=== PATIENT | female | born 1985 | race African-American/Black ===

== ENCOUNTER → 2018-03-12 | Outpatient (CLI) | payer OTHER, BC ==
[2014-05-02 18:45] VITALS: BP 137/90
--- NOTE | 2018-03-12 18:03 | KCIC ---
EXAM: Abdomen one view. HISTORY: Lower abdominal pain, constipation, nausea/vomiting. COMPARISON: None. FINDINGS: A frontal view of the abdomen is obtained. There are no distended small bowel loops. There is gas distally. Stool throughout the colon is consistent with constipation. There is a mild lumbar dextroscoliosis. IMPRESSION: 1. Findings consistent with mild constipation. No evidence of obstruction. Electronically signed by: Vasquez Mukherjee MD (03/12/2018 6:01 PM) [facility]
== END | disposition home or self-care (01) ==
LOC: KCIC 15:25
PROVIDERS: ATTEND Family Medicine
DX: K59.00 Constipation, unspecified (principal); M41.86 Other forms of scoliosis, lumbar region; R11.2 Nausea with vomiting, unspecified
CPT/HCPCS: 74018

== ENCOUNTER → 2018-03-20 | Outpatient (CLI) | payer OTHER, BC ==
[2014-05-02 18:45] VITALS: BP 137/90
--- NOTE | 2018-03-20 15:57 | KCIC ---
EXAM: Abdomen, 2 views. HISTORY: Pain. Constipation. COMPARISON: None. FINDINGS: Frontal upright and supine views of the abdomen are obtained. There is moderate colonic stool and large amount of colonic and small bowel gas. There is mild gaseous distention of the stomach. There is no free air. There is no clear transition point. IMPRESSION: 1. Distended air-filled loops of small bowel throughout the abdomen. This may be due to ileus or partial distal obstruction. 2. Moderate colonic stool. Electronically signed by: Bushra Ratliff MD (03/20/2018 3:54 PM) [place] [id number]
== END | disposition home or self-care (01) ==
LOC: KCIC 15:18
PROVIDERS: ATTEND Family Medicine
DX: R10.84 Generalized abdominal pain (principal)
CPT/HCPCS: 74021

== ENCOUNTER 2018-03-23 10:55 | Inpatient (IN) | payer BC, OTHER ==
[~2018-03-23] VITALS: Ht 165.1 cm; Wt 63.5 kg
[2018-03-23] VITALS (8 sets, daily range): BP systolic 94–138; BP diastolic 59–88
--- NOTE | 2018-03-23 11:21 | PHYS DOC ---
Past Medical History Past Medical History: No Pertinent History Past Surgical History: Other Additional Past Surgical Histo: left radial/ulnar repair Alcohol Use: Occasionally Drug Use: None Adult General Chief Complaint Chief Complaint: ABDOMINAL PAIN HPI HPI 32-year-old female presenting with periumbilical abdominal pain with a few episodes of nonbilious nonbloody emesis this started more than a week ago. Her pain is gotten worse over the past 4-5 days. Her vomiting was 2-3 days ago. She denies fevers or chills. She denies being . She is never had an abdominal surgery. She had x-rays performed in clinic which showed possible small bowel obstruction. Review of systems is negative for chest pain shortness of breath fevers or chills. All other review of systems is negative unless otherwise noted in history of present illness. ED course: 32-year-old female presenting with abdominal pain. On arrival the patient is saturating well on room air. Her heart rate is elevated at triage. Patient is given IV fluids. Blood work sent. CT abdomen pelvis ordered. CBC shows leukocytosis, mildly low potassium. Not . Urinalysis shows increased specific gravity with large blood moderate leuk esterase and negative nitrites. CT the abdomen pelvis shows 2 large rim-enhancing fluid collections in the pelvis suspicious for abscess either from ruptured appendicitis versus tubo-ovarian abscess. Also notedly having a small pneumothorax the right lung. Probable ileus versus partial small bowel obstruction on CT as well. Patient is nothing by mouth. I spoke with Dr. Richard our surgeon who came to see the patient. He thinks this is likely more related to [employer] more than ruptured appy. I spoke with Dr. Doll who evaluated the patient in the er. We will admit the patient to Dr. Doll. Dr. Richard will follow and saw the pt in the er as wall. I spoke with our blood splatter analyst who agrees with plan and thus far and will see the patient. We will place the patient in the intensive care unit for close monitoring. Further treatment of the pneumothorax given that it is small and not causing the patient to be hypoxic or in distress we will initiate [address] Doll will be responsible for order a repeat chest x-ray. Impression: 2 large rim-enhancing fluid collections, ruptured appendicitis versus tubo-ovarian abscess. Small pneumothorax at the right lung base. Tachycardia. Review of Systems Review of Systems SEE ABOVE. Current Medications Current Medications Current Medications Medications (Trade) Dose Ordered Sig/Frances Start Time Stop Time Status Last Admin Dose Admin Doxycycline Hyclate 100 mg/ Dextrose 100 ml @ 50 mls/hr 1X ONCE 03/23/18 13:30 03/23/18 15:29 03/23/18 14:32 50 MLS/HR Fentanyl Citrate (Fentanyl 2ml Vial) 50 mcg PRN Q30MIN PRN 03/23/18 11:45 03/23/18 14:33 DC 03/23/18 14:32 50 MCG Info (CONTRAST GIVEN -- Rx MONITORING) 1 each PRN DAILY PRN 03/23/18 12:00 03/25/18 11:59 Iohexol (Omnipaque 300 Mg/ml) 75 ml 1X ONCE 03/23/18 12:00 03/23/18 12:01 DC 03/23/18 12:30 75 ML Ondansetron HCl (Zofran) 4 mg 1X ONCE 03/23/18 11:45 03/23/18 11:46 DC 03/23/18 11:42 4 MG Piperacillin Sod/ Tazobactam Sod (Zosyn Per Pharmacy) 1 each PRN DAILY PRN 03/23/18 13:30 UNV Piperacillin Sod/ Tazobactam Sod 3.375 gm/Sodium Chloride 50 ml @ 100 mls/hr 1X ONCE 03/23/18 13:30 03/23/18 14:02 DC 03/23/18 13:48 100 MLS/HR Sodium Chloride 1,000 ml @ 1,000 mls/hr 1X ONCE 03/23/18 14:30 03/23/18 15:29 Allergies Allergies Allergies Coded Allergies Type Severity Reaction Last Updated Verified No Known Drug Allergies 05/02/14 No Physical Exam Physical Exam SEE ABOVE Constitutional: Well developed, well nourished, no acute distress, non-toxic appearance. HENT: Normocephalic, atraumatic, bilateral external ears normal, oropharynx moist, no oral exudates, nose normal. [] Eyes: PERRLA, EOMI, conjunctiva normal, no discharge. Neck: Normal range of motion, no tenderness, supple, no stridor. Cardiovascular:Heart rate regular rhythm, no murmur [] Lungs & Thorax: Bilateral breath sounds clear to auscultation [] Abdomen: Bowel sounds normal, soft, mild distention, mild ttp in the periumbilical region without guarding or rebound, no masses, no pulsatile masses. Skin: Warm, dry, no erythema, no rash. Back: No tenderness, no CVA tenderness. [] Extremities: No tenderness, no cyanosis, no clubbing, ROM intact, no edema. Neurologic: Alert and oriented X 3, normal motor function, normal sensory function, no focal deficits noted. [] Psychologic: Affect normal, judgement normal, mood normal. [] Current Patient Data Vital Signs Vital Signs Date Time Temp Pulse Resp B/P (MAP) Pulse Ox O2 Delivery O2 Flow Rate FiO2 03/23/18 14:32 20 03/23/18 13:00 102 129/81 (97) 99 Room Air 03/23/18 10:57 98.6 98.6 Lab Values Laboratory Tests Test 03/23/18 10:55 03/23/18 11:15 03/23/18 11:21 Urine Collection Type Void Urine Color Sultana Urine Clarity Cloudy Urine pH 6.0 Urine Specific Buckley >=1.030 Urine Protein 30 mg/dL (NEG-TRACE) Urine Glucose (UA) Negative mg/dL (NEG) Urine Ketones (Stick) 40 mg/dL (NEG) Urine Blood Large (NEG) Urine Nitrite Negative (NEG) Urine Bilirubin Small (NEG) Urine Urobilinogen Dipstick 0.2 mg/dL (0.2 mg/dL) Urine Leukocyte Esterase Moderate (NEG) Urine RBC 6-10 /HPF (0-2) Urine WBC 5-10 /HPF (0-4) Urine Squamous Epithelial Cells Mod /LPF Urine Amorphous Sediment Present /HPF Urine Bacteria Few /HPF (0-FEW) Urine Mucus Marked /LPF Serum Test, Qualitative Negative (NEG) White Blood Count 14.6 x10^3/uL (4.0-11.0) H Red Blood Count 4.42 x10^6/uL (3.50-5.40) Hemoglobin 14.5 g/dL (12.0-15.5) Hematocrit 42.7 % (36.0-47.0) Mean Corpuscular Volume 96 fL (79-100) Mean Corpuscular Hemoglobin 33 pg (25-35) Mean Corpuscular Hemoglobin Concent 34 g/dL (31-37) Red Cell Distribution Width 14.1 % (11.5-14.5) Platelet Count 309 x10^3/uL (140-400) Neutrophils (%) (Auto) 78 % (31-73) H Lymphocytes (%) (Auto) 6 % (24-48) L Monocytes (%) (Auto) 15 % (0-9) H Eosinophils (%) (Auto) 0 % (0-3) Basophils (%) (Auto) 0 % (0-3) Neutrophils # (Auto) 11.4 x10^3uL (1.8-7.7) H Lymphocytes # (Auto) 0.9 x10^3/uL (1.0-4.8) L Monocytes # (Auto) 2.2 x10^3/uL (0.0-1.1) H Eosinophils # (Auto) 0.0 x10^3/uL (0.0-0.7) Basophils # (Auto) 0.0 x10^3/uL (0.0-0.2) Segmented Neutrophils % 65 % (35-66) Band Neutrophils % 8 % (0-9) Lymphocytes % 14 % (24-48) L Monocytes % 13 % (0-10) H Platelet Estimate Adequate (ADEQUATE) Sodium Level 137 mmol/L (136-145) Potassium Level 3.3 mmol/L (3.5-5.1) L Chloride Level 99 mmol/L (98-107) Carbon Dioxide Level 31 mmol/L (21-32) Anion Gap 7 (6-14) Blood Urea Nitrogen 9 mg/dL (7-20) Creatinine 0.8 mg/dL (0.6-1.0) Estimated GFR (Cockcroft-Gault) 100.6 BUN/Creatinine Ratio 11 (6-20) Glucose Level 104 mg/dL (70-99) H Calcium Level 9.4 mg/dL (8.5-10.1) Total Bilirubin 0.4 mg/dL (0.2-1.0) Aspartate Amino Transferase (AST) 17 U/L (15-37) Alanine Aminotransferase (ALT) 21 U/L (14-59) Alkaline Phosphatase 83 U/L (46-116) Total Protein 7.5 g/dL (6.4-8.2) Albumin 2.9 g/dL (3.4-5.0) L Albumin/Globulin Ratio 0.6 (1.0-1.7) L Lipase 63 U/L (73-393) L POC Urine HCG, Qualitative Hcg negative (Negative) Laboratory Tests 03/23/18 11:15 Laboratory Tests 03/23/18 11:15 EKG EKG [] Radiology/Procedures Radiology/Procedures [] Course & Med Decision Making Course & Med Decision Making Pertinent Labs and Imaging studies reviewed. (See chart for details) [] Dragon Disclaimer Dragon Disclaimer This electronic medical record was generated, in whole or in part, using a voice recognition dictation system. Departure Departure Impression: Primary Impression: Abdominal pain Disposition: ADMITTED INPATIENT Condition: GUARDED Referrals: JOSE ALEJANDRO VILLA MD (PCP) MIRANDA VALLE MD Mar 23, 2018 11:21
[2018-03-23 11:28] LABS: BASO % 0 % (0-3); EOS % 0 % (0-3); HEMATOCRIT 42.7 % (36.0-47.0); HEMOGLOBIN 14.5 g/dL (12.0-15.5); LYMPH # 0.9 x10^3/uL (1.0-4.8); LYMPH % 6 % (24-48); MEAN CORPUSCULAR HEMOGLOBIN 33 pg (25-35); MEAN CORPUSCULAR HGB CONC 34 g/dL (31-37); MEAN CORPUSCULAR VOLUME 96 fL (79-100); MONO # 2.2 x10^3/uL (0.0-1.1); MONO % 15 % (0-9); NEUT # 11.4 x10^3uL (1.8-7.7); NEUT % 78 % (31-73); PLATELET COUNT 309 x10^3/uL (140-400); RED BLOOD COUNT 4.42 x10^6/uL (3.50-5.40); RED CELL DISTRIBUTION WIDTH 14.1 % (11.5-14.5); WHITE BLOOD COUNT 14.6 x10^3/uL (4.0-11.0)
[2018-03-23 11:29] LABS: BILIRUBIN,URINE SMALL (NEG); CLARITY,URINE CLOUDY; COLOR,URINE AMBER; NITRITE,URINE NEGATIVE (NEG); PROTEIN,URINE 30 mg/dL (NEG-TRACE); UROBILINOGEN,URINE 0.2 mg/dL (0.2 mg/dL)
[2018-03-23] MEDS ORDERED: IV NORMAL SALINE 1000ML BAG 1,000 ML IV SCH (11:31)
[2018-03-23 11:34] LABS: CALCIUM 9.4 mg/dL (8.5-10.1); CREATININE 0.8 mg/dL (0.6-1.0); GFR 100.6; POTASSIUM 3.3 mmol/L (3.5-5.1)
[2018-03-23 11:39] LABS: PREG TEST PT QUAL NEGATIVE (NEG)
[2018-03-23 11:40] LABS: ALBUMIN 2.9 g/dL (3.4-5.0); ALBUMIN/GLOBULIN RATIO 0.6 (1.0-1.7); TOTAL BILIRUBIN 0.4 mg/dL (0.2-1.0); TOTAL PROTEIN 7.5 g/dL (6.4-8.2)
[2018-03-23] MEDS: fentaNYL PF VIAL 100 MCG/2 ML VIAL IV PRN ×3 (11:42→14:32)
[2018-03-23] MEDS ORDERED: ONDANSETRON PF 4 MG/2 ML VIAL. IV ONE (11:45)
[2018-03-23 11:53] LABS: AMORPHOUS SEDIMENT,UR PRESENT /HPF; BACTERIA,URINE FEW /HPF (0-FEW); SQUAMOUS EPITHELIAL CELL,UR MOD /LPF
[2018-03-23] MEDS ORDERED: CONTRAST GIVEN. MC PRN (12:00)
[2018-03-23] MEDS ORDERED: IOHEXOL 300 MG/ML 100ML VIAL. IV ONE (12:00)
[2018-03-23 13:04] LABS: % BANDS 8 % (0-9); % LYMPHS 14 % (24-48); % MONOS 13 % (0-10); % SEGS 65 % (35-66); PLT ESTIMATE ADEQUATE (ADEQUATE)
[2018-03-23] MEDS ORDERED: PIPERACILLIN/TAZOBACTAM 3.375 GM in IV NORMAL SALINE 50ML 50 ML IV ONE (13:30)
[2018-03-23] MEDS ORDERED: PIP/TAZO PER PHARMACY MC PRN ×2 (13:30→15:30)
[2018-03-23] MEDS ORDERED: DOXYCYCLINE HYCLATE 100 MG in IV DEXTROSE 5% 100ML 100 ML IV ONE (13:30)
--- NOTE | 2018-03-23 13:34 | RAD ---
CT ABD PELV W/ IV CONTRST ONLY dated 03/23/2018 12:27 PM Indication: Abdominal pain.ABD PAIN, EVAL FOR SBO, OR APPY. Comparison: No comparison is available. Technique: Contiguous axial imaging of the abdomen and pelvis performed after the intravenous administration of 75 cc Omnipaque 300. No oral contrast administered. One or more of the following individualized dose reduction techniques were utilized for this examination: 1. Automated exposure control 2. Adjustment of the mA and/or kV according to patient size 3. Use of iterative reconstruction technique Findings: There are 2 fairly well defined large rim-enhancing fluid collections in the pelvis that appear to be intraperitoneal in location. The collection anteriorly measures approximately 3.5 x 11.3 x 11.1 cm. The collection located more posteriorly measures 8.3 x 8.3 x 9.5 cm. There are additional smaller rim-enhancing fluid collections posteriorly toward the right which are smaller and tubular in appearance. There is a tubular collection that extends to the right lower quadrant near the level of the cecal tip (coronal images 16 through 23) The urinary bladder is collapsed. There is a small amount of free fluid. There is some loculated fluid along the liver edge. Uterus is unremarkable. Neither ovary is clearly identified. No free air. Proximal small bowel is mildly dilated and fluid-filled. No definite small bowel wall thickening. There is mild wall thickening involving the sigmoid and descending colon. Mild scattered mesenteric lymphadenopathy. No significant retroperitoneal adenopathy. There is some mild thickening and nodularity along the peritoneal surfaces. Liver, spleen, pancreas, adrenal glands and kidneys are unremarkable. There is a small well-defined low-density focus at the upper pole right kidney, most consistent with cyst. There is also a tiny low-density focus in the central liver, likely cyst. No hydronephrosis. The gallbladder is unremarkable. Images of the lung bases show small pleural effusion on the left with pleural thickening. There is a small right-sided pneumothorax. Bone windows show no acute findings. IMPRESSION: 1. Two large rim-enhancing fluid collections in the pelvis, suspicious for abscess. The exact source is uncertain, although ruptured appendicitis or tubo-ovarian abscess would be the most likely considerations. 2. Small amount of free fluid with enhancement and nodularity along the peritoneal surfaces, suggestive of active peritonitis. Underlying ovarian malignancy with early pseudomyxoma peritonei is considered unlikely but cannot be completely excluded. 3. Small pneumothorax at the right base, of uncertain etiology. In the absence of known trauma, spontaneous pneumothorax or catamenial pneumothorax should be considered. Correlation for history of endometriosis. A chest CT may provide additional information. 4. Mildly dilated fluid-filled small bowel, likely related to ileus. Partial small bowel obstruction not excluded. There is some mild wall thickening of distal small bowel loops and colonic loops, likely reactive. 5. Borderline enlarged mesenteric lymph nodes, likely reactive. Results discussed with ER physician at approximately 1:30 PM on the day of the exam. Electronically signed by: Yariel Bernabe MD (03/23/2018 1:31 PM) [email or web address]
--- NOTE | 2018-03-23 14:00 | PDOC2 ---
CONSULT Date of Consult Date of Consult DATE: 03/23/18 TIME: 13:55 Reason for Consult Reason for Consult: Abdominal pain Referring Physician Referring Physician: Sharmila Identification/Chief Complaint Chief Complaint Abdominal pain with nausea vomiting Source Source: Patient History of Present Illness Reason for Visit: 32-year-old female who's had two-week history of constipation worsening over the last 4-5 days with increasing abdominal pain and nausea with vomiting. She just finished her menstrual cycle this week no history of endometriosis. No family history of ovarian cancer. Past Medical History Cardiovascular: No pertinent hx Pulmonary: No pertinent hx GI: No pertinent hx Heme/Onc: No pertinent hx Hepatobiliary: No pertinent hx Psych: No pertinent hx Rheumatologic: No pertinent hx Infectious disease: No pertinent hx ENT: No pertinent hx Renal/: No pertinent hx Endocrine: No pertinent hx Dermatology: No pertinent hx Past Surgical History Past Surgical History: Other (ulnar repair) Family History Family History: Cancer Social History No ALCOHOL: occassional Drugs: None Lives: with Family Current Problem List Problem List Problems Medical Problems: (1) Abdominal pain Status: Acute Current Medications Current Medications Current Medications Fentanyl Citrate (Fentanyl 2ml Vial) 50 mcg PRN Q30MIN PRN IV SEVERE PAIN Last administered on 03/23/18at 13:11; Start 03/23/18 at 11:45 Sodium Chloride 1,000 ml @ 1,000 mls/hr Q1H IV Last administered on at 11:42; Start 03/23/18 at 11:31; Stop 03/23/18 at 12:30; Status DC Ondansetron HCl (Zofran) 4 mg 1X ONCE IV Last administered on 03/23/18at 11:42 ; Start 03/23/18 at 11:45; Stop 03/23/18 at 11:46; Status DC Iohexol (Omnipaque 300 Mg/ml) 75 ml 1X ONCE IV Last administered on at 12:30; Start 03/23/18 at 12:00; Stop 03/23/18 at 12:01; Status DC Info (CONTRAST GIVEN -- Rx MONITORING) 1 each PRN DAILY PRN MC SEE COMMENTS; Start 03/23/18 at 12:00; Stop 03/25/18 at 11:59 Piperacillin Sod/ Tazobactam Sod (Zosyn Per Pharmacy) 1 each PRN DAILY PRN MC SEE COMMENTS; Start 03/23/18 at 13:30; Status UNV Doxycycline Hyclate 100 mg/ Dextrose 100 ml @ 50 mls/hr 1X ONCE IV ; Start at 13:30; Stop 03/23/18 at 15:29 Piperacillin Sod/ Tazobactam Sod 3.375 gm/Sodium Chloride 50 ml @ 100 mls/hr 1X ONCE IV Last administered on 03/23/18at 13:48; Start 03/23/18 at 13:30; Stop 03/23/18 at 13:59 Allergies Allergies: Coded Allergies: No Known Drug Allergies (Unverified , 05/02/14) ROS Gastrointestinal: Yes Nausea, Yes Vomiting, Yes Abdominal Pain Physical Exam General: Alert, Oriented X3, Cooperative, mild distress HEENT: Atraumatic, PERRLA, EOMI Lungs: Clear to auscultation, Normal air movement Heart: Regular rate, No murmurs Abdomen: Normal bowel sounds, Soft, Other (mildly distended tender to palpation periumbilical and low midline) Extremities: No edema Skin: No significant lesion Neuro: Normal speech Psych/Mental Status: Mental status NL Vitals VITALS Vital Signs Date Time Temp Pulse Resp B/P (MAP) Pulse Ox O2 Delivery O2 Flow Rate FiO2 03/23/18 13:11 20 03/23/18 13:00 102 129/81 (97) 99 Room Air 03/23/18 10:57 98.6 98.6 Labs Labs Laboratory Tests Test 03/23/18 10:55 03/23/18 11:15 03/23/18 11:21 Urine Collection Type Void Urine Color Sultana Urine Clarity Cloudy Urine pH 6.0 Urine Specific Lando >=1.030 Urine Protein 30 mg/dL (NEG-TRACE) Urine Glucose (UA) Negative mg/dL (NEG) Urine Ketones (Stick) 40 mg/dL (NEG) Urine Blood Large (NEG) Urine Nitrite Negative (NEG) Urine Bilirubin Small (NEG) Urine Urobilinogen Dipstick 0.2 mg/dL (0.2 mg/dL) Urine Leukocyte Esterase Moderate (NEG) Urine RBC 6-10 /HPF (0-2) Urine WBC 5-10 /HPF (0-4) Urine Squamous Epithelial Cells Mod /LPF Urine Amorphous Sediment Present /HPF Urine Bacteria Few /HPF (0-FEW) Urine Mucus Marked /LPF Serum Test, Qualitative Negative (NEG) White Blood Count 14.6 x10^3/uL (4.0-11.0) Red Blood Count 4.42 x10^6/uL (3.50-5.40) Hemoglobin 14.5 g/dL (12.0-15.5) Hematocrit 42.7 % (36.0-47.0) Mean Corpuscular Volume 96 fL (79-100) Mean Corpuscular Hemoglobin 33 pg (25-35) Mean Corpuscular Hemoglobin Concent 34 g/dL (31-37) Red Cell Distribution Width 14.1 % (11.5-14.5) Platelet Count 309 x10^3/uL (140-400) Neutrophils (%) (Auto) 78 % (31-73) Lymphocytes (%) (Auto) 6 % (24-48) Monocytes (%) (Auto) 15 % (0-9) Eosinophils (%) (Auto) 0 % (0-3) Basophils (%) (Auto) 0 % (0-3) Neutrophils # (Auto) 11.4 x10^3uL (1.8-7.7) Lymphocytes # (Auto) 0.9 x10^3/uL (1.0-4.8) Monocytes # (Auto) 2.2 x10^3/uL (0.0-1.1) Eosinophils # (Auto) 0.0 x10^3/uL (0.0-0.7) Basophils # (Auto) 0.0 x10^3/uL (0.0-0.2) Segmented Neutrophils % 65 % (35-66) Band Neutrophils % 8 % (0-9) Lymphocytes % 14 % (24-48) Monocytes % 13 % (0-10) Platelet Estimate Adequate (ADEQUATE) Sodium Level 137 mmol/L (136-145) Potassium Level 3.3 mmol/L (3.5-5.1) Chloride Level 99 mmol/L (98-107) Carbon Dioxide Level 31 mmol/L (21-32) Anion Gap 7 (6-14) Blood Urea Nitrogen 9 mg/dL (7-20) Creatinine 0.8 mg/dL (0.6-1.0) Estimated GFR (Cockcroft-Gault) 100.6 BUN/Creatinine Ratio 11 (6-20) Glucose Level 104 mg/dL (70-99) Calcium Level 9.4 mg/dL (8.5-10.1) Total Bilirubin 0.4 mg/dL (0.2-1.0) Aspartate Amino Transf (AST/SGOT) 17 U/L (15-37) Alanine Aminotransferase (ALT/SGPT) 21 U/L (14-59) Alkaline Phosphatase 83 U/L (46-116) Total Protein 7.5 g/dL (6.4-8.2) Albumin 2.9 g/dL (3.4-5.0) Albumin/Globulin Ratio 0.6 (1.0-1.7) Lipase 63 U/L (73-393) Bedside Urine HCG, Qualitative Hcg negative (Negative) Laboratory Tests Test 03/23/18 10:55 03/23/18 11:15 03/23/18 11:21 Urine Collection Type Void Urine Color Sultana Urine Clarity Cloudy Urine pH 6.0 Urine Specific Lando >=1.030 Urine Protein 30 mg/dL (NEG-TRACE) Urine Glucose (UA) Negative mg/dL (NEG) Urine Ketones (Stick) 40 mg/dL (NEG) Urine Blood Large (NEG) Urine Nitrite Negative (NEG) Urine Bilirubin Small (NEG) Urine Urobilinogen Dipstick 0.2 mg/dL (0.2 mg/dL) Urine Leukocyte Esterase Moderate (NEG) Urine RBC 6-10 /HPF (0-2) Urine WBC 5-10 /HPF (0-4) Urine Squamous Epithelial Cells Mod /LPF Urine Amorphous Sediment Present /HPF Urine Bacteria Few /HPF (0-FEW) Urine Mucus Marked /LPF Serum Test, Qualitative Negative (NEG) White Blood Count 14.6 x10^3/uL (4.0-11.0) Red Blood Count 4.42 x10^6/uL (3.50-5.40) Hemoglobin 14.5 g/dL (12.0-15.5) Hematocrit 42.7 % (36.0-47.0) Mean Corpuscular Volume 96 fL (79-100) Mean Corpuscular Hemoglobin 33 pg (25-35) Mean Corpuscular Hemoglobin Concent 34 g/dL (31-37) Red Cell Distribution Width 14.1 % (11.5-14.5) Platelet Count 309 x10^3/uL (140-400) Neutrophils (%) (Auto) 78 % (31-73) Lymphocytes (%) (Auto) 6 % (24-48) Monocytes (%) (Auto) 15 % (0-9) Eosinophils (%) (Auto) 0 % (0-3) Basophils (%) (Auto) 0 % (0-3) Neutrophils # (Auto) 11.4 x10^3uL (1.8-7.7) Lymphocytes # (Auto) 0.9 x10^3/uL (1.0-4.8) Monocytes # (Auto) 2.2 x10^3/uL (0.0-1.1) Eosinophils # (Auto) 0.0 x10^3/uL (0.0-0.7) Basophils # (Auto) 0.0 x10^3/uL (0.0-0.2) Segmented Neutrophils % 65 % (35-66) Band Neutrophils % 8 % (0-9) Lymphocytes % 14 % (24-48) Monocytes % 13 % (0-10) Platelet Estimate Adequate (ADEQUATE) Sodium Level 137 mmol/L (136-145) Potassium Level 3.3 mmol/L (3.5-5.1) Chloride Level 99 mmol/L (98-107) Carbon Dioxide Level 31 mmol/L (21-32) Anion Gap 7 (6-14) Blood Urea Nitrogen 9 mg/dL (7-20) Creatinine 0.8 mg/dL (0.6-1.0) Estimated GFR (Cockcroft-Gault) 100.6 BUN/Creatinine Ratio 11 (6-20) Glucose Level 104 mg/dL (70-99) Calcium Level 9.4 mg/dL (8.5-10.1) Total Bilirubin 0.4 mg/dL (0.2-1.0) Aspartate Amino Transf (AST/SGOT) 17 U/L (15-37) Alanine Aminotransferase (ALT/SGPT) 21 U/L (14-59) Alkaline Phosphatase 83 U/L (46-116) Total Protein 7.5 g/dL (6.4-8.2) Albumin 2.9 g/dL (3.4-5.0) Albumin/Globulin Ratio 0.6 (1.0-1.7) Lipase 63 U/L (73-393) Bedside Urine HCG, Qualitative Hcg negative (Negative) Images Images CT scan of the abdomen and pelvis showing 2 large fluid collections low in the midline pelvis as well as some nodules on the pleura with a small pneumothorax Assessment/Plan Assessment/Plan Pelvic fluid collection possible malignancy Awaiting [employer]AL [employer]ICATION 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
--- NOTE | 2018-03-23 14:25 | RAD ---
CHEST AP ONLY dated 03/23/2018 2:01 PM. Comparison: CT abdomen pelvis dated same day. Clinical Indication: ABDOMINAL PAIN, CONSTIPATION X2 WEEKS. Findings: Single upright portable exam performed. Heart and mediastinal contours within normal limits. There is a small apical pneumothorax on the right measures about 1.8 cm from the pleural edge to the apical chest wall. No pneumothorax on the left. The lungs are otherwise clear. No pleural effusion. Mildly dilated loops of bowel, unchanged. Impression: Small right apical pneumothorax. Electronically signed by: Yariel Bernabe MD (03/23/2018 2:22 PM) [email or web address]
[2018-03-23] MEDS ORDERED: IV NORMAL SALINE 1000ML BAG 1,000 ML IV ONE (14:30)
[2018-03-23] MEDS ORDERED: DOCUSATE SODIUM 100 MG CAPSULE. PO PRN (15:30)
[2018-03-23] MEDS ORDERED: MORPHINE SULFATE 2 MG/ML VIAL. IV PRN (15:30)
[2018-03-23] MEDS ORDERED: ACETAMINOPHEN 325 MG TABLET. PO PRN (15:30)
--- NOTE | 2018-03-23 15:37 | PDOC1 ---
History and Physical Date of Admission Date of Admission 03/23/18 Identification/Chief Complaint Chief Complaint abd pain Source Source: Chart review, Patient History of Present Illness History of Present Illness HPI HPI 32-year-old female presenting with periumbilical abdominal pain fro 2 weeks, and N/V for 4ds. Pt was pretty healthy, no PMH. Pt started to have diffuse abd pain 2 weeks ago, constant, move and changing positions makes it worse. The pain is dull, 5/10, no radiation. worse for 4ds. She also has N/V 3 times on Monday, non bloody or brad. has severe abd distention. denies fever, has chills, no cough, has mild sob on Monday. no chest pain. had one time diarrhea yesterday, yellow. She had x-rays performed in clinic which showed possible small bowel obstruction. CT showed abd has Two large rim-enhancing fluid collections in the pelvis, suspicious for abscess. The exact source is uncertain, although ruptured appendicitis or tubo-ovarian abscess would be the most likely considerations. and small rt pneumothorax. Past Medical History Cardiovascular: No pertinent hx Pulmonary: No pertinent hx GI: No pertinent hx Heme/Onc: No pertinent hx Hepatobiliary: No pertinent hx Psych: No pertinent hx Rheumatologic: No pertinent hx Infectious disease: No pertinent hx ENT: No pertinent hx Renal/: No pertinent hx Endocrine: No pertinent hx Dermatology: No pertinent hx Past Surgical History Past Surgical History: Other (ulnar repair) Family History Family History: Cancer Social History Smoke: No ALCOHOL: occassional Drugs: None Current Problem List Problem List Problems Medical Problems: (1) Abdominal pain Status: Acute Current Medications Current Medications Current Medications Medications (Trade) Dose Ordered Sig/Frances Start Time Stop Time Status Last Admin Dose Admin Doxycycline Hyclate 100 mg/ Dextrose 100 ml @ 50 mls/hr 1X ONCE 03/23/18 13:30 03/23/18 15:29 03/23/18 14:32 50 MLS/HR Fentanyl Citrate (Fentanyl 2ml Vial) 50 mcg PRN Q30MIN PRN 03/23/18 11:45 03/23/18 14:33 DC 03/23/18 14:32 50 MCG Info (CONTRAST GIVEN -- Rx MONITORING) 1 each PRN DAILY PRN 03/23/18 12:00 03/25/18 11:59 Iohexol (Omnipaque 300 Mg/ml) 75 ml 1X ONCE 03/23/18 12:00 03/23/18 12:01 DC 03/23/18 12:30 75 ML Ondansetron HCl (Zofran) 4 mg 1X ONCE 03/23/18 11:45 03/23/18 11:46 DC 03/23/18 11:42 4 MG Piperacillin Sod/ Tazobactam Sod (Zosyn Per Pharmacy) 1 each PRN DAILY PRN 03/23/18 13:30 UNV Piperacillin Sod/ Tazobactam Sod 3.375 gm/Sodium Chloride 50 ml @ 100 mls/hr 1X ONCE 03/23/18 13:30 03/23/18 14:02 DC 03/23/18 13:48 100 MLS/HR Sodium Chloride 1,000 ml @ 1,000 mls/hr 1X ONCE 03/23/18 14:30 03/23/18 15:29 Allergies Allergies Allergies Coded Allergies Type Severity Reaction Last Updated Verified No Known Drug Allergies 05/02/14 No ROS Review of System CONSTITUTIONAL: No fever or chills EYES: No recent changes SKIN: No rash or itching CARDIOVASCULAR: No chest pain, syncope, palpitations, or edema RESPIRATORY: No SOB or cough GASTROINTESTINAL: No nausea, vomiting or abdominal pain NEUROLOGICAL: No headaches or weakness ENDOCRINE: No cold or heat intolerance GENITOURINARY: No urgency or frequency of urination MUSCULOSKELETAL: No back pain or joint pain LYMPHATICS: No enlarged lymph nodes PSYCHIATRIC: No anxiety or depression Physical Exam Physical Exam GEN.: No apparent distress. Alert and oriented. HEENT: Head is normocephalic, atraumatic NECK: Supple. LUNGS: Clear to auscultation. HEART: RRR, S1, S2 present. Peripheral pulses intact ABDOMEN: Soft, Positive bowel sounds. severe distended, diffuse tender with guarding. EXTREMITIES: Without any cyanosis. NEUROLOGIC: Normal speech, normal tone PSYCHIATRIC: Normal affect, normal mood. SKIN: No ulcerations Vitals Vitals Vital Signs Date Time Temp Pulse Resp B/P (MAP) Pulse Ox O2 Delivery O2 Flow Rate FiO2 03/23/18 14:32 20 03/23/18 13:00 102 129/81 (97) 99 Room Air 03/23/18 10:57 98.6 98.6 Labs Labs Laboratory Tests Test 03/23/18 10:55 03/23/18 11:15 03/23/18 11:21 Urine Collection Type Void Urine Color Sultana Urine Clarity Cloudy Urine pH 6.0 Urine Specific [place] >=1.030 Urine Protein 30 mg/dL (NEG-TRACE) Urine Glucose (UA) Negative mg/dL (NEG) Urine Ketones (Stick) 40 mg/dL (NEG) Urine Blood Large (NEG) Urine Nitrite Negative (NEG) Urine Bilirubin Small (NEG) Urine Urobilinogen Dipstick 0.2 mg/dL (0.2 mg/dL) Urine Leukocyte Esterase Moderate (NEG) Urine RBC 6-10 /HPF (0-2) Urine WBC 5-10 /HPF (0-4) Urine Squamous Epithelial Cells Mod /LPF Urine Amorphous Sediment Present /HPF Urine Bacteria Few /HPF (0-FEW) Urine Mucus Marked /LPF Serum Test, Qualitative Negative (NEG) White Blood Count 14.6 x10^3/uL (4.0-11.0) Red Blood Count 4.42 x10^6/uL (3.50-5.40) Hemoglobin 14.5 g/dL (12.0-15.5) Hematocrit 42.7 % (36.0-47.0) Mean Corpuscular Volume 96 fL (79-100) Mean Corpuscular Hemoglobin 33 pg (25-35) Mean Corpuscular Hemoglobin Concent 34 g/dL (31-37) Red Cell Distribution Width 14.1 % (11.5-14.5) Platelet Count 309 x10^3/uL (140-400) Neutrophils (%) (Auto) 78 % (31-73) Lymphocytes (%) (Auto) 6 % (24-48) Monocytes (%) (Auto) 15 % (0-9) Eosinophils (%) (Auto) 0 % (0-3) Basophils (%) (Auto) 0 % (0-3) Neutrophils # (Auto) 11.4 x10^3uL (1.8-7.7) Lymphocytes # (Auto) 0.9 x10^3/uL (1.0-4.8) Monocytes # (Auto) 2.2 x10^3/uL (0.0-1.1) Eosinophils # (Auto) 0.0 x10^3/uL (0.0-0.7) Basophils # (Auto) 0.0 x10^3/uL (0.0-0.2) Segmented Neutrophils % 65 % (35-66) Band Neutrophils % 8 % (0-9) Lymphocytes % 14 % (24-48) Monocytes % 13 % (0-10) Platelet Estimate Adequate (ADEQUATE) Sodium Level 137 mmol/L (136-145) Potassium Level 3.3 mmol/L (3.5-5.1) Chloride Level 99 mmol/L (98-107) Carbon Dioxide Level 31 mmol/L (21-32) Anion Gap 7 (6-14) Blood Urea Nitrogen 9 mg/dL (7-20) Creatinine 0.8 mg/dL (0.6-1.0) Estimated GFR (Cockcroft-Gault) 100.6 BUN/Creatinine Ratio 11 (6-20) Glucose Level 104 mg/dL (70-99) Calcium Level 9.4 mg/dL (8.5-10.1) Total Bilirubin 0.4 mg/dL (0.2-1.0) Aspartate Amino Transf (AST/SGOT) 17 U/L (15-37) Alanine Aminotransferase (ALT/SGPT) 21 U/L (14-59) Alkaline Phosphatase 83 U/L (46-116) Total Protein 7.5 g/dL (6.4-8.2) Albumin 2.9 g/dL (3.4-5.0) Albumin/Globulin Ratio 0.6 (1.0-1.7) Lipase 63 U/L (73-393) Bedside Urine HCG, Qualitative Hcg negative (Negative) Laboratory Tests Test 03/23/18 10:55 03/23/18 11:15 03/23/18 11:21 Urine Collection Type Void Urine Color Sultana Urine Clarity Cloudy Urine pH 6.0 Urine Specific [place] >=1.030 Urine Protein 30 mg/dL (NEG-TRACE) Urine Glucose (UA) Negative mg/dL (NEG) Urine Ketones (Stick) 40 mg/dL (NEG) Urine Blood Large (NEG) Urine Nitrite Negative (NEG) Urine Bilirubin Small (NEG) Urine Urobilinogen Dipstick 0.2 mg/dL (0.2 mg/dL) Urine Leukocyte Esterase Moderate (NEG) Urine RBC 6-10 /HPF (0-2) Urine WBC 5-10 /HPF (0-4) Urine Squamous Epithelial Cells Mod /LPF Urine Amorphous Sediment Present /HPF Urine Bacteria Few /HPF (0-FEW) Urine Mucus Marked /LPF Serum Test, Qualitative Negative (NEG) White Blood Count 14.6 x10^3/uL (4.0-11.0) Red Blood Count 4.42 x10^6/uL (3.50-5.40) Hemoglobin 14.5 g/dL (12.0-15.5) Hematocrit 42.7 % (36.0-47.0) Mean Corpuscular Volume 96 fL (79-100) Mean Corpuscular Hemoglobin 33 pg (25-35) Mean Corpuscular Hemoglobin Concent 34 g/dL (31-37) Red Cell Distribution Width 14.1 % (11.5-14.5) Platelet Count 309 x10^3/uL (140-400) Neutrophils (%) (Auto) 78 % (31-73) Lymphocytes (%) (Auto) 6 % (24-48) Monocytes (%) (Auto) 15 % (0-9) Eosinophils (%) (Auto) 0 % (0-3) Basophils (%) (Auto) 0 % (0-3) Neutrophils # (Auto) 11.4 x10^3uL (1.8-7.7) Lymphocytes # (Auto) 0.9 x10^3/uL (1.0-4.8) Monocytes # (Auto) 2.2 x10^3/uL (0.0-1.1) Eosinophils # (Auto) 0.0 x10^3/uL (0.0-0.7) Basophils # (Auto) 0.0 x10^3/uL (0.0-0.2) Segmented Neutrophils % 65 % (35-66) Band Neutrophils % 8 % (0-9) Lymphocytes % 14 % (24-48) Monocytes % 13 % (0-10) Platelet Estimate Adequate (ADEQUATE) Sodium Level 137 mmol/L (136-145) Potassium Level 3.3 mmol/L (3.5-5.1) Chloride Level 99 mmol/L (98-107) Carbon Dioxide Level 31 mmol/L (21-32) Anion Gap 7 (6-14) Blood Urea Nitrogen 9 mg/dL (7-20) Creatinine 0.8 mg/dL (0.6-1.0) Estimated GFR (Cockcroft-Gault) 100.6 BUN/Creatinine Ratio 11 (6-20) Glucose Level 104 mg/dL (70-99) Calcium Level 9.4 mg/dL (8.5-10.1) Total Bilirubin 0.4 mg/dL (0.2-1.0) Aspartate Amino Transf (AST/SGOT) 17 U/L (15-37) Alanine Aminotransferase (ALT/SGPT) 21 U/L (14-59) Alkaline Phosphatase 83 U/L (46-116) Total Protein 7.5 g/dL (6.4-8.2) Albumin 2.9 g/dL (3.4-5.0) Albumin/Globulin Ratio 0.6 (1.0-1.7) Lipase 63 U/L (73-393) Bedside Urine HCG, Qualitative Hcg negative (Negative) VTE Prophylaxis Ordered VTE Prophylaxis Devices: Yes VTE Pharmacological Prophylaxi: No Assessment/Plan Assessment/Plan abd pain with [address] big [address] collection in CT, could 2/2 abcess with organ rupture or malignancy possible sepsis mild malnutrition small rt pneumothorax hypokalemia plan: sx, ob, pulm , ID consult NC as needed npo Alhaji werner for now, fu bcx pt likely need abd sx pain control dvt gi ppx CXR TMR VENUS HUDSON MD Mar 23, 2018 15:37
--- NOTE | 2018-03-23 16:31 | PDOC2 ---
CONSULT Date of Consult Date of Consult DATE: 03/23/18 TIME: 16:24 Reason for Consult Reason for Consult: abd abscesses Referring Physician Referring Physician: Dr. Doll Identification/Chief Complaint Chief Complaint Abd pain, distention and night sweats. Source Source: Patient History of Present Illness Reason for Visit: 32 y/o G0 presented to ED with c/o abd distention, abd pain and night sweats for past 3 days. She is in process of conception with NIRANJAN. She has HSG in February that revealed 1 patent tube and questionable other tube per patient. She has h/o Chlamydia a few years ago that was treated. CT scan results and labs discussed with patient. Plan for IV abx and exploratory laparotomy early next week. Past Medical History Cardiovascular: No pertinent hx Pulmonary: No pertinent hx GI: No pertinent hx Heme/Onc: No pertinent hx Hepatobiliary: No pertinent hx Psych: No pertinent hx Rheumatologic: No pertinent hx Infectious disease: No pertinent hx ENT: No pertinent hx Renal/: No pertinent hx Endocrine: No pertinent hx Dermatology: No pertinent hx Past Surgical History Past Surgical History: Other (ulnar repair) Family History Family History: Cancer Social History No ALCOHOL: occassional Drugs: None Lives: with Family Current Problem List Problem List Problems Medical Problems: (1) Abdominal pain Status: Acute Current Medications Current Medications Current Medications Fentanyl Citrate (Fentanyl 2ml Vial) 50 mcg PRN Q30MIN PRN IV SEVERE PAIN Last administered on 03/23/18at 14:32; Start 03/23/18 at 11:45; Stop 03/23/18 at 14 :33; Status DC Sodium Chloride 1,000 ml @ 1,000 mls/hr Q1H IV Last administered on at 11:42; Start 03/23/18 at 11:31; Stop 03/23/18 at 12:30; Status DC Ondansetron HCl (Zofran) 4 mg 1X ONCE IV Last administered on 03/23/18at 11:42 ; Start 03/23/18 at 11:45; Stop 03/23/18 at 11:46; Status DC Iohexol (Omnipaque 300 Mg/ml) 75 ml 1X ONCE IV Last administered on at 12:30; Start 03/23/18 at 12:00; Stop 03/23/18 at 12:01; Status DC Info (CONTRAST GIVEN -- Rx MONITORING) 1 each PRN DAILY PRN MC SEE COMMENTS; Start 03/23/18 at 12:00; Stop 03/25/18 at 11:59 Piperacillin Sod/ Tazobactam Sod (Zosyn Per Pharmacy) 1 each PRN DAILY PRN MC SEE COMMENTS; Start 03/23/18 at 13:30; Status UNV Doxycycline Hyclate 100 mg/ Dextrose 100 ml @ 50 mls/hr 1X ONCE IV Last administered on 03/23/18at 14:32; Start 03/23/18 at 13:30; Stop 03/23/18 at 15 :29; Status DC Piperacillin Sod/ Tazobactam Sod 3.375 gm/Sodium Chloride 50 ml @ 100 mls/hr 1X ONCE IV Last administered on 03/23/18at 13:48; Start 03/23/18 at 13:30; Stop 03/23/18 at 14:02; Status DC Sodium Chloride 1,000 ml @ 1,000 mls/hr 1X ONCE IV ; Start 03/23/18 at 14:30 ; Stop 03/23/18 at 15:29; Status DC Acetaminophen (Tylenol) 650 mg PRN Q6HRS PRN PO FEVER; Start 03/23/18 at 15:30 Ondansetron HCl (Zofran) 4 mg PRN Q6HRS PRN IV NAUSEA/VOMITING; Start at 15:30 Morphine Sulfate (Morphine Sulfate) 2 mg PRN Q2HR PRN IV MODERATE TO SEVERE PAIN; Start 03/23/18 at 15:30; Status UNV Tramadol HCl (Ultram) 50 mg PRN Q6HRS PRN PO MILD TO MODERATE PAIN; Start at 15:30 Docusate Sodium (Colace) 100 mg PRN DAILY PRN PO CONSTIPATION; Start 03/23/18 at 15:30 Piperacillin Sod/ Tazobactam Sod 4.5 gm/Sodium Chloride 100 ml @ 200 mls/hr Q6HRS IV ; Start 03/23/18 at 18:00 Piperacillin Sod/ Tazobactam Sod (Zosyn Per Pharmacy) 1 each PRN DAILY PRN MC SEE COMMENTS; Start 03/23/18 at 15:30 Morphine Sulfate (Morphine Sulfate) 2 mg PRN Q2HR PRN IV PAIN; Start 03/23/18 at 15:30 Morphine Sulfate (Morphine Sulfate) 4 mg PRN Q2HR PRN IV PAIN; Start 03/23/18 at 15:30 Potassium Chloride/Dextrose/ Sod Cl 1,000 ml @ 75 mls/hr [id number] IV ; Start at 15:30 Famotidine (Pepcid Vial) 20 mg QHS IVP ; Start 03/23/18 at 21:00 Heparin Sodium (Porcine) (Heparin Sodium) 5,000 unit Q8HRS SQ ; Start 03/23/18 at 16:00 Allergies Allergies: Coded Allergies: No Known Drug Allergies (Unverified , 05/02/14) ROS General: YES: Night Sweats; No: Chills, Fatigue, Malaise, Appetite, Other PSYCHOLOGICAL ROS: No: Anxiety, Behavioral Disorder, Concentration difficultie , Decreased libido, Depression, Disorientation, Hallucinations, Hostility, Irritablity, Memory difficulties, Mood Swings, Obsessive thoughts, Physical abuse, Sexual abuse, Sleep disturbances, Suicidal ideation, Other Eyes: No Blurry vision, No Decreased vision, No Double vision, No Dry eyes, No Excessive tearing, No Eye Pain, No Itchy Eyes, No Loss of vision, No Photophobia , No Scotomata, No Uses contacts, No Uses glasses, No Other HEENT: No: Heacaches, Visual Changes, Hearing change, Nasal congestion, Nasal discharge, Oral lesions, Sinus pain, Sore Throat, Epistaxis, Sneezing, Snoring, Tinnitus, Vertigo, Vocal changes, Other ALLERGY AND IMMUNOLOGY: No: Hives, Insect Bite Sensitivity, Itchy/Watery Eyes, Nasal Congestion, Post Nasal Drip, Seasonal Allergies, Other Hematological and Lymphatic: No: Bleeding Problems, Blood Clots, Blood Transfusions, Brusing, Night Sweats, Pallor, Swollen Lymph Nodes, Other ENDOCRINE: No: Breast Changes, Galactorrhea, Hair Pattern Changes, Hot Flashes , Malaise/lethargy, Mood Swings, Palpitations, Polydipsia/polyuria, Skin Changes , Temperature Intolerance, Unexpected Weight Changes, Other Breast: No New/Changing Breast Lumps, No Nipple changes, No Nipple discharge, No Other Respiratory: YES: SOB with excertion Cardiovascular: No Chest Pain, No Palpitations, No Orthopnea, No Paroxysmal Noc. Dyspnea, No Edema, No Lt Headedness, No Other Gastrointestinal: Yes Abdominal Pain; No Nausea, No Vomiting, No Diarrhea, No Constipation, No Melena, No Hematochezia, No Other Genitourinary: No Dysuria, No Frequency, No Incontinence, No Hematuria, No Retention, No Discharge, No Urgency, No Pain, No Flank Pain, No Other, No , No , No , No , No , No , No Neurological: No Behavorial Changes, No Bowel/Bladder ControlChng, No Confusion , No Dizziness, No Gait Disturbance, No Headaches, No Impaired Coord/balance, No Memory Loss, No Numbness/Tingling, No Seizures, No Speech Problems, No Tremors, No Visual Changes, No Weakness, No Other Skin: No Dry Skin, No Eczema, No Hair Changes, No Lumps, No Mole Changes, No Mottling, No Nail Changes, No Pruritus, No Rash, No Skin Lesion Changes, No Other, No Acne Physical Exam General: Alert, Oriented X3, Cooperative HEENT: Atraumatic Lungs: Clear to auscultation Heart: Regular rate Abdomen: Soft, Other (abd distention with mild tenderness) Psych/Mental Status: Mental status NL Vitals VITALS Vital Signs Date Time Temp Pulse Resp B/P (MAP) Pulse Ox O2 Delivery O2 Flow Rate FiO2 03/23/18 16:00 100 20 100 NonRebreather Mask 15.0 03/23/18 15:00 129/88 (102) 03/23/18 10:57 98.6 98.6 Labs Labs Laboratory Tests Test 03/23/18 10:55 03/23/18 11:15 03/23/18 11:21 Urine Collection Type Void Urine Color Sultana Urine Clarity Cloudy Urine pH 6.0 Urine Specific [place] >=1.030 Urine Protein 30 mg/dL (NEG-TRACE) Urine Glucose (UA) Negative mg/dL (NEG) Urine Ketones (Stick) 40 mg/dL (NEG) Urine Blood Large (NEG) Urine Nitrite Negative (NEG) Urine Bilirubin Small (NEG) Urine Urobilinogen Dipstick 0.2 mg/dL (0.2 mg/dL) Urine Leukocyte Esterase Moderate (NEG) Urine RBC 6-10 /HPF (0-2) Urine WBC 5-10 /HPF (0-4) Urine Squamous Epithelial Cells Mod /LPF Urine Amorphous Sediment Present /HPF Urine Bacteria Few /HPF (0-FEW) Urine Mucus Marked /LPF Serum Test, Qualitative Negative (NEG) White Blood Count 14.6 x10^3/uL (4.0-11.0) Red Blood Count 4.42 x10^6/uL (3.50-5.40) Hemoglobin 14.5 g/dL (12.0-15.5) Hematocrit 42.7 % (36.0-47.0) Mean Corpuscular Volume 96 fL (79-100) Mean Corpuscular Hemoglobin 33 pg (25-35) Mean Corpuscular Hemoglobin Concent 34 g/dL (31-37) Red Cell Distribution Width 14.1 % (11.5-14.5) Platelet Count 309 x10^3/uL (140-400) Neutrophils (%) (Auto) 78 % (31-73) Lymphocytes (%) (Auto) 6 % (24-48) Monocytes (%) (Auto) 15 % (0-9) Eosinophils (%) (Auto) 0 % (0-3) Basophils (%) (Auto) 0 % (0-3) Neutrophils # (Auto) 11.4 x10^3uL (1.8-7.7) Lymphocytes # (Auto) 0.9 x10^3/uL (1.0-4.8) Monocytes # (Auto) 2.2 x10^3/uL (0.0-1.1) Eosinophils # (Auto) 0.0 x10^3/uL (0.0-0.7) Basophils # (Auto) 0.0 x10^3/uL (0.0-0.2) Segmented Neutrophils % 65 % (35-66) Band Neutrophils % 8 % (0-9) Lymphocytes % 14 % (24-48) Monocytes % 13 % (0-10) Platelet Estimate Adequate (ADEQUATE) Sodium Level 137 mmol/L (136-145) Potassium Level 3.3 mmol/L (3.5-5.1) Chloride Level 99 mmol/L (98-107) Carbon Dioxide Level 31 mmol/L (21-32) Anion Gap 7 (6-14) Blood Urea Nitrogen 9 mg/dL (7-20) Creatinine 0.8 mg/dL (0.6-1.0) Estimated GFR (Cockcroft-Gault) 100.6 BUN/Creatinine Ratio 11 (6-20) Glucose Level 104 mg/dL (70-99) Calcium Level 9.4 mg/dL (8.5-10.1) Total Bilirubin 0.4 mg/dL (0.2-1.0) Aspartate Amino Transf (AST/SGOT) 17 U/L (15-37) Alanine Aminotransferase (ALT/SGPT) 21 U/L (14-59) Alkaline Phosphatase 83 U/L (46-116) Total Protein 7.5 g/dL (6.4-8.2) Albumin 2.9 g/dL (3.4-5.0) Albumin/Globulin Ratio 0.6 (1.0-1.7) Lipase 63 U/L (73-393) Bedside Urine HCG, Qualitative Hcg negative (Negative) Laboratory Tests Test 03/23/18 10:55 03/23/18 11:15 03/23/18 11:21 Urine Collection Type Void Urine Color [place]ultana Urine Clarity Cloudy Urine pH 6.0 Urine Specific [place] >=1.030 Urine Protein 30 mg/dL (NEG-TRACE) Urine Glucose (UA) Negative mg/dL (NEG) Urine Ketones (Stick) 40 mg/dL (NEG) Urine Blood Large (NEG) Urine Nitrite Negative (NEG) Urine Bilirubin Small (NEG) Urine Urobilinogen Dipstick 0.2 mg/dL (0.2 mg/dL) Urine Leukocyte Esterase Moderate (NEG) Urine RBC 6-10 /HPF (0-2) Urine WBC 5-10 /HPF (0-4) Urine Squamous Epithelial Cells Mod /LPF Urine Amorphous Sediment Present /HPF Urine Bacteria Few /HPF (0-FEW) Urine Mucus Marked /LPF Serum Test, Qualitative Negative (NEG) White Blood Count 14.6 x10^3/uL (4.0-11.0) Red Blood Count 4.42 x10^6/uL (3.50-5.40) Hemoglobin 14.5 g/dL (12.0-15.5) Hematocrit 42.7 % (36.0-47.0) Mean Corpuscular Volume 96 fL (79-100) Mean Corpuscular Hemoglobin 33 pg (25-35) Mean Corpuscular Hemoglobin Concent 34 g/dL (31-37) Red Cell Distribution Width 14.1 % (11.5-14.5) Platelet Count 309 x10^3/uL (140-400) Neutrophils (%) (Auto) 78 % (31-73) Lymphocytes (%) (Auto) 6 % (24-48) Monocytes (%) (Auto) 15 % (0-9) Eosinophils (%) (Auto) 0 % (0-3) Basophils (%) (Auto) 0 % (0-3) Neutrophils # (Auto) 11.4 x10^3uL (1.8-7.7) Lymphocytes # (Auto) 0.9 x10^3/uL (1.0-4.8) Monocytes # (Auto) 2.2 x10^3/uL (0.0-1.1) Eosinophils # (Auto) 0.0 x10^3/uL (0.0-0.7) Basophils # (Auto) 0.0 x10^3/uL (0.0-0.2) Segmented Neutrophils % 65 % (35-66) Band Neutrophils % 8 % (0-9) Lymphocytes % 14 % (24-48) Monocytes % 13 % (0-10) Platelet Estimate Adequate (ADEQUATE) Sodium Level 137 mmol/L (136-145) Potassium Level 3.3 mmol/L (3.5-5.1) Chloride Level 99 mmol/L (98-107) Carbon Dioxide Level 31 mmol/L (21-32) Anion Gap 7 (6-14) Blood Urea Nitrogen 9 mg/dL (7-20) Creatinine 0.8 mg/dL (0.6-1.0) Estimated GFR (Cockcroft-Gault) 100.6 BUN/Creatinine Ratio 11 (6-20) Glucose Level 104 mg/dL (70-99) Calcium Level 9.4 mg/dL (8.5-10.1) Total Bilirubin 0.4 mg/dL (0.2-1.0) Aspartate Amino Transf (AST/SGOT) 17 U/L (15-37) Alanine Aminotransferase (ALT/SGPT) 21 U/L (14-59) Alkaline Phosphatase 83 U/L (46-116) Total Protein 7.5 g/dL (6.4-8.2) Albumin 2.9 g/dL (3.4-5.0) Albumin/Globulin Ratio 0.6 (1.0-1.7) Lipase 63 U/L (73-393) Bedside Urine HCG, Qualitative Hcg negative (Negative) Assessment/Plan Assessment/Plan A: Abd/pelvic abscesses P: IV abx, repeat CBC and plan for exploratory laparotomy early next week. CHARLES MURPHY Jr, MD Mar 23, 2018 16:30
[2018-03-23] MEDS: POTASSIUM CL 20MEQ D5-0.9%NACL 1,000 ML IV SCH (16:38)
[2018-03-23] MEDS: HEPARIN for SUB-Q USE 5,000 UNIT/ML VIAL. SQ SCH ×2 (16:39→21:31)
[2018-03-23] MEDS: MORPHINE SULFATE 2 MG/ML VIAL. IV PRN ×2 (16:40→19:50)
[2018-03-23] MEDS ORDERED: VANCOMYCIN 1.5 GM in IV NORMAL SALINE 500ML BAG 500 ML IV SCH (17:15)
[2018-03-23] MEDS ORDERED: VANCOMYCIN 1.5 GM in IV NORMAL SALINE 500ML BAG 500 ML IV ONE (17:30)
[2018-03-23] MEDS ORDERED: FOLI1TAB35 PO (18:31)
[2018-03-23] MEDS: VANCOMYCIN PER PHARMACY MC PRN (19:26)
[2018-03-23] MEDS: PIPERACILLIN/TAZOBACTAM 4.5 GM in IV NORMAL SALINE 100ML 100 ML IV SCH (20:46)
[2018-03-23] MEDS: FAMOTIDINE 20 MG/2 ML VIAL IVP SCH (20:46)
[2018-03-23] MEDS ORDERED: METOPROLOL TARTRATE 5 MG/5 ML VIAL. IVP SCH (21:00)
[2018-03-23] MEDS: MORPHINE SULFATE 4 MG/ML VIAL. IV PRN (21:30)
[2018-03-24] VITALS (14 sets, daily range): BP systolic 116–143; BP diastolic 73–95
[2018-03-24] MEDS: PIPERACILLIN/TAZOBACTAM 4.5 GM in IV NORMAL SALINE 100ML 100 ML IV SCH ×4 (00:26→16:48)
[2018-03-24] MEDS: MORPHINE SULFATE 4 MG/ML VIAL. IV PRN ×2 (00:26→06:01)
[2018-03-24] MEDS: traMADol 50 MG TABLET PO PRN ×4 (03:11→20:54)
[2018-03-24 05:11] LABS: BASO % 0 % (0-3); EOS # 0.1 x10^3/uL (0.0-0.7); EOS % 1 % (0-3); HEMOGLOBIN 12.5 g/dL (12.0-15.5); LYMPH % 9 % (24-48); MEAN CORPUSCULAR HEMOGLOBIN 33 pg (25-35); MEAN CORPUSCULAR HGB CONC 34 g/dL (31-37); MEAN CORPUSCULAR VOLUME 96 fL (79-100); MONO # 2.1 x10^3/uL (0.0-1.1); MONO % 17 % (0-9); NEUT # 8.9 x10^3uL (1.8-7.7); NEUT % 73 % (31-73); PLATELET COUNT 275 x10^3/uL (140-400); RED BLOOD COUNT 3.84 x10^6/uL (3.50-5.40); RED CELL DISTRIBUTION WIDTH 13.6 % (11.5-14.5); WHITE BLOOD COUNT 12.2 x10^3/uL (4.0-11.0)
[2018-03-24 05:30] LABS: CALCIUM 7.8 mg/dL (8.5-10.1); CREATININE 0.8 mg/dL (0.6-1.0); GFR 100.6; POTASSIUM 3.3 mmol/L (3.5-5.1)
[2018-03-24] MEDS: HEPARIN for SUB-Q USE 5,000 UNIT/ML VIAL. SQ SCH ×3 (05:55→22:54)
[2018-03-24] MEDS ORDERED: VANCOMYCIN 1 GM in IV NORMAL SALINE 250ML 250 ML IV SCH (06:00)
[2018-03-24] MEDS: POTASSIUM CL 20MEQ D5-0.9%NACL 1,000 ML IV SCH ×2 (06:02→22:47)
--- NOTE | 2018-03-24 07:25 | PDOC ---
PROGRESS NOTES Chief Complaint Chief Complaint Abdominal pain Abdominal mass History of Present Illness History of Present Illness 32-year-old female presenting with periumbilical abdominal pain fro 2 weeks, and N/V for 4ds. No PMH. Pt started to have diffuse abd pain 2 weeks ago, constant, move and changing positions makes it worse. Started on lactulose outpatient thinking it was constipation. The pain is dull, 5/10, no radiation. worse for 4ds. She also has N/V 3 times on Monday, non bloody or brad. has severe abd distention. denies fever, has chills, no cough, has mild sob on Monday. no chest pain. had one time diarrhea yesterday, yellow. She had x-rays performed in clinic which showed possible small bowel obstruction. CT showed abd has Two large rim-enhancing fluid collections in the pelvis, suspicious for abscess. The exact source is uncertain, although ruptured appendicitis or tubo-ovarian abscess would be the most likely considerations. and small rt pneumothorax. She is in process of conception with NIRANJAN. She has HSG in February that revealed 1 patent tube and questionable other tube per patient. She has h/o Chlamydia a few years ago that was treated. CT scan results and labs discussed with patient. Plan for IV abx and exploratory laparotomy early next week. A/P: abd pain with [address], could 2/2 abcess with organ rupture or malignancy - consulted surgery and orthotic practitioner sepsis - from likely abdominal abscess - ID, zosyn, vancomycin. f/u cultures. Likely can d/c vanco today. mild malnutrition - likely from NPO status, slowly advance diet as tolerated small rt pneumothorax - CXR this morning shows apical improvement and basilar component now, possibly overall improving. Pulm to see. This could be 2/2 abdominal communication after abscess formation hypokalemia - persistent today, will replace PO pt likely need abd surgery - monday/monday ex-lap pain control, bowel regimen dvt gi ppx ICU for now, still has PTX Vitals Vitals Vital Signs Date Time Temp Pulse Resp B/P (MAP) Pulse Ox O2 Delivery O2 Flow Rate FiO2 03/24/18 06:31 100 Nasal Cannula 2.0 03/24/18 05:00 96 12 127/75 (92) 03/24/18 04:00 98.5 98.5 Physical Exam General: Alert, Oriented X3, Cooperative Heart: Regular rate Abdomen: Soft, Other Extremities: No edema Skin: No significant lesion Labs LABS Laboratory Tests Test 03/23/18 10:55 03/23/18 11:15 03/23/18 11:21 03/24/18 04:00 Urine Collection Type Void Urine Color Sultana Urine Clarity Cloudy Urine pH 6.0 Urine Specific [place] >=1.030 Urine Protein 30 mg/dL (NEG-TRACE) Urine Glucose (UA) Negative mg/dL (NEG) Urine Ketones (Stick) 40 mg/dL (NEG) Urine Blood Large (NEG) Urine Nitrite Negative (NEG) Urine Bilirubin Small (NEG) Urine Urobilinogen Dipstick 0.2 mg/dL (0.2 mg/dL) Urine Leukocyte Esterase Moderate (NEG) Urine RBC 6-10 /HPF (0-2) Urine WBC 5-10 /HPF (0-4) Urine Squamous Epithelial Cells Mod /LPF Urine Amorphous Sediment Present /HPF Urine Bacteria Few /HPF (0-FEW) Urine Mucus Marked /LPF Serum Test, Qualitative Negative (NEG) White Blood Count 14.6 x10^3/uL (4.0-11.0) 12.2 x10^3/uL (4.0-11.0) Red Blood Count 4.42 x10^6/uL (3.50-5.40) 3.84 x10^6/uL (3.50-5.40) Hemoglobin 14.5 g/dL (12.0-15.5) 12.5 g/dL (12.0-15.5) Hematocrit 42.7 % (36.0-47.0) 37.0 % (36.0-47.0) Mean Corpuscular Volume 96 fL (79-100) 96 fL (79-100) Mean Corpuscular Hemoglobin 33 pg (25-35) 33 pg (25-35) Mean Corpuscular Hemoglobin Concent 34 g/dL (31-37) 34 g/dL (31-37) Red Cell Distribution Width 14.1 % (11.5-14.5) 13.6 % (11.5-14.5) Platelet Count 309 x10^3/uL (140-400) 275 x10^3/uL (140-400) Neutrophils (%) (Auto) 78 % (31-73) 73 % (31-73) Lymphocytes (%) (Auto) 6 % (24-48) 9 % (24-48) Monocytes (%) (Auto) 15 % (0-9) 17 % (0-9) Eosinophils (%) (Auto) 0 % (0-3) 1 % (0-3) Basophils (%) (Auto) 0 % (0-3) 0 % (0-3) Neutrophils # (Auto) 11.4 x10^3uL (1.8-7.7) 8.9 x10^3uL (1.8-7.7) Lymphocytes # (Auto) 0.9 x10^3/uL (1.0-4.8) 1.0 x10^3/uL (1.0-4.8) Monocytes # (Auto) 2.2 x10^3/uL (0.0-1.1) 2.1 x10^3/uL (0.0-1.1) Eosinophils # (Auto) 0.0 x10^3/uL (0.0-0.7) 0.1 x10^3/uL (0.0-0.7) Basophils # (Auto) 0.0 x10^3/uL (0.0-0.2) 0.0 x10^3/uL (0.0-0.2) Segmented Neutrophils % 65 % (35-66) Band Neutrophils % 8 % (0-9) Lymphocytes % 14 % (24-48) Monocytes % 13 % (0-10) Platelet Estimate Adequate (ADEQUATE) Sodium Level 137 mmol/L (136-145) 136 mmol/L (136-145) Potassium Level 3.3 mmol/L (3.5-5.1) 3.3 mmol/L (3.5-5.1) Chloride Level 99 mmol/L (98-107) 102 mmol/L (98-107) Carbon Dioxide Level 31 mmol/L (21-32) 26 mmol/L (21-32) Anion Gap 7 (6-14) 8 (6-14) Blood Urea Nitrogen 9 mg/dL (7-20) 4 mg/dL (7-20) Creatinine 0.8 mg/dL (0.6-1.0) 0.8 mg/dL (0.6-1.0) Estimated GFR (Cockcroft-Gault) 100.6 100.6 BUN/Creatinine Ratio 11 (6-20) Glucose Level 104 mg/dL (70-99) 114 mg/dL (70-99) Calcium Level 9.4 mg/dL (8.5-10.1) 7.8 mg/dL (8.5-10.1) Total Bilirubin 0.4 mg/dL (0.2-1.0) Aspartate Amino Transf (AST/SGOT) 17 U/L (15-37) Alanine Aminotransferase (ALT/SGPT) 21 U/L (14-59) Alkaline Phosphatase 83 U/L (46-116) Total Protein 7.5 g/dL (6.4-8.2) Albumin 2.9 g/dL (3.4-5.0) Albumin/Globulin Ratio 0.6 (1.0-1.7) Lipase 63 U/L (73-393) Bedside Urine HCG, Qualitative Hcg negative (Negative) Assessment and Plan Assessmemt and Plan Problems Medical Problems: (1) Abdominal pain Status: Acute Comment Review of Relevant I have reviewed the following items lo (where applicable) has been applied. Labs Laboratory Tests Test 03/23/18 10:55 03/23/18 11:15 03/23/18 11:21 03/24/18 04:00 Urine Collection Type Void Urine Color Sultana Urine Clarity Cloudy Urine pH 6.0 Urine Specific [place] >=1.030 Urine Protein 30 mg/dL (NEG-TRACE) Urine Glucose (UA) Negative mg/dL (NEG) Urine Ketones (Stick) 40 mg/dL (NEG) Urine Blood Large (NEG) Urine Nitrite Negative (NEG) Urine Bilirubin Small (NEG) Urine Urobilinogen Dipstick 0.2 mg/dL (0.2 mg/dL) Urine Leukocyte Esterase Moderate (NEG) Urine RBC 6-10 /HPF (0-2) Urine WBC 5-10 /HPF (0-4) Urine Squamous Epithelial Cells Mod /LPF Urine Amorphous Sediment Present /HPF Urine Bacteria Few /HPF (0-FEW) Urine Mucus Marked /LPF Serum Test, Qualitative Negative (NEG) White Blood Count 14.6 x10^3/uL (4.0-11.0) 12.2 x10^3/uL (4.0-11.0) Red Blood Count 4.42 x10^6/uL (3.50-5.40) 3.84 x10^6/uL (3.50-5.40) Hemoglobin 14.5 g/dL (12.0-15.5) 12.5 g/dL (12.0-15.5) Hematocrit 42.7 % (36.0-47.0) 37.0 % (36.0-47.0) Mean Corpuscular Volume 96 fL (79-100) 96 fL (79-100) Mean Corpuscular Hemoglobin 33 pg (25-35) 33 pg (25-35) Mean Corpuscular Hemoglobin Concent 34 g/dL (31-37) 34 g/dL (31-37) Red Cell Distribution Width 14.1 % (11.5-14.5) 13.6 % (11.5-14.5) Platelet Count 309 x10^3/uL (140-400) 275 x10^3/uL (140-400) Neutrophils (%) (Auto) 78 % (31-73) 73 % (31-73) Lymphocytes (%) (Auto) 6 % (24-48) 9 % (24-48) Monocytes (%) (Auto) 15 % (0-9) 17 % (0-9) Eosinophils (%) (Auto) 0 % (0-3) 1 % (0-3) Basophils (%) (Auto) 0 % (0-3) 0 % (0-3) Neutrophils # (Auto) 11.4 x10^3uL (1.8-7.7) 8.9 x10^3uL (1.8-7.7) Lymphocytes # (Auto) 0.9 x10^3/uL (1.0-4.8) 1.0 x10^3/uL (1.0-4.8) Monocytes # (Auto) 2.2 x10^3/uL (0.0-1.1) 2.1 x10^3/uL (0.0-1.1) Eosinophils # (Auto) 0.0 x10^3/uL (0.0-0.7) 0.1 x10^3/uL (0.0-0.7) Basophils # (Auto) 0.0 x10^3/uL (0.0-0.2) 0.0 x10^3/uL (0.0-0.2) Segmented Neutrophils % 65 % (35-66) Band Neutrophils % 8 % (0-9) Lymphocytes % 14 % (24-48) Monocytes % 13 % (0-10) Platelet Estimate Adequate (ADEQUATE) Sodium Level 137 mmol/L (136-145) 136 mmol/L (136-145) Potassium Level 3.3 mmol/L (3.5-5.1) 3.3 mmol/L (3.5-5.1) Chloride Level 99 mmol/L (98-107) 102 mmol/L (98-107) Carbon Dioxide Level 31 mmol/L (21-32) 26 mmol/L (21-32) Anion Gap 7 (6-14) 8 (6-14) Blood Urea Nitrogen 9 mg/dL (7-20) 4 mg/dL (7-20) Creatinine 0.8 mg/dL (0.6-1.0) 0.8 mg/dL (0.6-1.0) Estimated GFR (Cockcroft-Gault) 100.6 100.6 BUN/Creatinine Ratio 11 (6-20) Glucose Level 104 mg/dL (70-99) 114 mg/dL (70-99) Calcium Level 9.4 mg/dL (8.5-10.1) 7.8 mg/dL (8.5-10.1) Total Bilirubin 0.4 mg/dL (0.2-1.0) Aspartate Amino Transf (AST/SGOT) 17 U/L (15-37) Alanine Aminotransferase (ALT/SGPT) 21 U/L (14-59) Alkaline Phosphatase 83 U/L (46-116) Total Protein 7.5 g/dL (6.4-8.2) Albumin 2.9 g/dL (3.4-5.0) Albumin/Globulin Ratio 0.6 (1.0-1.7) Lipase 63 U/L (73-393) Bedside Urine HCG, Qualitative Hcg negative (Negative) Laboratory Tests Test 03/23/18 10:55 03/23/18 11:15 03/23/18 11:21 03/24/18 04:00 Urine Collection Type Void Urine Color Sultana Urine Clarity Cloudy Urine pH 6.0 Urine Specific [place] >=1.030 Urine Protein 30 mg/dL (NEG-TRACE) Urine Glucose (UA) Negative mg/dL (NEG) Urine Ketones (Stick) 40 mg/dL (NEG) Urine Blood Large (NEG) Urine Nitrite Negative (NEG) Urine Bilirubin Small (NEG) Urine Urobilinogen Dipstick 0.2 mg/dL (0.2 mg/dL) Urine Leukocyte Esterase Moderate (NEG) Urine RBC 6-10 /HPF (0-2) Urine WBC 5-10 /HPF (0-4) Urine Squamous Epithelial Cells Mod /LPF Urine Amorphous Sediment Present /HPF Urine Bacteria Few /HPF (0-FEW) Urine Mucus Marked /LPF Serum Test, Qualitative Negative (NEG) White Blood Count 14.6 x10^3/uL (4.0-11.0) 12.2 x10^3/uL (4.0-11.0) Red Blood Count 4.42 x10^6/uL (3.50-5.40) 3.84 x10^6/uL (3.50-5.40) Hemoglobin 14.5 g/dL (12.0-15.5) 12.5 g/dL (12.0-15.5) Hematocrit 42.7 % (36.0-47.0) 37.0 % (36.0-47.0) Mean Corpuscular Volume 96 fL (79-100) 96 fL (79-100) Mean Corpuscular Hemoglobin 33 pg (25-35) 33 pg (25-35) Mean Corpuscular Hemoglobin Concent 34 g/dL (31-37) 34 g/dL (31-37) Red Cell Distribution Width 14.1 % (11.5-14.5) 13.6 % (11.5-14.5) Platelet Count 309 x10^3/uL (140-400) 275 x10^3/uL (140-400) Neutrophils (%) (Auto) 78 % (31-73) 73 % (31-73) Lymphocytes (%) (Auto) 6 % (24-48) 9 % (24-48) Monocytes (%) (Auto) 15 % (0-9) 17 % (0-9) Eosinophils (%) (Auto) 0 % (0-3) 1 % (0-3) Basophils (%) (Auto) 0 % (0-3) 0 % (0-3) Neutrophils # (Auto) 11.4 x10^3uL (1.8-7.7) 8.9 x10^3uL (1.8-7.7) Lymphocytes # (Auto) 0.9 x10^3/uL (1.0-4.8) 1.0 x10^3/uL (1.0-4.8) Monocytes # (Auto) 2.2 x10^3/uL (0.0-1.1) 2.1 x10^3/uL (0.0-1.1) Eosinophils # (Auto) 0.0 x10^3/uL (0.0-0.7) 0.1 x10^3/uL (0.0-0.7) Basophils # (Auto) 0.0 x10^3/uL (0.0-0.2) 0.0 x10^3/uL (0.0-0.2) Segmented Neutrophils % 65 % (35-66) Band Neutrophils % 8 % (0-9) Lymphocytes % 14 % (24-48) Monocytes % 13 % (0-10) Platelet Estimate Adequate (ADEQUATE) Sodium Level 137 mmol/L (136-145) 136 mmol/L (136-145) Potassium Level 3.3 mmol/L (3.5-5.1) 3.3 mmol/L (3.5-5.1) Chloride Level 99 mmol/L (98-107) 102 mmol/L (98-107) Carbon Dioxide Level 31 mmol/L (21-32) 26 mmol/L (21-32) Anion Gap 7 (6-14) 8 (6-14) Blood Urea Nitrogen 9 mg/dL (7-20) 4 mg/dL (7-20) Creatinine 0.8 mg/dL (0.6-1.0) 0.8 mg/dL (0.6-1.0) Estimated GFR (Cockcroft-Gault) 100.6 100.6 BUN/Creatinine Ratio 11 (6-20) Glucose Level 104 mg/dL (70-99) 114 mg/dL (70-99) Calcium Level 9.4 mg/dL (8.5-10.1) 7.8 mg/dL (8.5-10.1) Total Bilirubin 0.4 mg/dL (0.2-1.0) Aspartate Amino Transf (AST/SGOT) 17 U/L (15-37) Alanine Aminotransferase (ALT/SGPT) 21 U/L (14-59) Alkaline Phosphatase 83 U/L (46-116) Total Protein 7.5 g/dL (6.4-8.2) Albumin 2.9 g/dL (3.4-5.0) Albumin/Globulin Ratio 0.6 (1.0-1.7) Lipase 63 U/L (73-393) Bedside Urine HCG, Qualitative Hcg negative (Negative) Medications Current Medications Fentanyl Citrate (Fentanyl 2ml Vial) 50 mcg PRN Q30MIN PRN IV SEVERE PAIN Last administered on 03/23/18at 14:32; Start 03/23/18 at 11:45; Stop 03/23/18 at 14 :33; Status DC Sodium Chloride 1,000 ml @ 1,000 mls/hr Q1H IV Last administered on at 11:42; Start 03/23/18 at 11:31; Stop 03/23/18 at 12:30; Status DC Ondansetron HCl (Zofran) 4 mg 1X ONCE IV Last administered on 03/23/18at 11:42 ; Start 03/23/18 at 11:45; Stop 03/23/18 at 11:46; Status DC Iohexol (Omnipaque 300 Mg/ml) 75 ml 1X ONCE IV Last administered on at 12:30; Start 03/23/18 at 12:00; Stop 03/23/18 at 12:01; Status DC Info (CONTRAST GIVEN -- Rx MONITORING) 1 each PRN DAILY PRN MC SEE COMMENTS; Start 03/23/18 at 12:00; Stop 03/25/18 at 11:59 Piperacillin Sod/ Tazobactam Sod (Zosyn Per Pharmacy) 1 each PRN DAILY PRN MC SEE COMMENTS; Start 03/23/18 at 13:30; Status UNV Doxycycline Hyclate 100 mg/ Dextrose 100 ml @ 50 mls/hr 1X ONCE IV Last administered on 03/23/18at 14:32; Start 03/23/18 at 13:30; Stop 03/23/18 at 15 :29; Status DC Piperacillin Sod/ Tazobactam Sod 3.375 gm/Sodium Chloride 50 ml @ 100 mls/hr 1X ONCE IV Last administered on 03/23/18at 13:48; Start 03/23/18 at 13:30; Stop 03/23/18 at 14:02; Status DC Sodium Chloride 1,000 ml @ 1,000 mls/hr 1X ONCE IV ; Start 03/23/18 at 14:30 ; Stop 03/23/18 at 15:29; Status DC Acetaminophen (Tylenol) 650 mg PRN Q6HRS PRN PO FEVER; Start 03/23/18 at 15:30 Ondansetron HCl (Zofran) 4 mg PRN Q6HRS PRN IV NAUSEA/VOMITING; Start at 15:30 Morphine Sulfate (Morphine Sulfate) 2 mg PRN Q2HR PRN IV MODERATE TO SEVERE PAIN; Start 03/23/18 at 15:30; Status UNV Tramadol HCl (Ultram) 50 mg PRN Q6HRS PRN PO MILD TO MODERATE PAIN Last administered on 03/24/18at 03:11; Start 03/23/18 at 15:30 Docusate Sodium (Colace) 100 mg PRN DAILY PRN PO CONSTIPATION; Start 03/23/18 at 15:30 Piperacillin Sod/ Tazobactam Sod 4.5 gm/Sodium Chloride 100 ml @ 200 mls/hr Q6HRS IV Last administered on 03/24/18at 05:54; Start 03/23/18 at 18:00 Piperacillin Sod/ Tazobactam Sod (Zosyn Per Pharmacy) 1 each PRN DAILY PRN MC SEE COMMENTS; Start 03/23/18 at 15:30 Morphine Sulfate (Morphine Sulfate) 2 mg PRN Q2HR PRN IV PAIN Last administered on 03/23/18at 19:50; Start 03/23/18 at 15:30 Morphine Sulfate (Morphine Sulfate) 4 mg PRN Q2HR PRN IV PAIN Last administered on 03/24/18at 06:01; Start 03/23/18 at 15:30 Potassium Chloride/Dextrose/ Sod Cl 1,000 ml @ 75 mls/hr [id number] IV Last administered on 03/24/18at 06:02; Start 03/23/18 at 15:30 Famotidine (Pepcid Vial) 20 mg QHS IVP Last administered on 03/23/18at 20:46; Start 03/23/18 at 21:00 Heparin Sodium (Porcine) (Heparin Sodium) 5,000 unit Q8HRS SQ Last administered on 03/24/18at 05:55; Start 03/23/18 at 16:00 Vancomycin HCl 1.5 gm/Sodium Chloride 500 ml @ 250 mls/hr Q12H IV ; Start at 17:15; Status UNV Vancomycin HCl (Vanco Per Pharmacy) 1 each PRN DAILY PRN MC SEE COMMENTS Last administered on 03/23/18at 19:26; Start 03/23/18 at 17:15 Vancomycin HCl 1.5 gm/Sodium Chloride 500 ml @ 250 mls/hr 1X ONCE IV Last administered on 03/23/18at 18:03; Start 03/23/18 at 17:30; Stop 03/23/18 at 19 :29; Status DC Influenza Virus Vaccine (Afluria Trivalent [id number] Syringe) 0.5 ml ONCE ONCE VAX IM ; Start 03/27/18 at 09:00; Stop 03/27/18 at 09:01 Vancomycin HCl 1 gm/Sodium Chloride 250 ml @ 250 mls/hr Q12H IV Last administered on 03/24/18at 05:54; Start 03/24/18 at 06:00 Vancomycin HCl (Vancomycin Trough Level) 1 each 1X ONCE MC ; Start 03/25/18 at 05:30; Stop 03/25/18 at 05:31 Metoprolol Tartrate (Lopressor Vial) 5 mg Q6HRS IVP ; Start 03/23/18 at 21:00; Stop 03/23/18 at 21:55; Status DC Metoprolol Tartrate (Lopressor Vial) 5 mg PRN Q6HRS PRN IVP TACHYCARDIA; Start 03/23/18 at 22:00 Active Scripts Active Reported One Daily For Women Tablet (Folic Acid/Mv,Fe,Other Min) 1 Each Tablet 1 Each PO Vitals/I & O Vital Sign - Last 24 Hours 03/23/18 03/23/18 03/23/18 03/23/18 10:57 11:30 11:42 12:00 Temp 98.6 98.6 Pulse 126 106 104 Resp 20 20 15 B/P (MAP) 144/91 (108) 131/84 (100) Pulse Ox 99 98 98 O2 Delivery Room Air Room Air Room Air 03/23/18 03/23/18 03/23/18 03/23/18 12:30 13:00 13:11 13:30 Pulse 102 98 Resp 17 20 18 B/P (MAP) 121/79 (93) 129/81 (97) 124/86 (99) Pulse Ox 99 100 O2 Delivery Room Air NonRebreather Mask O2 Flow Rate 15.0 03/23/18 03/23/18 03/23/18 03/23/18 14:00 14:30 14:32 15:00 Pulse 106 102 94 Resp 24 20 20 17 B/P (MAP) 129/85 (100) 132/93 (106) 129/88 (102) Pulse Ox 100 100 100 O2 Delivery NonRebreather Mask NonRebreather Mask NonRebreather Mask O2 Flow Rate 15.0 15.0 15.0 03/23/18 03/23/18 03/23/18 03/23/18 15:30 16:00 16:00 16:00 Temp 98.2 98.2 Pulse 98 100 98 Resp 19 20 16 B/P (MAP) 127/59 (81) Pulse Ox 97 100 100 O2 Delivery NonRebreather Mask Non-Rebreather NonRebreather Mask NonRebreather Mask O2 Flow Rate 15.0 15.0 03/23/18 03/23/18 03/23/18 03/23/18 16:40 17:00 17:10 18:00 Pulse 104 104 Resp 16 16 18 B/P (MAP) 138/88 (105) 130/88 (102) Pulse Ox 100 100 100 O2 Delivery NonRebreather Mask NonRebreather Mask Nasal Cannula O2 Flow Rate 2.0 03/23/18 03/23/18 03/23/18 03/23/18 19:00 19:50 20:00 20:15 Temp 98.0 98.0 Pulse 120 119 Resp 12 14 B/P (MAP) 122/77 (92) 130/87 (101) Pulse Ox 100 100 100 O2 Delivery Nasal Cannula Nasal Cannula Nasal Cannula Nasal Cannula O2 Flow Rate 2.0 2.0 2.0 2.0 03/23/18 03/23/18 03/23/18 03/23/18 20:20 21:00 21:30 22:00 Pulse 120 116 Resp 14 14 B/P (MAP) 94/77 (83) 124/88 (100) Pulse Ox 100 100 100 100 O2 Delivery Nasal Cannula Nasal Cannula Nasal Cannula Nasal Cannula O2 Flow Rate 2.0 2.0 2.0 2.0 03/23/18 03/23/18 03/24/18 03/24/18 23:00 23:49 00:01 00:26 Temp 98.1 98.1 Pulse 106 106 Resp 14 12 B/P (MAP) 126/80 (95) 116/81 (93) Pulse Ox 100 100 100 O2 Delivery Nasal Cannula Nasal Cannula Nasal Cannula Nasal Cannula O2 Flow Rate 2.0 2.0 2.0 2.0 03/24/18 03/24/18 03/24/18 03/24/18 01:00 02:00 03:00 03:11 Pulse 106 102 108 Resp 14 12 12 B/P (MAP) 118/84 (95) 119/85 (96) 129/89 (102) Pulse Ox 100 100 100 100 O2 Delivery Nasal Cannula Nasal Cannula Nasal Cannula Nasal Cannula O2 Flow Rate 2.0 2.0 2.0 2.0 03/24/18 03/24/18 03/24/18 03/24/18 04:00 04:00 04:11 05:00 Temp 98.5 98.5 Pulse 98 96 Resp 12 12 B/P (MAP) 121/73 (89) 127/75 (92) Pulse Ox 100 100 100 O2 Delivery Nasal Cannula Nasal Cannula Nasal Cannula Nasal Cannula O2 Flow Rate 2.0 2.0 2.0 2.0 03/24/18 03/24/18 06:01 06:31 Pulse Ox 100 100 O2 Delivery Nasal Cannula Nasal Cannula O2 Flow Rate 2.0 2.0 Intake and Output 03/23/18 03/23/18 03/24/18 15:00 23:00 07:00 Intake Total 1000 ml 750 ml 200 ml Output Total 550 ml 550 ml Balance 1000 ml 200 ml -350 ml SALLY BARRIOS MD Mar 24, 2018 07:24
--- NOTE | 2018-03-24 08:31 | RAD ---
PORTABLE CHEST 1V INDICATION: Respiratory distress COMPARISON: Chest radiograph dated 03/23/2018 FINDINGS: Low lung volume. No focal consolidation. Unchanged pulmonary vasculature. Small right pneumothorax. The apical component is slightly improved measuring 1.0 cm pleural separation, previously 1.8 cm. Increase in the basilar component now with 0.6 cm pleural separation, previously none. Possible small left pleural effusion. The cardiomediastinal silhouette and great vessels are unchanged. IMPRESSION: 1. Small right pneumothorax. Development of basilar component of the pneumothorax which may be due to change in positioning. 2. Possible small left pleural effusion. Electronically signed by: Petar Shi MD (03/24/2018 8:28 AM) [facility]
[2018-03-24] MEDS: VANCOMYCIN PER PHARMACY MC PRN (08:35)
--- NOTE | 2018-03-24 09:24 | PDOC ---
SURGICAL PROGRESS NOTE Subjective Patient feeling much better this morning minimal pain Vital Signs Vital Signs Date Time Temp Pulse Resp B/P (MAP) Pulse Ox O2 Delivery O2 Flow Rate FiO2 03/24/18 06:31 100 Nasal Cannula 2.0 03/24/18 05:00 96 12 127/75 (92) 03/24/18 04:00 98.5 98.5 I&O Intake and Output 03/24/18 07:00 Intake Total 3150 ml Output Total 1100 ml Balance 2050 ml Intake Oral 700 ml IV Total 2450 ml Output Urine Total 1100 ml PATIENT HAS A SONI: No General: Alert, Oriented X3, Cooperative, mild distress Abdomen: Normal bowel sounds, Soft, Other (mildly tender to palpation midline pelvis) Labs Laboratory Tests Test 03/23/18 10:55 03/23/18 11:15 03/23/18 11:21 03/24/18 04:00 Urine Collection Type Void Urine Color Sultana Urine Clarity Cloudy Urine pH 6.0 Urine Specific [place] >=1.030 Urine Protein 30 mg/dL (NEG-TRACE) Urine Glucose (UA) Negative mg/dL (NEG) Urine Ketones (Stick) 40 mg/dL (NEG) Urine Blood Large (NEG) Urine Nitrite Negative (NEG) Urine Bilirubin Small (NEG) Urine Urobilinogen Dipstick 0.2 mg/dL (0.2 mg/dL) Urine Leukocyte Esterase Moderate (NEG) Urine RBC 6-10 /HPF (0-2) Urine WBC 5-10 /HPF (0-4) Urine Squamous Epithelial Cells Mod /LPF Urine Amorphous Sediment Present /HPF Urine Bacteria Few /HPF (0-FEW) Urine Mucus Marked /LPF Serum Test, Qualitative Negative (NEG) White Blood Count 14.6 x10^3/uL (4.0-11.0) 12.2 x10^3/uL (4.0-11.0) Red Blood Count 4.42 x10^6/uL (3.50-5.40) 3.84 x10^6/uL (3.50-5.40) Hemoglobin 14.5 g/dL (12.0-15.5) 12.5 g/dL (12.0-15.5) Hematocrit 42.7 % (36.0-47.0) 37.0 % (36.0-47.0) Mean Corpuscular Volume 96 fL (79-100) 96 fL (79-100) Mean Corpuscular Hemoglobin 33 pg (25-35) 33 pg (25-35) Mean Corpuscular Hemoglobin Concent 34 g/dL (31-37) 34 g/dL (31-37) Red Cell Distribution Width 14.1 % (11.5-14.5) 13.6 % (11.5-14.5) Platelet Count 309 x10^3/uL (140-400) 275 x10^3/uL (140-400) Neutrophils (%) (Auto) 78 % (31-73) 73 % (31-73) Lymphocytes (%) (Auto) 6 % (24-48) 9 % (24-48) Monocytes (%) (Auto) 15 % (0-9) 17 % (0-9) Eosinophils (%) (Auto) 0 % (0-3) 1 % (0-3) Basophils (%) (Auto) 0 % (0-3) 0 % (0-3) Neutrophils # (Auto) 11.4 x10^3uL (1.8-7.7) 8.9 x10^3uL (1.8-7.7) Lymphocytes # (Auto) 0.9 x10^3/uL (1.0-4.8) 1.0 x10^3/uL (1.0-4.8) Monocytes # (Auto) 2.2 x10^3/uL (0.0-1.1) 2.1 x10^3/uL (0.0-1.1) Eosinophils # (Auto) 0.0 x10^3/uL (0.0-0.7) 0.1 x10^3/uL (0.0-0.7) Basophils # (Auto) 0.0 x10^3/uL (0.0-0.2) 0.0 x10^3/uL (0.0-0.2) Segmented Neutrophils % 65 % (35-66) Band Neutrophils % 8 % (0-9) Lymphocytes % 14 % (24-48) Monocytes % 13 % (0-10) Platelet Estimate Adequate (ADEQUATE) Sodium Level 137 mmol/L (136-145) 136 mmol/L (136-145) Potassium Level 3.3 mmol/L (3.5-5.1) 3.3 mmol/L (3.5-5.1) Chloride Level 99 mmol/L (98-107) 102 mmol/L (98-107) Carbon Dioxide Level 31 mmol/L (21-32) 26 mmol/L (21-32) Anion Gap 7 (6-14) 8 (6-14) Blood Urea Nitrogen 9 mg/dL (7-20) 4 mg/dL (7-20) Creatinine 0.8 mg/dL (0.6-1.0) 0.8 mg/dL (0.6-1.0) Estimated GFR (Cockcroft-Gault) 100.6 100.6 BUN/Creatinine Ratio 11 (6-20) Glucose Level 104 mg/dL (70-99) 114 mg/dL (70-99) Calcium Level 9.4 mg/dL (8.5-10.1) 7.8 mg/dL (8.5-10.1) Total Bilirubin 0.4 mg/dL (0.2-1.0) Aspartate Amino Transf (AST/SGOT) 17 U/L (15-37) Alanine Aminotransferase (ALT/SGPT) 21 U/L (14-59) Alkaline Phosphatase 83 U/L (46-116) Total Protein 7.5 g/dL (6.4-8.2) Albumin 2.9 g/dL (3.4-5.0) Albumin/Globulin Ratio 0.6 (1.0-1.7) Lipase 63 U/L (73-393) Bedside Urine HCG, Qualitative Hcg negative (Negative) Laboratory Tests Test 03/23/18 10:55 03/23/18 11:15 03/23/18 11:21 03/24/18 04:00 Urine Collection Type Void Urine Color Sultana Urine Clarity Cloudy Urine pH 6.0 Urine Specific [place] >=1.030 Urine Protein 30 mg/dL (NEG-TRACE) Urine Glucose (UA) Negative mg/dL (NEG) Urine Ketones (Stick) 40 mg/dL (NEG) Urine Blood Large (NEG) Urine Nitrite Negative (NEG) Urine Bilirubin Small (NEG) Urine Urobilinogen Dipstick 0.2 mg/dL (0.2 mg/dL) Urine Leukocyte Esterase Moderate (NEG) Urine RBC 6-10 /HPF (0-2) Urine WBC 5-10 /HPF (0-4) Urine Squamous Epithelial Cells Mod /LPF Urine Amorphous Sediment Present /HPF Urine Bacteria Few /HPF (0-FEW) Urine Mucus Marked /LPF Serum Test, Qualitative Negative (NEG) White Blood Count 14.6 x10^3/uL (4.0-11.0) 12.2 x10^3/uL (4.0-11.0) Red Blood Count 4.42 x10^6/uL (3.50-5.40) 3.84 x10^6/uL (3.50-5.40) Hemoglobin 14.5 g/dL (12.0-15.5) 12.5 g/dL (12.0-15.5) Hematocrit 42.7 % (36.0-47.0) 37.0 % (36.0-47.0) Mean Corpuscular Volume 96 fL (79-100) 96 fL (79-100) Mean Corpuscular Hemoglobin 33 pg (25-35) 33 pg (25-35) Mean Corpuscular Hemoglobin Concent 34 g/dL (31-37) 34 g/dL (31-37) Red Cell Distribution Width 14.1 % (11.5-14.5) 13.6 % (11.5-14.5) Platelet Count 309 x10^3/uL (140-400) 275 x10^3/uL (140-400) Neutrophils (%) (Auto) 78 % (31-73) 73 % (31-73) Lymphocytes (%) (Auto) 6 % (24-48) 9 % (24-48) Monocytes (%) (Auto) 15 % (0-9) 17 % (0-9) Eosinophils (%) (Auto) 0 % (0-3) 1 % (0-3) Basophils (%) (Auto) 0 % (0-3) 0 % (0-3) Neutrophils # (Auto) 11.4 x10^3uL (1.8-7.7) 8.9 x10^3uL (1.8-7.7) Lymphocytes # (Auto) 0.9 x10^3/uL (1.0-4.8) 1.0 x10^3/uL (1.0-4.8) Monocytes # (Auto) 2.2 x10^3/uL (0.0-1.1) 2.1 x10^3/uL (0.0-1.1) Eosinophils # (Auto) 0.0 x10^3/uL (0.0-0.7) 0.1 x10^3/uL (0.0-0.7) Basophils # (Auto) 0.0 x10^3/uL (0.0-0.2) 0.0 x10^3/uL (0.0-0.2) Segmented Neutrophils % 65 % (35-66) Band Neutrophils % 8 % (0-9) Lymphocytes % 14 % (24-48) Monocytes % 13 % (0-10) Platelet Estimate Adequate (ADEQUATE) Sodium Level 137 mmol/L (136-145) 136 mmol/L (136-145) Potassium Level 3.3 mmol/L (3.5-5.1) 3.3 mmol/L (3.5-5.1) Chloride Level 99 mmol/L (98-107) 102 mmol/L (98-107) Carbon Dioxide Level 31 mmol/L (21-32) 26 mmol/L (21-32) Anion Gap 7 (6-14) 8 (6-14) Blood Urea Nitrogen 9 mg/dL (7-20) 4 mg/dL (7-20) Creatinine 0.8 mg/dL (0.6-1.0) 0.8 mg/dL (0.6-1.0) Estimated GFR (Cockcroft-Gault) 100.6 100.6 BUN/Creatinine Ratio 11 (6-20) Glucose Level 104 mg/dL (70-99) 114 mg/dL (70-99) Calcium Level 9.4 mg/dL (8.5-10.1) 7.8 mg/dL (8.5-10.1) Total Bilirubin 0.4 mg/dL (0.2-1.0) Aspartate Amino Transf (AST/SGOT) 17 U/L (15-37) Alanine Aminotransferase (ALT/SGPT) 21 U/L (14-59) Alkaline Phosphatase 83 U/L (46-116) Total Protein 7.5 g/dL (6.4-8.2) Albumin 2.9 g/dL (3.4-5.0) Albumin/Globulin Ratio 0.6 (1.0-1.7) Lipase 63 U/L (73-393) Bedside Urine HCG, Qualitative Hcg negative (Negative) Problem List Problems Medical Problems: (1) Abdominal pain Status: Acute Assessment/Plan Pelvic cystic mass versus abscess Defer treatment to [employer] doctor Pageaudrey Scheduled for exploration early next week with certainly make myself available if needed TEJINDER BLUM MD Mar 24, 2018 09:24
--- NOTE | 2018-03-24 09:35 | PDOC ---
Infectious Disease Note Vital Sign Vital Signs Vital Signs Date Time Temp Pulse Resp B/P (MAP) Pulse Ox O2 Delivery O2 Flow Rate FiO2 03/24/18 06:31 100 Nasal Cannula 2.0 03/24/18 05:00 96 12 127/75 (92) 03/24/18 04:00 98.5 98.5 Labs Lab Laboratory Tests Test 03/23/18 10:55 03/23/18 11:15 03/23/18 11:21 03/24/18 04:00 Urine Collection Type Void Urine Color Sultana Urine Clarity Cloudy Urine pH 6.0 Urine Specific [place] >=1.030 Urine Protein 30 mg/dL (NEG-TRACE) Urine Glucose (UA) Negative mg/dL (NEG) Urine Ketones (Stick) 40 mg/dL (NEG) Urine Blood Large (NEG) Urine Nitrite Negative (NEG) Urine Bilirubin Small (NEG) Urine Urobilinogen Dipstick 0.2 mg/dL (0.2 mg/dL) Urine Leukocyte Esterase Moderate (NEG) Urine RBC 6-10 /HPF (0-2) Urine WBC 5-10 /HPF (0-4) Urine Squamous Epithelial Cells Mod /LPF Urine Amorphous Sediment Present /HPF Urine Bacteria Few /HPF (0-FEW) Urine Mucus Marked /LPF Serum Test, Qualitative Negative (NEG) White Blood Count 14.6 x10^3/uL (4.0-11.0) 12.2 x10^3/uL (4.0-11.0) Red Blood Count 4.42 x10^6/uL (3.50-5.40) 3.84 x10^6/uL (3.50-5.40) Hemoglobin 14.5 g/dL (12.0-15.5) 12.5 g/dL (12.0-15.5) Hematocrit 42.7 % (36.0-47.0) 37.0 % (36.0-47.0) Mean Corpuscular Volume 96 fL (79-100) 96 fL (79-100) Mean Corpuscular Hemoglobin 33 pg (25-35) 33 pg (25-35) Mean Corpuscular Hemoglobin Concent 34 g/dL (31-37) 34 g/dL (31-37) Red Cell Distribution Width 14.1 % (11.5-14.5) 13.6 % (11.5-14.5) Platelet Count 309 x10^3/uL (140-400) 275 x10^3/uL (140-400) Neutrophils (%) (Auto) 78 % (31-73) 73 % (31-73) Lymphocytes (%) (Auto) 6 % (24-48) 9 % (24-48) Monocytes (%) (Auto) 15 % (0-9) 17 % (0-9) Eosinophils (%) (Auto) 0 % (0-3) 1 % (0-3) Basophils (%) (Auto) 0 % (0-3) 0 % (0-3) Neutrophils # (Auto) 11.4 x10^3uL (1.8-7.7) 8.9 x10^3uL (1.8-7.7) Lymphocytes # (Auto) 0.9 x10^3/uL (1.0-4.8) 1.0 x10^3/uL (1.0-4.8) Monocytes # (Auto) 2.2 x10^3/uL (0.0-1.1) 2.1 x10^3/uL (0.0-1.1) Eosinophils # (Auto) 0.0 x10^3/uL (0.0-0.7) 0.1 x10^3/uL (0.0-0.7) Basophils # (Auto) 0.0 x10^3/uL (0.0-0.2) 0.0 x10^3/uL (0.0-0.2) Segmented Neutrophils % 65 % (35-66) Band Neutrophils % 8 % (0-9) Lymphocytes % 14 % (24-48) Monocytes % 13 % (0-10) Platelet Estimate Adequate (ADEQUATE) Sodium Level 137 mmol/L (136-145) 136 mmol/L (136-145) Potassium Level 3.3 mmol/L (3.5-5.1) 3.3 mmol/L (3.5-5.1) Chloride Level 99 mmol/L (98-107) 102 mmol/L (98-107) Carbon Dioxide Level 31 mmol/L (21-32) 26 mmol/L (21-32) Anion Gap 7 (6-14) 8 (6-14) Blood Urea Nitrogen 9 mg/dL (7-20) 4 mg/dL (7-20) Creatinine 0.8 mg/dL (0.6-1.0) 0.8 mg/dL (0.6-1.0) Estimated GFR (Cockcroft-Gault) 100.6 100.6 BUN/Creatinine Ratio 11 (6-20) Glucose Level 104 mg/dL (70-99) 114 mg/dL (70-99) Calcium Level 9.4 mg/dL (8.5-10.1) 7.8 mg/dL (8.5-10.1) Total Bilirubin 0.4 mg/dL (0.2-1.0) Aspartate Amino Transf (AST/SGOT) 17 U/L (15-37) Alanine Aminotransferase (ALT/SGPT) 21 U/L (14-59) Alkaline Phosphatase 83 U/L (46-116) Total Protein 7.5 g/dL (6.4-8.2) Albumin 2.9 g/dL (3.4-5.0) Albumin/Globulin Ratio 0.6 (1.0-1.7) Lipase 63 U/L (73-393) Bedside Urine HCG, Qualitative Hcg negative (Negative) IMPRESSION: 1. Two large rim-enhancing fluid collections in the pelvis, suspicious for abscess. The exact source is uncertain, although ruptured appendicitis or tubo-ovarian abscess would be the most likely considerations. 2. Small amount of free fluid with enhancement and nodularity along the peritoneal surfaces, suggestive of active peritonitis. Underlying ovarian malignancy with early pseudomyxoma peritonei is considered unlikely but cannot be completely excluded. 3. Small pneumothorax at the right base, of uncertain etiology. In the absence of known trauma, spontaneous pneumothorax or catamenial pneumothorax should be considered. Correlation for history of endometriosis. A chest CT may provide additional information. 4. Mildly dilated fluid-filled small bowel, likely related to ileus. Partial small bowel obstruction not excluded. There is some mild wall thickening of distal small bowel loops and colonic loops, likely reactive. 5. Borderline enlarged mesenteric lymph nodes, likely reactive. Objective Assessment Peritonitis with intra-abdominal abscesses, source unclear, organ rupture or malignancy Leukocytosis Ileus vs partial SBO Small right pneumothorax Plan Plan of Care cont Zosyn DC IV Vanc add empiric doxycycline urine naat chlamydia and gonor though suspicion is low f/u cultures Exploratory lap planned for early this week per BOX ATTACHER D/w RN Patient seen, examined, I agree with above. Assessment and plan was formulated with MANAGER OF RECRUITING. SCOT VILLAGRAN APRN Mar 24, 2018 09:35 SCOTTY ERVIN MD Mar 24, 2018 14:56
--- NOTE | 2018-03-24 10:03 | PDOC ---
SURGICAL PROGRESS NOTE Subjective Pt. feeling better this am. Pain is less. No fevers overnight. WBC is decreasing with IV abx. Small pneumothorax present with no enlargement since yesterday's study. Will await Dr. Jimenez consult for evaluation. Vital Signs Vital Signs Date Time Temp Pulse Resp B/P (MAP) Pulse Ox O2 Delivery O2 Flow Rate FiO2 03/24/18 08:00 Nasal Cannula 2.0 03/24/18 06:31 100 03/24/18 05:00 96 12 127/75 (92) 03/24/18 04:00 98.5 98.5 I&O Intake and Output 03/24/18 07:00 Intake Total 3150 ml Output Total 1100 ml Balance 2050 ml Intake Oral 700 ml IV Total 2450 ml Output Urine Total 1100 ml PATIENT HAS A SONI: No General: Alert, Oriented X3, Cooperative HEENT: Atraumatic Lungs: Clear to auscultation Heart: Regular rate Abdomen: Normal bowel sounds, Soft, Other (Mild tenderness with distention. ) Extremities: No edema Psych/Mental Status: Mental status NL Labs Laboratory Tests Test 03/23/18 10:55 03/23/18 11:15 03/23/18 11:21 03/24/18 04:00 Urine Collection Type Void Urine Color Sultana Urine Clarity Cloudy Urine pH 6.0 Urine Specific [place] >=1.030 Urine Protein 30 mg/dL (NEG-TRACE) Urine Glucose (UA) Negative mg/dL (NEG) Urine Ketones (Stick) 40 mg/dL (NEG) Urine Blood Large (NEG) Urine Nitrite Negative (NEG) Urine Bilirubin Small (NEG) Urine Urobilinogen Dipstick 0.2 mg/dL (0.2 mg/dL) Urine Leukocyte Esterase Moderate (NEG) Urine RBC 6-10 /HPF (0-2) Urine WBC 5-10 /HPF (0-4) Urine Squamous Epithelial Cells Mod /LPF Urine Amorphous Sediment Present /HPF Urine Bacteria Few /HPF (0-FEW) Urine Mucus Marked /LPF Serum Test, Qualitative Negative (NEG) White Blood Count 14.6 x10^3/uL (4.0-11.0) 12.2 x10^3/uL (4.0-11.0) Red Blood Count 4.42 x10^6/uL (3.50-5.40) 3.84 x10^6/uL (3.50-5.40) Hemoglobin 14.5 g/dL (12.0-15.5) 12.5 g/dL (12.0-15.5) Hematocrit 42.7 % (36.0-47.0) 37.0 % (36.0-47.0) Mean Corpuscular Volume 96 fL (79-100) 96 fL (79-100) Mean Corpuscular Hemoglobin 33 pg (25-35) 33 pg (25-35) Mean Corpuscular Hemoglobin Concent 34 g/dL (31-37) 34 g/dL (31-37) Red Cell Distribution Width 14.1 % (11.5-14.5) 13.6 % (11.5-14.5) Platelet Count 309 x10^3/uL (140-400) 275 x10^3/uL (140-400) Neutrophils (%) (Auto) 78 % (31-73) 73 % (31-73) Lymphocytes (%) (Auto) 6 % (24-48) 9 % (24-48) Monocytes (%) (Auto) 15 % (0-9) 17 % (0-9) Eosinophils (%) (Auto) 0 % (0-3) 1 % (0-3) Basophils (%) (Auto) 0 % (0-3) 0 % (0-3) Neutrophils # (Auto) 11.4 x10^3uL (1.8-7.7) 8.9 x10^3uL (1.8-7.7) Lymphocytes # (Auto) 0.9 x10^3/uL (1.0-4.8) 1.0 x10^3/uL (1.0-4.8) Monocytes # (Auto) 2.2 x10^3/uL (0.0-1.1) 2.1 x10^3/uL (0.0-1.1) Eosinophils # (Auto) 0.0 x10^3/uL (0.0-0.7) 0.1 x10^3/uL (0.0-0.7) Basophils # (Auto) 0.0 x10^3/uL (0.0-0.2) 0.0 x10^3/uL (0.0-0.2) Segmented Neutrophils % 65 % (35-66) Band Neutrophils % 8 % (0-9) Lymphocytes % 14 % (24-48) Monocytes % 13 % (0-10) Platelet Estimate Adequate (ADEQUATE) Sodium Level 137 mmol/L (136-145) 136 mmol/L (136-145) Potassium Level 3.3 mmol/L (3.5-5.1) 3.3 mmol/L (3.5-5.1) Chloride Level 99 mmol/L (98-107) 102 mmol/L (98-107) Carbon Dioxide Level 31 mmol/L (21-32) 26 mmol/L (21-32) Anion Gap 7 (6-14) 8 (6-14) Blood Urea Nitrogen 9 mg/dL (7-20) 4 mg/dL (7-20) Creatinine 0.8 mg/dL (0.6-1.0) 0.8 mg/dL (0.6-1.0) Estimated GFR (Cockcroft-Gault) 100.6 100.6 BUN/Creatinine Ratio 11 (6-20) Glucose Level 104 mg/dL (70-99) 114 mg/dL (70-99) Calcium Level 9.4 mg/dL (8.5-10.1) 7.8 mg/dL (8.5-10.1) Total Bilirubin 0.4 mg/dL (0.2-1.0) Aspartate Amino Transf (AST/SGOT) 17 U/L (15-37) Alanine Aminotransferase (ALT/SGPT) 21 U/L (14-59) Alkaline Phosphatase 83 U/L (46-116) Total Protein 7.5 g/dL (6.4-8.2) Albumin 2.9 g/dL (3.4-5.0) Albumin/Globulin Ratio 0.6 (1.0-1.7) Lipase 63 U/L (73-393) Bedside Urine HCG, Qualitative Hcg negative (Negative) Laboratory Tests Test 03/23/18 10:55 03/23/18 11:15 03/23/18 11:21 03/24/18 04:00 Urine Collection Type Void Urine Color Sultana Urine Clarity Cloudy Urine pH 6.0 Urine Specific [place] >=1.030 Urine Protein 30 mg/dL (NEG-TRACE) Urine Glucose (UA) Negative mg/dL (NEG) Urine Ketones (Stick) 40 mg/dL (NEG) Urine Blood Large (NEG) Urine Nitrite Negative (NEG) Urine Bilirubin Small (NEG) Urine Urobilinogen Dipstick 0.2 mg/dL (0.2 mg/dL) Urine Leukocyte Esterase Moderate (NEG) Urine RBC 6-10 /HPF (0-2) Urine WBC 5-10 /HPF (0-4) Urine Squamous Epithelial Cells Mod /LPF Urine Amorphous Sediment Present /HPF Urine Bacteria Few /HPF (0-FEW) Urine Mucus Marked /LPF Serum Test, Qualitative Negative (NEG) White Blood Count 14.6 x10^3/uL (4.0-11.0) 12.2 x10^3/uL (4.0-11.0) Red Blood Count 4.42 x10^6/uL (3.50-5.40) 3.84 x10^6/uL (3.50-5.40) Hemoglobin 14.5 g/dL (12.0-15.5) 12.5 g/dL (12.0-15.5) Hematocrit 42.7 % (36.0-47.0) 37.0 % (36.0-47.0) Mean Corpuscular Volume 96 fL (79-100) 96 fL (79-100) Mean Corpuscular Hemoglobin 33 pg (25-35) 33 pg (25-35) Mean Corpuscular Hemoglobin Concent 34 g/dL (31-37) 34 g/dL (31-37) Red Cell Distribution Width 14.1 % (11.5-14.5) 13.6 % (11.5-14.5) Platelet Count 309 x10^3/uL (140-400) 275 x10^3/uL (140-400) Neutrophils (%) (Auto) 78 % (31-73) 73 % (31-73) Lymphocytes (%) (Auto) 6 % (24-48) 9 % (24-48) Monocytes (%) (Auto) 15 % (0-9) 17 % (0-9) Eosinophils (%) (Auto) 0 % (0-3) 1 % (0-3) Basophils (%) (Auto) 0 % (0-3) 0 % (0-3) Neutrophils # (Auto) 11.4 x10^3uL (1.8-7.7) 8.9 x10^3uL (1.8-7.7) Lymphocytes # (Auto) 0.9 x10^3/uL (1.0-4.8) 1.0 x10^3/uL (1.0-4.8) Monocytes # (Auto) 2.2 x10^3/uL (0.0-1.1) 2.1 x10^3/uL (0.0-1.1) Eosinophils # (Auto) 0.0 x10^3/uL (0.0-0.7) 0.1 x10^3/uL (0.0-0.7) Basophils # (Auto) 0.0 x10^3/uL (0.0-0.2) 0.0 x10^3/uL (0.0-0.2) Segmented Neutrophils % 65 % (35-66) Band Neutrophils % 8 % (0-9) Lymphocytes % 14 % (24-48) Monocytes % 13 % (0-10) Platelet Estimate Adequate (ADEQUATE) Sodium Level 137 mmol/L (136-145) 136 mmol/L (136-145) Potassium Level 3.3 mmol/L (3.5-5.1) 3.3 mmol/L (3.5-5.1) Chloride Level 99 mmol/L (98-107) 102 mmol/L (98-107) Carbon Dioxide Level 31 mmol/L (21-32) 26 mmol/L (21-32) Anion Gap 7 (6-14) 8 (6-14) Blood Urea Nitrogen 9 mg/dL (7-20) 4 mg/dL (7-20) Creatinine 0.8 mg/dL (0.6-1.0) 0.8 mg/dL (0.6-1.0) Estimated GFR (Cockcroft-Gault) 100.6 100.6 BUN/Creatinine Ratio 11 (6-20) Glucose Level 104 mg/dL (70-99) 114 mg/dL (70-99) Calcium Level 9.4 mg/dL (8.5-10.1) 7.8 mg/dL (8.5-10.1) Total Bilirubin 0.4 mg/dL (0.2-1.0) Aspartate Amino Transf (AST/SGOT) 17 U/L (15-37) Alanine Aminotransferase (ALT/SGPT) 21 U/L (14-59) Alkaline Phosphatase 83 U/L (46-116) Total Protein 7.5 g/dL (6.4-8.2) Albumin 2.9 g/dL (3.4-5.0) Albumin/Globulin Ratio 0.6 (1.0-1.7) Lipase 63 U/L (73-393) Bedside Urine HCG, Qualitative Hcg negative (Negative) Problem List Problems Medical Problems: (1) Abdominal pain Status: Acute Assessment/Plan A: Pelvic/Abd abscesses Pneumothorax: stable P: Await Dr. Jimenez consult. Continue IV abx. Plan for exploratory lap early next week depending on Pulmonary consult. CHARLES MURPHY Jr, MD Mar 24, 2018 10:03
[2018-03-24] MEDS ORDERED: LACTULOSE 20 GM/30 ML SOLUTION. PO PRN (10:15)
[2018-03-24] MEDS: LACTOBACILLUS RHAMNOSUS GG 1 CAPSULE. PO SCH ×2 (10:16→20:54)
[2018-03-24] MEDS: POTASSIUM CHLORIDE 20 MEQ TABLET.ER. PO SCH ×2 (10:16→16:49)
[2018-03-24] MEDS: PSYLLIUM HUSK (SUGAR FREE) 1 PKT PACKET PO SCH (10:30)
[2018-03-24] MEDS: SENNOSIDES/DOCUSATE 8.6/50MG TABLET. PO PRN (10:39)
[2018-03-24] MEDS: POLYETHYLENE GLYCOL 3350 17 GM PACKET. PO SCH (10:39)
--- NOTE | 2018-03-24 11:14 | CONS ---
DATE OF CONSULTATION: ATTENDING PHYSICIAN: Dr Doll. REASON FOR CONSULTATION: Pneumothorax. HISTORY OF PRESENT ILLNESS: The patient is a 32-year-old female who has no significant past medical history. She began to have diffuse abdominal pain about 2 weeks ago. She was having some constipation and then later she had some bowel movements. The patient also then had some nausea, vomiting 3 times on Monday and had nonbloody vomitus. She had increasing abdominal distention. She has never had any chest pain. The patient had some mild shortness of breath on Monday. The patient was evaluated in the Emergency Room for abdominal pain and she underwent CT abdomen and pelvis, which was reviewed by me. There was evidence of small pneumothorax. There were findings suspicious for tubo-ovarian abscess, although ruptured appendicitis was also a concern. Some free fluid was seen. There was some nodularity along the peritoneal surfaces suggesting active peritonitis. Surgery has been consulted. [facility]ER has also been consulted. The patient has no history of tobacco use. No history of prior pneumothorax. She just finished her period yesterday. She said she normally does not have any cramping of her abdomen during her menstrual cycles. The patient tentatively had planned for exploratory laparotomy early next week. The patient's chest x-ray has been reviewed and it has been stable. She has about 10%-15% pneumothorax. She is clinically asymptomatic. A followup x-ray this morning showed small basal component of pneumothorax as well on the right side. PAST MEDICAL HISTORY: Essentially unremarkable. PAST SURGICAL HISTORY: Ulnar repair. FAMILY HISTORY: Cancer. SOCIAL HISTORY: Nonsmoker, nonalcoholic. ALLERGIES: None. MEDICATIONS: All reviewed, as listed in the [facility], including broad-spectrum antibiotic. REVIEW OF SYSTEMS: Twelve-point system obtained. Pertinent positives discussed in my history of present illness, otherwise noncontributory. All systems that were negative were reviewed as well. PHYSICAL EXAMINATION: VITAL SIGNS: Reviewed, pulse ox 98% on 2 liters. She is afebrile. HEENT: Sclerae nonicteric. NECK: Supple. LUNGS: Diminished breath sounds at the bases. CARDIOVASCULAR: Regular rate. ABDOMEN: Soft, mildly tender. EXTREMITIES: With no pitting edema. LABORATORY DATA: Reviewed. White cell count was 14.6, now down to 12.2 and hemoglobin and platelets are stable. Chemistries with a BUN of 4 and creatinine 0.8. IMPRESSION: 1. Spontaneous small right-sided pneumothorax. She is a nonsmoker. The etiology of pneumothorax is not so obvious, but possibility of catamenial pneumothorax cannot be ruled out. She just finished her period yesterday. The other possibility would be related to endometriosis with the possibility of rupture of diaphragmatic endometrial implant. She does not have any cysts in lungs and as such no clinical suspicion for lymphangioleiomyomatosis or Langerhan's cell Histiocytosis X 2. Suspected tubo-ovarian abscess / early peritonitis. No obvious abdominal endometriosis was reported. 3. No significant history of tobacco use. 4. Possible ruptured appendicitis. RECOMMENDATIONS: 1. From a pulmonary standpoint, the pneumothorax is stable and I will continue to monitor conservatively. However, I would place her on 100% oxygen in order to expedite reabsorption of air from the pleural space. 2. If exploratory laparotomy is contemplated for next week and if pneumothorax does not resolve, then we may put a small bore chest tube to prevent any worsening pneumothorax while on positive pressure ventilation. 3. Follow daily chest x-rays. 4. Continue broad-spectrum antibiotics. 5. Follow [facility] recommendation. 6. Follow General Surgery recommendations. 7. Nutrition per Surgery. 8. Discussed with RN and RT. We will follow along with you. Critical care time 37 minutes. INOCENCIA CASTRO MD DR: RACHEL/floresita JOB#: [id number] / [id number] TOM
[2018-03-24] MEDS: ONDANSETRON PF 4 MG/2 ML VIAL. IV PRN ×2 (12:39→22:46)
[2018-03-24] MEDS: FAMOTIDINE 20 MG/2 ML VIAL IVP SCH (20:54)
[2018-03-24] MEDS: DOXYCYCLINE HYCLATE 100 MG TABLET PO SCH (20:54)
[2018-03-24] MEDS: MORPHINE SULFATE 2 MG/ML VIAL. IV PRN (22:46)
[2018-03-25 03:00] VITALS: BP 133/89
--- NOTE | 2018-03-25 03:16 | CONS ---
DATE OF CONSULTATION: 03/24/2018 REFERRING PHYSICIAN: Tom Doll MD REASON FOR CONSULTATION: Abdominal abscess. HISTORY OF PRESENT ILLNESS: This patient is a 32-year-old -M[place] female with no significant past medical history who about 2 weeks ago developed a gradual onset of abdominal pain, mostly in the right lower quadrant associated with some nausea and vomiting. She initially believed she was constipated and took MiraLax and prune juice. She followed up with Dr. Carballo, her PCP for worsening pain, bloating and distention. An x-ray reportedly showed stool in the colon and an ileus. She took lactulose, antiemetics, Zantac, and ibuprofen with little relief. She says the pain became so bad that she had to walk slow and could not stand straight. She was afraid to drive and missed work. An abdominal/pelvis CT revealed two large pelvic fluid collections measuring 3.5 x 11.3 x 11.1 cm and 8.3 x 8.3 x 9.5 cm. The exact source is uncertain, although ruptured appendicitis or tubo-ovarian abscess would be most likely consideration. She also had a small amount of free fluid with enhancement and nodularity along the peritoneal surfaces, suggestive of active peritonitis. A small pneumothorax at the right base also was noted. Mildly dilated fluid-filled small bowel, likely related to ileus. Partial small bowel obstruction not excluded. [place] [address] and test was negative. She was dosed with vancomycin and Zosyn. Dr. Olivas is planning an exploratory laparotomy early next week. The patient is feeling a little bit better since admission. Her appetite remains diminished. Her weight has been fluctuating. She is currently undergoing workup for fertility treatment. She reportedly tested negative for STDs. She denies vaginal discharge or odor. Her menses have been fairly regular. She denies shortness of air, cough, chest discomfort, fevers, chills, sweats or body aches. Denies dysuria, frequency or urgency. PAST MEDICAL HISTORY: History of chlamydia infection. PAST SURGICAL HISTORY: Left ulnar repair. FAMILY HISTORY: Positive for cancer. SOCIAL HISTORY: The patient is . She works at [employer] in [employer]. Nonsmoker. Denies history of drug use. ALLERGIES: No known drug allergies. MEDICATIONS: Vancomycin, Zosyn. Other medications are available and have been reviewed on the MAR. REVIEW OF SYSTEMS: Per HPI, otherwise all other review of systems are negative. PHYSICAL EXAMINATION: GENERAL: The patient is sitting up in a chair, alert, in no apparent distress. VITAL SIGNS: Temperature is 98.5, blood pressure 127/75, heart rate 96, respiratory rate 12, pulse oximetry is 100% on 2 L nasal cannula. HEENT: Pupils equally round. Normal conjunctivae. Oral cavity: Pharynx pink and moist. NECK: Supple. LUNGS: Diminished aeration in the bases. Nonlabored. HEART: S1 and S2 regular. ABDOMEN: Distended, bowel sounds active, soft, and diffusely tender. EXTREMITIES: No gross edema or cyanosis. SKIN: Warm without rash. NEUROLOGIC: Alert and oriented times 3. LABORATORY DATA: Recent WBC 12.2, hemoglobin 12.5, platelets 275,000. Sodium 136, potassium 3.3, creatinine 0.8, BUN 4, glucose 114. Total bilirubin 0.4, AST 17, ALT 21, albumin 2.9, lipase 63. Serum negative. Urinalysis showed WBCs 5-10, leukocyte esterase moderate, negative nitrite, and few bacteria. Urine hCG negative. MRSA screen pending. Blood cultures negative to date. Abdominal/pelvis CT per HPI. Urine culture pending. IMAGING DATA: Recent chest x-ray shows small right pneumothorax. Development of basilar component of the pneumothorax, which may be due to change in positioning. Possible small left pleural effusion. IMPRESSION: 1. Peritonitis with intraabdominal abscesses, source unclear, likely organ rupture, though malignancy not ruled out. 2. Leukocytosis. 3. Ileus versus partial small bowel obstruction. 4. Small right pneumothorax. PLAN: Continue the Zosyn and empiric doxycycline. We will discontinue the vancomycin. We will check urine for chlamydia and gonorrhea though suspicion is low. We will follow up on cultures. Continue to monitor laboratory values and temperature. Exploratory laparotomy is planned for early next week per OTOLARYNGOLOGY NURSE. Thank you, Dr. Doll, for asking us to participate in this patient's care. Should you have further questions or concerns, please call. The patient seen and examined and plan of care implemented by Dr. Scotty De Dios. SCOTTY DE DIOS MD DR: Eveline JOB#: [id number] / [id number]
[2018-03-25 05:50] LABS: CREATININE 0.8 mg/dL (0.6-1.0); GFR 100.6
[2018-03-25] MEDS: POTASSIUM CHLORIDE 20 MEQ TABLET.ER. PO SCH ×2 (06:02→17:56)
[2018-03-25] MEDS: PIPERACILLIN/TAZOBACTAM 4.5 GM in IV NORMAL SALINE 100ML 100 ML IV SCH ×6 (06:03→22:40)
[2018-03-25] MEDS: HEPARIN for SUB-Q USE 5,000 UNIT/ML VIAL. SQ SCH ×3 (06:11→22:55)
[2018-03-25 07:00] VITALS: BP 125/77
--- NOTE | 2018-03-25 07:29 | PDOC ---
PROGRESS NOTES Chief Complaint Chief Complaint Abdominal pain Abdominal mass History of Present Illness History of Present Illness 32-year-old female presenting with periumbilical abdominal pain fro 2 weeks, and N/V for 4ds. No PMH. Pt started to have diffuse abd pain 2 weeks ago, constant, move and changing positions makes it worse. Started on lactulose outpatient thinking it was constipation. The pain is dull, 5/10, no radiation. worse for 4ds. She also has N/V 3 times on Monday, non bloody or brad. has severe abd distention. denies fever, has chills, no cough, has mild sob on Monday. no chest pain. had one time diarrhea yesterday, yellow. She had x-rays performed in clinic which showed possible small bowel obstruction. CT showed abd has Two large rim-enhancing fluid collections in the pelvis, suspicious for abscess. The exact source is uncertain, although ruptured appendicitis or tubo-ovarian abscess would be the most likely considerations. and small rt pneumothorax. She is in process of conception with NIRANJAN. She has HSG in February that revealed 1 patent tube and questionable other tube per patient. She has h/o Chlamydia a few years ago that was treated. CT scan results and labs discussed with patient. Plan for IV abx and exploratory laparotomy early next week. Feeling a little better today, still on O2. Improved PTX on CXR. Feeling some pain on urination. Abdominal pain improving. Has been constipation. No CP. Discussed surgical plans with her and mother, bedside A/P: abd pain with [address] in CT, could 2/2 abcess with organ rupture or malignancy - consulted surgery and application operations engineer sepsis - from likely abdominal abscess - ID, zosyn, vancomycin. f/u cultures. mild malnutrition - likely from NPO status, slowly advance diet as tolerated small rt pneumothorax - CXR this morning shows improvement, possibly overall improving. Pulm to see. This could be 2/2 abdominal communication after abscess formation hypokalemia - persistent today, will replace PO pt likely need abd surgery - monday/monday ex-lap pain control, bowel regimen dvt gi ppx Wards for now, still has PTX Vitals Vitals Vital Signs Date Time Temp Pulse Resp B/P (MAP) Pulse Ox O2 Delivery O2 Flow Rate FiO2 03/25/18 03:00 98.1 103 18 133/89 (104) 100 Nasal Cannula 15.0 98.1 Physical Exam General: Alert, Oriented X3, Cooperative Heart: Regular rate Abdomen: Normal bowel sounds, Soft, Other (Mild tenderness with distention. ) Extremities: No edema Skin: No significant lesion Labs LABS Laboratory Tests Test 03/25/18 04:30 Creatinine 0.8 mg/dL (0.6-1.0) Estimated GFR (Cockcroft-Gault) 100.6 Assessment and Plan Assessmemt and Plan Problems Medical Problems: (1) Abdominal pain Status: Acute Comment Review of Relevant I have reviewed the following items lo (where applicable) has been applied. Labs Laboratory Tests Test 03/23/18 10:55 03/23/18 11:15 03/23/18 11:21 03/23/18 16:20 Urine Collection Type Void Urine Color Sultana Urine Clarity Cloudy Urine pH 6.0 Urine Specific [place] >=1.030 Urine Protein 30 mg/dL (NEG-TRACE) Urine Glucose (UA) Negative mg/dL (NEG) Urine Ketones (Stick) 40 mg/dL (NEG) Urine Blood Large (NEG) Urine Nitrite Negative (NEG) Urine Bilirubin Small (NEG) Urine Urobilinogen Dipstick 0.2 mg/dL (0.2 mg/dL) Urine Leukocyte Esterase Moderate (NEG) Urine RBC 6-10 /HPF (0-2) Urine WBC 5-10 /HPF (0-4) Urine Squamous Epithelial Cells Mod /LPF Urine Amorphous Sediment Present /HPF Urine Bacteria Few /HPF (0-FEW) Urine Mucus Marked /LPF Serum Test, Qualitative Negative (NEG) White Blood Count 14.6 x10^3/uL (4.0-11.0) Red Blood Count 4.42 x10^6/uL (3.50-5.40) Hemoglobin 14.5 g/dL (12.0-15.5) Hematocrit 42.7 % (36.0-47.0) Mean Corpuscular Volume 96 fL (79-100) Mean Corpuscular Hemoglobin 33 pg (25-35) Mean Corpuscular Hemoglobin Concent 34 g/dL (31-37) Red Cell Distribution Width 14.1 % (11.5-14.5) Platelet Count 309 x10^3/uL (140-400) Neutrophils (%) (Auto) 78 % (31-73) Lymphocytes (%) (Auto) 6 % (24-48) Monocytes (%) (Auto) 15 % (0-9) Eosinophils (%) (Auto) 0 % (0-3) Basophils (%) (Auto) 0 % (0-3) Neutrophils # (Auto) 11.4 x10^3uL (1.8-7.7) Lymphocytes # (Auto) 0.9 x10^3/uL (1.0-4.8) Monocytes # (Auto) 2.2 x10^3/uL (0.0-1.1) Eosinophils # (Auto) 0.0 x10^3/uL (0.0-0.7) Basophils # (Auto) 0.0 x10^3/uL (0.0-0.2) Segmented Neutrophils % 65 % (35-66) Band Neutrophils % 8 % (0-9) Lymphocytes % 14 % (24-48) Monocytes % 13 % (0-10) Platelet Estimate Adequate (ADEQUATE) Sodium Level 137 mmol/L (136-145) Potassium Level 3.3 mmol/L (3.5-5.1) Chloride Level 99 mmol/L (98-107) Carbon Dioxide Level 31 mmol/L (21-32) Anion Gap 7 (6-14) Blood Urea Nitrogen 9 mg/dL (7-20) Creatinine 0.8 mg/dL (0.6-1.0) Estimated GFR (Cockcroft-Gault) 100.6 BUN/Creatinine Ratio 11 (6-20) Glucose Level 104 mg/dL (70-99) Calcium Level 9.4 mg/dL (8.5-10.1) Total Bilirubin 0.4 mg/dL (0.2-1.0) Aspartate Amino Transf (AST/SGOT) 17 U/L (15-37) Alanine Aminotransferase (ALT/SGPT) 21 U/L (14-59) Alkaline Phosphatase 83 U/L (46-116) Total Protein 7.5 g/dL (6.4-8.2) Albumin 2.9 g/dL (3.4-5.0) Albumin/Globulin Ratio 0.6 (1.0-1.7) Lipase 63 U/L (73-393) Bedside Urine HCG, Qualitative Hcg negative (Negative) Nasal Screen MRSA (PCR) Negative (Negative) Test 03/24/18 04:00 03/25/18 04:30 White Blood Count 12.2 x10^3/uL (4.0-11.0) Red Blood Count 3.84 x10^6/uL (3.50-5.40) Hemoglobin 12.5 g/dL (12.0-15.5) Hematocrit 37.0 % (36.0-47.0) Mean Corpuscular Volume 96 fL (79-100) Mean Corpuscular Hemoglobin 33 pg (25-35) Mean Corpuscular Hemoglobin Concent 34 g/dL (31-37) Red Cell Distribution Width 13.6 % (11.5-14.5) Platelet Count 275 x10^3/uL (140-400) Neutrophils (%) (Auto) 73 % (31-73) Lymphocytes (%) (Auto) 9 % (24-48) Monocytes (%) (Auto) 17 % (0-9) Eosinophils (%) (Auto) 1 % (0-3) Basophils (%) (Auto) 0 % (0-3) Neutrophils # (Auto) 8.9 x10^3uL (1.8-7.7) Lymphocytes # (Auto) 1.0 x10^3/uL (1.0-4.8) Monocytes # (Auto) 2.1 x10^3/uL (0.0-1.1) Eosinophils # (Auto) 0.1 x10^3/uL (0.0-0.7) Basophils # (Auto) 0.0 x10^3/uL (0.0-0.2) Sodium Level 136 mmol/L (136-145) Potassium Level 3.3 mmol/L (3.5-5.1) Chloride Level 102 mmol/L (98-107) Carbon Dioxide Level 26 mmol/L (21-32) Anion Gap 8 (6-14) Blood Urea Nitrogen 4 mg/dL (7-20) Creatinine 0.8 mg/dL (0.6-1.0) 0.8 mg/dL (0.6-1.0) Estimated GFR (Cockcroft-Gault) 100.6 100.6 Glucose Level 114 mg/dL (70-99) Calcium Level 7.8 mg/dL (8.5-10.1) Laboratory Tests Test 03/25/18 04:30 Creatinine 0.8 mg/dL (0.6-1.0) Estimated GFR (Cockcroft-Gault) 100.6 Microbiology 03/23/18 Blood Culture - Preliminary, Resulted NO GROWTH AFTER 1 DAY 03/23/18 Urine Culture - Preliminary, Resulted 03/23/18 Urine Culture Result 1 (THOM) - Preliminary, Resulted Medications Current Medications Fentanyl Citrate (Fentanyl 2ml Vial) 50 mcg PRN Q30MIN PRN IV SEVERE PAIN Last administered on 03/23/18at 14:32; Start 03/23/18 at 11:45; Stop 03/23/18 at 14 :33; Status DC Sodium Chloride 1,000 ml @ 1,000 mls/hr Q1H IV Last administered on at 11:42; Start 03/23/18 at 11:31; Stop 03/23/18 at 12:30; Status DC Ondansetron HCl (Zofran) 4 mg 1X ONCE IV Last administered on 03/23/18at 11:42 ; Start 03/23/18 at 11:45; Stop 03/23/18 at 11:46; Status DC Iohexol (Omnipaque 300 Mg/ml) 75 ml 1X ONCE IV Last administered on at 12:30; Start 03/23/18 at 12:00; Stop 03/23/18 at 12:01; Status DC Info (CONTRAST GIVEN -- Rx MONITORING) 1 each PRN DAILY PRN MC SEE COMMENTS; Start 03/23/18 at 12:00; Stop 03/25/18 at 11:59 Piperacillin Sod/ Tazobactam Sod (Zosyn Per Pharmacy) 1 each PRN DAILY PRN MC SEE COMMENTS; Start 03/23/18 at 13:30; Status UNV Doxycycline Hyclate 100 mg/ Dextrose 100 ml @ 50 mls/hr 1X ONCE IV Last administered on 03/23/18at 14:32; Start 03/23/18 at 13:30; Stop 03/23/18 at 15 :29; Status DC Piperacillin Sod/ Tazobactam Sod 3.375 gm/Sodium Chloride 50 ml @ 100 mls/hr 1X ONCE IV Last administered on 03/23/18at 13:48; Start 03/23/18 at 13:30; Stop 03/23/18 at 14:02; Status DC Sodium Chloride 1,000 ml @ 1,000 mls/hr 1X ONCE IV ; Start 03/23/18 at 14:30 ; Stop 03/23/18 at 15:29; Status DC Acetaminophen (Tylenol) 650 mg PRN Q6HRS PRN PO FEVER; Start 03/23/18 at 15:30 Ondansetron HCl (Zofran) 4 mg PRN Q6HRS PRN IV NAUSEA/VOMITING Last administered on 03/24/18at 22:46; Start 03/23/18 at 15:30 Morphine Sulfate (Morphine Sulfate) 2 mg PRN Q2HR PRN IV MODERATE TO SEVERE PAIN; Start 03/23/18 at 15:30; Status UNV Tramadol HCl (Ultram) 50 mg PRN Q6HRS PRN PO MILD TO MODERATE PAIN Last administered on 03/24/18at 20:54; Start 03/23/18 at 15:30 Docusate Sodium (Colace) 100 mg PRN DAILY PRN PO CONSTIPATION, 3RD CHOICE; Start 03/23/18 at 15:30 Piperacillin Sod/ Tazobactam Sod 4.5 gm/Sodium Chloride 100 ml @ 200 mls/hr Q6HRS IV Last administered on 03/25/18at 06:03; Start 03/23/18 at 18:00 Piperacillin Sod/ Tazobactam Sod (Zosyn Per Pharmacy) 1 each PRN DAILY PRN MC SEE COMMENTS; Start 03/23/18 at 15:30 Morphine Sulfate (Morphine Sulfate) 2 mg PRN Q2HR PRN IV MILD-MODERATE PAIN Last administered on 03/24/18at 22:46; Start 03/23/18 at 15:30 Morphine Sulfate (Morphine Sulfate) 4 mg PRN Q2HR PRN IV SEVERE PAIN Last administered on 03/24/18at 06:01; Start 03/23/18 at 15:30 Potassium Chloride/Dextrose/ Sod Cl 1,000 ml @ 75 mls/hr [id number] IV Last administered on 03/24/18at 22:47; Start 03/23/18 at 15:30 Famotidine (Pepcid Vial) 20 mg QHS IVP Last administered on 03/24/18at 20:54; Start 03/23/18 at 21:00 Heparin Sodium (Porcine) (Heparin Sodium) 5,000 unit Q8HRS SQ Last administered on 03/25/18at 06:11; Start 03/23/18 at 16:00 Vancomycin HCl 1.5 gm/Sodium Chloride 500 ml @ 250 mls/hr Q12H IV ; Start at 17:15; Status UNV Vancomycin HCl (Vanco Per Pharmacy) 1 each PRN DAILY PRN MC SEE COMMENTS Last administered on 03/24/18at 08:35; Start 03/23/18 at 17:15; Stop 03/24/18 at 14 :57; Status DC Vancomycin HCl 1.5 gm/Sodium Chloride 500 ml @ 250 mls/hr 1X ONCE IV Last administered on 03/23/18at 18:03; Start 03/23/18 at 17:30; Stop 03/23/18 at 19 :29; Status DC Influenza Virus Vaccine (Afluria Trivalent [id number] Syringe) 0.5 ml ONCE ONCE VAX IM ; Start 03/27/18 at 09:00; Stop 03/27/18 at 09:01 Vancomycin HCl 1 gm/Sodium Chloride 250 ml @ 250 mls/hr Q12H IV Last administered on 03/24/18at 05:54; Start 03/24/18 at 06:00; Stop 03/24/18 at 14 :57; Status DC Vancomycin HCl (Vancomycin Trough Level) 1 each 1X ONCE MC ; Start 03/25/18 at 05:30; Stop 03/25/18 at 05:31; Status Cancel Metoprolol Tartrate (Lopressor Vial) 5 mg Q6HRS IVP ; Start 03/23/18 at 21:00; Stop 03/23/18 at 21:55; Status DC Metoprolol Tartrate (Lopressor Vial) 5 mg PRN Q6HRS PRN IVP TACHYCARDIA; Start 03/23/18 at 22:00 Lactobacillus Rhamnosus (Culturelle) 1 cap BID PO Last administered on at 20:54; Start 03/24/18 at 09:00 Potassium Chloride (Klor-Con) 20 meq BIDBFRMEAL PO Last administered on at 06:02; Start 03/24/18 at 10:00 Polyethylene Glycol (miraLAX PACKET) 17 gm DAILY PO Last administered on at 10:39; Start 03/24/18 at 10:30 Psyllium Hydrophilic Mucilloid (Metamucil Fiber Packet) 1 pkt DAILY PO ; Start 03/24/18 at 10:30 Lactulose (Lactulose) 20 gm PRN DAILY PRN PO CONSTIPATION, 2ND CHOICE Last administered on 03/24/18at 16:47; Start 03/24/18 at 10:15 Senna/Docusate Sodium (Senna Plus) 2 tab PRN BID PRN PO CONSTIPATION, 1ST CHOICE Last administered on 03/24/18at 10:39; Start 03/24/18 at 10:15 Doxycycline Hyclate (Vibra-Tab) 100 mg BID PO Last administered on 03/24/18at 20:54; Start 03/24/18 at 21:00 Active Scripts Active Reported One Daily For Women Tablet (Folic Acid/Mv,Fe,Other Min) 1 Each Tablet 1 Each PO Vitals/I & O Vital Sign - Last 24 Hours 03/24/18 03/24/18 03/24/18 03/24/18 08:00 08:00 09:00 10:00 Pulse 96 108 104 Resp 16 16 16 B/P (MAP) 116/81 (93) 124/84 (97) 129/86 (100) Pulse Ox 100 O2 Delivery Nasal Cannula Nasal Cannula Nasal Cannula High Flow Nasal Cannula O2 Flow Rate 2.0 15.0 03/24/18 03/24/18 03/24/18 03/24/18 10:17 11:00 11:17 12:00 Temp 97.6 97.6 Pulse 98 Resp 16 16 16 B/P (MAP) 140/95 (110) Pulse Ox 98 O2 Delivery Nasal Cannula High Flow Nasal Cannula Nasal Cannula O2 Flow Rate 2.0 15.0 03/24/18 03/24/18 03/24/18 03/24/18 12:24 16:00 19:00 20:00 Temp 97.6 97.7 97.6 97.7 Pulse 97 96 Resp 0 16 18 B/P (MAP) 143/88 (106) 135/87 (103) Pulse Ox 100 100 O2 Delivery Nasal Cannula High Flow Nasal Cannula Nasal Cannula Nasal Cannula O2 Flow Rate 15.0 15.0 15.0 2.0 03/24/18 03/25/18 23:00 03:00 Temp 97.9 98.1 97.9 98.1 Pulse 101 103 Resp 18 18 B/P (MAP) 143/93 (110) 133/89 (104) Pulse Ox 100 100 O2 Delivery Nasal Cannula Nasal Cannula O2 Flow Rate 15.0 15.0 Intake and Output 03/24/18 03/24/18 03/25/18 15:00 23:00 07:00 Intake Total 1290 ml 1450 ml 200 ml Output Total 1000 ml 100 ml Balance 290 ml 1350 ml 200 ml SALLY BARRIOS MD Mar 25, 2018 07:29
[2018-03-25] MEDS: traMADol 50 MG TABLET PO PRN ×2 (08:52→19:27)
[2018-03-25] MEDS: DOXYCYCLINE HYCLATE 100 MG TABLET PO SCH ×2 (08:52→20:30)
[2018-03-25] MEDS: LACTOBACILLUS RHAMNOSUS GG 1 CAPSULE. PO SCH ×2 (08:52→20:30)
[2018-03-25] MEDS: POLYETHYLENE GLYCOL 3350 17 GM PACKET. PO SCH (08:52)
[2018-03-25] MEDS: PSYLLIUM HUSK (SUGAR FREE) 1 PKT PACKET PO SCH (08:52)
[2018-03-25] MEDS: POTASSIUM CL 20MEQ D5-0.9%NACL 1,000 ML IV SCH ×2 (08:56→22:38)
--- NOTE | 2018-03-25 09:40 | RAD ---
PORTABLE CHEST 1V INDICATION: Pneumothorax follow up COMPARISON: Chest radiograph dated 03/24/2018 FINDINGS: The patient is slightly rotated to the right. Unchanged lung volume. No new consolidation. Unchanged pulmonary vasculature. Improvement in right apical pneumothorax now with 0.6 cm pleural separation, previously 1.0 cm. Basilar component no longer seen. Small left pleural effusion. The cardiomediastinal silhouette and great vessels are unchanged. IMPRESSION: 1. Improvement in right apical pneumothorax now with 0.6 cm pleural separation, previously 1.0 cm. Basilar component no longer seen. 2. Small left pleural effusion. Electronically signed by: Petar Shi MD (03/25/2018 9:37 AM) [facility]
[2018-03-25 11:00] VITALS: BP 133/97
--- NOTE | 2018-03-25 11:03 | PDOC ---
SURGICAL PROGRESS NOTE Subjective Pt. feeling better on high concentration oxygen. No fevers, chills or night sweats. Will obtain pelvic sono. Appreciate Pulmonary consult. Will wait for resolvement of pneumothorax for surgery. Vital Signs Vital Signs Date Time Temp Pulse Resp B/P (MAP) Pulse Ox O2 Delivery O2 Flow Rate FiO2 03/25/18 08:52 Room Air 03/25/18 08:20 15.0 03/25/18 07:00 98.1 100 16 125/77 (93) 100 98.1 I&O Intake and Output 03/25/18 07:00 Intake Total 2940 ml Output Total 1100 ml Balance 1840 ml Intake Oral 1590 ml IV Total 1350 ml Output Urine Total 1100 ml # Voids 1 PATIENT HAS A SONI: No General: Alert, Oriented X3, Cooperative HEENT: Atraumatic Lungs: Clear to auscultation Heart: Regular rate Abdomen: Normal bowel sounds, Soft, Other (mild tenderness with distention) Labs Laboratory Tests Test 03/23/18 11:15 03/23/18 11:21 03/23/18 16:20 03/24/18 04:00 White Blood Count 14.6 x10^3/uL (4.0-11.0) 12.2 x10^3/uL (4.0-11.0) Red Blood Count 4.42 x10^6/uL (3.50-5.40) 3.84 x10^6/uL (3.50-5.40) Hemoglobin 14.5 g/dL (12.0-15.5) 12.5 g/dL (12.0-15.5) Hematocrit 42.7 % (36.0-47.0) 37.0 % (36.0-47.0) Mean Corpuscular Volume 96 fL (79-100) 96 fL (79-100) Mean Corpuscular Hemoglobin 33 pg (25-35) 33 pg (25-35) Mean Corpuscular Hemoglobin Concent 34 g/dL (31-37) 34 g/dL (31-37) Red Cell Distribution Width 14.1 % (11.5-14.5) 13.6 % (11.5-14.5) Platelet Count 309 x10^3/uL (140-400) 275 x10^3/uL (140-400) Neutrophils (%) (Auto) 78 % (31-73) 73 % (31-73) Lymphocytes (%) (Auto) 6 % (24-48) 9 % (24-48) Monocytes (%) (Auto) 15 % (0-9) 17 % (0-9) Eosinophils (%) (Auto) 0 % (0-3) 1 % (0-3) Basophils (%) (Auto) 0 % (0-3) 0 % (0-3) Neutrophils # (Auto) 11.4 x10^3uL (1.8-7.7) 8.9 x10^3uL (1.8-7.7) Lymphocytes # (Auto) 0.9 x10^3/uL (1.0-4.8) 1.0 x10^3/uL (1.0-4.8) Monocytes # (Auto) 2.2 x10^3/uL (0.0-1.1) 2.1 x10^3/uL (0.0-1.1) Eosinophils # (Auto) 0.0 x10^3/uL (0.0-0.7) 0.1 x10^3/uL (0.0-0.7) Basophils # (Auto) 0.0 x10^3/uL (0.0-0.2) 0.0 x10^3/uL (0.0-0.2) Segmented Neutrophils % 65 % (35-66) Band Neutrophils % 8 % (0-9) Lymphocytes % 14 % (24-48) Monocytes % 13 % (0-10) Platelet Estimate Adequate (ADEQUATE) Sodium Level 137 mmol/L (136-145) 136 mmol/L (136-145) Potassium Level 3.3 mmol/L (3.5-5.1) 3.3 mmol/L (3.5-5.1) Chloride Level 99 mmol/L (98-107) 102 mmol/L (98-107) Carbon Dioxide Level 31 mmol/L (21-32) 26 mmol/L (21-32) Anion Gap 7 (6-14) 8 (6-14) Blood Urea Nitrogen 9 mg/dL (7-20) 4 mg/dL (7-20) Creatinine 0.8 mg/dL (0.6-1.0) 0.8 mg/dL (0.6-1.0) Estimated GFR (Cockcroft-Gault) 100.6 100.6 BUN/Creatinine Ratio 11 (6-20) Glucose Level 104 mg/dL (70-99) 114 mg/dL (70-99) Calcium Level 9.4 mg/dL (8.5-10.1) 7.8 mg/dL (8.5-10.1) Total Bilirubin 0.4 mg/dL (0.2-1.0) Aspartate Amino Transf (AST/SGOT) 17 U/L (15-37) Alanine Aminotransferase (ALT/SGPT) 21 U/L (14-59) Alkaline Phosphatase 83 U/L (46-116) Total Protein 7.5 g/dL (6.4-8.2) Albumin 2.9 g/dL (3.4-5.0) Albumin/Globulin Ratio 0.6 (1.0-1.7) Lipase 63 U/L (73-393) Bedside Urine HCG, Qualitative Hcg negative (Negative) Nasal Screen MRSA (PCR) Negative (Negative) Test 03/25/18 04:30 Creatinine 0.8 mg/dL (0.6-1.0) Estimated GFR (Cockcroft-Gault) 100.6 Laboratory Tests Test 03/25/18 04:30 Creatinine 0.8 mg/dL (0.6-1.0) Estimated GFR (Cockcroft-Gault) 100.6 Problem List Problems Medical Problems: (1) Abdominal pain Status: Acute Assessment/Plan A: Abd/pelvic abscesses P: Pelvic sono. Continue current care and IV abx. Plan for surgery Monday or as pneumothorax resolves CHARLES MURPHY Jr, MD Mar 25, 2018 11:03
[2018-03-25] MEDS: MORPHINE SULFATE 2 MG/ML VIAL. IV PRN ×2 (11:16→22:39)
--- NOTE | 2018-03-25 11:19 | PDOC ---
Infectious Disease Note Subjective Subjective Sipping on Willow-Lax No BM Abdominal pain now moving to left lower side High flow O2 Denies SOA/CP/cough Denies N/V/F/C/S ROS ROS per HPI otherwise neg Vital Sign Vital Signs Vital Signs Date Time Temp Pulse Resp B/P (MAP) Pulse Ox O2 Delivery O2 Flow Rate FiO2 03/25/18 10:00 100 Nasal Cannula 15.0 03/25/18 07:00 98.1 100 16 125/77 (93) 98.1 Physical Exam PHYSICAL EXAM GENERAL: Propped up in bed, watching TV HEENT: Oral cavity: Pharynx pink and moist. NECK: Supple. LUNGS: Diminished aeration in the bases. Nonlabored. HEART: S1 and S2 regular. ABDOMEN: Distended, bowel sounds active, soft, and diffusely tender. EXTREMITIES: No gross edema or cyanosis. SKIN: Warm without rash. NEUROLOGIC: Alert and oriented times 3. PIV Labs Lab Laboratory Tests Test 03/25/18 04:30 Creatinine 0.8 mg/dL (0.6-1.0) Estimated GFR (Cockcroft-Gault) 100.6 IMPRESSION: 1. Improvement in right apical pneumothorax now with 0.6 cm pleural separation, previously 1.0 cm. Basilar component no longer seen. 2. Small left pleural effusion. Micro 03/23/18 Blood Culture - Preliminary, Resulted NO GROWTH AFTER 1 DAY URINE CULTURE RES 1 Preliminary Escherichia coli Greater than 100,000 colony forming units per mL Objective Assessment Peritonitis with intra-abdominal abscesses, source unclear, organ rupture or malignancy Leukocytosis Ileus vs partial SBO Small right pneumothorax E. coli in urine POA Plan Plan of Care cont Zosyn and empiric doxycycline Chlamydia and gonor UR pending, though suspicion is low f/u cultures Exploratory lap planned for early this week per ASSISTANT MECHANIC Patient seen, examined, Labs and other data reviewed. I agree with above plan laid out by PARTS COUNTER CLERK. SCOT VILLAGRAN APRN Mar 25, 2018 11:19 SCOTTY ERVIN MD Mar 25, 2018 13:19
--- NOTE | 2018-03-25 11:42 | PDOC ---
PULMONARY PROGRESS NOTES Subjective no soa Vitals Vital Signs Date Time Temp Pulse Resp B/P (MAP) Pulse Ox O2 Delivery O2 Flow Rate FiO2 03/25/18 11:16 Room Air 03/25/18 10:00 100 15.0 03/25/18 07:00 98.1 100 16 125/77 (93) 98.1 General: Alert, No acute distress Lungs: Clear Cardiovascular: S1 Abdomen: Soft Neuro Exam: Alert Extremities: No Edema Skin: Warm Labs Laboratory Tests Test 03/23/18 16:20 03/24/18 04:00 03/25/18 04:30 Nasal Screen MRSA (PCR) Negative (Negative) White Blood Count 12.2 x10^3/uL (4.0-11.0) Red Blood Count 3.84 x10^6/uL (3.50-5.40) Hemoglobin 12.5 g/dL (12.0-15.5) Hematocrit 37.0 % (36.0-47.0) Mean Corpuscular Volume 96 fL (79-100) Mean Corpuscular Hemoglobin 33 pg (25-35) Mean Corpuscular Hemoglobin Concent 34 g/dL (31-37) Red Cell Distribution Width 13.6 % (11.5-14.5) Platelet Count 275 x10^3/uL (140-400) Neutrophils (%) (Auto) 73 % (31-73) Lymphocytes (%) (Auto) 9 % (24-48) Monocytes (%) (Auto) 17 % (0-9) Eosinophils (%) (Auto) 1 % (0-3) Basophils (%) (Auto) 0 % (0-3) Neutrophils # (Auto) 8.9 x10^3uL (1.8-7.7) Lymphocytes # (Auto) 1.0 x10^3/uL (1.0-4.8) Monocytes # (Auto) 2.1 x10^3/uL (0.0-1.1) Eosinophils # (Auto) 0.1 x10^3/uL (0.0-0.7) Basophils # (Auto) 0.0 x10^3/uL (0.0-0.2) Sodium Level 136 mmol/L (136-145) Potassium Level 3.3 mmol/L (3.5-5.1) Chloride Level 102 mmol/L (98-107) Carbon Dioxide Level 26 mmol/L (21-32) Anion Gap 8 (6-14) Blood Urea Nitrogen 4 mg/dL (7-20) Creatinine 0.8 mg/dL (0.6-1.0) 0.8 mg/dL (0.6-1.0) Estimated GFR (Cockcroft-Gault) 100.6 100.6 Glucose Level 114 mg/dL (70-99) Calcium Level 7.8 mg/dL (8.5-10.1) Laboratory Tests Test 03/25/18 04:30 Creatinine 0.8 mg/dL (0.6-1.0) Estimated GFR (Cockcroft-Gault) 100.6 Medications Active Scripts Medications Dose Route/Sig Max Daily Dose Days Date Category One Daily For Women Tablet (Folic Acid/Mv,Fe,Other Min) 1 Each Tablet 1 Each PO 03/23/18 Reported Impression . 1. Spontaneous small right-sided pneumothorax. She is a nonsmoker. The etiology of pneumothorax is not so obvious, but possibility of catamenial pneumothorax cannot be ruled out. She just finished her period 03/23. The other possibility would be related to endometriosis with the possibility of rupture of diaphragmatic endometrial implant. She does not have any cysts in lungs and as such no clinical suspicion for lymphangioleiomyomatosis or Langerhan's cell Histiocytosis X 2. Suspected tubo-ovarian abscess / early peritonitis. No obvious abdominal endometriosis was reported. 3. No significant history of tobacco use. 4. Possible ruptured appendicitis. Plan . 1. From a pulmonary standpoint, the pneumothorax is stable and I will continue to monitor conservatively. On 100% oxygen in order to expedite reabsorption of air from the pleural space. CXR improving 2. If exploratory laparotomy is contemplated for next week and if pneumothorax does not resolve, then we may put a small bore chest tube to prevent any worsening pneumothorax while on positive pressure ventilation.May not need it as PTX is improving 3. Follow daily chest x-rays. 4. Continue broad-spectrum antibiotics. 5. Follow [employer] recommendation. 6. Follow General Surgery recommendations. 7. Nutrition per Surgery. 8. Discussed with INOCENCIA SCHULTZ MD Mar 25, 2018 11:42
--- NOTE | 2018-03-25 12:25 | RAD ---
Pelvic ultrasound including transvaginal scanning 03/25/2018. Reason for exam: CT described pelvic abscess. Correlation is made with a CT of 03/23/2018. Initial scanning was done transabdominally. This was performed through the bladder. This demonstrates a complex fluid collection with internal mixed echogenicity corresponding to abnormality on the CT. This is seen anteriorly and above the bladder and measures about 11.6 cm in greatest dimension. There are low level internal echoes. More posteriorly is a well-defined hypoechoic area probably indicating additional fluid. This measures 9.7 x 8.7 x 9.2 cm and corresponds to the more posteriorly located collection on CT. Neither ovary could be seen separate from these structures. The uterus is not well demonstrated. Transvaginal scanning was performed to better evaluate the uterus and adnexal structures. By transvaginal scanning, the uterus appears normal. The fluid collections are again seen with similar dimensions. The more posterior collection may involve the right ovary, as it is not seen separately. The left ovary contains a simple appearing cyst measuring about 2.7 cm. No free fluid or separate mass is seen. IMPRESSION: Complex appearing fluid collections are seen as were shown on CT. These may indicate infected abnormalities such as abscesses. The right ovary is not seen separate from these, and the more posterior collection could involve the ovary. Electronically signed by: James Bermudez Jr., MD (03/25/2018 12:22 PM) [facility] – [place]
[2018-03-25 13:26] LABS: CALCIUM 8.3 mg/dL (8.5-10.1); CREATININE 0.9 mg/dL (0.6-1.0); GFR 87.8; POTASSIUM 4.2 mmol/L (3.5-5.1)
[2018-03-25] MEDS ORDERED: PHENAZOPYRIDINE 200 MG TABLET. PO ONE (14:30)
[2018-03-25 15:00] VITALS: BP 139/92
[2018-03-25 19:58] VITALS: BP 136/92
[2018-03-25] MEDS: HYDROcodone/APAP 5/325MG 1 TAB TABLET PO PRN (20:30)
[2018-03-25] MEDS: FAMOTIDINE 20 MG/2 ML VIAL IVP SCH (22:39)
[2018-03-25 23:18] VITALS: BP 144/93
[2018-03-26] VITALS (7 sets, daily range): BP systolic 125–149; BP diastolic 83–96
[2018-03-26] MEDS: PIPERACILLIN/TAZOBACTAM 4.5 GM in IV NORMAL SALINE 100ML 100 ML IV SCH ×3 (05:59→17:37)
[2018-03-26] MEDS: HYDROcodone/APAP 5/325MG 1 TAB TABLET PO PRN ×2 (06:03→16:28)
[2018-03-26] MEDS: HEPARIN for SUB-Q USE 5,000 UNIT/ML VIAL. SQ SCH ×3 (06:08→20:26)
[2018-03-26 06:17] LABS: BASO % 0 % (0-3); EOS # 0.1 x10^3/uL (0.0-0.7); EOS % 1 % (0-3); HEMATOCRIT 35.4 % (36.0-47.0); HEMOGLOBIN 12.1 g/dL (12.0-15.5); LYMPH # 1.3 x10^3/uL (1.0-4.8); LYMPH % 13 % (24-48); MEAN CORPUSCULAR HEMOGLOBIN 33 pg (25-35); MEAN CORPUSCULAR HGB CONC 34 g/dL (31-37); MEAN CORPUSCULAR VOLUME 96 fL (79-100); MONO # 1.4 x10^3/uL (0.0-1.1); MONO % 13 % (0-9); NEUT # 7.5 x10^3uL (1.8-7.7); NEUT % 73 % (31-73); PLATELET COUNT 327 x10^3/uL (140-400); RED BLOOD COUNT 3.69 x10^6/uL (3.50-5.40); RED CELL DISTRIBUTION WIDTH 13.8 % (11.5-14.5); WHITE BLOOD COUNT 10.3 x10^3/uL (4.0-11.0)
[2018-03-26 06:41] LABS: CALCIUM 8.7 mg/dL (8.5-10.1); CREATININE 0.9 mg/dL (0.6-1.0); GFR 87.8; POTASSIUM 3.6 mmol/L (3.5-5.1)
--- NOTE | 2018-03-26 08:22 | RAD ---
Portable chest, 03/26/2018: HISTORY: Pneumothorax Comparison is made to yesterday's study. The heart size and pulmonary vascularity are normal. There is only a very tiny residual right apical pneumothorax, decreased in size since yesterday's study. There is slight residual blunting of the left lateral costophrenic angle compatible with minimal pleural fluid. There is minimal underlying basilar atelectasis. The upper lung pérez are clear. IMPRESSION: 1. Resolving tiny right apical pneumothorax. 2. Small residual left pleural effusion. Electronically signed by: Armaan Donovan MD (03/26/2018 8:19 AM) [facility]
[2018-03-26] MEDS: PSYLLIUM HUSK (SUGAR FREE) 1 PKT PACKET PO SCH (08:30)
[2018-03-26] MEDS: DOXYCYCLINE HYCLATE 100 MG TABLET PO SCH ×2 (08:30→20:22)
[2018-03-26] MEDS: POTASSIUM CHLORIDE 20 MEQ TABLET.ER. PO SCH ×2 (08:30→16:29)
[2018-03-26] MEDS: POLYETHYLENE GLYCOL 3350 17 GM PACKET. PO SCH (08:30)
[2018-03-26] MEDS: LACTOBACILLUS RHAMNOSUS GG 1 CAPSULE. PO SCH ×2 (08:30→20:26)
--- NOTE | 2018-03-26 09:32 | PDOC ---
Infectious Disease Note Subjective Subjective cont to have some abd pain ROS ROS no n/v/d/sob/fever Vital Sign Vital Signs Vital Signs Date Time Temp Pulse Resp B/P (MAP) Pulse Ox O2 Delivery O2 Flow Rate FiO2 03/26/18 07:45 Nasal Cannula 2.0 03/26/18 07:00 98.5 102 18 125/83 (97) 100 98.5 Physical Exam PHYSICAL EXAM GENERAL: Propped up in bed, watching TV HEENT: Oral cavity: Pharynx pink and moist. NECK: Supple. LUNGS: Diminished aeration in the bases. Nonlabored. HEART: S1 and S2 regular. ABDOMEN: Distended, bowel sounds active, soft, and diffusely tender. EXTREMITIES: No gross edema or cyanosis. SKIN: Warm without rash. NEUROLOGIC: Alert and oriented times 3. PIV Labs Lab Laboratory Tests Test 03/26/18 04:50 White Blood Count 10.3 x10^3/uL (4.0-11.0) Red Blood Count 3.69 x10^6/uL (3.50-5.40) Hemoglobin 12.1 g/dL (12.0-15.5) Hematocrit 35.4 % (36.0-47.0) Mean Corpuscular Volume 96 fL (79-100) Mean Corpuscular Hemoglobin 33 pg (25-35) Mean Corpuscular Hemoglobin Concent 34 g/dL (31-37) Red Cell Distribution Width 13.8 % (11.5-14.5) Platelet Count 327 x10^3/uL (140-400) Neutrophils (%) (Auto) 73 % (31-73) Lymphocytes (%) (Auto) 13 % (24-48) Monocytes (%) (Auto) 13 % (0-9) Eosinophils (%) (Auto) 1 % (0-3) Basophils (%) (Auto) 0 % (0-3) Neutrophils # (Auto) 7.5 x10^3uL (1.8-7.7) Lymphocytes # (Auto) 1.3 x10^3/uL (1.0-4.8) Monocytes # (Auto) 1.4 x10^3/uL (0.0-1.1) Eosinophils # (Auto) 0.1 x10^3/uL (0.0-0.7) Basophils # (Auto) 0.0 x10^3/uL (0.0-0.2) Sodium Level 141 mmol/L (136-145) Potassium Level 3.6 mmol/L (3.5-5.1) Chloride Level 106 mmol/L (98-107) Carbon Dioxide Level 26 mmol/L (21-32) Anion Gap 9 (6-14) Blood Urea Nitrogen 3 mg/dL (7-20) Creatinine 0.9 mg/dL (0.6-1.0) Estimated GFR (Cockcroft-Gault) 87.8 Glucose Level 99 mg/dL (70-99) Calcium Level 8.7 mg/dL (8.5-10.1) Micro Microbiology 03/23/18 Blood Culture - Preliminary, Resulted NO GROWTH AFTER 2 DAYS 03/23/18 Urine Culture - Final, Complete 03/23/18 Urine Culture Result 1 (THOM) - Final, Complete 03/23/18 Antimicrobic Susceptibility - Final, Complete Objective Assessment Peritonitis with intra-abdominal abscesses, source unclear, organ rupture or malignancy Leukocytosis Ileus vs partial SBO Small right pneumothorax E. coli in urine POA Plan Plan of Care cont Zosyn and empiric doxycycline Chlamydia and gonor UR pending, though suspicion is low f/u cultures Exploratory lap planned for early this week per [employer] CANDIDA ERVIN MD Mar 26, 2018 09:32
[2018-03-26] MEDS: MORPHINE SULFATE 2 MG/ML VIAL. IV PRN ×2 (10:24→22:54)
[2018-03-26] MEDS: POTASSIUM CL 20MEQ D5-0.9%NACL 1,000 ML IV SCH (10:25)
[2018-03-26 11:29] LABS: PROTHROMBIN TIME PATIENT 14.2 SEC (11.7-14.0)
--- NOTE | 2018-03-26 12:02 | PDOC ---
PULMONARY PROGRESS NOTES Subjective no soa Vitals Vital Signs Date Time Temp Pulse Resp B/P (MAP) Pulse Ox O2 Delivery O2 Flow Rate FiO2 03/26/18 11:23 Nasal Cannula 2.0 03/26/18 11:00 98.2 109 18 132/87 (102) 99 98.2 General: Alert, No acute distress Lungs: Clear Cardiovascular: S1 Abdomen: Soft Neuro Exam: Alert Extremities: No Edema Skin: Warm Labs Laboratory Tests Test 03/25/18 04:30 03/26/18 04:50 03/26/18 11:00 Sodium Level 143 mmol/L (136-145) 141 mmol/L (136-145) Potassium Level 4.2 mmol/L (3.5-5.1) 3.6 mmol/L (3.5-5.1) Chloride Level 107 mmol/L (98-107) 106 mmol/L (98-107) Carbon Dioxide Level 25 mmol/L (21-32) 26 mmol/L (21-32) Anion Gap 11 (6-14) 9 (6-14) Blood Urea Nitrogen 2 mg/dL (7-20) 3 mg/dL (7-20) Creatinine 0.9 mg/dL (0.6-1.0) 0.9 mg/dL (0.6-1.0) Estimated GFR (Cockcroft-Gault) 87.8 87.8 Glucose Level 106 mg/dL (70-99) 99 mg/dL (70-99) Calcium Level 8.3 mg/dL (8.5-10.1) 8.7 mg/dL (8.5-10.1) Magnesium Level 2.0 mg/dL (1.8-2.4) White Blood Count 10.3 x10^3/uL (4.0-11.0) Red Blood Count 3.69 x10^6/uL (3.50-5.40) Hemoglobin 12.1 g/dL (12.0-15.5) Hematocrit 35.4 % (36.0-47.0) Mean Corpuscular Volume 96 fL (79-100) Mean Corpuscular Hemoglobin 33 pg (25-35) Mean Corpuscular Hemoglobin Concent 34 g/dL (31-37) Red Cell Distribution Width 13.8 % (11.5-14.5) Platelet Count 327 x10^3/uL (140-400) Neutrophils (%) (Auto) 73 % (31-73) Lymphocytes (%) (Auto) 13 % (24-48) Monocytes (%) (Auto) 13 % (0-9) Eosinophils (%) (Auto) 1 % (0-3) Basophils (%) (Auto) 0 % (0-3) Neutrophils # (Auto) 7.5 x10^3uL (1.8-7.7) Lymphocytes # (Auto) 1.3 x10^3/uL (1.0-4.8) Monocytes # (Auto) 1.4 x10^3/uL (0.0-1.1) Eosinophils # (Auto) 0.1 x10^3/uL (0.0-0.7) Basophils # (Auto) 0.0 x10^3/uL (0.0-0.2) Prothrombin Time 14.2 SEC (11.7-14.0) Prothromb Time International Ratio 1.2 (0.8-1.1) Laboratory Tests Test 03/26/18 04:50 03/26/18 11:00 White Blood Count 10.3 x10^3/uL (4.0-11.0) Red Blood Count 3.69 x10^6/uL (3.50-5.40) Hemoglobin 12.1 g/dL (12.0-15.5) Hematocrit 35.4 % (36.0-47.0) Mean Corpuscular Volume 96 fL (79-100) Mean Corpuscular Hemoglobin 33 pg (25-35) Mean Corpuscular Hemoglobin Concent 34 g/dL (31-37) Red Cell Distribution Width 13.8 % (11.5-14.5) Platelet Count 327 x10^3/uL (140-400) Neutrophils (%) (Auto) 73 % (31-73) Lymphocytes (%) (Auto) 13 % (24-48) Monocytes (%) (Auto) 13 % (0-9) Eosinophils (%) (Auto) 1 % (0-3) Basophils (%) (Auto) 0 % (0-3) Neutrophils # (Auto) 7.5 x10^3uL (1.8-7.7) Lymphocytes # (Auto) 1.3 x10^3/uL (1.0-4.8) Monocytes # (Auto) 1.4 x10^3/uL (0.0-1.1) Eosinophils # (Auto) 0.1 x10^3/uL (0.0-0.7) Basophils # (Auto) 0.0 x10^3/uL (0.0-0.2) Sodium Level 141 mmol/L (136-145) Potassium Level 3.6 mmol/L (3.5-5.1) Chloride Level 106 mmol/L (98-107) Carbon Dioxide Level 26 mmol/L (21-32) Anion Gap 9 (6-14) Blood Urea Nitrogen 3 mg/dL (7-20) Creatinine 0.9 mg/dL (0.6-1.0) Estimated GFR (Cockcroft-Gault) 87.8 Glucose Level 99 mg/dL (70-99) Calcium Level 8.7 mg/dL (8.5-10.1) Prothrombin Time 14.2 SEC (11.7-14.0) Prothromb Time International Ratio 1.2 (0.8-1.1) Medications Active Scripts Medications Dose Route/Sig Max Daily Dose Days Date Category One Daily For Women Tablet (Folic Acid/Mv,Fe,Other Min) 1 Each Tablet 1 Each PO 03/23/18 Reported Comments CXR 03/26 IMPRESSION: 1. Resolving tiny right apical pneumothorax. 2. Small residual left pleural effusion. Impression . 1. Spontaneous small right-sided pneumothorax. She is a nonsmoker. The etiology of pneumothorax is not so obvious, but possibility of catamenial pneumothorax cannot be ruled out. She just finished her period 03/23. The other possibility would be related to endometriosis with the possibility of rupture of diaphragmatic endometrial implant. She does not have any cysts in lungs and as such no clinical suspicion for lymphangioleiomyomatosis or Langerhan's cell Histiocytosis X 2. Suspected tubo-ovarian abscess / early peritonitis. No obvious abdominal endometriosis was reported. 3. No significant history of tobacco use. 4. Possible ruptured appendicitis. Plan . 1. From a pulmonary standpoint, the pneumothorax continues to improve. Now probably <5% treated conservatively with 100% high flow. 2. If exploratory laparotomy is contemplated for midweek, she is stable to proceed without the need for chest tube. 3. Follow daily chest x-rays. 4. Continue broad-spectrum antibiotics. 5. Follow [employer] recommendation. 6. Follow General Surgery recommendations. 7. Nutrition per Surgery. 8. Discussed with INOCENCIA SCHULTZ MD Mar 26, 2018 12:02
--- NOTE | 2018-03-26 14:25 | PDOC ---
PROGRESS NOTES Chief Complaint Chief Complaint Abdominal pain Abdominal mass History of Present Illness History of Present Illness Pt seen and examined Discussed plan with pt and mother at bedside Discussed case with pump service supervisor, Dr. Dejesus Vitals Vitals Vital Signs Date Time Temp Pulse Resp B/P (MAP) Pulse Ox O2 Delivery O2 Flow Rate FiO2 03/26/18 11:23 Nasal Cannula 2.0 03/26/18 11:00 98.2 109 18 132/87 (102) 99 98.2 Physical Exam Physical Exam HEENT: Mucous membranes moist Neck: Supple General: Alert, Oriented X3, Cooperative, No acute distress, Other (Propped up in bed, watching TV with mom at bedside. Appeared tired ) Heart: Regular rate Lungs: Clear Abdomen: Other (mild tenderness with distention) Extremities: No clubbing, No cyanosis, No edema Skin: No rashes, No significant lesion Labs LABS Laboratory Tests Test 03/26/18 04:50 03/26/18 11:00 White Blood Count 10.3 x10^3/uL (4.0-11.0) Red Blood Count 3.69 x10^6/uL (3.50-5.40) Hemoglobin 12.1 g/dL (12.0-15.5) Hematocrit 35.4 % (36.0-47.0) Mean Corpuscular Volume 96 fL (79-100) Mean Corpuscular Hemoglobin 33 pg (25-35) Mean Corpuscular Hemoglobin Concent 34 g/dL (31-37) Red Cell Distribution Width 13.8 % (11.5-14.5) Platelet Count 327 x10^3/uL (140-400) Neutrophils (%) (Auto) 73 % (31-73) Lymphocytes (%) (Auto) 13 % (24-48) Monocytes (%) (Auto) 13 % (0-9) Eosinophils (%) (Auto) 1 % (0-3) Basophils (%) (Auto) 0 % (0-3) Neutrophils # (Auto) 7.5 x10^3uL (1.8-7.7) Lymphocytes # (Auto) 1.3 x10^3/uL (1.0-4.8) Monocytes # (Auto) 1.4 x10^3/uL (0.0-1.1) Eosinophils # (Auto) 0.1 x10^3/uL (0.0-0.7) Basophils # (Auto) 0.0 x10^3/uL (0.0-0.2) Sodium Level 141 mmol/L (136-145) Potassium Level 3.6 mmol/L (3.5-5.1) Chloride Level 106 mmol/L (98-107) Carbon Dioxide Level 26 mmol/L (21-32) Anion Gap 9 (6-14) Blood Urea Nitrogen 3 mg/dL (7-20) Creatinine 0.9 mg/dL (0.6-1.0) Estimated GFR (Cockcroft-Gault) 87.8 Glucose Level 99 mg/dL (70-99) Calcium Level 8.7 mg/dL (8.5-10.1) Prothrombin Time 14.2 SEC (11.7-14.0) Prothromb Time International Ratio 1.2 (0.8-1.1) Review of Systems Review of Systems States is feeling a little better today but still experiencing some abd/pelvic pain C/o continued constipation and fatigue Still on O2 Assessment and Plan Assessmemt and Plan Problems Medical Problems: (1) Abdominal pain Status: Acute Assessment: Abd pain with [address], could 2/2 abscess with organ rupture or malignancy Sepsis, likely due to abdominal abscess Awaiting exploratory laparotomy Mild malnutrition Small right pneumothorax - resolving hypokalemia Plan: Cont abx Home meds Pain control Labs Cont to advance diet as tolerated DVT ppx Consult gen surg and OBGYN Comment Review of Relevant I have reviewed the following items lo (where applicable) has been applied. Labs Laboratory Tests Test 03/25/18 04:30 03/26/18 04:50 03/26/18 11:00 Sodium Level 143 mmol/L (136-145) 141 mmol/L (136-145) Potassium Level 4.2 mmol/L (3.5-5.1) 3.6 mmol/L (3.5-5.1) Chloride Level 107 mmol/L (98-107) 106 mmol/L (98-107) Carbon Dioxide Level 25 mmol/L (21-32) 26 mmol/L (21-32) Anion Gap 11 (6-14) 9 (6-14) Blood Urea Nitrogen 2 mg/dL (7-20) 3 mg/dL (7-20) Creatinine 0.9 mg/dL (0.6-1.0) 0.9 mg/dL (0.6-1.0) Estimated GFR (Cockcroft-Gault) 87.8 87.8 Glucose Level 106 mg/dL (70-99) 99 mg/dL (70-99) Calcium Level 8.3 mg/dL (8.5-10.1) 8.7 mg/dL (8.5-10.1) Magnesium Level 2.0 mg/dL (1.8-2.4) White Blood Count 10.3 x10^3/uL (4.0-11.0) Red Blood Count 3.69 x10^6/uL (3.50-5.40) Hemoglobin 12.1 g/dL (12.0-15.5) Hematocrit 35.4 % (36.0-47.0) Mean Corpuscular Volume 96 fL (79-100) Mean Corpuscular Hemoglobin 33 pg (25-35) Mean Corpuscular Hemoglobin Concent 34 g/dL (31-37) Red Cell Distribution Width 13.8 % (11.5-14.5) Platelet Count 327 x10^3/uL (140-400) Neutrophils (%) (Auto) 73 % (31-73) Lymphocytes (%) (Auto) 13 % (24-48) Monocytes (%) (Auto) 13 % (0-9) Eosinophils (%) (Auto) 1 % (0-3) Basophils (%) (Auto) 0 % (0-3) Neutrophils # (Auto) 7.5 x10^3uL (1.8-7.7) Lymphocytes # (Auto) 1.3 x10^3/uL (1.0-4.8) Monocytes # (Auto) 1.4 x10^3/uL (0.0-1.1) Eosinophils # (Auto) 0.1 x10^3/uL (0.0-0.7) Basophils # (Auto) 0.0 x10^3/uL (0.0-0.2) Prothrombin Time 14.2 SEC (11.7-14.0) Prothromb Time International Ratio 1.2 (0.8-1.1) Laboratory Tests Test 03/26/18 04:50 03/26/18 11:00 White Blood Count 10.3 x10^3/uL (4.0-11.0) Red Blood Count 3.69 x10^6/uL (3.50-5.40) Hemoglobin 12.1 g/dL (12.0-15.5) Hematocrit 35.4 % (36.0-47.0) Mean Corpuscular Volume 96 fL (79-100) Mean Corpuscular Hemoglobin 33 pg (25-35) Mean Corpuscular Hemoglobin Concent 34 g/dL (31-37) Red Cell Distribution Width 13.8 % (11.5-14.5) Platelet Count 327 x10^3/uL (140-400) Neutrophils (%) (Auto) 73 % (31-73) Lymphocytes (%) (Auto) 13 % (24-48) Monocytes (%) (Auto) 13 % (0-9) Eosinophils (%) (Auto) 1 % (0-3) Basophils (%) (Auto) 0 % (0-3) Neutrophils # (Auto) 7.5 x10^3uL (1.8-7.7) Lymphocytes # (Auto) 1.3 x10^3/uL (1.0-4.8) Monocytes # (Auto) 1.4 x10^3/uL (0.0-1.1) Eosinophils # (Auto) 0.1 x10^3/uL (0.0-0.7) Basophils # (Auto) 0.0 x10^3/uL (0.0-0.2) Sodium Level 141 mmol/L (136-145) Potassium Level 3.6 mmol/L (3.5-5.1) Chloride Level 106 mmol/L (98-107) Carbon Dioxide Level 26 mmol/L (21-32) Anion Gap 9 (6-14) Blood Urea Nitrogen 3 mg/dL (7-20) Creatinine 0.9 mg/dL (0.6-1.0) Estimated GFR (Cockcroft-Gault) 87.8 Glucose Level 99 mg/dL (70-99) Calcium Level 8.7 mg/dL (8.5-10.1) Prothrombin Time 14.2 SEC (11.7-14.0) Prothromb Time International Ratio 1.2 (0.8-1.1) Microbiology 03/23/18 Blood Culture - Preliminary, Resulted NO GROWTH AFTER 2 DAYS 03/23/18 Urine Culture - Final, Complete 03/23/18 Urine Culture Result 1 (THOM) - Final, Complete 03/23/18 Antimicrobic Susceptibility - Final, Complete Medications Current Medications Fentanyl Citrate (Fentanyl 2ml Vial) 50 mcg PRN Q30MIN PRN IV SEVERE PAIN Last administered on 03/23/18at 14:32; Start 03/23/18 at 11:45; Stop 03/23/18 at 14 :33; Status DC Sodium Chloride 1,000 ml @ 1,000 mls/hr Q1H IV Last administered on at 11:42; Start 03/23/18 at 11:31; Stop 03/23/18 at 12:30; Status DC Ondansetron HCl (Zofran) 4 mg 1X ONCE IV Last administered on 03/23/18at 11:42 ; Start 03/23/18 at 11:45; Stop 03/23/18 at 11:46; Status DC Iohexol (Omnipaque 300 Mg/ml) 75 ml 1X ONCE IV Last administered on at 12:30; Start 03/23/18 at 12:00; Stop 03/23/18 at 12:01; Status DC Info (CONTRAST GIVEN -- Rx MONITORING) 1 each PRN DAILY PRN MC SEE COMMENTS; Start 03/23/18 at 12:00; Stop 03/25/18 at 11:59; Status DC Piperacillin Sod/ Tazobactam Sod (Zosyn Per Pharmacy) 1 each PRN DAILY PRN MC SEE COMMENTS; Start 03/23/18 at 13:30; Status UNV Doxycycline Hyclate 100 mg/ Dextrose 100 ml @ 50 mls/hr 1X ONCE IV Last administered on 03/23/18at 14:32; Start 03/23/18 at 13:30; Stop 03/23/18 at 15 :29; Status DC Piperacillin Sod/ Tazobactam Sod 3.375 gm/Sodium Chloride 50 ml @ 100 mls/hr 1X ONCE IV Last administered on 03/23/18at 13:48; Start 03/23/18 at 13:30; Stop 03/23/18 at 14:02; Status DC Sodium Chloride 1,000 ml @ 1,000 mls/hr 1X ONCE IV ; Start 03/23/18 at 14:30 ; Stop 03/23/18 at 15:29; Status DC Acetaminophen (Tylenol) 650 mg PRN Q6HRS PRN PO FEVER; Start 03/23/18 at 15:30 Ondansetron HCl (Zofran) 4 mg PRN Q6HRS PRN IV NAUSEA/VOMITING Last administered on 03/24/18at 22:46; Start 03/23/18 at 15:30 Morphine Sulfate (Morphine Sulfate) 2 mg PRN Q2HR PRN IV MODERATE TO SEVERE PAIN; Start 03/23/18 at 15:30; Status UNV Tramadol HCl (Ultram) 50 mg PRN Q6HRS PRN PO MILD TO MODERATE PAIN Last administered on 03/25/18at 19:27; Start 03/23/18 at 15:30 Docusate Sodium (Colace) 100 mg PRN DAILY PRN PO CONSTIPATION, 3RD CHOICE Last administered on 03/25/18at 20:30; Start 03/23/18 at 15:30 Piperacillin Sod/ Tazobactam Sod 4.5 gm/Sodium Chloride 100 ml @ 200 mls/hr Q6HRS IV Last administered on 03/26/18at 11:23; Start 03/23/18 at 18:00 Piperacillin Sod/ Tazobactam Sod (Zosyn Per Pharmacy) 1 each PRN DAILY PRN MC SEE COMMENTS; Start 03/23/18 at 15:30 Morphine Sulfate (Morphine Sulfate) 2 mg PRN Q2HR PRN IV MILD-MODERATE PAIN Last administered on 03/26/18at 10:24; Start 03/23/18 at 15:30 Morphine Sulfate (Morphine Sulfate) 4 mg PRN Q2HR PRN IV SEVERE PAIN Last administered on 03/24/18at 06:01; Start 03/23/18 at 15:30 Potassium Chloride/Dextrose/ Sod Cl 1,000 ml @ 75 mls/hr [id number] IV Last administered on 03/26/18at 10:25; Start 03/23/18 at 15:30 Famotidine (Pepcid Vial) 20 mg QHS IVP Last administered on 03/25/18at 22:39; Start 03/23/18 at 21:00 Heparin Sodium (Porcine) (Heparin Sodium) 5,000 unit Q8HRS SQ Last administered on 03/26/18at 06:08; Start 03/23/18 at 16:00 Vancomycin HCl 1.5 gm/Sodium Chloride 500 ml @ 250 mls/hr Q12H IV ; Start at 17:15; Status UNV Vancomycin HCl (Vanco Per Pharmacy) 1 each PRN DAILY PRN MC SEE COMMENTS Last administered on 03/24/18at 08:35; Start 03/23/18 at 17:15; Stop 03/24/18 at 14 :57; Status DC Vancomycin HCl 1.5 gm/Sodium Chloride 500 ml @ 250 mls/hr 1X ONCE IV Last administered on 03/23/18at 18:03; Start 03/23/18 at 17:30; Stop 03/23/18 at 19 :29; Status DC Influenza Virus Vaccine (Afluria Trivalent 2616-0315 Syringe) 0.5 ml ONCE ONCE VAX IM ; Start 03/27/18 at 09:00; Stop 03/27/18 at 09:01 Vancomycin HCl 1 gm/Sodium Chloride 250 ml @ 250 mls/hr Q12H IV Last administered on 03/24/18at 05:54; Start 03/24/18 at 06:00; Stop 03/24/18 at 14 :57; Status DC Vancomycin HCl (Vancomycin Trough Level) 1 each 1X ONCE MC ; Start 03/25/18 at 05:30; Stop 03/25/18 at 05:31; Status Cancel Metoprolol Tartrate (Lopressor Vial) 5 mg Q6HRS IVP ; Start 03/23/18 at 21:00; Stop 03/23/18 at 21:55; Status DC Metoprolol Tartrate (Lopressor Vial) 5 mg PRN Q6HRS PRN IVP TACHYCARDIA; Start 03/23/18 at 22:00 Lactobacillus Rhamnosus (Culturelle) 1 cap BID PO Last administered on at 08:30; Start 03/24/18 at 09:00 Potassium Chloride (Klor-Con) 20 meq BIDBFRMEAL PO Last administered on at 08:30; Start 03/24/18 at 10:00 Polyethylene Glycol (miraLAX PACKET) 17 gm DAILY PO Last administered on at 08:30; Start 03/24/18 at 10:30 Psyllium Hydrophilic Mucilloid (Metamucil Fiber Packet) 1 pkt DAILY PO Last administered on 03/26/18at 08:30; Start 03/24/18 at 10:30 Lactulose (Lactulose) 20 gm PRN DAILY PRN PO CONSTIPATION, 2ND CHOICE Last administered on 03/24/18at 16:47; Start 03/24/18 at 10:15 Senna/Docusate Sodium (Senna Plus) 2 tab PRN BID PRN PO CONSTIPATION, 1ST CHOICE Last administered on 03/24/18at 10:39; Start 03/24/18 at 10:15 Doxycycline Hyclate (Vibra-Tab) 100 mg BID PO Last administered on 03/26/18at 08:30; Start 03/24/18 at 21:00 Phenazopyridine HCl (Pyridium) 200 mg 1X ONCE PO Last administered on at 14:57; Start 03/25/18 at 14:30; Stop 03/25/18 at 14:31; Status DC Acetaminophen/ Hydrocodone Bitart (Lortab 5/325) 1 tab PRN Q4HRS PRN PO MODERATE TO SEVERE PAIN Last administered on 03/26/18at 06:03; Start 03/25/18 at 19:45 Active Scripts Active Reported One Daily For Women Tablet (Folic Acid/Mv,Fe,Other Min) 1 Each Tablet 1 Each PO Vitals/I & O Vital Sign - Last 24 Hours 03/25/18 03/25/18 03/25/18 03/25/18 15:00 19:27 19:58 20:00 Temp 97.9 98.3 97.9 98.3 Pulse 16 111 Resp 16 16 B/P (MAP) 139/92 (108) 136/92 (107) Pulse Ox 99 99 O2 Delivery Room Air Room Air Nasal Cannula Nasal Cannula O2 Flow Rate 2.0 2.0 03/25/18 03/26/18 03/26/18 03/26/18 23:18 03:29 07:00 07:25 Temp 98.0 97.9 98.5 98.0 97.9 98.5 Pulse 106 109 102 Resp 18 18 18 B/P (MAP) 144/93 (110) 138/92 (107) 125/83 (97) Pulse Ox 98 100 100 O2 Delivery Nasal Cannula Nasal Cannula Nasal Cannula Nasal Cannula O2 Flow Rate 2.0 2.0 2.0 2.0 03/26/18 03/26/18 03/26/1803/26/18 07:45 10:24 11:00 11:23 Temp 98.2 98.2 Pulse 109 Resp 18 B/P (MAP) 132/87 (102) Pulse Ox 99 O2 Delivery Nasal Cannula Room Air Room Air Nasal Cannula O2 Flow Rate 2.0 2.0 Intake and Output 03/25/18 03/25/18 03/26/18 15:00 23:00 07:00 Intake Total 1050 ml Balance 1050 ml ANTONIA RICHARDSON III DO Mar 26, 2018 14:25
--- NOTE | 2018-03-26 17:22 | PDOC ---
SURGICAL PROGRESS NOTE Subjective Pt. feeling better. SHe has little appetite. No fevers, chills or night sweats. CXR improved. Vital Signs Vital Signs Date Time Temp Pulse Resp B/P (MAP) Pulse Ox O2 Delivery O2 Flow Rate FiO2 03/26/18 16:28 Room Air 03/26/18 15:00 98.5 104 18 132/91 (105) 100 98.5 03/26/18 11:23 2.0 I&O Intake and Output 03/26/18 07:00 Intake Total 1050 ml Balance 1050 ml Intake Oral 1050 ml # Voids 10 PATIENT HAS A SONI: No General: Alert, Oriented X3, Cooperative HEENT: Atraumatic Heart: Regular rate Abdomen: Normal bowel sounds, Soft, Other (mild tenderness with distention) Psych/Mental Status: Mental status NL Labs Laboratory Tests Test 03/24/18 19:30 03/25/18 04:30 03/26/18 04:50 03/26/18 11:00 Urine Chlamydia DNA (PCR) Negative (Negative) Neisseria gonorrhoeae DNA (PCR) Negative (Negative) Sodium Level 143 mmol/L (136-145) 141 mmol/L (136-145) Potassium Level 4.2 mmol/L (3.5-5.1) 3.6 mmol/L (3.5-5.1) Chloride Level 107 mmol/L (98-107) 106 mmol/L (98-107) Carbon Dioxide Level 25 mmol/L (21-32) 26 mmol/L (21-32) Anion Gap 11 (6-14) 9 (6-14) Blood Urea Nitrogen 2 mg/dL (7-20) 3 mg/dL (7-20) Creatinine 0.9 mg/dL (0.6-1.0) 0.9 mg/dL (0.6-1.0) Estimated GFR (Cockcroft-Gault) 87.8 87.8 Glucose Level 106 mg/dL (70-99) 99 mg/dL (70-99) Calcium Level 8.3 mg/dL (8.5-10.1) 8.7 mg/dL (8.5-10.1) Magnesium Level 2.0 mg/dL (1.8-2.4) White Blood Count 10.3 x10^3/uL (4.0-11.0) Red Blood Count 3.69 x10^6/uL (3.50-5.40) Hemoglobin 12.1 g/dL (12.0-15.5) Hematocrit 35.4 % (36.0-47.0) Mean Corpuscular Volume 96 fL (79-100) Mean Corpuscular Hemoglobin 33 pg (25-35) Mean Corpuscular Hemoglobin Concent 34 g/dL (31-37) Red Cell Distribution Width 13.8 % (11.5-14.5) Platelet Count 327 x10^3/uL (140-400) Neutrophils (%) (Auto) 73 % (31-73) Lymphocytes (%) (Auto) 13 % (24-48) Monocytes (%) (Auto) 13 % (0-9) Eosinophils (%) (Auto) 1 % (0-3) Basophils (%) (Auto) 0 % (0-3) Neutrophils # (Auto) 7.5 x10^3uL (1.8-7.7) Lymphocytes # (Auto) 1.3 x10^3/uL (1.0-4.8) Monocytes # (Auto) 1.4 x10^3/uL (0.0-1.1) Eosinophils # (Auto) 0.1 x10^3/uL (0.0-0.7) Basophils # (Auto) 0.0 x10^3/uL (0.0-0.2) Prothrombin Time 14.2 SEC (11.7-14.0) Prothromb Time International Ratio 1.2 (0.8-1.1) Laboratory Tests Test 03/26/18 04:50 03/26/18 11:00 White Blood Count 10.3 x10^3/uL (4.0-11.0) Red Blood Count 3.69 x10^6/uL (3.50-5.40) Hemoglobin 12.1 g/dL (12.0-15.5) Hematocrit 35.4 % (36.0-47.0) Mean Corpuscular Volume 96 fL (79-100) Mean Corpuscular Hemoglobin 33 pg (25-35) Mean Corpuscular Hemoglobin Concent 34 g/dL (31-37) Red Cell Distribution Width 13.8 % (11.5-14.5) Platelet Count 327 x10^3/uL (140-400) Neutrophils (%) (Auto) 73 % (31-73) Lymphocytes (%) (Auto) 13 % (24-48) Monocytes (%) (Auto) 13 % (0-9) Eosinophils (%) (Auto) 1 % (0-3) Basophils (%) (Auto) 0 % (0-3) Neutrophils # (Auto) 7.5 x10^3uL (1.8-7.7) Lymphocytes # (Auto) 1.3 x10^3/uL (1.0-4.8) Monocytes # (Auto) 1.4 x10^3/uL (0.0-1.1) Eosinophils # (Auto) 0.1 x10^3/uL (0.0-0.7) Basophils # (Auto) 0.0 x10^3/uL (0.0-0.2) Sodium Level 141 mmol/L (136-145) Potassium Level 3.6 mmol/L (3.5-5.1) Chloride Level 106 mmol/L (98-107) Carbon Dioxide Level 26 mmol/L (21-32) Anion Gap 9 (6-14) Blood Urea Nitrogen 3 mg/dL (7-20) Creatinine 0.9 mg/dL (0.6-1.0) Estimated GFR (Cockcroft-Gault) 87.8 Glucose Level 99 mg/dL (70-99) Calcium Level 8.7 mg/dL (8.5-10.1) Prothrombin Time 14.2 SEC (11.7-14.0) Prothromb Time International Ratio 1.2 (0.8-1.1) Problem List Problems Medical Problems: (1) Abdominal pain Status: Acute Assessment/Plan A: Abd/pelvic abscesses Pneumothorax: improving P: Continue to allow pneumothorax to heal, then plan for exploratory surgery. Continue IV abx. Will defer IR for drainage at this time due to low possibility of malignancy. CHARLES MURPHY Jr, MD Mar 26, 2018 17:22
[2018-03-26] MEDS: ONDANSETRON PF 4 MG/2 ML VIAL. IV PRN (18:10)
[2018-03-26] MEDS: FAMOTIDINE 20 MG/2 ML VIAL IVP SCH (20:23)
[2018-03-26] MEDS: METOPROLOL TARTRATE 5 MG/5 ML VIAL. IVP PRN (20:28)
[2018-03-27] MEDS: PIPERACILLIN/TAZOBACTAM 4.5 GM in IV NORMAL SALINE 100ML 100 ML IV SCH ×4 (00:11→17:15)
[2018-03-27] MEDS: POTASSIUM CL 20MEQ D5-0.9%NACL 1,000 ML IV SCH ×2 (00:11→14:24)
[2018-03-27] MEDS: MORPHINE SULFATE 2 MG/ML VIAL. IV PRN ×2 (03:05→22:51)
[2018-03-27 03:06] VITALS: BP 128/81
[2018-03-27] MEDS: HYDROcodone/APAP 5/325MG 1 TAB TABLET PO PRN ×3 (06:18→19:41)
[2018-03-27] MEDS: HEPARIN for SUB-Q USE 5,000 UNIT/ML VIAL. SQ SCH ×3 (06:28→21:56)
[2018-03-27 07:00] VITALS: BP 138/94
--- NOTE | 2018-03-27 08:01 | RAD ---
Portable chest, 03/27/2018: HISTORY: Follow-up pneumothorax Comparison is made to yesterday's study. The heart size is normal. There is no significant residual pneumothorax. There is slight unchanged blunting of left lateral costophrenic angle compatible with residual pleural fluid with minimal underlying left basilar atelectasis. The right lung is clear. No new abnormality is detected. IMPRESSION: 1. No significant residual or recurrent pneumothorax. 2. Small residual left pleural effusion with minimal left basilar atelectasis. Electronically signed by: Armaan Donovan MD (03/27/2018 7:57 AM) [facility]
[2018-03-27] MEDS: PSYLLIUM HUSK (SUGAR FREE) 1 PKT PACKET PO SCH (08:25)
[2018-03-27] MEDS: POLYETHYLENE GLYCOL 3350 17 GM PACKET. PO SCH (08:25)
[2018-03-27] MEDS: DOXYCYCLINE HYCLATE 100 MG TABLET PO SCH (08:33)
[2018-03-27] MEDS: POTASSIUM CHLORIDE 20 MEQ TABLET.ER. PO SCH ×2 (08:35→16:30)
[2018-03-27] MEDS: LACTOBACILLUS RHAMNOSUS GG 1 CAPSULE. PO SCH ×2 (08:35→21:58)
--- NOTE | 2018-03-27 09:18 | PDOC ---
PULMONARY PROGRESS NOTES Subjective no soa Vitals Vital Signs Date Time Temp Pulse Resp B/P (MAP) Pulse Ox O2 Delivery O2 Flow Rate FiO2 03/27/18 07:25 Nasal Cannula 2.0 03/27/18 07:00 98.3 100 18 138/94 (109) 98 98.3 General: Alert, No acute distress Lungs: Clear Cardiovascular: S1 Abdomen: Soft Neuro Exam: Alert Extremities: No Edema Skin: Warm Labs Laboratory Tests Test 03/26/18 04:50 03/26/18 11:00 White Blood Count 10.3 x10^3/uL (4.0-11.0) Red Blood Count 3.69 x10^6/uL (3.50-5.40) Hemoglobin 12.1 g/dL (12.0-15.5) Hematocrit 35.4 % (36.0-47.0) Mean Corpuscular Volume 96 fL (79-100) Mean Corpuscular Hemoglobin 33 pg (25-35) Mean Corpuscular Hemoglobin Concent 34 g/dL (31-37) Red Cell Distribution Width 13.8 % (11.5-14.5) Platelet Count 327 x10^3/uL (140-400) Neutrophils (%) (Auto) 73 % (31-73) Lymphocytes (%) (Auto) 13 % (24-48) Monocytes (%) (Auto) 13 % (0-9) Eosinophils (%) (Auto) 1 % (0-3) Basophils (%) (Auto) 0 % (0-3) Neutrophils # (Auto) 7.5 x10^3uL (1.8-7.7) Lymphocytes # (Auto) 1.3 x10^3/uL (1.0-4.8) Monocytes # (Auto) 1.4 x10^3/uL (0.0-1.1) Eosinophils # (Auto) 0.1 x10^3/uL (0.0-0.7) Basophils # (Auto) 0.0 x10^3/uL (0.0-0.2) Sodium Level 141 mmol/L (136-145) Potassium Level 3.6 mmol/L (3.5-5.1) Chloride Level 106 mmol/L (98-107) Carbon Dioxide Level 26 mmol/L (21-32) Anion Gap 9 (6-14) Blood Urea Nitrogen 3 mg/dL (7-20) Creatinine 0.9 mg/dL (0.6-1.0) Estimated GFR (Cockcroft-Gault) 87.8 Glucose Level 99 mg/dL (70-99) Calcium Level 8.7 mg/dL (8.5-10.1) Prothrombin Time 14.2 SEC (11.7-14.0) Prothromb Time International Ratio 1.2 (0.8-1.1) Laboratory Tests Test 03/26/18 11:00 Prothrombin Time 14.2 SEC (11.7-14.0) Prothromb Time International Ratio 1.2 (0.8-1.1) Medications Active Scripts Medications Dose Route/Sig Max Daily Dose Days Date Category One Daily For Women Tablet (Folic Acid/Mv,Fe,Other Min) 1 Each Tablet 1 Each PO 03/23/18 Reported Comments CXR 03/26 IMPRESSION: 1. Resolving tiny right apical pneumothorax. 2. Small residual left pleural effusion. Impression . 1. Spontaneous small right-sided pneumothorax. She is a nonsmoker. The etiology of pneumothorax is not so obvious, but possibility of catamenial pneumothorax cannot be ruled out. She just finished her period 03/23. The other possibility would be related to endometriosis with the possibility of rupture of diaphragmatic endometrial implant. She does not have any cysts in lungs and as such no clinical suspicion for lymphangioleiomyomatosis or Langerhan's cell Histiocytosis X 2. Suspected tubo-ovarian abscess / early peritonitis. No obvious abdominal endometriosis was reported. 3. No significant history of tobacco use. 4. Possible ruptured appendicitis. IMPRESSION: 1. No significant residual or recurrent pneumothorax. 2. Small residual left pleural effusion with minimal left basilar atelectasis Plan . spoke with dr Olivas 1. From a pulmonary standpoint, the pneumothorax continues to improve. 2. If exploratory laparotomy ok to proceed 3. Follow daily chest x-rays, no PRX seen today 4. Continue broad-spectrum antibiotics. 5. Follow POWDER OPERATOR recommendation. 6. Follow General Surgery recommendations. 7. Nutrition per Surgery. JOYCE GUTIERRES MD Mar 27, 2018 09:18
--- NOTE | 2018-03-27 09:37 | PDOC ---
Infectious Disease Note Subjective Subjective feeling good ROS ROS no n/v/d/sob Vital Sign Vital Signs Vital Signs Date Time Temp Pulse Resp B/P (MAP) Pulse Ox O2 Delivery O2 Flow Rate FiO2 03/27/18 07:25 Nasal Cannula 2.0 03/27/18 07:00 98.3 100 18 138/94 (109) 98 98.3 Physical Exam PHYSICAL EXAM GENERAL: Propped up in bed, watching TV HEENT: Oral cavity: Pharynx pink and moist. NECK: Supple. LUNGS: Diminished aeration in the bases. Nonlabored. HEART: S1 and S2 regular. ABDOMEN: Distended, bowel sounds active, soft, and diffusely tender. EXTREMITIES: No gross edema or cyanosis. SKIN: Warm without rash. NEUROLOGIC: Alert and oriented times 3. PIV Labs Lab Laboratory Tests Test 03/26/18 11:00 Prothrombin Time 14.2 SEC (11.7-14.0) Prothromb Time International Ratio 1.2 (0.8-1.1) Micro Microbiology 03/23/18 Blood Culture - Preliminary, Resulted NO GROWTH AFTER 2 DAYS 03/23/18 Urine Culture - Final, Complete 03/23/18 Urine Culture Result 1 (THOM) - Final, Complete 03/23/18 Antimicrobic Susceptibility - Final, Complete Objective Assessment Peritonitis with intra-abdominal abscesses, source unclear, organ rupture or malignancy Leukocytosis Ileus vs partial SBO Small right pneumothorax E. coli in urine POA Plan Plan of Care cont Zosyn and d/c doxycycline f/u cultures Exploratory lap planned CANDIDA ERVIN MD Mar 27, 2018 09:37
[2018-03-27 11:00] VITALS: BP 134/85
[2018-03-27 15:00] VITALS: BP 123/82
--- NOTE | 2018-03-27 15:53 | PDOC ---
PROGRESS NOTES Chief Complaint Chief Complaint Abdominal pain Abdominal mass History of Present Illness History of Present Illness Pt seen and examined Discussed plan with pt Vitals Vitals Vital Signs Date Time Temp Pulse Resp B/P (MAP) Pulse Ox O2 Delivery O2 Flow Rate FiO2 03/27/18 15:00 98.2 104 16 123/82 (96) 100 Room Air 98.2 03/27/18 14:26 2.0 Physical Exam Physical Exam GENERAL: Propped up in bed, watching TV HEENT: Oral cavity: Pharynx pink and moist. NECK: Supple. LUNGS: Diminished aeration in the bases. Nonlabored. HEART: S1 and S2 regular. ABDOMEN: Distended, bowel sounds active, soft, and diffusely tender. EXTREMITIES: No gross edema or cyanosis. SKIN: Warm without rash. NEUROLOGIC: Alert and oriented times 3. PIV General: Alert, Oriented X3, Cooperative, mild distress Heart: Regular rate Lungs: Clear Abdomen: Normal bowel sounds, Soft, Other (mild tenderness with distention) Extremities: No clubbing, No cyanosis, No edema Skin: No rashes, No significant lesion Assessment and Plan Assessmemt and Plan Problems Medical Problems: (1) Abdominal pain Status: Acute Comment Review of Relevant I have reviewed the following items lo (where applicable) has been applied. Labs Laboratory Tests Test 03/26/18 04:50 03/26/18 11:00 White Blood Count 10.3 x10^3/uL (4.0-11.0) Red Blood Count 3.69 x10^6/uL (3.50-5.40) Hemoglobin 12.1 g/dL (12.0-15.5) Hematocrit 35.4 % (36.0-47.0) Mean Corpuscular Volume 96 fL (79-100) Mean Corpuscular Hemoglobin 33 pg (25-35) Mean Corpuscular Hemoglobin Concent 34 g/dL (31-37) Red Cell Distribution Width 13.8 % (11.5-14.5) Platelet Count 327 x10^3/uL (140-400) Neutrophils (%) (Auto) 73 % (31-73) Lymphocytes (%) (Auto) 13 % (24-48) Monocytes (%) (Auto) 13 % (0-9) Eosinophils (%) (Auto) 1 % (0-3) Basophils (%) (Auto) 0 % (0-3) Neutrophils # (Auto) 7.5 x10^3uL (1.8-7.7) Lymphocytes # (Auto) 1.3 x10^3/uL (1.0-4.8) Monocytes # (Auto) 1.4 x10^3/uL (0.0-1.1) Eosinophils # (Auto) 0.1 x10^3/uL (0.0-0.7) Basophils # (Auto) 0.0 x10^3/uL (0.0-0.2) Sodium Level 141 mmol/L (136-145) Potassium Level 3.6 mmol/L (3.5-5.1) Chloride Level 106 mmol/L (98-107) Carbon Dioxide Level 26 mmol/L (21-32) Anion Gap 9 (6-14) Blood Urea Nitrogen 3 mg/dL (7-20) Creatinine 0.9 mg/dL (0.6-1.0) Estimated GFR (Cockcroft-Gault) 87.8 Glucose Level 99 mg/dL (70-99) Calcium Level 8.7 mg/dL (8.5-10.1) Prothrombin Time 14.2 SEC (11.7-14.0) Prothromb Time International Ratio 1.2 (0.8-1.1) Microbiology 03/23/18 Blood Culture - Preliminary, Resulted NO GROWTH AFTER 3 DAYS 03/23/18 Urine Culture - Final, Complete 03/23/18 Urine Culture Result 1 (THOM) - Final, Complete 03/23/18 Antimicrobic Susceptibility - Final, Complete Medications Current Medications Fentanyl Citrate (Fentanyl 2ml Vial) 50 mcg PRN Q30MIN PRN IV SEVERE PAIN Last administered on 03/23/18at 14:32; Start 03/23/18 at 11:45; Stop 03/23/18 at 14 :33; Status DC Sodium Chloride 1,000 ml @ 1,000 mls/hr Q1H IV Last administered on at 11:42; Start 03/23/18 at 11:31; Stop 03/23/18 at 12:30; Status DC Ondansetron HCl (Zofran) 4 mg 1X ONCE IV Last administered on 03/23/18at 11:42 ; Start 03/23/18 at 11:45; Stop 03/23/18 at 11:46; Status DC Iohexol (Omnipaque 300 Mg/ml) 75 ml 1X ONCE IV Last administered on at 12:30; Start 03/23/18 at 12:00; Stop 03/23/18 at 12:01; Status DC Info (CONTRAST GIVEN -- Rx MONITORING) 1 each PRN DAILY PRN MC SEE COMMENTS; Start 03/23/18 at 12:00; Stop 03/25/18 at 11:59; Status DC Piperacillin Sod/ Tazobactam Sod (Zosyn Per Pharmacy) 1 each PRN DAILY PRN MC SEE COMMENTS; Start 03/23/18 at 13:30; Status UNV Doxycycline Hyclate 100 mg/ Dextrose 100 ml @ 50 mls/hr 1X ONCE IV Last administered on 03/23/18at 14:32; Start 03/23/18 at 13:30; Stop 03/23/18 at 15 :29; Status DC Piperacillin Sod/ Tazobactam Sod 3.375 gm/Sodium Chloride 50 ml @ 100 mls/hr 1X ONCE IV Last administered on 03/23/18at 13:48; Start 03/23/18 at 13:30; Stop 03/23/18 at 14:02; Status DC Sodium Chloride 1,000 ml @ 1,000 mls/hr 1X ONCE IV ; Start 03/23/18 at 14:30 ; Stop 03/23/18 at 15:29; Status DC Acetaminophen (Tylenol) 650 mg PRN Q6HRS PRN PO FEVER Last administered on at 20:22; Start 03/23/18 at 15:30 Ondansetron HCl (Zofran) 4 mg PRN Q6HRS PRN IV NAUSEA/VOMITING Last administered on 03/26/18at 18:10; Start 03/23/18 at 15:30 Morphine Sulfate (Morphine Sulfate) 2 mg PRN Q2HR PRN IV MODERATE TO SEVERE PAIN; Start 03/23/18 at 15:30; Status UNV Tramadol HCl (Ultram) 50 mg PRN Q6HRS PRN PO MILD TO MODERATE PAIN Last administered on 03/25/18at 19:27; Start 03/23/18 at 15:30 Docusate Sodium (Colace) 100 mg PRN DAILY PRN PO CONSTIPATION, 3RD CHOICE Last administered on 03/25/18at 20:30; Start 03/23/18 at 15:30 Piperacillin Sod/ Tazobactam Sod 4.5 gm/Sodium Chloride 100 ml @ 200 mls/hr Q6HRS IV Last administered on 03/27/18at 11:24; Start 03/23/18 at 18:00 Piperacillin Sod/ Tazobactam Sod (Zosyn Per Pharmacy) 1 each PRN DAILY PRN MC SEE COMMENTS; Start 03/23/18 at 15:30 Morphine Sulfate (Morphine Sulfate) 2 mg PRN Q2HR PRN IV MILD-MODERATE PAIN Last administered on 03/27/18at 03:05; Start 03/23/18 at 15:30 Morphine Sulfate (Morphine Sulfate) 4 mg PRN Q2HR PRN IV SEVERE PAIN Last administered on 03/24/18at 06:01; Start 03/23/18 at 15:30 Potassium Chloride/Dextrose/ Sod Cl 1,000 ml @ 75 mls/hr [id number] IV Last administered on 03/27/18at 14:24; Start 03/23/18 at 15:30 Famotidine (Pepcid Vial) 20 mg QHS IVP Last administered on 03/26/18 20:23; Start 03/23/18 at 21:00 Heparin Sodium (Porcine) (Heparin Sodium) 5,000 unit Q8HRS SQ Last administered on 03/27/18 14:30; Start 03/23/18 at 16:00 Vancomycin HCl 1.5 gm/Sodium Chloride 500 ml @ 250 mls/hr Q12H IV ; Start at 17:15; Status UNV Vancomycin HCl (Vanco Per Pharmacy) 1 each PRN DAILY PRN MC SEE COMMENTS Last administered on 03/24/18at 08:35; Start 03/23/18 at 17:15; Stop 03/24/18 at 14 :57; Status DC Vancomycin HCl 1.5 gm/Sodium Chloride 500 ml @ 250 mls/hr 1X ONCE IV Last administered on 03/23/18at 18:03; Start 03/23/18 at 17:30; Stop 03/23/18 at 19 :29; Status DC Influenza Virus Vaccine (Afluria Trivalent [id number] Syringe) 0.5 ml ONCE ONCE VAX IM Last administered on 03/27/18at 08:35; Start 03/27/18 at 09:00; Stop 03/27/18 at 09:01; Status DC Vancomycin HCl 1 gm/Sodium Chloride 250 ml @ 250 mls/hr Q12H IV Last administered on 03/24/18at 05:54; Start 03/24/18 at 06:00; Stop 03/24/18 at 14 :57; Status DC Vancomycin HCl (Vancomycin Trough Level) 1 each 1X ONCE MC ; Start 03/25/18 at 05:30; Stop 03/25/18 at 05:31; Status Cancel Metoprolol Tartrate (Lopressor Vial) 5 mg Q6HRS IVP ; Start 03/23/18 at 21:00; Stop 03/23/18 at 21:55; Status DC Metoprolol Tartrate (Lopressor Vial) 5 mg PRN Q6HRS PRN IVP TACHYCARDIA Last administered on 03/26/18at 20:28; Start 03/23/18 at 22:00 Lactobacillus Rhamnosus (Culturelle) 1 cap BID PO Last administered on at 08:35; Start 03/24/18 at 09:00 Potassium Chloride (Klor-Con) 20 meq BIDBFRMEAL PO Last administered on at 08:35; Start 03/24/18 at 10:00 Polyethylene Glycol (miraLAX PACKET) 17 gm DAILY PO Last administered on at 08:30; Start 03/24/18 at 10:30 Psyllium Hydrophilic Mucilloid (Metamucil Fiber Packet) 1 pkt DAILY PO Last administered on 03/26/18at 08:30; Start 03/24/18 at 10:30 Lactulose (Lactulose) 20 gm PRN DAILY PRN PO CONSTIPATION, 2ND CHOICE Last administered on 03/24/18at 16:47; Start 03/24/18 at 10:15 Senna/Docusate Sodium (Senna Plus) 2 tab PRN BID PRN PO CONSTIPATION, 1ST CHOICE Last administered on 03/24/18at 10:39; Start 03/24/18 at 10:15 Doxycycline Hyclate (Vibra-Tab) 100 mg BID PO Last administered on 03/27/18at 08:33; Start 03/24/18 at 21:00; Stop 03/27/18 at 09:46; Status DC Phenazopyridine HCl (Pyridium) 200 mg 1X ONCE PO Last administered on at 14:57; Start 03/25/18 at 14:30; Stop 03/25/18 at 14:31; Status DC Acetaminophen/ Hydrocodone Bitart (Lortab 5/325) 1 tab PRN Q4HRS PRN PO MODERATE TO SEVERE PAIN Last administered on 03/27/18at 14:26; Start 03/25/18 at 19:45 Ondansetron HCl (Zofran) 4 mg PRN Q6HRS PRN IV NAUSEA/VOMITING; Start at 07:00; Stop 03/28/18 at 18:00 Fentanyl Citrate (Fentanyl 2ml Vial) 25 mcg PRN Q5MIN PRN IV MILD PAIN; Start 03/28/18 at 07:00; Stop 03/28/18 at 18:00 Fentanyl Citrate (Fentanyl 2ml Vial) 50 mcg PRN Q5MIN PRN IV MODERATE TO SEVERE PAIN; Start 03/28/18 at 07:00; Stop 03/28/18 at 18:00 Morphine Sulfate (Morphine Sulfate) 1 mg PRN Q10MIN PRN IV SEVERE PAIN; Start 03/28/18 at 07:00; Stop 03/28/18 at 18:00 Ringer's Solution 1,000 ml @ 30 mls/hr Q24H IV ; Start 03/28/18 at 07:00; Stop 03/28/18 at 18:59 Lidocaine HCl (Xylocaine-Mpf 1% 2ml Vial) 2 ml PRN 1X PRN ID IV START; Start 03/28/18 at 07:00; Stop 03/28/18 at 18:00 Hydromorphone HCl (Dilaudid) 0.5 mg PRN Q10MIN PRN IV SEV PAIN, Second choice; Start 03/28/18 at 07:00; Stop 03/28/18 at 18:00 Prochlorperazine Edisylate (Compazine) 5 mg PACU PRN PRN IV NAUSEA, MRX1; Start 03/28/18 at 07:00; Stop 03/28/18 at 18:00 Active Scripts Active Reported One Daily For Women Tablet (Folic Acid/Mv,Fe,Other Min) 1 Each Tablet 1 Each PO Vitals/I & O Vital Sign - Last 24 Hours 03/26/18 03/26/18 03/26/1822/18 16:28 19:00 20:14 20:15 Temp 99.3 99.3 99.3 99.3 Pulse 129 129 Resp 20 20 B/P (MAP) 149/95 (113) 149/95 (113) Pulse Ox 99 99 O2 Delivery Room Air Nasal Cannula Nasal Cannula Nasal Cannula O2 Flow Rate 2.0 2.0 2.0 03/26/18 03/26/18 03/26/18 03/27/18 20:28 22:54 23:00 03:05 Temp 98.3 98.3 Pulse 129 105 Resp 18 B/P (MAP) 149/95 140/96 (111) Pulse Ox 98 O2 Delivery Room Air Nasal Cannula Room Air O2 Flow Rate 2.0 03/27/18 03/27/18 03/27/18 03/27/18 03:06 03:35 06:18 07:00 Temp 98.8 98.3 98.8 98.3 Pulse 108 100 Resp 20 18 B/P (MAP) 128/81 (97) 138/94 (109) Pulse Ox 97 98 O2 Delivery Nasal Cannula Nasal Cannula Nasal Cannula Room Air O2 Flow Rate 2.0 2.0 2.0 03/27/18 03/27/18 03/27/18 03/27/18 07:18 07:25 11:00 14:26 Temp 96.3 96.3 Pulse 103 Resp 18 B/P (MAP) 134/85 (101) Pulse Ox 100 O2 Delivery Nasal Cannula Nasal Cannula Nasal Cannula Nasal Cannula O2 Flow Rate 2.0 2.0 2.0 2.0 03/27/18 15:00 Temp 98.2 98.2 Pulse 104 Resp 16 B/P (MAP) 123/82 (96) Pulse Ox 100 O2 Delivery Room Air Intake and Output 03/26/18 03/26/18 03/27/18 15:00 23:00 07:00 Intake Total 240 ml 360 ml 300 ml Balance 240 ml 360 ml 300 ml TEJINDER ROBERT MD Mar 27, 2018 15:53
--- NOTE | 2018-03-27 18:00 | PDOC ---
SURGICAL PROGRESS NOTE Subjective Pt. denies SOB, CP or H/A. No fevers, chills or night sweats. She is tolerating regular diet and had bowel movement today. CXR demonstrated resolvement of pneumothorax. Will proceed with exploratory laparotomy tomorrow at 1 pm. Discussed plan of care with patient and her family. Vital Signs Vital Signs Date Time Temp Pulse Resp B/P (MAP) Pulse Ox O2 Delivery O2 Flow Rate FiO2 03/27/18 16:06 Nasal Cannula 2.0 03/27/18 15:00 98.2 104 16 123/82 (96) 100 98.2 I&O Intake and Output 03/27/18 07:00 Intake Total 900 ml Balance 900 ml Intake Oral 900 ml # Voids 8 # Bowel Movements 1 PATIENT HAS A SONI: No General: Alert, Oriented X3, Cooperative HEENT: Atraumatic Lungs: Clear to auscultation Heart: Regular rate Abdomen: Normal bowel sounds, Soft, Other (mild tenderness with distention.) Psych/Mental Status: Mental status NL Labs Laboratory Tests Test 03/26/18 04:50 03/26/18 11:00 White Blood Count 10.3 x10^3/uL (4.0-11.0) Red Blood Count 3.69 x10^6/uL (3.50-5.40) Hemoglobin 12.1 g/dL (12.0-15.5) Hematocrit 35.4 % (36.0-47.0) Mean Corpuscular Volume 96 fL (79-100) Mean Corpuscular Hemoglobin 33 pg (25-35) Mean Corpuscular Hemoglobin Concent 34 g/dL (31-37) Red Cell Distribution Width 13.8 % (11.5-14.5) Platelet Count 327 x10^3/uL (140-400) Neutrophils (%) (Auto) 73 % (31-73) Lymphocytes (%) (Auto) 13 % (24-48) Monocytes (%) (Auto) 13 % (0-9) Eosinophils (%) (Auto) 1 % (0-3) Basophils (%) (Auto) 0 % (0-3) Neutrophils # (Auto) 7.5 x10^3uL (1.8-7.7) Lymphocytes # (Auto) 1.3 x10^3/uL (1.0-4.8) Monocytes # (Auto) 1.4 x10^3/uL (0.0-1.1) Eosinophils # (Auto) 0.1 x10^3/uL (0.0-0.7) Basophils # (Auto) 0.0 x10^3/uL (0.0-0.2) Sodium Level 141 mmol/L (136-145) Potassium Level 3.6 mmol/L (3.5-5.1) Chloride Level 106 mmol/L (98-107) Carbon Dioxide Level 26 mmol/L (21-32) Anion Gap 9 (6-14) Blood Urea Nitrogen 3 mg/dL (7-20) Creatinine 0.9 mg/dL (0.6-1.0) Estimated GFR (Cockcroft-Gault) 87.8 Glucose Level 99 mg/dL (70-99) Calcium Level 8.7 mg/dL (8.5-10.1) Prothrombin Time 14.2 SEC (11.7-14.0) Prothromb Time International Ratio 1.2 (0.8-1.1) Problem List Problems Medical Problems: (1) Abdominal pain Status: Acute Assessment/Plan A: Abd/pelvis abscesses Pneumothorax: resolved P; Plan for exploratory laparotomy tomorrow. CHARLES MURPHY Jr, MD Mar 27, 2018 18:00
[2018-03-27 19:20] VITALS: BP 144/93
[2018-03-27] MEDS: FAMOTIDINE 20 MG/2 ML VIAL IVP SCH (21:58)
[2018-03-27 22:50] VITALS: BP 146/98
[2018-03-28] VITALS (9 sets, daily range): BP systolic 131–159; BP diastolic 86–100
[2018-03-28] MEDS: POTASSIUM CL 20MEQ D5-0.9%NACL 1,000 ML IV SCH ×2 (00:29→17:31)
[2018-03-28] MEDS: PIPERACILLIN/TAZOBACTAM 4.5 GM in IV NORMAL SALINE 100ML 100 ML IV SCH ×5 (00:30→17:44)
[2018-03-28] MEDS: HEPARIN for SUB-Q USE 5,000 UNIT/ML VIAL. SQ SCH ×3 (06:00→21:34)
[2018-03-28] MEDS: MORPHINE SULFATE 2 MG/ML VIAL. IV PRN ×2 (06:06→11:22)
[2018-03-28] MEDS: ONDANSETRON PF 4 MG/2 ML VIAL. IV PRN (06:14)
[2018-03-28] MEDS ORDERED: ONDANSETRON PF 4 MG/2 ML VIAL. IV PRN ×2 (07:00→16:00)
[2018-03-28] MEDS ORDERED: HYDROmorphone 2 MG/ML VIAL IV PRN (07:00)
[2018-03-28] MEDS ORDERED: LIDOCAINE 1% PF 2 ML VIAL. ID PRN (07:00)
[2018-03-28] MEDS ORDERED: MORPHINE SULFATE 2 MG/ML VIAL. IV PRN (07:00)
[2018-03-28] MEDS ORDERED: fentaNYL PF VIAL 100 MCG/2 ML VIAL IV PRN ×2 (07:00)
[2018-03-28] MEDS ORDERED: IV RINGERS,LACTATED 1000ML 1,000 ML IV SCH (07:00)
[2018-03-28] MEDS ORDERED: PROCHLORPERAZINE 10 MG/2 ML VIAL. IV PRN ×2 (07:00→16:00)
[2018-03-28] MEDS: POTASSIUM CHLORIDE 20 MEQ TABLET.ER. PO SCH ×2 (07:30→16:30)
--- NOTE | 2018-03-28 08:14 | RAD ---
Portable chest, 03/28/2018: HISTORY: Follow-up pneumothorax Comparison is made yesterday study. The heart size and pulmonary vascularity are normal. No pulmonary infiltrate is seen. There is no evidence of pneumothorax. There is unchanged blunting of the left lateral costophrenic angle probably due to a small amount of residual pleural fluid. No new abnormality is seen. IMPRESSION: Stable portable chest. Electronically signed by: Armaan Donovan MD (03/28/2018 8:11 AM) [facility]
[2018-03-28] MEDS: PSYLLIUM HUSK (SUGAR FREE) 1 PKT PACKET PO SCH (08:27)
[2018-03-28] MEDS: POLYETHYLENE GLYCOL 3350 17 GM PACKET. PO SCH (08:27)
[2018-03-28] MEDS: LACTOBACILLUS RHAMNOSUS GG 1 CAPSULE. PO SCH ×2 (08:27→21:33)
--- NOTE | 2018-03-28 09:16 | PDOC ---
Infectious Disease Note Subjective Subjective feeling good ROS ROS no n/v/d/sob Vital Sign Vital Signs Vital Signs Date Time Temp Pulse Resp B/P (MAP) Pulse Ox O2 Delivery O2 Flow Rate FiO2 03/28/18 08:26 Room Air 03/28/18 07:00 97.9 108 16 139/95 (110) 98 97.9 03/28/18 00:00 2.0 Physical Exam PHYSICAL EXAM GENERAL: Propped up in bed, watching TV HEENT: Oral cavity: Pharynx pink and moist. NECK: Supple. LUNGS: Diminished aeration in the bases. Nonlabored. HEART: S1 and S2 regular. ABDOMEN: Distended, bowel sounds active, soft, and diffusely tender. EXTREMITIES: No gross edema or cyanosis. SKIN: Warm without rash. NEUROLOGIC: Alert and oriented times 3. PIV Labs Micro Microbiology 03/23/18 Blood Culture - Preliminary, Resulted NO GROWTH AFTER 2 DAYS 03/23/18 Urine Culture - Final, Complete 03/23/18 Urine Culture Result 1 (THOM) - Final, Complete 03/23/18 Antimicrobic Susceptibility - Final, Complete Objective Assessment Peritonitis with intra-abdominal abscesses, source unclear, organ rupture or malignancy Leukocytosis Ileus vs partial SBO Small right pneumothorax E. coli in urine POA Plan Plan of Care cont Zosyn f/u cultures Exploratory lap planned CANDIDA ERVIN MD Mar 28, 2018 09:16
--- NOTE | 2018-03-28 10:19 | PDOC ---
PULMONARY PROGRESS NOTES Subjective no soa Vitals Vital Signs Date Time Temp Pulse Resp B/P (MAP) Pulse Ox O2 Delivery O2 Flow Rate FiO2 03/28/18 08:26 Room Air 03/28/18 07:00 97.9 108 16 139/95 (110) 98 97.9 03/28/18 00:00 2.0 General: Alert, No acute distress Lungs: Clear Cardiovascular: S1 Abdomen: Soft Neuro Exam: Alert Extremities: No Edema Skin: Warm Labs Laboratory Tests Test 03/26/18 11:00 Prothrombin Time 14.2 SEC (11.7-14.0) Prothromb Time International Ratio 1.2 (0.8-1.1) Medications Active Scripts Medications Dose Route/Sig Max Daily Dose Days Date Category One Daily For Women Tablet (Folic Acid/Mv,Fe,Other Min) 1 Each Tablet 1 Each PO 03/23/18 Reported Comments CXR 03/26 IMPRESSION: 1. Resolving tiny right apical pneumothorax. 2. Small residual left pleural effusion. Impression . 1. Spontaneous small right-sided pneumothorax. She is a nonsmoker. The etiology of pneumothorax is not so obvious, but possibility of catamenial pneumothorax cannot be ruled out. She just finished her period 03/23. The other possibility would be related to endometriosis with the possibility of rupture of diaphragmatic endometrial implant. She does not have any cysts in lungs and as such no clinical suspicion for lymphangioleiomyomatosis or Langerhan's cell Histiocytosis X 2. Suspected tubo-ovarian abscess / early peritonitis. No obvious abdominal endometriosis was reported. 3. No significant history of tobacco use. 4. Possible ruptured appendicitis. IMPRESSION: 1. No significant residual or recurrent pneumothorax. 2. Small residual left pleural effusion with minimal left basilar atelectasis Plan . PT IN OR NOT SEEN 1. From a pulmonary standpoint, the pneumothorax continues to improve. 2. If exploratory laparotomy ok to proceed 3. Follow daily chest x-rays, no PRX seen today 4. Continue broad-spectrum antibiotics. 5. Follow [employer] recommendation. 6. Follow General Surgery recommendations. 7. Nutrition per Surgery. JOYCE GUTIERRES MD Mar 28, 2018 10:19
[2018-03-28] MEDS ORDERED: MIDAZOLAM HCL/PF 2 MG/2 ML VIAL. ONE (13:04)
[2018-03-28] MEDS ORDERED: PROPOFOL 20 ML IV ONE (13:04)
[2018-03-28] MEDS ORDERED: ROCURONIUM 50 MG/5 ML VIAL. ONE (13:04)
[2018-03-28] MEDS ORDERED: fentaNYL PF VIAL 100 MCG/2 ML VIAL ONE ×3 (13:04→16:07)
[2018-03-28] MEDS ORDERED: LIDOCAINE 2% PF Vial for OR 5 ML VIAL. ONE (13:04)
--- NOTE | 2018-03-28 14:44 | PDOC ---
PROGRESS NOTES Chief Complaint Chief Complaint Post-op exploratory laparotomy day 1 Acute abdominal/pelvic pain Abdominal mass Small R pneumothorax - resolving Leukocytosis - resolved HTN History of Present Illness History of Present Illness Pt seen and examined in pre-op Pt was laying in bed and had no questions prior to surgery Discussed plan w/pt Vitals Vitals Vital Signs Date Time Temp Pulse Resp B/P (MAP) Pulse Ox O2 Delivery O2 Flow Rate FiO2 03/28/18 12:07 97.6 106 15 152/87 100 Nasal Cannula 97.6 03/28/18 11:22 2.0 Physical Exam Physical Exam HEENT: Mucous membranes pink and moist. Neck: Supple. No JVD General: Alert, Oriented X3, Cooperative, No acute distress Heart: Regular rate, Normal S1, Normal S2 Lungs: Clear Abdomen: Normal bowel sounds, Soft, Other (mild tenderness with distention) Extremities: No clubbing, No cyanosis, No edema Skin: No rashes, No significant lesion Review of Systems Review of Systems Pt c/o continued mild abdominal/pelvic pain and discomfort as well as fatigue Denies chest pain and states SOB has resolved Assessment and Plan Assessmemt and Plan Problems Medical Problems: (1) Abdominal pain Status: Acute Assessment: Post-op exploratory laparotomy day 1 Acute abdominal/pelvic pain Abdominal mass Small R pneumothorax - resolving Leukocytosis - resolved HTN Plan: Exploratory laparotomy today Labs IVF Cont IV abx PRN pain meds Wound care post-op DVT ppx PT/OT Pneumothorax improving per pulm Follow daily CXR per pulm Cont broad-spectrum abx per ID Follow MANAGER RESIDENTIAL recommendations Follow gen surg recommendations Nutrition per surg Comment Review of Relevant I have reviewed the following items lo (where applicable) has been applied. Labs Microbiology 03/23/18 Blood Culture - Preliminary, Resulted NO GROWTH AFTER 4 DAYS 03/23/18 Urine Culture - Final, Complete 03/23/18 Urine Culture Result 1 (THOM) - Final, Complete 03/23/18 Antimicrobic Susceptibility - Final, Complete Medications Current Medications Fentanyl Citrate (Fentanyl 2ml Vial) 50 mcg PRN Q30MIN PRN IV SEVERE PAIN Last administered on 03/23/18at 14:32; Start 03/23/18 at 11:45; Stop 03/23/18 at 14 :33; Status DC Sodium Chloride 1,000 ml @ 1,000 mls/hr Q1H IV Last administered on at 11:42; Start 03/23/18 at 11:31; Stop 03/23/18 at 12:30; Status DC Ondansetron HCl (Zofran) 4 mg 1X ONCE IV Last administered on 03/23/18at 11:42 ; Start 03/23/18 at 11:45; Stop 03/23/18 at 11:46; Status DC Iohexol (Omnipaque 300 Mg/ml) 75 ml 1X ONCE IV Last administered on at 12:30; Start 03/23/18 at 12:00; Stop 03/23/18 at 12:01; Status DC Info (CONTRAST GIVEN -- Rx MONITORING) 1 each PRN DAILY PRN MC SEE COMMENTS; Start 03/23/18 at 12:00; Stop 03/25/18 at 11:59; Status DC Piperacillin Sod/ Tazobactam Sod (Zosyn Per Pharmacy) 1 each PRN DAILY PRN MC SEE COMMENTS; Start 03/23/18 at 13:30; Status UNV Doxycycline Hyclate 100 mg/ Dextrose 100 ml @ 50 mls/hr 1X ONCE IV Last administered on 03/23/18at 14:32; Start 03/23/18 at 13:30; Stop 03/23/18 at 15 :29; Status DC Piperacillin Sod/ Tazobactam Sod 3.375 gm/Sodium Chloride 50 ml @ 100 mls/hr 1X ONCE IV Last administered on 03/23/18at 13:48; Start 03/23/18 at 13:30; Stop 03/23/18 at 14:02; Status DC Sodium Chloride 1,000 ml @ 1,000 mls/hr 1X ONCE IV ; Start 03/23/18 at 14:30 ; Stop 03/23/18 at 15:29; Status DC Acetaminophen (Tylenol) 650 mg PRN Q6HRS PRN PO FEVER Last administered on at 20:22; Start 03/23/18 at 15:30 Ondansetron HCl (Zofran) 4 mg PRN Q6HRS PRN IV NAUSEA/VOMITING Last administered on 03/28/18at 06:14; Start 03/23/18 at 15:30 Morphine Sulfate (Morphine Sulfate) 2 mg PRN Q2HR PRN IV MODERATE TO SEVERE PAIN; Start 03/23/18 at 15:30; Status UNV Tramadol HCl (Ultram) 50 mg PRN Q6HRS PRN PO MILD TO MODERATE PAIN Last administered on 03/25/18 19:27; Start 03/23/18 at 15:30 Docusate Sodium (Colace) 100 mg PRN DAILY PRN PO CONSTIPATION, 3RD CHOICE Last administered on 03/25/18at 20:30; Start 03/23/18 at 15:30 Piperacillin Sod/ Tazobactam Sod 4.5 gm/Sodium Chloride 100 ml @ 200 mls/hr Q6HRS IV Last administered on 03/28/18 11:23; Start 03/23/18 at 18:00 Piperacillin Sod/ Tazobactam Sod (Zosyn Per Pharmacy) 1 each PRN DAILY PRN MC SEE COMMENTS; Start 03/23/18 at 15:30 Morphine Sulfate (Morphine Sulfate) 2 mg PRN Q2HR PRN IV MILD-MODERATE PAIN Last administered on 03/28/18 11:22; Start 03/23/18 at 15:30 Morphine Sulfate (Morphine Sulfate) 4 mg PRN Q2HR PRN IV SEVERE PAIN Last administered on 03/24/18at 06:01; Start 03/23/18 at 15:30 Potassium Chloride/Dextrose/ Sod Cl 1,000 ml @ 75 mls/hr [id number] IV Last administered on 03/28/18at 00:29; Start 03/23/18 at 15:30 Famotidine (Pepcid Vial) 20 mg QHS IVP Last administered on 03/27/18at 21:58; Start 03/23/18 at 21:00 Heparin Sodium (Porcine) (Heparin Sodium) 5,000 unit Q8HRS SQ Last administered on 03/27/18at 14:30; Start 03/23/18 at 16:00 Vancomycin HCl 1.5 gm/Sodium Chloride 500 ml @ 250 mls/hr Q12H IV ; Start at 17:15; Status UNV Vancomycin HCl (Vanco Per Pharmacy) 1 each PRN DAILY PRN MC SEE COMMENTS Last administered on 03/24/18at 08:35; Start 03/23/18 at 17:15; Stop 03/24/18 at 14 :57; Status DC Vancomycin HCl 1.5 gm/Sodium Chloride 500 ml @ 250 mls/hr 1X ONCE IV Last administered on 03/23/18at 18:03; Start 03/23/18 at 17:30; Stop 03/23/18 at 19 :29; Status DC Influenza Virus Vaccine (Afluria Trivalent [id number] Syringe) 0.5 ml ONCE ONCE VAX IM Last administered on 03/27/18at 08:35; Start 03/27/18 at 09:00; Stop 03/27/18 at 09:01; Status DC Vancomycin HCl 1 gm/Sodium Chloride 250 ml @ 250 mls/hr Q12H IV Last administered on 03/24/18at 05:54; Start 03/24/18 at 06:00; Stop 03/24/18 at 14 :57; Status DC Vancomycin HCl (Vancomycin Trough Level) 1 each 1X ONCE MC ; Start 03/25/18 at 05:30; Stop 03/25/18 at 05:31; Status Cancel Metoprolol Tartrate (Lopressor Vial) 5 mg Q6HRS IVP ; Start 03/23/18 at 21:00; Stop 03/23/18 at 21:55; Status DC Metoprolol Tartrate (Lopressor Vial) 5 mg PRN Q6HRS PRN IVP TACHYCARDIA Last administered on 03/26/18at 20:28; Start 03/23/18 at 22:00 Lactobacillus Rhamnosus (Culturelle) 1 cap BID PO Last administered on at 21:58; Start 03/24/18 at 09:00 Potassium Chloride (Klor-Con) 20 meq BIDBFRMEAL PO Last administered on at 16:30; Start 03/24/18 at 10:00 Polyethylene Glycol (miraLAX PACKET) 17 gm DAILY PO Last administered on at 08:30; Start 03/24/18 at 10:30 Psyllium Hydrophilic Mucilloid (Metamucil Fiber Packet) 1 pkt DAILY PO Last administered on 03/26/18at 08:30; Start 03/24/18 at 10:30 Lactulose (Lactulose) 20 gm PRN DAILY PRN PO CONSTIPATION, 2ND CHOICE Last administered on 03/24/18at 16:47; Start 03/24/18 at 10:15 Senna/Docusate Sodium (Senna Plus) 2 tab PRN BID PRN PO CONSTIPATION, 1ST CHOICE Last administered on 03/24/18at 10:39; Start 03/24/18 at 10:15 Doxycycline Hyclate (Vibra-Tab) 100 mg BID PO Last administered on 03/27/18at 08:33; Start 03/24/18 at 21:00; Stop 03/27/18 at 09:46; Status DC Phenazopyridine HCl (Pyridium) 200 mg 1X ONCE PO Last administered on at 14:57; Start 03/25/18 at 14:30; Stop 03/25/18 at 14:31; Status DC Acetaminophen/ Hydrocodone Bitart (Lortab 5/325) 1 tab PRN Q4HRS PRN PO MODERATE TO SEVERE PAIN Last administered on 03/27/18at 19:41; Start 03/25/18 at 19:45 Ondansetron HCl (Zofran) 4 mg PRN Q6HRS PRN IV NAUSEA/VOMITING; Start at 07:00; Stop 03/28/18 at 18:00 Fentanyl Citrate (Fentanyl 2ml Vial) 25 mcg PRN Q5MIN PRN IV MILD PAIN; Start 03/28/18 at 07:00; Stop 03/28/18 at 18:00 Fentanyl Citrate (Fentanyl 2ml Vial) 50 mcg PRN Q5MIN PRN IV MODERATE TO SEVERE PAIN; Start 03/28/18 at 07:00; Stop 03/28/18 at 18:00 Morphine Sulfate (Morphine Sulfate) 1 mg PRN Q10MIN PRN IV SEVERE PAIN; Start 03/28/18 at 07:00; Stop 03/28/18 at 18:00 Ringer's Solution 1,000 ml @ 30 mls/hr Q24H IV Last administered on at 12:10; Start 03/28/18 at 07:00; Stop 03/28/18 at 18:59 Lidocaine HCl (Xylocaine-Mpf 1% 2ml Vial) 2 ml PRN 1X PRN ID IV START; Start 03/28/18 at 07:00; Stop 03/28/18 at 18:00 Hydromorphone HCl (Dilaudid) 0.5 mg PRN Q10MIN PRN IV SEV PAIN, Second choice; Start 03/28/18 at 07:00; Stop 03/28/18 at 18:00 Prochlorperazine Edisylate (Compazine) 5 mg PACU PRN PRN IV NAUSEA, MRX1; Start 03/28/18 at 07:00; Stop 03/28/18 at 18:00 Propofol 20 ml @ As Directed STK-MED ONCE IV ; Start 03/28/18 at 13:04; Stop 03/28/18 at 13:05; Status DC Lidocaine HCl (Lidocaine Pf 2% Vial) 5 ml STK-MED ONCE .ROUTE ; Start 03/28/18 at 13:04; Stop 03/28/18 at 13:05; Status DC Rocuronium [place] (Zemuron) 50 mg STK-MED ONCE .ROUTE ; Start 03/28/18 at 13: 04; Stop 03/28/18 at 13:05; Status DC Fentanyl Citrate (Fentanyl 2ml Vial) 100 mcg STK-MED ONCE .ROUTE ; Start at 13:04; Stop 03/28/18 at 13:05; Status DC Midazolam HCl (Versed) 2 mg STK-MED ONCE .ROUTE ; Start 03/28/18 at 13:04; Stop 03/28/18 at 13:05; Status DC Metronidazole 100 ml @ 200 mls/hr 1X ONCE IV ; Start 03/28/18 at 14:30; Stop 03/28/18 at 14:59 Active Scripts Active Reported One Daily For Women Tablet (Folic Acid/Mv,Fe,Other Min) 1 Each Tablet 1 Each PO Vitals/I & O Vital Sign - Last 24 Hours 03/27/18 03/27/18 03/27/18 03/27/18 15:00 19:20 19:41 20:00 Temp 98.2 98.6 98.2 98.6 Pulse 104 101 Resp 16 16 B/P (MAP) 123/82 (96) 144/93 (110) Pulse Ox 100 100 O2 Delivery Room Air Room Air Nasal Cannula Nasal Cannula O2 Flow Rate 2.0 2.0 03/27/18 03/27/18 03/27/18 03/28/18 21:00 22:50 22:51 00:00 Temp 98.3 98.3 Pulse 103 Resp 16 B/P (MAP) 146/98 (114) Pulse Ox 100 O2 Delivery Nasal Cannula Room Air Nasal Cannula O2 Flow Rate 2.0 2.0 2.0 03/28/18 03/28/18 03/28/1818 03:19 06:06 07:00 07:35 Temp 98.3 97.9 98.3 97.9 Pulse 101 108 Resp 16 16 B/P (MAP) 134/88 (103) 139/95 (110) Pulse Ox 100 98 O2 Delivery Room Air Room Air Room Air Nasal Cannula O2 Flow Rate 2.0 03/28/18 03/28/18 03/28/18 03/28/18 08:26 11:00 11:22 12:07 Temp 99.1 97.6 99.1 97.6 Pulse 111 106 Resp 16 15 B/P (MAP) 155/96 (115) 152/87 Pulse Ox 100 100 O2 Delivery Room Air Room Air Nasal Cannula Nasal Cannula O2 Flow Rate 2.0 Intake and Output 03/27/18 03/27/18 03/28/18 15:00 23:00 07:00 Intake Total 240 ml 1100 ml Output Total 500 ml Balance -260 ml 1100 ml ANTONIA RICHARDSON III DO Mar 28, 2018 14:44
[2018-03-28] MEDS ORDERED: ONDANSETRON PF 4 MG/2 ML VIAL. ONE (14:48)
[2018-03-28] MEDS ORDERED: DEXAMETHASONE SOD PHOS 20 MG/5 ML VIAL. ONE (14:48)
[2018-03-28] MEDS ORDERED: SEVOFLURANE 61 TO 120 MINUTES. IH ONE (14:48)
[2018-03-28] MEDS ORDERED: GLYCOPYRROLATE 1 MG/5 ML VIAL. ONE (14:54)
[2018-03-28] MEDS ORDERED: NEOSTIGMINE METHYLSULFATE 5 MG/5 ML SYRINGE. ONE (14:55)
--- NOTE | 2018-03-28 15:04 | PDOC4 ---
Operative Note Operative Note Date: 03/28/2018 Preoperative diagnosis: Tubulovillous an abscess Postoperative diagnosis: Same Procedure: Appendectomy Surgeon: Jose Manuel Specimen: Appendix Dictation: Patient is a 32-year-old female was taken to the operating room by Dr. Olivas for a presumed tubulo-ovarian abscess versus pelvic malignancy. Once patient was explored and opened is found that it was large tubo-ovarian abscess this was dealt with. As also noted that the appendix was involved in the abscess cavity was itself quite dilated and abnormal I was asked to come in for appendectomy. The mesoappendix was taken down with the LigaSure device down to the base the appendix at this point a contour stapler was used to staple and transect the appendix which was sent for pathology the staple line was oversewn with a running 2-0 Vicryl. There was a small serosal tear in the cecum which was oversewn with 3-0 Vicryl. The completion of the surgery was done by Dr. Olivas and Dr Mares. TEJINDER BLUM MD Mar 28, 2018 15:03
--- NOTE | 2018-03-28 15:39 | RAD ---
KUB Clinical Indication: Post op abdominal operation incorrect count of sponge Comparison: KUB, March 12, 2018. CT abdomen and pelvis with contrast, March 23, 2018. Findings: There are lower abdomen and pelvis skin radha. Surgical drain is in place. Suture material in the right of midline pelvis. Scattered air in the pelvis. Radiopaque marker of a lap sponge is not identified. Bowel gas pattern is nonspecific. IMPRESSION: No unexpected radiopaque foreign body. Electronically signed by: Tremayne Manzanares MD (03/28/2018 3:36 PM) [id number]
--- NOTE | 2018-03-28 15:46 | PDOC ---
BRIEF OPERATIVE NOTE Date: Mar 28, 2018 Pre-Op Diagnosis Abd/Pelvic abscesses Post-Op Diagnosis 1. Same 2. Left TOA 3. Inflammed appendix Procedure Performed 1. Open Laparotomy Left Salpingo-Oophorectomy 2. Appendectomy Surgeon Dr. Olivas Tiller Worker Dr. Suzan Richard Anesthesia Type: General Blood Loss 50 ml Specimens Obtained Left fallopian tube, Left ovary, Left ovarian cyst wall and Appendix Findings Abd/pelvic abscesses, Left TOA, edematous Right fallopian tube and ovary, inflamed appendix, nml size uterus with mild induration Complications none Operative Note see dictation CHARLES OLIVAS Jr, MD Mar 28, 2018 15:46
[2018-03-28] MEDS ORDERED: 0.9 % SODIUM CHLORIDE 10 ML DISP.SYRIN. IV PRN (16:00)
[2018-03-28] MEDS ORDERED: KETOROLAC 30 MG/ML VIAL. IV PRN (16:00)
[2018-03-28] MEDS ORDERED: diphenhydrAMINE HCL 25 MG CAPSULE PO PRN (16:00)
[2018-03-28] MEDS ORDERED: CALCIUM CARBONATE 500 MG TAB.CHEW PO PRN (16:00)
[2018-03-28] MEDS ORDERED: SIMETHICONE 80 MG TAB.CHEW PO PRN (16:00)
[2018-03-28] MEDS ORDERED: DEXTROSE 50% 25 GM / 50ML DISP.SYRIN. IV PRN (16:00)
--- NOTE | 2018-03-28 16:06 | OP ---
DATE OF SURGERY: PREOPERATIVE DIAGNOSIS: Abdominopelvic abscesses. POSTOPERATIVE DIAGNOSES: 1. Abdominopelvic abscesses. 2. Left tubo-ovarian abscess. 3. Inflamed appendix. PROCEDURE: 1. Open laparotomy with left salpingo-oophorectomy. 2. Appendectomy. SURGEON: Charles Olivas MD LIFE SKILLS COORDINATOR: Dr. Mares and Dr. Richard. Dr. Richard was primary for the appendectomy. ANESTHESIA: GETA. ESTIMATED BLOOD LOSS: 50 mL. COMPLICATIONS: None. FINDINGS: Abdominopelvic abscesses, left tubo-ovarian abscess, edematous right fallopian tube and ovary, inflamed appendix, normal sized uterus with mild induration. COMPLICATIONS: None. SUMMARY: A 32-year-old female who had presented with abdominal pain, was found to have abdominopelvic abscesses per CT scan and pelvic sonogram. The patient reported a normal hystersalpingogram about 3 weeks earlier and a distant history of chlamydia that was treated in the past. The patient was counseled on the risks, benefits and expectations of having exploratory laparotomy with possible appendectomy, possible bilateral salpingo-oophorectomy and voiced a clear understanding to proceed. DESCRIPTION OF PROCEDURE: The patient was taken to surgery suite and placed in dorsal supine position. She was prepped with ChloraPrep and draped in a sterile fashion. After adequate anesthesia, a vertical skin incision was made just 2 fingerbreadths above the pubic symphysis up to the umbilicus with a scalpel. The fascia was entered with Bovie cautery. This incision was extended superiorly as well as inferiorly. The abdominal rectus muscle was dissected at the midline bluntly. Peritoneum was grasped with 2 hemostats and entered sharply with Metzenbaum scissors. Incision extended superiorly as well as inferiorly. There was copious amount of purulent fluid, which some was collected for bacterial cultures and the rest was suctioned out and irrigated out with normal saline. There were several other loculated pockets of abscess formations that were bluntly dissected and suctioned out. The uterus was then palpated, and palpated to normal size. The right fallopian tube and ovary were edematous. The left fallopian tube and ovary was in the form of a tubo-ovarian abscess of about 17 cm size. This was ruptured and irrigated out, which there was some more purulent material. The left fallopian tube and ovary was then clamped with 2 curved Jaden clamps, cut and suture ligated and the left tube and ovary as well as the left ovarian cyst wall that contained the tubo-ovarian abscess was removed from the operating area. Dr. Richard, general surgeon, was contacted and which at this point he then removed the appendix. Please see Dr. Richard's note for further details. The abdomen was copiously irrigated with normal saline. There was no bleeding. The right fallopian tube appeared inflamed; however, did not appear to have any purulent material coming from the fallopian tube fimbria, most of the fimbria appeared normal. A drain was then placed. The peritoneum was reapproximated using 1-0 Vicryl in a running fashion. Fascia was reapproximated using 0 Vicryl suture in running fashion. The subcutaneous layer was reapproximated using Insorb radha. The skin was reapproximated using nonabsorbable radha. The BLAYNE drain was then attached to the skin using a silk suture. The patient tolerated the procedure well and was taken to recovery room in stable condition. Sponge and needle count correct x 3. CHARLES OLIVAS MD DR: AMELIA/floresita JOB#: [id number] / [id number]
[2018-03-28] MEDS ORDERED: PIPERACILLIN/TAZOBACTAM 3.375 GM in IV NORMAL SALINE 50ML 50 ML IV SCH (18:00)
[2018-03-28] MEDS: FAMOTIDINE 20 MG/2 ML VIAL IVP SCH (21:34)
[2018-03-29] VITALS (15 sets, daily range): BP systolic 111–154; BP diastolic 81–106
[2018-03-29] MEDS: HEPARIN for SUB-Q USE 5,000 UNIT/ML VIAL. SQ SCH ×3 (05:55→21:16)
[2018-03-29] MEDS: POTASSIUM CL 20MEQ D5-0.9%NACL 1,000 ML IV SCH ×2 (05:55→17:36)
[2018-03-29] MEDS: PIPERACILLIN/TAZOBACTAM 4.5 GM in IV NORMAL SALINE 100ML 100 ML IV SCH ×4 (05:55→23:58)
[2018-03-29 06:29] LABS: BASO % 0 % (0-3); EOS % 0 % (0-3); HEMATOCRIT 34.1 % (36.0-47.0); HEMOGLOBIN 11.4 g/dL (12.0-15.5); LYMPH # 1.8 x10^3/uL (1.0-4.8); LYMPH % 10 % (24-48); MEAN CORPUSCULAR HEMOGLOBIN 32 pg (25-35); MEAN CORPUSCULAR HGB CONC 34 g/dL (31-37); MEAN CORPUSCULAR VOLUME 95 fL (79-100); MONO # 2.9 x10^3/uL (0.0-1.1); MONO % 15 % (0-9); NEUT # 14.2 x10^3uL (1.8-7.7); NEUT % 75 % (31-73); PLATELET COUNT 463 x10^3/uL (140-400)
[2018-03-29 06:54] LABS: CALCIUM 9.2 mg/dL (8.5-10.1); GFR 77.7; POTASSIUM 3.9 mmol/L (3.5-5.1)
--- NOTE | 2018-03-29 08:02 | PDOC ---
Infectious Disease Note Subjective Subjective feeling good ROS ROS no n/v/d/sob Vital Sign Vital Signs Vital Signs Date Time Temp Pulse Resp B/P (MAP) Pulse Ox O2 Delivery O2 Flow Rate FiO2 03/29/18 07:40 Nasal Cannula 2.0 03/29/18 07:00 101 19 133/85 (101) 100 03/29/18 04:00 98.1 98.1 Physical Exam PHYSICAL EXAM GENERAL: Propped up in bed, watching TV HEENT: Oral cavity: Pharynx pink and moist. NECK: Supple. LUNGS: Diminished aeration in the bases. Nonlabored. HEART: S1 and S2 regular. ABDOMEN: Distended, bowel sounds active, soft, and diffusely tender. EXTREMITIES: No gross edema or cyanosis. SKIN: Warm without rash. NEUROLOGIC: Alert and oriented times 3. PIV Labs Lab Laboratory Tests Test 03/29/18 05:50 White Blood Count 19.0 x10^3/uL (4.0-11.0) Red Blood Count 3.60 x10^6/uL (3.50-5.40) Hemoglobin 11.4 g/dL (12.0-15.5) Hematocrit 34.1 % (36.0-47.0) Mean Corpuscular Volume 95 fL (79-100) Mean Corpuscular Hemoglobin 32 pg (25-35) Mean Corpuscular Hemoglobin Concent 34 g/dL (31-37) Red Cell Distribution Width 14.0 % (11.5-14.5) Platelet Count 463 x10^3/uL (140-400) Neutrophils (%) (Auto) 75 % (31-73) Lymphocytes (%) (Auto) 10 % (24-48) Monocytes (%) (Auto) 15 % (0-9) Eosinophils (%) (Auto) 0 % (0-3) Basophils (%) (Auto) 0 % (0-3) Neutrophils # (Auto) 14.2 x10^3uL (1.8-7.7) Lymphocytes # (Auto) 1.8 x10^3/uL (1.0-4.8) Monocytes # (Auto) 2.9 x10^3/uL (0.0-1.1) Eosinophils # (Auto) 0.0 x10^3/uL (0.0-0.7) Basophils # (Auto) 0.0 x10^3/uL (0.0-0.2) Sodium Level 142 mmol/L (136-145) Potassium Level 3.9 mmol/L (3.5-5.1) Chloride Level 103 mmol/L (98-107) Carbon Dioxide Level 33 mmol/L (21-32) Anion Gap 6 (6-14) Blood Urea Nitrogen 8 mg/dL (7-20) Creatinine 1.0 mg/dL (0.6-1.0) Estimated GFR (Cockcroft-Gault) 77.7 Glucose Level 118 mg/dL (70-99) Calcium Level 9.2 mg/dL (8.5-10.1) Objective Assessment Peritonitis with intra-abdominal abscesses, tubo ovarian , and appendicitis s/p surgery 03/28 Leukocytosis Ileus vs partial SBO Small right pneumothorax E. coli in urine POA Plan Plan of Care cont Zosyn f/u cultures ? if taken CANDIDA ERVIN MD Mar 29, 2018 08:02
[2018-03-29] MEDS: POTASSIUM CHLORIDE 20 MEQ TABLET.ER. PO SCH ×2 (08:29→17:37)
[2018-03-29] MEDS: LACTOBACILLUS RHAMNOSUS GG 1 CAPSULE. PO SCH ×2 (08:29→21:14)
[2018-03-29] MEDS: PSYLLIUM HUSK (SUGAR FREE) 1 PKT PACKET PO SCH (08:36)
[2018-03-29] MEDS: POLYETHYLENE GLYCOL 3350 17 GM PACKET. PO SCH (08:37)
--- NOTE | 2018-03-29 08:49 | RAD ---
Portable chest, 03/29/2018: HISTORY: Follow-up pneumothorax Comparison is made to yesterday's study. The heart size and pulmonary vascularity are normal. No pulmonary infiltrate is seen. There is no evidence of pneumothorax. There is slight unchanged blunting of the left lateral costophrenic angle. No new abnormality is detected. IMPRESSION: Stable portable chest. Electronically signed by: Armaan Donovan MD (03/29/2018 8:46 AM) [facility]
--- NOTE | 2018-03-29 09:50 | PDOC ---
PULMONARY PROGRESS NOTES Subjective PT SEEN IN ICU NO REPS COMPLAINTS Vitals Vital Signs Date Time Temp Pulse Resp B/P (MAP) Pulse Ox O2 Delivery O2 Flow Rate FiO2 03/29/18 08:00 97.8 118 14 128/87 (101) 100 Nasal Cannula 2.0 97.8 General: Alert, No acute distress Lungs: Clear Cardiovascular: S1 Abdomen: Soft Neuro Exam: Alert Extremities: No Edema Skin: Warm Labs Laboratory Tests Test 03/29/18 05:50 White Blood Count 19.0 x10^3/uL (4.0-11.0) Red Blood Count 3.60 x10^6/uL (3.50-5.40) Hemoglobin 11.4 g/dL (12.0-15.5) Hematocrit 34.1 % (36.0-47.0) Mean Corpuscular Volume 95 fL (79-100) Mean Corpuscular Hemoglobin 32 pg (25-35) Mean Corpuscular Hemoglobin Concent 34 g/dL (31-37) Red Cell Distribution Width 14.0 % (11.5-14.5) Platelet Count 463 x10^3/uL (140-400) Neutrophils (%) (Auto) 75 % (31-73) Lymphocytes (%) (Auto) 10 % (24-48) Monocytes (%) (Auto) 15 % (0-9) Eosinophils (%) (Auto) 0 % (0-3) Basophils (%) (Auto) 0 % (0-3) Neutrophils # (Auto) 14.2 x10^3uL (1.8-7.7) Lymphocytes # (Auto) 1.8 x10^3/uL (1.0-4.8) Monocytes # (Auto) 2.9 x10^3/uL (0.0-1.1) Eosinophils # (Auto) 0.0 x10^3/uL (0.0-0.7) Basophils # (Auto) 0.0 x10^3/uL (0.0-0.2) Sodium Level 142 mmol/L (136-145) Potassium Level 3.9 mmol/L (3.5-5.1) Chloride Level 103 mmol/L (98-107) Carbon Dioxide Level 33 mmol/L (21-32) Anion Gap 6 (6-14) Blood Urea Nitrogen 8 mg/dL (7-20) Creatinine 1.0 mg/dL (0.6-1.0) Estimated GFR (Cockcroft-Gault) 77.7 Glucose Level 118 mg/dL (70-99) Calcium Level 9.2 mg/dL (8.5-10.1) Laboratory Tests Test 03/29/18 05:50 White Blood Count 19.0 x10^3/uL (4.0-11.0) Red Blood Count 3.60 x10^6/uL (3.50-5.40) Hemoglobin 11.4 g/dL (12.0-15.5) Hematocrit 34.1 % (36.0-47.0) Mean Corpuscular Volume 95 fL (79-100) Mean Corpuscular Hemoglobin 32 pg (25-35) Mean Corpuscular Hemoglobin Concent 34 g/dL (31-37) Red Cell Distribution Width 14.0 % (11.5-14.5) Platelet Count 463 x10^3/uL (140-400) Neutrophils (%) (Auto) 75 % (31-73) Lymphocytes (%) (Auto) 10 % (24-48) Monocytes (%) (Auto) 15 % (0-9) Eosinophils (%) (Auto) 0 % (0-3) Basophils (%) (Auto) 0 % (0-3) Neutrophils # (Auto) 14.2 x10^3uL (1.8-7.7) Lymphocytes # (Auto) 1.8 x10^3/uL (1.0-4.8) Monocytes # (Auto) 2.9 x10^3/uL (0.0-1.1) Eosinophils # (Auto) 0.0 x10^3/uL (0.0-0.7) Basophils # (Auto) 0.0 x10^3/uL (0.0-0.2) Sodium Level 142 mmol/L (136-145) Potassium Level 3.9 mmol/L (3.5-5.1) Chloride Level 103 mmol/L (98-107) Carbon Dioxide Level 33 mmol/L (21-32) Anion Gap 6 (6-14) Blood Urea Nitrogen 8 mg/dL (7-20) Creatinine 1.0 mg/dL (0.6-1.0) Estimated GFR (Cockcroft-Gault) 77.7 Glucose Level 118 mg/dL (70-99) Calcium Level 9.2 mg/dL (8.5-10.1) Medications Active Scripts Medications Dose Route/Sig Max Daily Dose Days Date Category One Daily For Women Tablet (Folic Acid/Mv,Fe,Other Min) 1 Each Tablet 1 Each PO 03/23/18 Reported Comments CXR 03/26 IMPRESSION: 1. Resolving tiny right apical pneumothorax. 2. Small residual left pleural effusion. Impression . 1. Spontaneous small right-sided pneumothorax. She is a nonsmoker. The etiology of pneumothorax is not so obvious, but possibility of catamenial pneumothorax cannot be ruled out. She just finished her period 03/23. The other possibility would be related to endometriosis with the possibility of rupture of diaphragmatic endometrial implant. She does not have any cysts in lungs and as such no clinical suspicion for lymphangioleiomyomatosis or Langerhan's cell Histiocytosis X 2. Suspected tubo-ovarian abscess / early peritonitis. No obvious abdominal endometriosis was reported. 3. No significant history of tobacco use. 4. Possible ruptured appendicitis. PREOPERATIVE DIAGNOSIS: Abdominopelvic abscesses. POSTOPERATIVE DIAGNOSES: 1. Abdominopelvic abscesses. 2. Left tubo-ovarian abscess. 3. Inflamed appendix. PROCEDURE: 1. Open laparotomy with left salpingo-oophorectomy. 2. Appendectomy. CXR REVIEWED NO PTX SEEN Plan . PT DOING WELL S/P SURGERY IS UP TO CHAIR ADVANCE DIET FOLLOW CXR JOYCE GUTIERRES MD Mar 29, 2018 09:50
--- NOTE | 2018-03-29 10:45 | PDOC ---
SURGICAL PROGRESS NOTE Subjective Pt. feeling better. No c/o CP, SOB or abd burning. Pain is controlled with [employer]. Encourage ambulation. Remove figueroa when ambulating. Vital Signs Vital Signs Date Time Temp Pulse Resp B/P (MAP) Pulse Ox O2 Delivery O2 Flow Rate FiO2 03/29/18 10:00 120 15 129/81 (97) 100 2.0 03/29/18 09:00 Nasal Cannula 03/29/18 08:00 97.8 97.8 I&O Intake and Output 03/29/18 07:00 Intake Total 3457.5 ml Output Total 2540 ml Balance 917.5 ml Intake Oral 2255 ml IV Total 1202.5 ml Output Urine Total 2430 ml Drainage Total 110 ml PATIENT HAS A FIGEUROA: Yes General: Alert, Oriented X3, Cooperative HEENT: Atraumatic Lungs: Clear to auscultation Heart: Regular rate Abdomen: Soft, No masses, Other (mild tenderness; BLAYNE Drain 50 ml) Extremities: No edema Psych/Mental Status: Mental status NL Labs Laboratory Tests Test 03/29/18 05:50 White Blood Count 19.0 x10^3/uL (4.0-11.0) Red Blood Count 3.60 x10^6/uL (3.50-5.40) Hemoglobin 11.4 g/dL (12.0-15.5) Hematocrit 34.1 % (36.0-47.0) Mean Corpuscular Volume 95 fL (79-100) Mean Corpuscular Hemoglobin 32 pg (25-35) Mean Corpuscular Hemoglobin Concent 34 g/dL (31-37) Red Cell Distribution Width 14.0 % (11.5-14.5) Platelet Count 463 x10^3/uL (140-400) Neutrophils (%) (Auto) 75 % (31-73) Lymphocytes (%) (Auto) 10 % (24-48) Monocytes (%) (Auto) 15 % (0-9) Eosinophils (%) (Auto) 0 % (0-3) Basophils (%) (Auto) 0 % (0-3) Neutrophils # (Auto) 14.2 x10^3uL (1.8-7.7) Lymphocytes # (Auto) 1.8 x10^3/uL (1.0-4.8) Monocytes # (Auto) 2.9 x10^3/uL (0.0-1.1) Eosinophils # (Auto) 0.0 x10^3/uL (0.0-0.7) Basophils # (Auto) 0.0 x10^3/uL (0.0-0.2) Sodium Level 142 mmol/L (136-145) Potassium Level 3.9 mmol/L (3.5-5.1) Chloride Level 103 mmol/L (98-107) Carbon Dioxide Level 33 mmol/L (21-32) Anion Gap 6 (6-14) Blood Urea Nitrogen 8 mg/dL (7-20) Creatinine 1.0 mg/dL (0.6-1.0) Estimated GFR (Cockcroft-Gault) 77.7 Glucose Level 118 mg/dL (70-99) Calcium Level 9.2 mg/dL (8.5-10.1) HIV (1&2) Antibody Screen Nonreactive (Nonreactive) Laboratory Tests Test 03/29/18 05:50 White Blood Count 19.0 x10^3/uL (4.0-11.0) Red Blood Count 3.60 x10^6/uL (3.50-5.40) Hemoglobin 11.4 g/dL (12.0-15.5) Hematocrit 34.1 % (36.0-47.0) Mean Corpuscular Volume 95 fL (79-100) Mean Corpuscular Hemoglobin 32 pg (25-35) Mean Corpuscular Hemoglobin Concent 34 g/dL (31-37) Red Cell Distribution Width 14.0 % (11.5-14.5) Platelet Count 463 x10^3/uL (140-400) Neutrophils (%) (Auto) 75 % (31-73) Lymphocytes (%) (Auto) 10 % (24-48) Monocytes (%) (Auto) 15 % (0-9) Eosinophils (%) (Auto) 0 % (0-3) Basophils (%) (Auto) 0 % (0-3) Neutrophils # (Auto) 14.2 x10^3uL (1.8-7.7) Lymphocytes # (Auto) 1.8 x10^3/uL (1.0-4.8) Monocytes # (Auto) 2.9 x10^3/uL (0.0-1.1) Eosinophils # (Auto) 0.0 x10^3/uL (0.0-0.7) Basophils # (Auto) 0.0 x10^3/uL (0.0-0.2) Sodium Level 142 mmol/L (136-145) Potassium Level 3.9 mmol/L (3.5-5.1) Chloride Level 103 mmol/L (98-107) Carbon Dioxide Level 33 mmol/L (21-32) Anion Gap 6 (6-14) Blood Urea Nitrogen 8 mg/dL (7-20) Creatinine 1.0 mg/dL (0.6-1.0) Estimated GFR (Cockcroft-Gault) 77.7 Glucose Level 118 mg/dL (70-99) Calcium Level 9.2 mg/dL (8.5-10.1) HIV (1&2) Antibody Screen Nonreactive (Nonreactive) Problem List Problems Medical Problems: (1) Abdominal pain Status: Acute Assessment/Plan A: POD#1 s/p Open Lap LSO and appendectomy P: Continue abx and post op care. CHARLES MURPHY Jr, MD Mar 29, 2018 10:45
--- NOTE | 2018-03-29 12:13 | PDOC ---
PROGRESS NOTES Chief Complaint Chief Complaint Post-op left salpingo-oopherectomy and appendectomy Acute abdominal/pelvic pain Abdominal mass Small R pneumothorax - resolving Leukocytosis HTN History of Present Illness History of Present Illness Pt seen and examined in ICU Mother at bedside Pt sitting in chair, calm and cooperative Discussed with RN Vitals Vitals Vital Signs Date Time Temp Pulse Resp B/P (MAP) Pulse Ox O2 Delivery O2 Flow Rate FiO2 03/29/18 11:30 24 03/29/18 11:00 127 100 Nasal Cannula 2.0 03/29/18 10:00 129/81 (97) 03/29/18 08:00 97.8 97.8 Physical Exam Physical Exam GENERAL: Sitting in chair, watching TV HEENT: Oral cavity: Pharynx pink and moist. NECK: Supple. LUNGS: Diminished aeration in the bases. Nonlabored. HEART: S1 and S2, tachycardic at a rate of 122. ABDOMEN: Soft, mild tenderness. BLAYNE drain in place, dressings are clean, dry, and intact. EXTREMITIES: No gross edema or cyanosis. SKIN: Warm without rash. NEUROLOGIC: Alert and oriented times 3. PIV General: Alert, Oriented X3, Cooperative Heart: Normal S1, Normal S2, Other (tachycardic ) Lungs: Clear Abdomen: Soft, No masses, Other (mild tenderness; BLAYNE Drain 50 ml, dressings are clean, dry, and intact) Extremities: No clubbing, No cyanosis, No edema Skin: No rashes, No breakdown, No significant lesion Labs LABS Laboratory Tests Test 03/29/18 05:50 White Blood Count 19.0 x10^3/uL (4.0-11.0) Red Blood Count 3.60 x10^6/uL (3.50-5.40) Hemoglobin 11.4 g/dL (12.0-15.5) Hematocrit 34.1 % (36.0-47.0) Mean Corpuscular Volume 95 fL (79-100) Mean Corpuscular Hemoglobin 32 pg (25-35) Mean Corpuscular Hemoglobin Concent 34 g/dL (31-37) Red Cell Distribution Width 14.0 % (11.5-14.5) Platelet Count 463 x10^3/uL (140-400) Neutrophils (%) (Auto) 75 % (31-73) Lymphocytes (%) (Auto) 10 % (24-48) Monocytes (%) (Auto) 15 % (0-9) Eosinophils (%) (Auto) 0 % (0-3) Basophils (%) (Auto) 0 % (0-3) Neutrophils # (Auto) 14.2 x10^3uL (1.8-7.7) Lymphocytes # (Auto) 1.8 x10^3/uL (1.0-4.8) Monocytes # (Auto) 2.9 x10^3/uL (0.0-1.1) Eosinophils # (Auto) 0.0 x10^3/uL (0.0-0.7) Basophils # (Auto) 0.0 x10^3/uL (0.0-0.2) Sodium Level 142 mmol/L (136-145) Potassium Level 3.9 mmol/L (3.5-5.1) Chloride Level 103 mmol/L (98-107) Carbon Dioxide Level 33 mmol/L (21-32) Anion Gap 6 (6-14) Blood Urea Nitrogen 8 mg/dL (7-20) Creatinine 1.0 mg/dL (0.6-1.0) Estimated GFR (Cockcroft-Gault) 77.7 Glucose Level 118 mg/dL (70-99) Calcium Level 9.2 mg/dL (8.5-10.1) HIV (1&2) Antibody Screen Nonreactive (Nonreactive) Review of Systems Review of Systems Still c/o abdominal pain and distension, but states it's "better than when I first got here". Denies any fevers, chills, CP, SOB, or N/V/D. Assessment and Plan Assessmemt and Plan Problems Medical Problems: (1) Abdominal pain Status: Acute Assessment: Post-op left salpingo-oopherectomy and appendectomy Acute abdominal/pelvic pain Abdominal mass Small R pneumothorax - resolving Leukocytosis HTN Plan: ICU monitoring Labs IVF Cont IV abx PRN pain meds Wound care PT/OT Hope to advance diet as tolerated DVT ppx Pneumothorax improving per pulm Follow daily CXR per pulm Cont broad-spectrum abx per ID Follow CLINICAL REGISTERED NURSE recommendations Follow gen surg recommendations Nutrition per surg Comment Review of Relevant I have reviewed the following items lo (where applicable) has been applied. Labs Laboratory Tests Test 03/29/18 05:50 White Blood Count 19.0 x10^3/uL (4.0-11.0) Red Blood Count 3.60 x10^6/uL (3.50-5.40) Hemoglobin 11.4 g/dL (12.0-15.5) Hematocrit 34.1 % (36.0-47.0) Mean Corpuscular Volume 95 fL (79-100) Mean Corpuscular Hemoglobin 32 pg (25-35) Mean Corpuscular Hemoglobin Concent 34 g/dL (31-37) Red Cell Distribution Width 14.0 % (11.5-14.5) Platelet Count 463 x10^3/uL (140-400) Neutrophils (%) (Auto) 75 % (31-73) Lymphocytes (%) (Auto) 10 % (24-48) Monocytes (%) (Auto) 15 % (0-9) Eosinophils (%) (Auto) 0 % (0-3) Basophils (%) (Auto) 0 % (0-3) Neutrophils # (Auto) 14.2 x10^3uL (1.8-7.7) Lymphocytes # (Auto) 1.8 x10^3/uL (1.0-4.8) Monocytes # (Auto) 2.9 x10^3/uL (0.0-1.1) Eosinophils # (Auto) 0.0 x10^3/uL (0.0-0.7) Basophils # (Auto) 0.0 x10^3/uL (0.0-0.2) Sodium Level 142 mmol/L (136-145) Potassium Level 3.9 mmol/L (3.5-5.1) Chloride Level 103 mmol/L (98-107) Carbon Dioxide Level 33 mmol/L (21-32) Anion Gap 6 (6-14) Blood Urea Nitrogen 8 mg/dL (7-20) Creatinine 1.0 mg/dL (0.6-1.0) Estimated GFR (Cockcroft-Gault) 77.7 Glucose Level 118 mg/dL (70-99) Calcium Level 9.2 mg/dL (8.5-10.1) HIV (1&2) Antibody Screen Nonreactive (Nonreactive) Laboratory Tests Test 03/29/18 05:50 White Blood Count 19.0 x10^3/uL (4.0-11.0) Red Blood Count 3.60 x10^6/uL (3.50-5.40) Hemoglobin 11.4 g/dL (12.0-15.5) Hematocrit 34.1 % (36.0-47.0) Mean Corpuscular Volume 95 fL (79-100) Mean Corpuscular Hemoglobin 32 pg (25-35) Mean Corpuscular Hemoglobin Concent 34 g/dL (31-37) Red Cell Distribution Width 14.0 % (11.5-14.5) Platelet Count 463 x10^3/uL (140-400) Neutrophils (%) (Auto) 75 % (31-73) Lymphocytes (%) (Auto) 10 % (24-48) Monocytes (%) (Auto) 15 % (0-9) Eosinophils (%) (Auto) 0 % (0-3) Basophils (%) (Auto) 0 % (0-3) Neutrophils # (Auto) 14.2 x10^3uL (1.8-7.7) Lymphocytes # (Auto) 1.8 x10^3/uL (1.0-4.8) Monocytes # (Auto) 2.9 x10^3/uL (0.0-1.1) Eosinophils # (Auto) 0.0 x10^3/uL (0.0-0.7) Basophils # (Auto) 0.0 x10^3/uL (0.0-0.2) Sodium Level 142 mmol/L (136-145) Potassium Level 3.9 mmol/L (3.5-5.1) Chloride Level 103 mmol/L (98-107) Carbon Dioxide Level 33 mmol/L (21-32) Anion Gap 6 (6-14) Blood Urea Nitrogen 8 mg/dL (7-20) Creatinine 1.0 mg/dL (0.6-1.0) Estimated GFR (Cockcroft-Gault) 77.7 Glucose Level 118 mg/dL (70-99) Calcium Level 9.2 mg/dL (8.5-10.1) HIV (1&2) Antibody Screen Nonreactive (Nonreactive) Microbiology 03/23/18 Blood Culture - Final, Complete NO GROWTH AFTER 5 DAYS 03/28/18 Gram Stain - Final, Complete 03/23/18 Urine Culture - Final, Complete 03/23/18 Urine Culture Result 1 (THOM) - Final, Complete 03/23/18 Antimicrobic Susceptibility - Final, Complete Medications Current Medications Fentanyl Citrate (Fentanyl 2ml Vial) 50 mcg PRN Q30MIN PRN IV SEVERE PAIN Last administered on 03/23/18at 14:32; Start 03/23/18 at 11:45; Stop 03/23/18 at 14 :33; Status DC Sodium Chloride 1,000 ml @ 1,000 mls/hr Q1H IV Last administered on at 11:42; Start 03/23/18 at 11:31; Stop 03/23/18 at 12:30; Status DC Ondansetron HCl (Zofran) 4 mg 1X ONCE IV Last administered on 03/23/18at 11:42 ; Start 03/23/18 at 11:45; Stop 03/23/18 at 11:46; Status DC Iohexol (Omnipaque 300 Mg/ml) 75 ml 1X ONCE IV Last administered on at 12:30; Start 03/23/18 at 12:00; Stop 03/23/18 at 12:01; Status DC Info (CONTRAST GIVEN -- Rx MONITORING) 1 each PRN DAILY PRN MC SEE COMMENTS; Start 03/23/18 at 12:00; Stop 03/25/18 at 11:59; Status DC Piperacillin Sod/ Tazobactam Sod (Zosyn Per Pharmacy) 1 each PRN DAILY PRN MC SEE COMMENTS; Start 03/23/18 at 13:30; Status UNV Doxycycline Hyclate 100 mg/ Dextrose 100 ml @ 50 mls/hr 1X ONCE IV Last administered on 03/23/18at 14:32; Start 03/23/18 at 13:30; Stop 03/23/18 at 15 :29; Status DC Piperacillin Sod/ Tazobactam Sod 3.375 gm/Sodium Chloride 50 ml @ 100 mls/hr 1X ONCE IV Last administered on 03/23/18at 13:48; Start 03/23/18 at 13:30; Stop 03/23/18 at 14:02; Status DC Sodium Chloride 1,000 ml @ 1,000 mls/hr 1X ONCE IV ; Start 03/23/18 at 14:30 ; Stop 03/23/18 at 15:29; Status DC Acetaminophen (Tylenol) 650 mg PRN Q6HRS PRN PO FEVER Last administered on at 20:22; Start 03/23/18 at 15:30 Ondansetron HCl (Zofran) 4 mg PRN Q6HRS PRN IV NAUSEA/VOMITING Last administered on 03/28/18at 06:14; Start 03/23/18 at 15:30 Morphine Sulfate (Morphine Sulfate) 2 mg PRN Q2HR PRN IV MODERATE TO SEVERE PAIN; Start 03/23/18 at 15:30; Status UNV Tramadol HCl (Ultram) 50 mg PRN Q6HRS PRN PO MILD PAIN Last administered on at 19:27; Start 03/23/18 at 15:30 Docusate Sodium (Colace) 100 mg PRN DAILY PRN PO CONSTIPATION, 3RD CHOICE Last administered on 03/25/18at 20:30; Start 03/23/18 at 15:30 Piperacillin Sod/ Tazobactam Sod 4.5 gm/Sodium Chloride 100 ml @ 200 mls/hr Q6HRS IV Last administered on 03/29/18at 05:55; Start 03/23/18 at 18:00 Piperacillin Sod/ Tazobactam Sod (Zosyn Per Pharmacy) 1 each PRN DAILY PRN MC SEE COMMENTS; Start 03/23/18 at 15:30 Morphine Sulfate (Morphine Sulfate) 2 mg PRN Q2HR PRN IV MILD-MODERATE PAIN Last administered on 03/28/18at 11:22; Start 03/23/18 at 15:30; Stop 03/29/18 at 05:50; Status DC Morphine Sulfate (Morphine Sulfate) 4 mg PRN Q2HR PRN IV SEVERE PAIN Last administered on 03/24/18at 06:01; Start 03/23/18 at 15:30; Stop 03/29/18 at 05 :50; Status DC Potassium Chloride/Dextrose/ Sod Cl 1,000 ml @ 75 mls/hr [id number] IV Last administered on 03/29/18at 05:55; Start 03/23/18 at 15:30 Famotidine (Pepcid Vial) 20 mg QHS IVP Last administered on 03/28/18at 21:34; Start 03/23/18 at 21:00 Heparin Sodium (Porcine) (Heparin Sodium) 5,000 unit Q8HRS SQ Last administered on 03/29/18at 05:55; Start 03/23/18 at 16:00 Vancomycin HCl 1.5 gm/Sodium Chloride 500 ml @ 250 mls/hr Q12H IV ; Start at 17:15; Status UNV Vancomycin HCl (Vanco Per Pharmacy) 1 each PRN DAILY PRN MC SEE COMMENTS Last administered on 03/24/18at 08:35; Start 03/23/18 at 17:15; Stop 03/24/18 at 14 :57; Status DC Vancomycin HCl 1.5 gm/Sodium Chloride 500 ml @ 250 mls/hr 1X ONCE IV Last administered on 03/23/18at 18:03; Start 03/23/18 at 17:30; Stop 03/23/18 at 19 :29; Status DC Influenza Virus Vaccine (Afluria Trivalent [id number] Syringe) 0.5 ml ONCE ONCE VAX IM Last administered on 03/27/18at 08:35; Start 03/27/18 at 09:00; Stop 03/27/18 at 09:01; Status DC Vancomycin HCl 1 gm/Sodium Chloride 250 ml @ 250 mls/hr Q12H IV Last administered on 03/24/18at 05:54; Start 03/24/18 at 06:00; Stop 03/24/18 at 14 :57; Status DC Vancomycin HCl (Vancomycin Trough Level) 1 each 1X ONCE MC ; Start 03/25/18 at 05:30; Stop 03/25/18 at 05:31; Status Cancel Metoprolol Tartrate (Lopressor Vial) 5 mg Q6HRS IVP ; Start 03/23/18 at 21:00; Stop 03/23/18 at 21:55; Status DC Metoprolol Tartrate (Lopressor Vial) 5 mg PRN Q6HRS PRN IVP TACHYCARDIA Last administered on 03/26/18at 20:28; Start 03/23/18 at 22:00 Lactobacillus Rhamnosus (Culturelle) 1 cap BID PO Last administered on at 08:29; Start 03/24/18 at 09:00 Potassium Chloride (Klor-Con) 20 meq BIDBFRMEAL PO Last administered on at 08:29; Start 03/24/18 at 10:00 Polyethylene Glycol (miraLAX PACKET) 17 gm DAILY PO Last administered on at 08:30; Start 03/24/18 at 10:30 Psyllium Hydrophilic Mucilloid (Metamucil Fiber Packet) 1 pkt DAILY PO Last administered on 03/26/18at 08:30; Start 03/24/18 at 10:30 Lactulose (Lactulose) 20 gm PRN DAILY PRN PO CONSTIPATION, 2ND CHOICE Last administered on 03/24/18at 16:47; Start 03/24/18 at 10:15 Senna/Docusate Sodium (Senna Plus) 2 tab PRN BID PRN PO CONSTIPATION, 1ST CHOICE Last administered on 03/24/18at 10:39; Start 03/24/18 at 10:15 Doxycycline Hyclate (Vibra-Tab) 100 mg BID PO Last administered on 03/27/18at 08:33; Start 03/24/18 at 21:00; Stop 03/27/18 at 09:46; Status DC Phenazopyridine HCl (Pyridium) 200 mg 1X ONCE PO Last administered on at 14:57; Start 03/25/18 at 14:30; Stop 03/25/18 at 14:31; Status DC Acetaminophen/ Hydrocodone Bitart (Lortab 5/325) 1 tab PRN Q4HRS PRN PO MODERATE TO SEVERE PAIN Last administered on 03/27/18at 19:41; Start 03/25/18 at 19:45 Ondansetron HCl (Zofran) 4 mg PRN Q6HRS PRN IV NAUSEA/VOMITING; Start at 07:00; Stop 03/28/18 at 18:00; Status DC Fentanyl Citrate (Fentanyl 2ml Vial) 25 mcg PRN Q5MIN PRN IV MILD PAIN; Start 03/28/18 at 07:00; Stop 03/28/18 at 18:00; Status DC Fentanyl Citrate (Fentanyl 2ml Vial) 50 mcg PRN Q5MIN PRN IV MODERATE TO SEVERE PAIN Last administered on 03/28/18at 16:21; Start 03/28/18 at 07:00; Stop 03/28/18 at 18:00; Status DC Morphine Sulfate (Morphine Sulfate) 1 mg PRN Q10MIN PRN IV SEVERE PAIN; Start 03/28/18 at 07:00; Stop 03/28/18 at 18:00; Status DC Ringer's Solution 1,000 ml @ 30 mls/hr Q24H IV Last administered on at 12:10; Start 03/28/18 at 07:00; Stop 03/28/18 at 18:59; Status DC Lidocaine HCl (Xylocaine-Mpf 1% 2ml Vial) 2 ml PRN 1X PRN ID IV START; Start 03/28/18 at 07:00; Stop 03/28/18 at 18:00; Status DC Hydromorphone HCl (Dilaudid) 0.5 mg PRN Q10MIN PRN IV SEV PAIN, Second choice; Start 03/28/18 at 07:00; Stop 03/28/18 at 18:00; Status DC Prochlorperazine Edisylate (Compazine) 5 mg PACU PRN PRN IV NAUSEA, MRX1; Start 03/28/18 at 07:00; Stop 03/28/18 at 18:00; Status DC Propofol 20 ml @ As Directed STK-MED ONCE IV ; Start 03/28/18 at 13:04; Stop 03/28/18 at 13:05; Status DC Lidocaine HCl (Lidocaine Pf 2% Vial) 5 ml STK-MED ONCE .ROUTE ; Start 03/28/18 at 13:04; Stop 03/28/18 at 13:05; Status DC Rocuronium Roosevelt (Zemuron) 50 mg STK-MED ONCE .ROUTE ; Start 03/28/18 at 13: 04; Stop 03/28/18 at 13:05; Status DC Fentanyl Citrate (Fentanyl 2ml Vial) 100 mcg STK-MED ONCE .ROUTE ; Start at 13:04; Stop 03/28/18 at 13:05; Status DC Midazolam HCl (Versed) 2 mg STK-MED ONCE .ROUTE ; Start 03/28/18 at 13:04; Stop 03/28/18 at 13:05; Status DC Metronidazole 100 ml @ 200 mls/hr 1X ONCE IV Last administered on 03/28/18at 14:23; Start 03/28/18 at 14:30; Stop 03/28/18 at 14:59; Status DC Dexamethasone Sodium Phosphate (Decadron) 20 mg STK-MED ONCE .ROUTE ; Start at 14:48; Stop 03/28/18 at 14:49; Status DC Ondansetron HCl (Zofran) 4 mg STK-MED ONCE .ROUTE ; Start 03/28/18 at 14:48; Stop 03/28/18 at 14:49; Status DC Sevoflurane (Ultane) 60 ml STK-MED ONCE IH ; Start 03/28/18 at 14:48; Stop at 14:49; Status DC Glycopyrrolate (Robinul) 1 mg STK-MED ONCE .ROUTE ; Start 03/28/18 at 14:54; Stop 03/28/18 at 14:55; Status DC Neostigmine Methylsulfate (Neostigmine Methylsulfate) 5 mg STK-MED ONCE .ROUTE ; Start 03/28/18 at 14:55; Stop 03/28/18 at 14:56; Status DC Fentanyl Citrate (Fentanyl 2ml Vial) 100 mcg STK-MED ONCE .ROUTE ; Start at 15:15; Stop 03/28/18 at 15:16; Status DC Calcium Carbonate/ Glycine (Tums) 500 mg PRN Q3HRS PRN PO HEARTBURN / GAS; Start 03/28/18 at 16:00 Simethicone (Gas-X) 80 mg PRN AFTMEALHC PRN PO GAS / BLOATING; Start 03/28/18 at 16:00 Zolpidem Tartrate (Ambien) 5 mg PRN QHS PRN PO INSOMNIA, MAY REPEAT IN 1HR; Start 03/28/18 at 16:00 Diphenhydramine HCl (Benadryl) 25 mg PRN Q6HRS PRN PO ITCHING; Start 03/28/18 at 16:00 Sodium Chloride (Normal Saline Flush) 3 ml QSHIFT PRN IV AFTER MEDS AND BLOOD DRAWS; Start 03/28/18 at 16:00 Dextrose (Dextrose 50%-Water Syringe) 12.5 gm PRN Q15MIN PRN IV SEE COMMENTS; Start 03/28/18 at 16:00 Ketorolac Tromethamine (Toradol 30mg Vial) 30 mg PRN Q6HRS PRN IV MILD PAIN; Start 03/28/18 at 16:00; Stop 04/02/18 at 15:59 Ondansetron HCl (Zofran) 4 mg PRN Q6HRS PRN IV NAUESA, 1ST CHOICE; Start 03/28 at 16:00; Status UNV Prochlorperazine Edisylate (Compazine) 5 mg PRN Q6HRS PRN IV N/V, 2nd Choice, MR X1; Start 03/28/18 at 16:00; Status UNV Piperacillin Sod/ Tazobactam Sod 3.375 gm/Sodium Chloride 50 ml @ 100 mls/hr Q6HRS IV ; Start 03/28/18 at 18:00; Status UNV Metronidazole 100 ml @ 100 mls/hr Q12HR IV ; Start 03/28/18 at 21:00; Status UNV Hydromorphone HCl 30 ml @ 0 mls/hr CONT PRN PRN IV PER PROTOCOL Last administered on 03/29/18at 11:06; Start 03/28/18 at 16:00 Fentanyl Citrate (Fentanyl 2ml Vial) 100 mcg STK-MED ONCE .ROUTE ; Start at 16:07; Stop 03/28/18 at 16:08; Status DC Active Scripts Active Reported One Daily For Women Tablet (Folic Acid/Mv,Fe,Other Min) 1 Each Tablet 1 Each PO Vitals/I & O Vital Sign - Last 24 Hours 03/28/18 03/28/18 03/28/18 03/28/18 15:35 15:50 16:05 16:20 Temp 98.6 98.6 Pulse 94 81 94 94 Resp 16 16 16 16 B/P (MAP) 164/92 157/92 166/94 169/97 Pulse Ox 100 100 94 94 O2 Delivery Room Air Room Air Room Air Nasal Cannula O2 Flow Rate 2 03/28/18 03/28/18 03/28/18 03/28/18 16:35 16:42 17:00 17:00 Temp 97.7 97.7 Pulse 84 Resp 16 16 20 B/P (MAP) 164/93 Pulse Ox 100 100 95 95 O2 Delivery Room Air Nasal Cannula O2 Flow Rate 2.0 03/28/18 03/28/18 03/28/18 03/28/18 17:00 17:30 17:45 19:00 Temp 98.7 98.7 Pulse 102 98 98 112 Resp 19 18 17 19 B/P (MAP) 156/93 (114) 159/97 (117) Pulse Ox 100 100 100 99 O2 Delivery Nasal Cannula Nasal Cannula Nasal Cannula Nasal Cannula O2 Flow Rate 2.0 2.0 2.0 2.0 03/28/18 03/28/18 03/28/18 03/28/18 20:00 20:00 21:00 22:00 Temp 98.6 98.6 Pulse 102 84 102 Resp 15 11 17 B/P (MAP) 131/97 (108) 139/86 (103) 146/100 (115) Pulse Ox 100 100 100 O2 Delivery Nasal Cannula Nasal Cannula Nasal Cannula Nasal Cannula O2 Flow Rate 2.0 2.0 2.0 2.0 03/28/18 03/29/18 03/29/18 03/29/18 23:00 00:00 00:00 01:00 Temp 98.0 98.0 Pulse 96 114 104 Resp 14 14 12 B/P (MAP) 144/91 (108) 111/90 (97) 140/101 (114) Pulse Ox 100 100 100 O2 Delivery Nasal Cannula Nasal Cannula Nasal Cannula Nasal Cannula O2 Flow Rate 2.0 2.0 2.0 2.0 03/29/18 03/29/18 03/29/18 03/29/18 02:00 03:00 04:00 04:00 Temp 98.1 98.1 Pulse 98 102 94 Resp 10 11 11 B/P (MAP) 140/93 (109) 146/87 (106) 137/93 (108) Pulse Ox 100 100 100 O2 Delivery Nasal Cannula Nasal Cannula Nasal Cannula Nasal Cannula O2 Flow Rate 2.0 2.0 2.0 2.0 03/29/18 03/29/18 03/29/18 03/29/18 05:00 06:00 07:00 07:40 Pulse 106 119 101 Resp 13 15 19 B/P (MAP) 147/98 (114) 149/92 (111) 133/85 (101) Pulse Ox 100 100 100 O2 Delivery Nasal Cannula Nasal Cannula Nasal Cannula Nasal Cannula O2 Flow Rate 2.0 2.0 2.0 2.0 03/29/18 03/29/18 03/29/18 03/29/18 08:00 09:00 10:00 11:00 Temp 97.8 97.8 Pulse 118 104 120 127 Resp 14 12 15 21 B/P (MAP) 128/87 (101) 129/82 (98) 129/81 (97) Pulse Ox 100 100 100 100 O2 Delivery Nasal Cannula Nasal Cannula Nasal Cannula O2 Flow Rate 2.0 2.0 2.0 2.0 03/29/18 03/29/18 11:06 11:30 Resp 21 24 Intake and Output 03/28/18 03/28/18 03/29/18 15:00 23:00 07:00 Intake Total 805 ml 2652.5 ml Output Total 1725 ml 815 ml Balance -920 ml 1837.5 ml Nutrition Consultation Dietary Evaluation: Recommendations by RD: Increase Calorie Intake, Protein supplementation Comments: REC advance diet as tolerated, honor food preferences, provide snacks as requested REC Ensure (strawberry) TID Expected Outcomes/Goals: PO intake to meet >75% est needs Malnutrition Findings: Food and Nutrition Intake (Mod: <75% est energy req 7days Weight Status: Appropriate ANTONIA RICHARDSON III DO Mar 29, 2018 12:13
--- NOTE | 2018-03-29 13:02 | PDOC ---
ENEIDA TSAI [employer]M CONSULT[employer] 03/29/18 1302: SURGICAL PROGRESS NOTE Subjective up in chair incisional pain no emesis Vital Signs Vital Signs Date Time Temp Pulse Resp B/P (MAP) Pulse Ox O2 Delivery O2 Flow Rate FiO2 03/29/18 11:30 24 03/29/18 11:00 127 100 Nasal Cannula 2.0 03/29/18 10:00 129/81 (97) 03/29/18 08:00 97.8 97.8 I&O Intake and Output 03/29/18 07:00 Intake Total 3457.5 ml Output Total 2540 ml Balance 917.5 ml Intake Oral 2255 ml IV Total 1202.5 ml Output Urine Total 2430 ml Drainage Total 110 ml General: Alert, Oriented X3, Cooperative, No acute distress Abdomen: Soft, Other (incisional TTP) Labs Laboratory Tests Test 03/29/18 05:50 White Blood Count 19.0 x10^3/uL (4.0-11.0) Red Blood Count 3.60 x10^6/uL (3.50-5.40) Hemoglobin 11.4 g/dL (12.0-15.5) Hematocrit 34.1 % (36.0-47.0) Mean Corpuscular Volume 95 fL (79-100) Mean Corpuscular Hemoglobin 32 pg (25-35) Mean Corpuscular Hemoglobin Concent 34 g/dL (31-37) Red Cell Distribution Width 14.0 % (11.5-14.5) Platelet Count 463 x10^3/uL (140-400) Neutrophils (%) (Auto) 75 % (31-73) Lymphocytes (%) (Auto) 10 % (24-48) Monocytes (%) (Auto) 15 % (0-9) Eosinophils (%) (Auto) 0 % (0-3) Basophils (%) (Auto) 0 % (0-3) Neutrophils # (Auto) 14.2 x10^3uL (1.8-7.7) Lymphocytes # (Auto) 1.8 x10^3/uL (1.0-4.8) Monocytes # (Auto) 2.9 x10^3/uL (0.0-1.1) Eosinophils # (Auto) 0.0 x10^3/uL (0.0-0.7) Basophils # (Auto) 0.0 x10^3/uL (0.0-0.2) Sodium Level 142 mmol/L (136-145) Potassium Level 3.9 mmol/L (3.5-5.1) Chloride Level 103 mmol/L (98-107) Carbon Dioxide Level 33 mmol/L (21-32) Anion Gap 6 (6-14) Blood Urea Nitrogen 8 mg/dL (7-20) Creatinine 1.0 mg/dL (0.6-1.0) Estimated GFR (Cockcroft-Gault) 77.7 Glucose Level 118 mg/dL (70-99) Calcium Level 9.2 mg/dL (8.5-10.1) HIV (1&2) Antibody Screen Nonreactive (Nonreactive) Laboratory Tests Test 03/29/18 05:50 White Blood Count 19.0 x10^3/uL (4.0-11.0) Red Blood Count 3.60 x10^6/uL (3.50-5.40) Hemoglobin 11.4 g/dL (12.0-15.5) Hematocrit 34.1 % (36.0-47.0) Mean Corpuscular Volume 95 fL (79-100) Mean Corpuscular Hemoglobin 32 pg (25-35) Mean Corpuscular Hemoglobin Concent 34 g/dL (31-37) Red Cell Distribution Width 14.0 % (11.5-14.5) Platelet Count 463 x10^3/uL (140-400) Neutrophils (%) (Auto) 75 % (31-73) Lymphocytes (%) (Auto) 10 % (24-48) Monocytes (%) (Auto) 15 % (0-9) Eosinophils (%) (Auto) 0 % (0-3) Basophils (%) (Auto) 0 % (0-3) Neutrophils # (Auto) 14.2 x10^3uL (1.8-7.7) Lymphocytes # (Auto) 1.8 x10^3/uL (1.0-4.8) Monocytes # (Auto) 2.9 x10^3/uL (0.0-1.1) Eosinophils # (Auto) 0.0 x10^3/uL (0.0-0.7) Basophils # (Auto) 0.0 x10^3/uL (0.0-0.2) Sodium Level 142 mmol/L (136-145) Potassium Level 3.9 mmol/L (3.5-5.1) Chloride Level 103 mmol/L (98-107) Carbon Dioxide Level 33 mmol/L (21-32) Anion Gap 6 (6-14) Blood Urea Nitrogen 8 mg/dL (7-20) Creatinine 1.0 mg/dL (0.6-1.0) Estimated GFR (Cockcroft-Gault) 77.7 Glucose Level 118 mg/dL (70-99) Calcium Level 9.2 mg/dL (8.5-10.1) HIV (1&2) Antibody Screen Nonreactive (Nonreactive) Problem List Problems Medical Problems: (1) Abdominal pain Status: Acute Assessment/Plan supportive care TEJINDER BLUM MD 03/30/18 0805: SURGICAL PROGRESS NOTE Assessment/Plan Agree with Nichel's assessment and plan ENEIDA TSAI APRN Mar 29, 2018 13:02 TEJINDER BLUM MD Mar 30, 2018 08:05
[2018-03-29] MEDS: ONDANSETRON PF 4 MG/2 ML VIAL. IV PRN (18:24)
[2018-03-29] MEDS: ZOLPIDEM 5 MG TABLET. PO PRN (21:14)
[2018-03-29] MEDS: FAMOTIDINE 20 MG/2 ML VIAL IVP SCH (21:15)
[2018-03-29] MEDS: METOPROLOL TARTRATE 5 MG/5 ML VIAL. IVP PRN (21:21)
[2018-03-30 03:31] VITALS: BP 138/94
[2018-03-30 04:36] LABS: BASO % 0 % (0-3); EOS # 0.1 x10^3/uL (0.0-0.7); EOS % 1 % (0-3); HEMATOCRIT 34.1 % (36.0-47.0); HEMOGLOBIN 11.4 g/dL (12.0-15.5); LYMPH # 2.5 x10^3/uL (1.0-4.8); LYMPH % 19 % (24-48); MEAN CORPUSCULAR HEMOGLOBIN 32 pg (25-35); MEAN CORPUSCULAR HGB CONC 34 g/dL (31-37); MEAN CORPUSCULAR VOLUME 96 fL (79-100); MONO # 1.6 x10^3/uL (0.0-1.1); MONO % 12 % (0-9); NEUT # 8.7 x10^3uL (1.8-7.7); NEUT % 68 % (31-73); PLATELET COUNT 475 x10^3/uL (140-400); RED BLOOD COUNT 3.55 x10^6/uL (3.50-5.40); RED CELL DISTRIBUTION WIDTH 13.8 % (11.5-14.5); WHITE BLOOD COUNT 12.9 x10^3/uL (4.0-11.0)
[2018-03-30 04:58] LABS: CALCIUM 8.4 mg/dL (8.5-10.1); GFR 77.7
[2018-03-30 07:00] VITALS: BP 136/80
[2018-03-30] MEDS: PIPERACILLIN/TAZOBACTAM 4.5 GM in IV NORMAL SALINE 100ML 100 ML IV SCH ×4 (07:00→23:52)
[2018-03-30] MEDS: HEPARIN for SUB-Q USE 5,000 UNIT/ML VIAL. SQ SCH (07:01)
[2018-03-30] MEDS: POTASSIUM CHLORIDE 20 MEQ TABLET.ER. PO SCH (08:49)
[2018-03-30] MEDS: POTASSIUM CL 20MEQ D5-0.9%NACL 1,000 ML IV SCH ×2 (08:49→23:54)
[2018-03-30] MEDS: LACTOBACILLUS RHAMNOSUS GG 1 CAPSULE. PO SCH ×2 (08:49→19:42)
[2018-03-30] MEDS: PSYLLIUM HUSK (SUGAR FREE) 1 PKT PACKET PO SCH (08:49)
[2018-03-30] MEDS: POLYETHYLENE GLYCOL 3350 17 GM PACKET. PO SCH (08:50)
--- NOTE | 2018-03-30 10:31 | RAD ---
Portable chest, 03/30/2018: HISTORY: Follow-up pneumothorax Comparison is made to yesterday's study. The heart size is normal. The right chest remains clear. There is no evidence of pneumothorax. There appears to be minimal left basilar atelectasis. No large pleural effusion is seen. There is gaseous distention of bowel loops in the upper abdomen. IMPRESSION: 1. Minimal left basilar atelectasis. 2. Gaseous distention of bowel loops in the upper abdomen may reflect a postoperative ileus. Electronically signed by: Armaan Donovan MD (03/30/2018 10:28 AM) [facility]
[2018-03-30 11:00] VITALS: BP 137/80
--- NOTE | 2018-03-30 11:28 | PDOC ---
Infectious Disease Note Subjective Subjective feeling good ROS ROS no n/v/d/sob Vital Sign Vital Signs Vital Signs Date Time Temp Pulse Resp B/P (MAP) Pulse Ox O2 Delivery O2 Flow Rate FiO2 03/30/18 09:00 Room Air 03/30/18 07:00 98.0 121 18 136/80 (98) 97 98.0 03/29/18 23:05 2.0 Physical Exam PHYSICAL EXAM GENERAL: Sitting in chair, watching TV HEENT: Oral cavity: Pharynx pink and moist. NECK: Supple. LUNGS: Diminished aeration in the bases. Nonlabored. HEART: S1 and S2, tachycardic at a rate of 122. ABDOMEN: Soft, mild tenderness. BLAYNE drain in place, dressings are clean, dry, and intact. EXTREMITIES: No gross edema or cyanosis. SKIN: Warm without rash. NEUROLOGIC: Alert and oriented times 3. PIV Labs Lab Laboratory Tests Test 03/30/18 03:20 White Blood Count 12.9 x10^3/uL (4.0-11.0) Red Blood Count 3.55 x10^6/uL (3.50-5.40) Hemoglobin 11.4 g/dL (12.0-15.5) Hematocrit 34.1 % (36.0-47.0) Mean Corpuscular Volume 96 fL (79-100) Mean Corpuscular Hemoglobin 32 pg (25-35) Mean Corpuscular Hemoglobin Concent 34 g/dL (31-37) Red Cell Distribution Width 13.8 % (11.5-14.5) Platelet Count 475 x10^3/uL (140-400) Neutrophils (%) (Auto) 68 % (31-73) Lymphocytes (%) (Auto) 19 % (24-48) Monocytes (%) (Auto) 12 % (0-9) Eosinophils (%) (Auto) 1 % (0-3) Basophils (%) (Auto) 0 % (0-3) Neutrophils # (Auto) 8.7 x10^3uL (1.8-7.7) Lymphocytes # (Auto) 2.5 x10^3/uL (1.0-4.8) Monocytes # (Auto) 1.6 x10^3/uL (0.0-1.1) Eosinophils # (Auto) 0.1 x10^3/uL (0.0-0.7) Basophils # (Auto) 0.0 x10^3/uL (0.0-0.2) Sodium Level 141 mmol/L (136-145) Potassium Level 4.0 mmol/L (3.5-5.1) Chloride Level 103 mmol/L (98-107) Carbon Dioxide Level 30 mmol/L (21-32) Anion Gap 8 (6-14) Blood Urea Nitrogen 8 mg/dL (7-20) Creatinine 1.0 mg/dL (0.6-1.0) Estimated GFR (Cockcroft-Gault) 77.7 Glucose Level 100 mg/dL (70-99) Calcium Level 8.4 mg/dL (8.5-10.1) Micro culture neg so far Objective Assessment Peritonitis with intra-abdominal abscesses, tubo ovarian , and appendicitis s/p surgery 03/28 Leukocytosis Ileus vs partial SBO Small right pneumothorax E. coli in urine POA Plan Plan of Care cont Zosyn f/u cultures d/w mother CANDIDA ERVIN MD Mar 30, 2018 11:28
--- NOTE | 2018-03-30 12:06 | PDOC ---
SURGICAL PROGRESS NOTE Subjective taking some liquids no flatus yet Vital Signs Vital Signs Date Time Temp Pulse Resp B/P (MAP) Pulse Ox O2 Delivery O2 Flow Rate FiO2 03/30/18 11:00 98.8 114 16 137/80 (99) 100 Room Air 98.8 03/29/18 23:05 2.0 I&O Intake and Output 03/30/18 07:00 Intake Total 1931.25 ml Output Total 540 ml Balance 1391.25 ml Intake Oral 1220 ml IV Total 711.25 ml Output Urine Total 390 ml Drainage Total 150 ml # Voids 4 General: Alert, Oriented X3, Cooperative, No acute distress Abdomen: Soft, Other (drain serosang) Labs Laboratory Tests Test 03/28/18 18:00 03/29/18 05:50 03/30/18 03:20 Nasal Screen MRSA (PCR) Negative (Negative) White Blood Count 19.0 x10^3/uL (4.0-11.0) 12.9 x10^3/uL (4.0-11.0) Red Blood Count 3.60 x10^6/uL (3.50-5.40) 3.55 x10^6/uL (3.50-5.40) Hemoglobin 11.4 g/dL (12.0-15.5) 11.4 g/dL (12.0-15.5) Hematocrit 34.1 % (36.0-47.0) 34.1 % (36.0-47.0) Mean Corpuscular Volume 95 fL (79-100) 96 fL (79-100) Mean Corpuscular Hemoglobin 32 pg (25-35) 32 pg (25-35) Mean Corpuscular Hemoglobin Concent 34 g/dL (31-37) 34 g/dL (31-37) Red Cell Distribution Width 14.0 % (11.5-14.5) 13.8 % (11.5-14.5) Platelet Count 463 x10^3/uL (140-400) 475 x10^3/uL (140-400) Neutrophils (%) (Auto) 75 % (31-73) 68 % (31-73) Lymphocytes (%) (Auto) 10 % (24-48) 19 % (24-48) Monocytes (%) (Auto) 15 % (0-9) 12 % (0-9) Eosinophils (%) (Auto) 0 % (0-3) 1 % (0-3) Basophils (%) (Auto) 0 % (0-3) 0 % (0-3) Neutrophils # (Auto) 14.2 x10^3uL (1.8-7.7) 8.7 x10^3uL (1.8-7.7) Lymphocytes # (Auto) 1.8 x10^3/uL (1.0-4.8) 2.5 x10^3/uL (1.0-4.8) Monocytes # (Auto) 2.9 x10^3/uL (0.0-1.1) 1.6 x10^3/uL (0.0-1.1) Eosinophils # (Auto) 0.0 x10^3/uL (0.0-0.7) 0.1 x10^3/uL (0.0-0.7) Basophils # (Auto) 0.0 x10^3/uL (0.0-0.2) 0.0 x10^3/uL (0.0-0.2) Sodium Level 142 mmol/L (136-145) 141 mmol/L (136-145) Potassium Level 3.9 mmol/L (3.5-5.1) 4.0 mmol/L (3.5-5.1) Chloride Level 103 mmol/L (98-107) 103 mmol/L (98-107) Carbon Dioxide Level 33 mmol/L (21-32) 30 mmol/L (21-32) Anion Gap 6 (6-14) 8 (6-14) Blood Urea Nitrogen 8 mg/dL (7-20) 8 mg/dL (7-20) Creatinine 1.0 mg/dL (0.6-1.0) 1.0 mg/dL (0.6-1.0) Estimated GFR (Cockcroft-Gault) 77.7 77.7 Glucose Level 118 mg/dL (70-99) 100 mg/dL (70-99) Calcium Level 9.2 mg/dL (8.5-10.1) 8.4 mg/dL (8.5-10.1) HIV (1&2) Antibody Screen Nonreactive (Nonreactive) Laboratory Tests Test 03/30/18 03:20 White Blood Count 12.9 x10^3/uL (4.0-11.0) Red Blood Count 3.55 x10^6/uL (3.50-5.40) Hemoglobin 11.4 g/dL (12.0-15.5) Hematocrit 34.1 % (36.0-47.0) Mean Corpuscular Volume 96 fL (79-100) Mean Corpuscular Hemoglobin 32 pg (25-35) Mean Corpuscular Hemoglobin Concent 34 g/dL (31-37) Red Cell Distribution Width 13.8 % (11.5-14.5) Platelet Count 475 x10^3/uL (140-400) Neutrophils (%) (Auto) 68 % (31-73) Lymphocytes (%) (Auto) 19 % (24-48) Monocytes (%) (Auto) 12 % (0-9) Eosinophils (%) (Auto) 1 % (0-3) Basophils (%) (Auto) 0 % (0-3) Neutrophils # (Auto) 8.7 x10^3uL (1.8-7.7) Lymphocytes # (Auto) 2.5 x10^3/uL (1.0-4.8) Monocytes # (Auto) 1.6 x10^3/uL (0.0-1.1) Eosinophils # (Auto) 0.1 x10^3/uL (0.0-0.7) Basophils # (Auto) 0.0 x10^3/uL (0.0-0.2) Sodium Level 141 mmol/L (136-145) Potassium Level 4.0 mmol/L (3.5-5.1) Chloride Level 103 mmol/L (98-107) Carbon Dioxide Level 30 mmol/L (21-32) Anion Gap 8 (6-14) Blood Urea Nitrogen 8 mg/dL (7-20) Creatinine 1.0 mg/dL (0.6-1.0) Estimated GFR (Cockcroft-Gault) 77.7 Glucose Level 100 mg/dL (70-99) Calcium Level 8.4 mg/dL (8.5-10.1) Problem List Problems Medical Problems: (1) Abdominal pain Status: Acute Assessment/Plan supportive care as per PATIENT SUPPORT PARTNER ENEIDA TSAI [employer]WORK ARCHITECT Mar 30, 2018 12:05
--- NOTE | 2018-03-30 13:29 | PDOC ---
PROGRESS NOTES Chief Complaint Chief Complaint Post-op left salpingo-oopherectomy and appendectomy Acute abdominal/pelvic pain Abdominal mass Small R pneumothorax - resolving Leukocytosis HTN History of Present Illness History of Present Illness pt is doing well, tolerating her clear liquids, no fever or chills, no other concerns noted, weary about advancing diet Vitals Vitals Vital Signs Date Time Temp Pulse Resp B/P (MAP) Pulse Ox O2 Delivery O2 Flow Rate FiO2 03/30/18 11:00 98.8 114 16 137/80 (99) 100 Room Air 98.8 03/29/18 23:05 2.0 Physical Exam Physical Exam GENERAL: Sitting in chair, watching TV HEENT: Oral cavity: Pharynx pink and moist. NECK: Supple. LUNGS: Diminished aeration in the bases. Nonlabored. HEART: S1 and S2, tachycardic at a rate of 122. ABDOMEN: Soft, mild tenderness. BLAYNE drain in place, dressings are clean, dry, and intact. EXTREMITIES: No gross edema or cyanosis. SKIN: Warm without rash. NEUROLOGIC: Alert and oriented times 3. PIV General: Alert, Oriented X3, Cooperative, No acute distress Heart: Normal S1, Normal S2, Other (tachycardic ) Lungs: Clear Abdomen: Soft, Other (drain serosang) Extremities: No clubbing, No cyanosis, No edema Skin: No rashes, No breakdown, No significant lesion Labs LABS Laboratory Tests Test 03/30/18 03:20 White Blood Count 12.9 x10^3/uL (4.0-11.0) Red Blood Count 3.55 x10^6/uL (3.50-5.40) Hemoglobin 11.4 g/dL (12.0-15.5) Hematocrit 34.1 % (36.0-47.0) Mean Corpuscular Volume 96 fL (79-100) Mean Corpuscular Hemoglobin 32 pg (25-35) Mean Corpuscular Hemoglobin Concent 34 g/dL (31-37) Red Cell Distribution Width 13.8 % (11.5-14.5) Platelet Count 475 x10^3/uL (140-400) Neutrophils (%) (Auto) 68 % (31-73) Lymphocytes (%) (Auto) 19 % (24-48) Monocytes (%) (Auto) 12 % (0-9) Eosinophils (%) (Auto) 1 % (0-3) Basophils (%) (Auto) 0 % (0-3) Neutrophils # (Auto) 8.7 x10^3uL (1.8-7.7) Lymphocytes # (Auto) 2.5 x10^3/uL (1.0-4.8) Monocytes # (Auto) 1.6 x10^3/uL (0.0-1.1) Eosinophils # (Auto) 0.1 x10^3/uL (0.0-0.7) Basophils # (Auto) 0.0 x10^3/uL (0.0-0.2) Sodium Level 141 mmol/L (136-145) Potassium Level 4.0 mmol/L (3.5-5.1) Chloride Level 103 mmol/L (98-107) Carbon Dioxide Level 30 mmol/L (21-32) Anion Gap 8 (6-14) Blood Urea Nitrogen 8 mg/dL (7-20) Creatinine 1.0 mg/dL (0.6-1.0) Estimated GFR (Cockcroft-Gault) 77.7 Glucose Level 100 mg/dL (70-99) Calcium Level 8.4 mg/dL (8.5-10.1) Assessment and Plan Assessmemt and Plan Problems Medical Problems: (1) Abdominal pain Status: Acute Comment Review of Relevant I have reviewed the following items lo (where applicable) has been applied. Labs Laboratory Tests Test 03/28/18 18:00 03/29/18 05:50 03/30/18 03:20 Nasal Screen MRSA (PCR) Negative (Negative) White Blood Count 19.0 x10^3/uL (4.0-11.0) 12.9 x10^3/uL (4.0-11.0) Red Blood Count 3.60 x10^6/uL (3.50-5.40) 3.55 x10^6/uL (3.50-5.40) Hemoglobin 11.4 g/dL (12.0-15.5) 11.4 g/dL (12.0-15.5) Hematocrit 34.1 % (36.0-47.0) 34.1 % (36.0-47.0) Mean Corpuscular Volume 95 fL (79-100) 96 fL (79-100) Mean Corpuscular Hemoglobin 32 pg (25-35) 32 pg (25-35) Mean Corpuscular Hemoglobin Concent 34 g/dL (31-37) 34 g/dL (31-37) Red Cell Distribution Width 14.0 % (11.5-14.5) 13.8 % (11.5-14.5) Platelet Count 463 x10^3/uL (140-400) 475 x10^3/uL (140-400) Neutrophils (%) (Auto) 75 % (31-73) 68 % (31-73) Lymphocytes (%) (Auto) 10 % (24-48) 19 % (24-48) Monocytes (%) (Auto) 15 % (0-9) 12 % (0-9) Eosinophils (%) (Auto) 0 % (0-3) 1 % (0-3) Basophils (%) (Auto) 0 % (0-3) 0 % (0-3) Neutrophils # (Auto) 14.2 x10^3uL (1.8-7.7) 8.7 x10^3uL (1.8-7.7) Lymphocytes # (Auto) 1.8 x10^3/uL (1.0-4.8) 2.5 x10^3/uL (1.0-4.8) Monocytes # (Auto) 2.9 x10^3/uL (0.0-1.1) 1.6 x10^3/uL (0.0-1.1) Eosinophils # (Auto) 0.0 x10^3/uL (0.0-0.7) 0.1 x10^3/uL (0.0-0.7) Basophils # (Auto) 0.0 x10^3/uL (0.0-0.2) 0.0 x10^3/uL (0.0-0.2) Sodium Level 142 mmol/L (136-145) 141 mmol/L (136-145) Potassium Level 3.9 mmol/L (3.5-5.1) 4.0 mmol/L (3.5-5.1) Chloride Level 103 mmol/L (98-107) 103 mmol/L (98-107) Carbon Dioxide Level 33 mmol/L (21-32) 30 mmol/L (21-32) Anion Gap 6 (6-14) 8 (6-14) Blood Urea Nitrogen 8 mg/dL (7-20) 8 mg/dL (7-20) Creatinine 1.0 mg/dL (0.6-1.0) 1.0 mg/dL (0.6-1.0) Estimated GFR (Cockcroft-Gault) 77.7 77.7 Glucose Level 118 mg/dL (70-99) 100 mg/dL (70-99) Calcium Level 9.2 mg/dL (8.5-10.1) 8.4 mg/dL (8.5-10.1) HIV (1&2) Antibody Screen Nonreactive (Nonreactive) Laboratory Tests Test 03/30/18 03:20 White Blood Count 12.9 x10^3/uL (4.0-11.0) Red Blood Count 3.55 x10^6/uL (3.50-5.40) Hemoglobin 11.4 g/dL (12.0-15.5) Hematocrit 34.1 % (36.0-47.0) Mean Corpuscular Volume 96 fL (79-100) Mean Corpuscular Hemoglobin 32 pg (25-35) Mean Corpuscular Hemoglobin Concent 34 g/dL (31-37) Red Cell Distribution Width 13.8 % (11.5-14.5) Platelet Count 475 x10^3/uL (140-400) Neutrophils (%) (Auto) 68 % (31-73) Lymphocytes (%) (Auto) 19 % (24-48) Monocytes (%) (Auto) 12 % (0-9) Eosinophils (%) (Auto) 1 % (0-3) Basophils (%) (Auto) 0 % (0-3) Neutrophils # (Auto) 8.7 x10^3uL (1.8-7.7) Lymphocytes # (Auto) 2.5 x10^3/uL (1.0-4.8) Monocytes # (Auto) 1.6 x10^3/uL (0.0-1.1) Eosinophils # (Auto) 0.1 x10^3/uL (0.0-0.7) Basophils # (Auto) 0.0 x10^3/uL (0.0-0.2) Sodium Level 141 mmol/L (136-145) Potassium Level 4.0 mmol/L (3.5-5.1) Chloride Level 103 mmol/L (98-107) Carbon Dioxide Level 30 mmol/L (21-32) Anion Gap 8 (6-14) Blood Urea Nitrogen 8 mg/dL (7-20) Creatinine 1.0 mg/dL (0.6-1.0) Estimated GFR (Cockcroft-Gault) 77.7 Glucose Level 100 mg/dL (70-99) Calcium Level 8.4 mg/dL (8.5-10.1) Microbiology 03/23/18 Blood Culture - Final, Complete NO GROWTH AFTER 5 DAYS 03/28/18 Gram Stain - Final, Complete 03/23/18 Urine Culture - Final, Complete 03/23/18 Urine Culture Result 1 (THOM) - Final, Complete 03/23/18 Antimicrobic Susceptibility - Final, Complete Medications Current Medications Fentanyl Citrate (Fentanyl 2ml Vial) 50 mcg PRN Q30MIN PRN IV SEVERE PAIN Last administered on 03/23/18at 14:32; Start 03/23/18 at 11:45; Stop 03/23/18 at 14 :33; Status DC Sodium Chloride 1,000 ml @ 1,000 mls/hr Q1H IV Last administered on at 11:42; Start 03/23/18 at 11:31; Stop 03/23/18 at 12:30; Status DC Ondansetron HCl (Zofran) 4 mg 1X ONCE IV Last administered on 03/23/18at 11:42 ; Start 03/23/18 at 11:45; Stop 03/23/18 at 11:46; Status DC Iohexol (Omnipaque 300 Mg/ml) 75 ml 1X ONCE IV Last administered on at 12:30; Start 03/23/18 at 12:00; Stop 03/23/18 at 12:01; Status DC Info (CONTRAST GIVEN -- Rx MONITORING) 1 each PRN DAILY PRN MC SEE COMMENTS; Start 03/23/18 at 12:00; Stop 03/25/18 at 11:59; Status DC Piperacillin Sod/ Tazobactam Sod (Zosyn Per Pharmacy) 1 each PRN DAILY PRN MC SEE COMMENTS; Start 03/23/18 at 13:30; Status UNV Doxycycline Hyclate 100 mg/ Dextrose 100 ml @ 50 mls/hr 1X ONCE IV Last administered on 03/23/18at 14:32; Start 03/23/18 at 13:30; Stop 03/23/18 at 15 :29; Status DC Piperacillin Sod/ Tazobactam Sod 3.375 gm/Sodium Chloride 50 ml @ 100 mls/hr 1X ONCE IV Last administered on 03/23/18at 13:48; Start 03/23/18 at 13:30; Stop 03/23/18 at 14:02; Status DC Sodium Chloride 1,000 ml @ 1,000 mls/hr 1X ONCE IV ; Start 03/23/18 at 14:30 ; Stop 03/23/18 at 15:29; Status DC Acetaminophen (Tylenol) 650 mg PRN Q6HRS PRN PO FEVER Last administered on at 20:22; Start 03/23/18 at 15:30 Ondansetron HCl (Zofran) 4 mg PRN Q6HRS PRN IV NAUSEA/VOMITING Last administered on 03/29/18at 18:24; Start 03/23/18 at 15:30 Morphine Sulfate (Morphine Sulfate) 2 mg PRN Q2HR PRN IV MODERATE TO SEVERE PAIN; Start 03/23/18 at 15:30; Status UNV Tramadol HCl (Ultram) 50 mg PRN Q6HRS PRN PO MILD PAIN Last administered on at 19:27; Start 03/23/18 at 15:30 Docusate Sodium (Colace) 100 mg PRN DAILY PRN PO CONSTIPATION, 3RD CHOICE Last administered on 03/25/18at 20:30; Start 03/23/18 at 15:30 Piperacillin Sod/ Tazobactam Sod 4.5 gm/Sodium Chloride 100 ml @ 200 mls/hr Q6HRS IV Last administered on 03/30/18at 07:00; Start 03/23/18 at 18:00 Piperacillin Sod/ Tazobactam Sod (Zosyn Per Pharmacy) 1 each PRN DAILY PRN MC SEE COMMENTS; Start 03/23/18 at 15:30 Morphine Sulfate (Morphine Sulfate) 2 mg PRN Q2HR PRN IV MILD-MODERATE PAIN Last administered on 03/28/18at 11:22; Start 03/23/18 at 15:30; Stop 03/29/18 at 05:50; Status DC Morphine Sulfate (Morphine Sulfate) 4 mg PRN Q2HR PRN IV SEVERE PAIN Last administered on 03/24/18at 06:01; Start 03/23/18 at 15:30; Stop 03/29/18 at 05 :50; Status DC Potassium Chloride/Dextrose/ Sod Cl 1,000 ml @ 75 mls/hr [id number] IV Last administered on 03/30/18at 08:49; Start 03/23/18 at 15:30 Famotidine (Pepcid Vial) 20 mg QHS IVP Last administered on 03/29/18at 21:15; Start 03/23/18 at 21:00 Heparin Sodium (Porcine) (Heparin Sodium) 5,000 unit Q8HRS SQ Last administered on 03/30/18at 07:01; Start 03/23/18 at 16:00 Vancomycin HCl 1.5 gm/Sodium Chloride 500 ml @ 250 mls/hr Q12H IV ; Start at 17:15; Status UNV Vancomycin HCl (Vanco Per Pharmacy) 1 each PRN DAILY PRN MC SEE COMMENTS Last administered on 03/24/18at 08:35; Start 03/23/18 at 17:15; Stop 03/24/18 at 14 :57; Status DC Vancomycin HCl 1.5 gm/Sodium Chloride 500 ml @ 250 mls/hr 1X ONCE IV Last administered on 03/23/18at 18:03; Start 03/23/18 at 17:30; Stop 03/23/18 at 19 :29; Status DC Influenza Virus Vaccine (Afluria Trivalent [id number] Syringe) 0.5 ml ONCE ONCE VAX IM Last administered on 03/27/18at 08:35; Start 03/27/18 at 09:00; Stop 03/27/18 at 09:01; Status DC Vancomycin HCl 1 gm/Sodium Chloride 250 ml @ 250 mls/hr Q12H IV Last administered on 03/24/18at 05:54; Start 03/24/18 at 06:00; Stop 03/24/18 at 14 :57; Status DC Vancomycin HCl (Vancomycin Trough Level) 1 each 1X ONCE MC ; Start 03/25/18 at 05:30; Stop 03/25/18 at 05:31; Status Cancel Metoprolol Tartrate (Lopressor Vial) 5 mg Q6HRS IVP ; Start 03/23/18 at 21:00; Stop 03/23/18 at 21:55; Status DC Metoprolol Tartrate (Lopressor Vial) 5 mg PRN Q6HRS PRN IVP TACHYCARDIA Last administered on 03/29/18 21:21; Start 03/23/18 at 22:00 Lactobacillus Rhamnosus (Culturelle) 1 cap BID PO Last administered on at 08:49; Start 03/24/18 at 09:00 Potassium Chloride (Klor-Con) 20 meq BIDBFRMEAL PO Last administered on 08:49; Start 03/24/18 at 10:00 Polyethylene Glycol (miraLAX PACKET) 17 gm DAILY PO Last administered on 08:30; Start 03/24/18 at 10:30 Psyllium Hydrophilic Mucilloid (Metamucil Fiber Packet) 1 pkt DAILY PO Last administered on 03/26/18 08:30; Start 03/24/18 at 10:30 Lactulose (Lactulose) 20 gm PRN DAILY PRN PO CONSTIPATION, 2ND CHOICE Last administered on 03/24/18at 16:47; Start 03/24/18 at 10:15 Senna/Docusate Sodium (Senna Plus) 2 tab PRN BID PRN PO CONSTIPATION, 1ST CHOICE Last administered on 03/24/18at 10:39; Start 03/24/18 at 10:15 Doxycycline Hyclate (Vibra-Tab) 100 mg BID PO Last administered on 03/27/18 08:33; Start 03/24/18 at 21:00; Stop 03/27/18 at 09:46; Status DC Phenazopyridine HCl (Pyridium) 200 mg 1X ONCE PO Last administered on at 14:57; Start 03/25/18 at 14:30; Stop 03/25/18 at 14:31; Status DC Acetaminophen/ Hydrocodone Bitart (Lortab 5/325) 1 tab PRN Q4HRS PRN PO MODERATE TO SEVERE PAIN Last administered on 03/27/18at 19:41; Start 03/25/18 at 19:45 Ondansetron HCl (Zofran) 4 mg PRN Q6HRS PRN IV NAUSEA/VOMITING; Start at 07:00; Stop 03/28/18 at 18:00; Status DC Fentanyl Citrate (Fentanyl 2ml Vial) 25 mcg PRN Q5MIN PRN IV MILD PAIN; Start 03/28/18 at 07:00; Stop 03/28/18 at 18:00; Status DC Fentanyl Citrate (Fentanyl 2ml Vial) 50 mcg PRN Q5MIN PRN IV MODERATE TO SEVERE PAIN Last administered on 03/28/18at 16:21; Start 03/28/18 at 07:00; Stop 03/28/18 at 18:00; Status DC Morphine Sulfate (Morphine Sulfate) 1 mg PRN Q10MIN PRN IV SEVERE PAIN; Start 03/28/18 at 07:00; Stop 03/28/18 at 18:00; Status DC Ringer's Solution 1,000 ml @ 30 mls/hr Q24H IV Last administered on at 12:10; Start 03/28/18 at 07:00; Stop 03/28/18 at 18:59; Status DC Lidocaine HCl (Xylocaine-Mpf 1% 2ml Vial) 2 ml PRN 1X PRN ID IV START; Start 03/28/18 at 07:00; Stop 03/28/18 at 18:00; Status DC Hydromorphone HCl (Dilaudid) 0.5 mg PRN Q10MIN PRN IV SEV PAIN, Second choice; Start 03/28/18 at 07:00; Stop 03/28/18 at 18:00; Status DC Prochlorperazine Edisylate (Compazine) 5 mg PACU PRN PRN IV NAUSEA, MRX1; Start 03/28/18 at 07:00; Stop 03/28/18 at 18:00; Status DC Propofol 20 ml @ As Directed STK-MED ONCE IV ; Start 03/28/18 at 13:04; Stop 03/28/18 at 13:05; Status DC Lidocaine HCl (Lidocaine Pf 2% Vial) 5 ml STK-MED ONCE .ROUTE ; Start 03/28/18 at 13:04; Stop 03/28/18 at 13:05; Status DC Rocuronium [place] (Zemuron) 50 mg STK-MED ONCE .ROUTE ; Start 03/28/18 at 13: 04; Stop 03/28/18 at 13:05; Status DC Fentanyl Citrate (Fentanyl 2ml Vial) 100 mcg STK-MED ONCE .ROUTE ; Start at 13:04; Stop 03/28/18 at 13:05; Status DC Midazolam HCl (Versed) 2 mg STK-MED ONCE .ROUTE ; Start 03/28/18 at 13:04; Stop 03/28/18 at 13:05; Status DC Metronidazole 100 ml @ 200 mls/hr 1X ONCE IV Last administered on 03/28/18at 14:23; Start 03/28/18 at 14:30; Stop 03/28/18 at 14:59; Status DC Dexamethasone Sodium Phosphate (Decadron) 20 mg STK-MED ONCE .ROUTE ; Start at 14:48; Stop 03/28/18 at 14:49; Status DC Ondansetron HCl (Zofran) 4 mg STK-MED ONCE .ROUTE ; Start 03/28/18 at 14:48; Stop 03/28/18 at 14:49; Status DC Sevoflurane (Ultane) 60 ml STK-MED ONCE IH ; Start 03/28/18 at 14:48; Stop at 14:49; Status DC Glycopyrrolate (Robinul) 1 mg STK-MED ONCE .ROUTE ; Start 03/28/18 at 14:54; Stop 03/28/18 at 14:55; Status DC Neostigmine Methylsulfate (Neostigmine Methylsulfate) 5 mg STK-MED ONCE .ROUTE ; Start 03/28/18 at 14:55; Stop 03/28/18 at 14:56; Status DC Fentanyl Citrate (Fentanyl 2ml Vial) 100 mcg STK-MED ONCE .ROUTE ; Start at 15:15; Stop 03/28/18 at 15:16; Status DC Calcium Carbonate/ Glycine (Tums) 500 mg PRN Q3HRS PRN PO HEARTBURN / GAS; Start 03/28/18 at 16:00 Simethicone (Gas-X) 80 mg PRN AFTMEALHC PRN PO GAS / BLOATING; Start 03/28/18 at 16:00 Zolpidem Tartrate (Ambien) 5 mg PRN QHS PRN PO INSOMNIA, MAY REPEAT IN 1HR Last administered on 03/29/18at 21:14; Start 03/28/18 at 16:00 Diphenhydramine HCl (Benadryl) 25 mg PRN Q6HRS PRN PO ITCHING; Start 03/28/18 at 16:00 Sodium Chloride (Normal Saline Flush) 3 ml QSHIFT PRN IV AFTER MEDS AND BLOOD DRAWS; Start 03/28/18 at 16:00 Dextrose (Dextrose 50%-Water Syringe) 12.5 gm PRN Q15MIN PRN IV SEE COMMENTS; Start 03/28/18 at 16:00 Ketorolac Tromethamine (Toradol 30mg Vial) 30 mg PRN Q6HRS PRN IV MILD PAIN; Start 03/28/18 at 16:00; Stop 04/02/18 at 15:59 Ondansetron HCl (Zofran) 4 mg PRN Q6HRS PRN IV NAUESA, 1ST CHOICE; Start 03/28 at 16:00; Status UNV Prochlorperazine Edisylate (Compazine) 5 mg PRN Q6HRS PRN IV N/V, 2nd Choice, MR X1; Start 03/28/18 at 16:00; Status UNV Piperacillin Sod/ Tazobactam Sod 3.375 gm/Sodium Chloride 50 ml @ 100 mls/hr Q6HRS IV ; Start 03/28/18 at 18:00; Status UNV Metronidazole 100 ml @ 100 mls/hr Q12HR IV ; Start 03/28/18 at 21:00; Status UNV Hydromorphone HCl 30 ml @ 0 mls/hr CONT PRN PRN IV PER PROTOCOL Last administered on 03/29/18at 11:06; Start 03/28/18 at 16:00 Fentanyl Citrate (Fentanyl 2ml Vial) 100 mcg STK-MED ONCE .ROUTE ; Start at 16:07; Stop 03/28/18 at 16:08; Status DC Active Scripts Active Reported One Daily For Women Tablet (Folic Acid/Mv,Fe,Other Min) 1 Each Tablet 1 Each PO Vitals/I & O Vital Sign - Last 24 Hours 03/29/18 03/29/18 03/29/18 03/29/18 14:20 15:00 19:25 21:21 Temp 97.9 97.3 97.9 97.3 Pulse 105 113 126 126 Resp 18 18 18 B/P (MAP) 154/106 (122) 135/100 (112) 148/99 (115) 148/99 Pulse Ox 100 100 97 O2 Delivery Nasal Cannula Nasal Cannula Room Air O2 Flow Rate 2.0 2.0 03/29/18 03/29/18 03/30/18 03/30/18 21:46 23:05 03:31 07:00 Temp 98.5 98.5 98.0 98.5 98.5 98.0 Pulse 102 120 121 Resp 18 18 18 B/P (MAP) 124/94 (104) 138/94 (109) 136/80 (98) Pulse Ox 100 100 97 O2 Delivery Nasal Cannula Nasal Cannula Room Air Room Air O2 Flow Rate 2.0 2.0 03/30/18 03/30/18 09:00 11:00 Temp 98.8 98.8 Pulse 114 Resp 16 B/P (MAP) 137/80 (99) Pulse Ox 100 O2 Delivery Room Air Room Air Intake and Output 03/29/18 03/29/18 03/30/18 15:00 23:00 07:00 Intake Total 1391.25 ml 540 ml Output Total 340 ml 170 ml 30 ml Balance 1051.25 ml -170 ml 510 ml Nutrition Consultation Dietary Evaluation: Recommendations by RD: Increase Calorie Intake, Protein supplementation Comments: REC advance diet as tolerated, honor food preferences, provide snacks as requested REC Ensure (strawberry) TID Expected Outcomes/Goals: PO intake to meet >75% est needs Malnutrition Findings: Food and Nutrition Intake (Mod: <75% est energy req 7days Weight Status: Appropriate KAITLYNN LUCERO MD Mar 30, 2018 13:29
--- NOTE | 2018-03-30 14:22 | PDOC ---
SURGICAL PROGRESS NOTE Subjective Pt. feeling better. Pain controlled. She is tolerating liquids. Positive flatus today. Vital Signs Vital Signs Date Time Temp Pulse Resp B/P (MAP) Pulse Ox O2 Delivery O2 Flow Rate FiO2 03/30/18 11:00 98.8 114 16 137/80 (99) 100 Room Air 98.8 03/29/18 23:05 2.0 I&O Intake and Output 03/30/18 07:00 Intake Total 1931.25 ml Output Total 540 ml Balance 1391.25 ml Intake Oral 1220 ml IV Total 711.25 ml Output Urine Total 390 ml Drainage Total 150 ml # Voids 4 PATIENT HAS A SONI: No General: Alert, Oriented X3, Cooperative HEENT: Atraumatic Lungs: Clear to auscultation Heart: Regular rate Abdomen: Normal bowel sounds, Soft, No masses, Other (moderate tenderness; bandage in place. BLAYNE Drain 45 ml.) Extremities: No edema Psych/Mental Status: Mental status NL Labs Laboratory Tests Test 03/28/18 18:00 03/29/18 05:50 03/30/18 03:20 Nasal Screen MRSA (PCR) Negative (Negative) White Blood Count 19.0 x10^3/uL (4.0-11.0) 12.9 x10^3/uL (4.0-11.0) Red Blood Count 3.60 x10^6/uL (3.50-5.40) 3.55 x10^6/uL (3.50-5.40) Hemoglobin 11.4 g/dL (12.0-15.5) 11.4 g/dL (12.0-15.5) Hematocrit 34.1 % (36.0-47.0) 34.1 % (36.0-47.0) Mean Corpuscular Volume 95 fL (79-100) 96 fL (79-100) Mean Corpuscular Hemoglobin 32 pg (25-35) 32 pg (25-35) Mean Corpuscular Hemoglobin Concent 34 g/dL (31-37) 34 g/dL (31-37) Red Cell Distribution Width 14.0 % (11.5-14.5) 13.8 % (11.5-14.5) Platelet Count 463 x10^3/uL (140-400) 475 x10^3/uL (140-400) Neutrophils (%) (Auto) 75 % (31-73) 68 % (31-73) Lymphocytes (%) (Auto) 10 % (24-48) 19 % (24-48) Monocytes (%) (Auto) 15 % (0-9) 12 % (0-9) Eosinophils (%) (Auto) 0 % (0-3) 1 % (0-3) Basophils (%) (Auto) 0 % (0-3) 0 % (0-3) Neutrophils # (Auto) 14.2 x10^3uL (1.8-7.7) 8.7 x10^3uL (1.8-7.7) Lymphocytes # (Auto) 1.8 x10^3/uL (1.0-4.8) 2.5 x10^3/uL (1.0-4.8) Monocytes # (Auto) 2.9 x10^3/uL (0.0-1.1) 1.6 x10^3/uL (0.0-1.1) Eosinophils # (Auto) 0.0 x10^3/uL (0.0-0.7) 0.1 x10^3/uL (0.0-0.7) Basophils # (Auto) 0.0 x10^3/uL (0.0-0.2) 0.0 x10^3/uL (0.0-0.2) Sodium Level 142 mmol/L (136-145) 141 mmol/L (136-145) Potassium Level 3.9 mmol/L (3.5-5.1) 4.0 mmol/L (3.5-5.1) Chloride Level 103 mmol/L (98-107) 103 mmol/L (98-107) Carbon Dioxide Level 33 mmol/L (21-32) 30 mmol/L (21-32) Anion Gap 6 (6-14) 8 (6-14) Blood Urea Nitrogen 8 mg/dL (7-20) 8 mg/dL (7-20) Creatinine 1.0 mg/dL (0.6-1.0) 1.0 mg/dL (0.6-1.0) Estimated GFR (Cockcroft-Gault) 77.7 77.7 Glucose Level 118 mg/dL (70-99) 100 mg/dL (70-99) Calcium Level 9.2 mg/dL (8.5-10.1) 8.4 mg/dL (8.5-10.1) HIV (1&2) Antibody Screen Nonreactive (Nonreactive) Laboratory Tests Test 03/30/18 03:20 White Blood Count 12.9 x10^3/uL (4.0-11.0) Red Blood Count 3.55 x10^6/uL (3.50-5.40) Hemoglobin 11.4 g/dL (12.0-15.5) Hematocrit 34.1 % (36.0-47.0) Mean Corpuscular Volume 96 fL (79-100) Mean Corpuscular Hemoglobin 32 pg (25-35) Mean Corpuscular Hemoglobin Concent 34 g/dL (31-37) Red Cell Distribution Width 13.8 % (11.5-14.5) Platelet Count 475 x10^3/uL (140-400) Neutrophils (%) (Auto) 68 % (31-73) Lymphocytes (%) (Auto) 19 % (24-48) Monocytes (%) (Auto) 12 % (0-9) Eosinophils (%) (Auto) 1 % (0-3) Basophils (%) (Auto) 0 % (0-3) Neutrophils # (Auto) 8.7 x10^3uL (1.8-7.7) Lymphocytes # (Auto) 2.5 x10^3/uL (1.0-4.8) Monocytes # (Auto) 1.6 x10^3/uL (0.0-1.1) Eosinophils # (Auto) 0.1 x10^3/uL (0.0-0.7) Basophils # (Auto) 0.0 x10^3/uL (0.0-0.2) Sodium Level 141 mmol/L (136-145) Potassium Level 4.0 mmol/L (3.5-5.1) Chloride Level 103 mmol/L (98-107) Carbon Dioxide Level 30 mmol/L (21-32) Anion Gap 8 (6-14) Blood Urea Nitrogen 8 mg/dL (7-20) Creatinine 1.0 mg/dL (0.6-1.0) Estimated GFR (Cockcroft-Gault) 77.7 Glucose Level 100 mg/dL (70-99) Calcium Level 8.4 mg/dL (8.5-10.1) Problem List Problems Medical Problems: (1) Abdominal pain Status: Acute Assessment/Plan A: POD#2 s/p Open Laparotomy for LSO and appendectomy P: Continue IV abx. Start PO pain meds. Consider advancing diet tomorrow. CHARLES MURPHY Jr, MD Mar 30, 2018 14:22
[2018-03-30 15:00] VITALS: BP 138/95
--- NOTE | 2018-03-30 16:17 | PDOC ---
PULMONARY PROGRESS NOTES Subjective NO RESP COMPLAINTS Vitals Vital Signs Date Time Temp Pulse Resp B/P (MAP) Pulse Ox O2 Delivery O2 Flow Rate FiO2 03/30/18 15:00 97.2 135 18 138/95 (109) 100 Room Air 97.2 03/29/18 23:05 2.0 General: Alert, No acute distress Lungs: Clear Cardiovascular: S1 Abdomen: Soft Neuro Exam: Alert Extremities: No Edema Skin: Warm Labs Laboratory Tests Test 03/28/18 18:00 03/29/18 05:50 03/30/18 03:20 Nasal Screen MRSA (PCR) Negative (Negative) White Blood Count 19.0 x10^3/uL (4.0-11.0) 12.9 x10^3/uL (4.0-11.0) Red Blood Count 3.60 x10^6/uL (3.50-5.40) 3.55 x10^6/uL (3.50-5.40) Hemoglobin 11.4 g/dL (12.0-15.5) 11.4 g/dL (12.0-15.5) Hematocrit 34.1 % (36.0-47.0) 34.1 % (36.0-47.0) Mean Corpuscular Volume 95 fL (79-100) 96 fL (79-100) Mean Corpuscular Hemoglobin 32 pg (25-35) 32 pg (25-35) Mean Corpuscular Hemoglobin Concent 34 g/dL (31-37) 34 g/dL (31-37) Red Cell Distribution Width 14.0 % (11.5-14.5) 13.8 % (11.5-14.5) Platelet Count 463 x10^3/uL (140-400) 475 x10^3/uL (140-400) Neutrophils (%) (Auto) 75 % (31-73) 68 % (31-73) Lymphocytes (%) (Auto) 10 % (24-48) 19 % (24-48) Monocytes (%) (Auto) 15 % (0-9) 12 % (0-9) Eosinophils (%) (Auto) 0 % (0-3) 1 % (0-3) Basophils (%) (Auto) 0 % (0-3) 0 % (0-3) Neutrophils # (Auto) 14.2 x10^3uL (1.8-7.7) 8.7 x10^3uL (1.8-7.7) Lymphocytes # (Auto) 1.8 x10^3/uL (1.0-4.8) 2.5 x10^3/uL (1.0-4.8) Monocytes # (Auto) 2.9 x10^3/uL (0.0-1.1) 1.6 x10^3/uL (0.0-1.1) Eosinophils # (Auto) 0.0 x10^3/uL (0.0-0.7) 0.1 x10^3/uL (0.0-0.7) Basophils # (Auto) 0.0 x10^3/uL (0.0-0.2) 0.0 x10^3/uL (0.0-0.2) Sodium Level 142 mmol/L (136-145) 141 mmol/L (136-145) Potassium Level 3.9 mmol/L (3.5-5.1) 4.0 mmol/L (3.5-5.1) Chloride Level 103 mmol/L (98-107) 103 mmol/L (98-107) Carbon Dioxide Level 33 mmol/L (21-32) 30 mmol/L (21-32) Anion Gap 6 (6-14) 8 (6-14) Blood Urea Nitrogen 8 mg/dL (7-20) 8 mg/dL (7-20) Creatinine 1.0 mg/dL (0.6-1.0) 1.0 mg/dL (0.6-1.0) Estimated GFR (Cockcroft-Gault) 77.7 77.7 Glucose Level 118 mg/dL (70-99) 100 mg/dL (70-99) Calcium Level 9.2 mg/dL (8.5-10.1) 8.4 mg/dL (8.5-10.1) HIV (1&2) Antibody Screen Nonreactive (Nonreactive) Laboratory Tests Test 03/30/18 03:20 White Blood Count 12.9 x10^3/uL (4.0-11.0) Red Blood Count 3.55 x10^6/uL (3.50-5.40) Hemoglobin 11.4 g/dL (12.0-15.5) Hematocrit 34.1 % (36.0-47.0) Mean Corpuscular Volume 96 fL (79-100) Mean Corpuscular Hemoglobin 32 pg (25-35) Mean Corpuscular Hemoglobin Concent 34 g/dL (31-37) Red Cell Distribution Width 13.8 % (11.5-14.5) Platelet Count 475 x10^3/uL (140-400) Neutrophils (%) (Auto) 68 % (31-73) Lymphocytes (%) (Auto) 19 % (24-48) Monocytes (%) (Auto) 12 % (0-9) Eosinophils (%) (Auto) 1 % (0-3) Basophils (%) (Auto) 0 % (0-3) Neutrophils # (Auto) 8.7 x10^3uL (1.8-7.7) Lymphocytes # (Auto) 2.5 x10^3/uL (1.0-4.8) Monocytes # (Auto) 1.6 x10^3/uL (0.0-1.1) Eosinophils # (Auto) 0.1 x10^3/uL (0.0-0.7) Basophils # (Auto) 0.0 x10^3/uL (0.0-0.2) Sodium Level 141 mmol/L (136-145) Potassium Level 4.0 mmol/L (3.5-5.1) Chloride Level 103 mmol/L (98-107) Carbon Dioxide Level 30 mmol/L (21-32) Anion Gap 8 (6-14) Blood Urea Nitrogen 8 mg/dL (7-20) Creatinine 1.0 mg/dL (0.6-1.0) Estimated GFR (Cockcroft-Gault) 77.7 Glucose Level 100 mg/dL (70-99) Calcium Level 8.4 mg/dL (8.5-10.1) Medications Active Scripts Medications Dose Route/Sig Max Daily Dose Days Date Category One Daily For Women Tablet (Folic Acid/Mv,Fe,Other Min) 1 Each Tablet 1 Each PO 03/23/18 Reported Comments CXR 03/26 IMPRESSION: 1. Resolving tiny right apical pneumothorax. 2. Small residual left pleural effusion. Impression . 1. Spontaneous small right-sided pneumothorax. She is a nonsmoker. The etiology of pneumothorax is not so obvious, but possibility of catamenial pneumothorax cannot be ruled out. She just finished her period 03/23. The other possibility would be related to endometriosis with the possibility of rupture of diaphragmatic endometrial implant. She does not have any cysts in lungs and as such no clinical suspicion for lymphangioleiomyomatosis or Langerhan's cell Histiocytosis X 2. Suspected tubo-ovarian abscess / early peritonitis. No obvious abdominal endometriosis was reported. 3. No significant history of tobacco use. 4. Possible ruptured appendicitis. PREOPERATIVE DIAGNOSIS: Abdominopelvic abscesses. POSTOPERATIVE DIAGNOSES: 1. Abdominopelvic abscesses. 2. Left tubo-ovarian abscess. 3. Inflamed appendix. PROCEDURE: 1. Open laparotomy with left salpingo-oophorectomy. 2. Appendectomy. CXR REVIEWED NO PTX SEEN Plan . RESP STATUS IS COMPENSATED WILL CONTINUE THE SAME ADVANCE DIET PER SURGEON JOYCE GUTIERRES MD Mar 30, 2018 16:17
[2018-03-30 19:00] VITALS: BP 145/82
[2018-03-30] MEDS: HYDROcodone/APAP 5/325MG 1 TAB TABLET PO PRN ×2 (19:42→23:47)
[2018-03-30] MEDS: FAMOTIDINE 20 MG/2 ML VIAL IVP SCH (19:43)
[2018-03-30 23:00] VITALS: BP 147/93
[2018-03-30] MEDS: ZOLPIDEM 5 MG TABLET. PO PRN (23:47)
[2018-03-31 03:00] VITALS: BP 140/91
[2018-03-31 05:04] LABS: BASO % 0 % (0-3); EOS # 0.1 x10^3/uL (0.0-0.7); EOS % 1 % (0-3); HEMATOCRIT 27.8 % (36.0-47.0); HEMOGLOBIN 9.5 g/dL (12.0-15.5); LYMPH # 2.5 x10^3/uL (1.0-4.8); LYMPH % 30 % (24-48); MEAN CORPUSCULAR HEMOGLOBIN 33 pg (25-35); MEAN CORPUSCULAR HGB CONC 34 g/dL (31-37); MEAN CORPUSCULAR VOLUME 95 fL (79-100); MONO # 1.2 x10^3/uL (0.0-1.1); MONO % 15 % (0-9); NEUT # 4.5 x10^3uL (1.8-7.7); NEUT % 54 % (31-73); PLATELET COUNT 412 x10^3/uL (140-400); RED BLOOD COUNT 2.93 x10^6/uL (3.50-5.40); RED CELL DISTRIBUTION WIDTH 13.6 % (11.5-14.5); WHITE BLOOD COUNT 8.3 x10^3/uL (4.0-11.0)
[2018-03-31 05:13] LABS: CALCIUM 8.5 mg/dL (8.5-10.1); CREATININE 0.9 mg/dL (0.6-1.0); GFR 87.8; POTASSIUM 3.7 mmol/L (3.5-5.1)
[2018-03-31] MEDS: POTASSIUM CL 20MEQ D5-0.9%NACL 1,000 ML IV SCH ×2 (05:30→08:09)
[2018-03-31] MEDS: PIPERACILLIN/TAZOBACTAM 4.5 GM in IV NORMAL SALINE 100ML 100 ML IV SCH ×3 (06:06→17:08)
[2018-03-31 07:00] VITALS: BP 126/86
[2018-03-31] MEDS: SENNOSIDES/DOCUSATE 8.6/50MG TABLET. PO PRN (08:07)
[2018-03-31] MEDS: LACTOBACILLUS RHAMNOSUS GG 1 CAPSULE. PO SCH ×2 (08:07→21:40)
[2018-03-31] MEDS: HYDROcodone/APAP 5/325MG 1 TAB TABLET PO PRN ×4 (08:08→21:45)
[2018-03-31] MEDS: PSYLLIUM HUSK (SUGAR FREE) 1 PKT PACKET PO SCH ×2 (08:08→09:00)
--- NOTE | 2018-03-31 09:39 | PDOC ---
SURGICAL PROGRESS NOTE Subjective tolerating clears + flatus would like more to eat Vital Signs Vital Signs Date Time Temp Pulse Resp B/P (MAP) Pulse Ox O2 Delivery O2 Flow Rate FiO2 03/31/18 08:08 97 Room Air 03/31/18 07:00 98.6 117 18 126/86 (99) 98.6 I&O Intake and Output 03/31/18 07:00 Intake Total 2376 ml Balance 2376 ml IV Total 2376 ml # Voids 4 General: Alert, Oriented X3, Cooperative, No acute distress Abdomen: Soft, Other (rishi serosang) Labs Laboratory Tests Test 03/30/18 03:20 03/31/18 04:05 03/31/18 05:00 White Blood Count 12.9 x10^3/uL (4.0-11.0) 8.3 x10^3/uL (4.0-11.0) Red Blood Count 3.55 x10^6/uL (3.50-5.40) 2.93 x10^6/uL (3.50-5.40) Hemoglobin 11.4 g/dL (12.0-15.5) 9.5 g/dL (12.0-15.5) Hematocrit 34.1 % (36.0-47.0) 27.8 % (36.0-47.0) Mean Corpuscular Volume 96 fL (79-100) 95 fL (79-100) Mean Corpuscular Hemoglobin 32 pg (25-35) 33 pg (25-35) Mean Corpuscular Hemoglobin Concent 34 g/dL (31-37) 34 g/dL (31-37) Red Cell Distribution Width 13.8 % (11.5-14.5) 13.6 % (11.5-14.5) Platelet Count 475 x10^3/uL (140-400) 412 x10^3/uL (140-400) Neutrophils (%) (Auto) 68 % (31-73) 54 % (31-73) Lymphocytes (%) (Auto) 19 % (24-48) 30 % (24-48) Monocytes (%) (Auto) 12 % (0-9) 15 % (0-9) Eosinophils (%) (Auto) 1 % (0-3) 1 % (0-3) Basophils (%) (Auto) 0 % (0-3) 0 % (0-3) Neutrophils # (Auto) 8.7 x10^3uL (1.8-7.7) 4.5 x10^3uL (1.8-7.7) Lymphocytes # (Auto) 2.5 x10^3/uL (1.0-4.8) 2.5 x10^3/uL (1.0-4.8) Monocytes # (Auto) 1.6 x10^3/uL (0.0-1.1) 1.2 x10^3/uL (0.0-1.1) Eosinophils # (Auto) 0.1 x10^3/uL (0.0-0.7) 0.1 x10^3/uL (0.0-0.7) Basophils # (Auto) 0.0 x10^3/uL (0.0-0.2) 0.0 x10^3/uL (0.0-0.2) Sodium Level 141 mmol/L (136-145) 140 mmol/L (136-145) Potassium Level 4.0 mmol/L (3.5-5.1) 3.7 mmol/L (3.5-5.1) Chloride Level 103 mmol/L (98-107) 104 mmol/L (98-107) Carbon Dioxide Level 30 mmol/L (21-32) 30 mmol/L (21-32) Anion Gap 8 (6-14) 6 (6-14) Blood Urea Nitrogen 8 mg/dL (7-20) 6 mg/dL (7-20) Creatinine 1.0 mg/dL (0.6-1.0) 0.9 mg/dL (0.6-1.0) Estimated GFR (Cockcroft-Gault) 77.7 87.8 Glucose Level 100 mg/dL (70-99) 99 mg/dL (70-99) Calcium Level 8.4 mg/dL (8.5-10.1) 8.5 mg/dL (8.5-10.1) Laboratory Tests Test 03/31/18 04:05 03/31/18 05:00 White Blood Count 8.3 x10^3/uL (4.0-11.0) Red Blood Count 2.93 x10^6/uL (3.50-5.40) Hemoglobin 9.5 g/dL (12.0-15.5) Hematocrit 27.8 % (36.0-47.0) Mean Corpuscular Volume 95 fL (79-100) Mean Corpuscular Hemoglobin 33 pg (25-35) Mean Corpuscular Hemoglobin Concent 34 g/dL (31-37) Red Cell Distribution Width 13.6 % (11.5-14.5) Platelet Count 412 x10^3/uL (140-400) Neutrophils (%) (Auto) 54 % (31-73) Lymphocytes (%) (Auto) 30 % (24-48) Monocytes (%) (Auto) 15 % (0-9) Eosinophils (%) (Auto) 1 % (0-3) Basophils (%) (Auto) 0 % (0-3) Neutrophils # (Auto) 4.5 x10^3uL (1.8-7.7) Lymphocytes # (Auto) 2.5 x10^3/uL (1.0-4.8) Monocytes # (Auto) 1.2 x10^3/uL (0.0-1.1) Eosinophils # (Auto) 0.1 x10^3/uL (0.0-0.7) Basophils # (Auto) 0.0 x10^3/uL (0.0-0.2) Sodium Level 140 mmol/L (136-145) Potassium Level 3.7 mmol/L (3.5-5.1) Chloride Level 104 mmol/L (98-107) Carbon Dioxide Level 30 mmol/L (21-32) Anion Gap 6 (6-14) Blood Urea Nitrogen 6 mg/dL (7-20) Creatinine 0.9 mg/dL (0.6-1.0) Estimated GFR (Cockcroft-Gault) 87.8 Glucose Level 99 mg/dL (70-99) Calcium Level 8.5 mg/dL (8.5-10.1) Problem List Problems Medical Problems: (1) Abdominal pain Status: Acute Assessment/Plan ok to advance diet if ok with FOOD SERVICE ASSOCIATE ENEIDA TSAI APRN Mar 31, 2018 09:39
[2018-03-31 11:00] VITALS: BP 117/77
--- NOTE | 2018-03-31 11:24 | PDOC ---
PULMONARY PROGRESS NOTES Subjective NO RESP COMPLAINTS Vitals Vital Signs Date Time Temp Pulse Resp B/P (MAP) Pulse Ox O2 Delivery O2 Flow Rate FiO2 03/31/18 08:10 Room Air 03/31/18 08:08 97 03/31/18 07:00 98.6 117 18 126/86 (99) 98.6 General: Alert, No acute distress Lungs: Clear Cardiovascular: S1 Abdomen: Soft Neuro Exam: Alert Extremities: No Edema Skin: Warm Labs Laboratory Tests Test 03/30/18 03:20 03/31/18 04:05 03/31/18 05:00 White Blood Count 12.9 x10^3/uL (4.0-11.0) 8.3 x10^3/uL (4.0-11.0) Red Blood Count 3.55 x10^6/uL (3.50-5.40) 2.93 x10^6/uL (3.50-5.40) Hemoglobin 11.4 g/dL (12.0-15.5) 9.5 g/dL (12.0-15.5) Hematocrit 34.1 % (36.0-47.0) 27.8 % (36.0-47.0) Mean Corpuscular Volume 96 fL (79-100) 95 fL (79-100) Mean Corpuscular Hemoglobin 32 pg (25-35) 33 pg (25-35) Mean Corpuscular Hemoglobin Concent 34 g/dL (31-37) 34 g/dL (31-37) Red Cell Distribution Width 13.8 % (11.5-14.5) 13.6 % (11.5-14.5) Platelet Count 475 x10^3/uL (140-400) 412 x10^3/uL (140-400) Neutrophils (%) (Auto) 68 % (31-73) 54 % (31-73) Lymphocytes (%) (Auto) 19 % (24-48) 30 % (24-48) Monocytes (%) (Auto) 12 % (0-9) 15 % (0-9) Eosinophils (%) (Auto) 1 % (0-3) 1 % (0-3) Basophils (%) (Auto) 0 % (0-3) 0 % (0-3) Neutrophils # (Auto) 8.7 x10^3uL (1.8-7.7) 4.5 x10^3uL (1.8-7.7) Lymphocytes # (Auto) 2.5 x10^3/uL (1.0-4.8) 2.5 x10^3/uL (1.0-4.8) Monocytes # (Auto) 1.6 x10^3/uL (0.0-1.1) 1.2 x10^3/uL (0.0-1.1) Eosinophils # (Auto) 0.1 x10^3/uL (0.0-0.7) 0.1 x10^3/uL (0.0-0.7) Basophils # (Auto) 0.0 x10^3/uL (0.0-0.2) 0.0 x10^3/uL (0.0-0.2) Sodium Level 141 mmol/L (136-145) 140 mmol/L (136-145) Potassium Level 4.0 mmol/L (3.5-5.1) 3.7 mmol/L (3.5-5.1) Chloride Level 103 mmol/L (98-107) 104 mmol/L (98-107) Carbon Dioxide Level 30 mmol/L (21-32) 30 mmol/L (21-32) Anion Gap 8 (6-14) 6 (6-14) Blood Urea Nitrogen 8 mg/dL (7-20) 6 mg/dL (7-20) Creatinine 1.0 mg/dL (0.6-1.0) 0.9 mg/dL (0.6-1.0) Estimated GFR (Cockcroft-Gault) 77.7 87.8 Glucose Level 100 mg/dL (70-99) 99 mg/dL (70-99) Calcium Level 8.4 mg/dL (8.5-10.1) 8.5 mg/dL (8.5-10.1) Laboratory Tests Test 03/31/18 04:05 03/31/18 05:00 White Blood Count 8.3 x10^3/uL (4.0-11.0) Red Blood Count 2.93 x10^6/uL (3.50-5.40) Hemoglobin 9.5 g/dL (12.0-15.5) Hematocrit 27.8 % (36.0-47.0) Mean Corpuscular Volume 95 fL (79-100) Mean Corpuscular Hemoglobin 33 pg (25-35) Mean Corpuscular Hemoglobin Concent 34 g/dL (31-37) Red Cell Distribution Width 13.6 % (11.5-14.5) Platelet Count 412 x10^3/uL (140-400) Neutrophils (%) (Auto) 54 % (31-73) Lymphocytes (%) (Auto) 30 % (24-48) Monocytes (%) (Auto) 15 % (0-9) Eosinophils (%) (Auto) 1 % (0-3) Basophils (%) (Auto) 0 % (0-3) Neutrophils # (Auto) 4.5 x10^3uL (1.8-7.7) Lymphocytes # (Auto) 2.5 x10^3/uL (1.0-4.8) Monocytes # (Auto) 1.2 x10^3/uL (0.0-1.1) Eosinophils # (Auto) 0.1 x10^3/uL (0.0-0.7) Basophils # (Auto) 0.0 x10^3/uL (0.0-0.2) Sodium Level 140 mmol/L (136-145) Potassium Level 3.7 mmol/L (3.5-5.1) Chloride Level 104 mmol/L (98-107) Carbon Dioxide Level 30 mmol/L (21-32) Anion Gap 6 (6-14) Blood Urea Nitrogen 6 mg/dL (7-20) Creatinine 0.9 mg/dL (0.6-1.0) Estimated GFR (Cockcroft-Gault) 87.8 Glucose Level 99 mg/dL (70-99) Calcium Level 8.5 mg/dL (8.5-10.1) Medications Active Scripts Medications Dose Route/Sig Max Daily Dose Days Date Category One Daily For Women Tablet (Folic Acid/Mv,Fe,Other Min) 1 Each Tablet 1 Each PO 03/23/18 Reported Comments CXR 03/26 IMPRESSION: 1. Resolving tiny right apical pneumothorax. 2. Small residual left pleural effusion. Impression . 1. Spontaneous small right-sided pneumothorax. She is a nonsmoker. The etiology of pneumothorax is not so obvious, but possibility of catamenial pneumothorax cannot be ruled out. She just finished her period 03/23. The other possibility would be related to endometriosis with the possibility of rupture of diaphragmatic endometrial implant. She does not have any cysts in lungs and as such no clinical suspicion for lymphangioleiomyomatosis or Langerhan's cell Histiocytosis X 2. Suspected tubo-ovarian abscess / early peritonitis. No obvious abdominal endometriosis was reported. 3. No significant history of tobacco use. 4. Possible ruptured appendicitis. PREOPERATIVE DIAGNOSIS: Abdominopelvic abscesses. POSTOPERATIVE DIAGNOSES: 1. Abdominopelvic abscesses. 2. Left tubo-ovarian abscess. 3. Inflamed appendix. PROCEDURE: 1. Open laparotomy with left salpingo-oophorectomy. 2. Appendectomy. CXR REVIEWED NO PTX SEEN Plan . UP TO CHAIR/IS RESP STATUS IS COMPENSATED WILL CONTINUE THE SAME ADVANCE DIET PER SURGEON JOYCE GUTIERRES MD Mar 31, 2018 11:24
--- NOTE | 2018-03-31 14:21 | PDOC ---
PROGRESS NOTES Chief Complaint Chief Complaint Post-op left salpingo-oopherectomy and appendectomy Acute abdominal/pelvic pain Abdominal mass Small R pneumothorax - resolving Leukocytosis HTN History of Present Illness History of Present Illness Pt seen and examined while sitting upright in bed Pt smiling and cooperative Discussed plan w/pt and mom at bedside Vitals Vitals Vital Signs Date Time Temp Pulse Resp B/P (MAP) Pulse Ox O2 Delivery O2 Flow Rate FiO2 03/31/18 13:53 Room Air 03/31/18 11:38 97 03/31/18 11:00 98.6 111 18 117/77 (90) 98.6 Physical Exam Physical Exam HEENT: Mucus membranes moist Neck: Supple, no JVD General: Alert, Oriented X3, Cooperative, No acute distress Heart: Regular rate Lungs: Clear Abdomen: Soft, Other (BLAYNE drain serosang. Dressings clean, dry and intact) Extremities: No cyanosis, No edema Skin: No rashes, No breakdown, No significant lesion Labs LABS Laboratory Tests Test 03/31/18 04:05 03/31/18 05:00 White Blood Count 8.3 x10^3/uL (4.0-11.0) Red Blood Count 2.93 x10^6/uL (3.50-5.40) Hemoglobin 9.5 g/dL (12.0-15.5) Hematocrit 27.8 % (36.0-47.0) Mean Corpuscular Volume 95 fL (79-100) Mean Corpuscular Hemoglobin 33 pg (25-35) Mean Corpuscular Hemoglobin Concent 34 g/dL (31-37) Red Cell Distribution Width 13.6 % (11.5-14.5) Platelet Count 412 x10^3/uL (140-400) Neutrophils (%) (Auto) 54 % (31-73) Lymphocytes (%) (Auto) 30 % (24-48) Monocytes (%) (Auto) 15 % (0-9) Eosinophils (%) (Auto) 1 % (0-3) Basophils (%) (Auto) 0 % (0-3) Neutrophils # (Auto) 4.5 x10^3uL (1.8-7.7) Lymphocytes # (Auto) 2.5 x10^3/uL (1.0-4.8) Monocytes # (Auto) 1.2 x10^3/uL (0.0-1.1) Eosinophils # (Auto) 0.1 x10^3/uL (0.0-0.7) Basophils # (Auto) 0.0 x10^3/uL (0.0-0.2) Sodium Level 140 mmol/L (136-145) Potassium Level 3.7 mmol/L (3.5-5.1) Chloride Level 104 mmol/L (98-107) Carbon Dioxide Level 30 mmol/L (21-32) Anion Gap 6 (6-14) Blood Urea Nitrogen 6 mg/dL (7-20) Creatinine 0.9 mg/dL (0.6-1.0) Estimated GFR (Cockcroft-Gault) 87.8 Glucose Level 99 mg/dL (70-99) Calcium Level 8.5 mg/dL (8.5-10.1) Review of Systems Review of Systems Pt stated she is feeling well and was able to walk to the bathroom herself earlier this morning Denies chest pain, SOB, n/v Assessment and Plan Assessmemt and Plan Problems Medical Problems: (1) Abdominal pain Status: Acute Assessment: Post-op left salpingo-oopherectomy and appendectomy Acute abdominal/pelvic pain Abdominal mass Small R pneumothorax - resolving Leukocytosis HTN Plan: Labs Cont IV abx PRN pain meds Wound care PT/OT Follow [employer] recommendations Follow gen surg recommendations Advance diet as tolerated per surg Possible d/c Monday Comment Review of Relevant I have reviewed the following items lo (where applicable) has been applied. Labs Laboratory Tests Test 03/30/18 03:20 03/31/18 04:05 03/31/18 05:00 White Blood Count 12.9 x10^3/uL (4.0-11.0) 8.3 x10^3/uL (4.0-11.0) Red Blood Count 3.55 x10^6/uL (3.50-5.40) 2.93 x10^6/uL (3.50-5.40) Hemoglobin 11.4 g/dL (12.0-15.5) 9.5 g/dL (12.0-15.5) Hematocrit 34.1 % (36.0-47.0) 27.8 % (36.0-47.0) Mean Corpuscular Volume 96 fL (79-100) 95 fL (79-100) Mean Corpuscular Hemoglobin 32 pg (25-35) 33 pg (25-35) Mean Corpuscular Hemoglobin Concent 34 g/dL (31-37) 34 g/dL (31-37) Red Cell Distribution Width 13.8 % (11.5-14.5) 13.6 % (11.5-14.5) Platelet Count 475 x10^3/uL (140-400) 412 x10^3/uL (140-400) Neutrophils (%) (Auto) 68 % (31-73) 54 % (31-73) Lymphocytes (%) (Auto) 19 % (24-48) 30 % (24-48) Monocytes (%) (Auto) 12 % (0-9) 15 % (0-9) Eosinophils (%) (Auto) 1 % (0-3) 1 % (0-3) Basophils (%) (Auto) 0 % (0-3) 0 % (0-3) Neutrophils # (Auto) 8.7 x10^3uL (1.8-7.7) 4.5 x10^3uL (1.8-7.7) Lymphocytes # (Auto) 2.5 x10^3/uL (1.0-4.8) 2.5 x10^3/uL (1.0-4.8) Monocytes # (Auto) 1.6 x10^3/uL (0.0-1.1) 1.2 x10^3/uL (0.0-1.1) Eosinophils # (Auto) 0.1 x10^3/uL (0.0-0.7) 0.1 x10^3/uL (0.0-0.7) Basophils # (Auto) 0.0 x10^3/uL (0.0-0.2) 0.0 x10^3/uL (0.0-0.2) Sodium Level 141 mmol/L (136-145) 140 mmol/L (136-145) Potassium Level 4.0 mmol/L (3.5-5.1) 3.7 mmol/L (3.5-5.1) Chloride Level 103 mmol/L (98-107) 104 mmol/L (98-107) Carbon Dioxide Level 30 mmol/L (21-32) 30 mmol/L (21-32) Anion Gap 8 (6-14) 6 (6-14) Blood Urea Nitrogen 8 mg/dL (7-20) 6 mg/dL (7-20) Creatinine 1.0 mg/dL (0.6-1.0) 0.9 mg/dL (0.6-1.0) Estimated GFR (Cockcroft-Gault) 77.7 87.8 Glucose Level 100 mg/dL (70-99) 99 mg/dL (70-99) Calcium Level 8.4 mg/dL (8.5-10.1) 8.5 mg/dL (8.5-10.1) Laboratory Tests Test 03/31/18 04:05 03/31/18 05:00 White Blood Count 8.3 x10^3/uL (4.0-11.0) Red Blood Count 2.93 x10^6/uL (3.50-5.40) Hemoglobin 9.5 g/dL (12.0-15.5) Hematocrit 27.8 % (36.0-47.0) Mean Corpuscular Volume 95 fL (79-100) Mean Corpuscular Hemoglobin 33 pg (25-35) Mean Corpuscular Hemoglobin Concent 34 g/dL (31-37) Red Cell Distribution Width 13.6 % (11.5-14.5) Platelet Count 412 x10^3/uL (140-400) Neutrophils (%) (Auto) 54 % (31-73) Lymphocytes (%) (Auto) 30 % (24-48) Monocytes (%) (Auto) 15 % (0-9) Eosinophils (%) (Auto) 1 % (0-3) Basophils (%) (Auto) 0 % (0-3) Neutrophils # (Auto) 4.5 x10^3uL (1.8-7.7) Lymphocytes # (Auto) 2.5 x10^3/uL (1.0-4.8) Monocytes # (Auto) 1.2 x10^3/uL (0.0-1.1) Eosinophils # (Auto) 0.1 x10^3/uL (0.0-0.7) Basophils # (Auto) 0.0 x10^3/uL (0.0-0.2) Sodium Level 140 mmol/L (136-145) Potassium Level 3.7 mmol/L (3.5-5.1) Chloride Level 104 mmol/L (98-107) Carbon Dioxide Level 30 mmol/L (21-32) Anion Gap 6 (6-14) Blood Urea Nitrogen 6 mg/dL (7-20) Creatinine 0.9 mg/dL (0.6-1.0) Estimated GFR (Cockcroft-Gault) 87.8 Glucose Level 99 mg/dL (70-99) Calcium Level 8.5 mg/dL (8.5-10.1) Microbiology 03/23/18 Blood Culture - Final, Complete NO GROWTH AFTER 5 DAYS 03/28/18 Gram Stain - Final, Complete 03/23/18 Urine Culture - Final, Complete 03/23/18 Urine Culture Result 1 (THOM) - Final, Complete 03/23/18 Antimicrobic Susceptibility - Final, Complete Medications Current Medications Fentanyl Citrate (Fentanyl 2ml Vial) 50 mcg PRN Q30MIN PRN IV SEVERE PAIN Last administered on 03/23/18at 14:32; Start 03/23/18 at 11:45; Stop 03/23/18 at 14 :33; Status DC Sodium Chloride 1,000 ml @ 1,000 mls/hr Q1H IV Last administered on at 11:42; Start 03/23/18 at 11:31; Stop 03/23/18 at 12:30; Status DC Ondansetron HCl (Zofran) 4 mg 1X ONCE IV Last administered on 03/23/18at 11:42 ; Start 03/23/18 at 11:45; Stop 03/23/18 at 11:46; Status DC Iohexol (Omnipaque 300 Mg/ml) 75 ml 1X ONCE IV Last administered on at 12:30; Start 03/23/18 at 12:00; Stop 03/23/18 at 12:01; Status DC Info (CONTRAST GIVEN -- Rx MONITORING) 1 each PRN DAILY PRN MC SEE COMMENTS; Start 03/23/18 at 12:00; Stop 03/25/18 at 11:59; Status DC Piperacillin Sod/ Tazobactam Sod (Zosyn Per Pharmacy) 1 each PRN DAILY PRN MC SEE COMMENTS; Start 03/23/18 at 13:30; Status UNV Doxycycline Hyclate 100 mg/ Dextrose 100 ml @ 50 mls/hr 1X ONCE IV Last administered on 03/23/18at 14:32; Start 03/23/18 at 13:30; Stop 03/23/18 at 15 :29; Status DC Piperacillin Sod/ Tazobactam Sod 3.375 gm/Sodium Chloride 50 ml @ 100 mls/hr 1X ONCE IV Last administered on 03/23/18at 13:48; Start 03/23/18 at 13:30; Stop 03/23/18 at 14:02; Status DC Sodium Chloride 1,000 ml @ 1,000 mls/hr 1X ONCE IV ; Start 03/23/18 at 14:30 ; Stop 03/23/18 at 15:29; Status DC Acetaminophen (Tylenol) 650 mg PRN Q6HRS PRN PO FEVER Last administered on at 20:22; Start 03/23/18 at 15:30 Ondansetron HCl (Zofran) 4 mg PRN Q6HRS PRN IV NAUSEA/VOMITING Last administered on 03/29/18at 18:24; Start 03/23/18 at 15:30 Morphine Sulfate (Morphine Sulfate) 2 mg PRN Q2HR PRN IV MODERATE TO SEVERE PAIN; Start 03/23/18 at 15:30; Status UNV Tramadol HCl (Ultram) 50 mg PRN Q6HRS PRN PO MILD PAIN Last administered on at 19:27; Start 03/23/18 at 15:30; Stop 03/30/18 at 14:26; Status DC Docusate Sodium (Colace) 100 mg PRN DAILY PRN PO CONSTIPATION, 3RD CHOICE Last administered on 03/25/18at 20:30; Start 03/23/18 at 15:30 Piperacillin Sod/ Tazobactam Sod 4.5 gm/Sodium Chloride 100 ml @ 200 mls/hr Q6HRS IV Last administered on 03/31/18at 12:31; Start 03/23/18 at 18:00 Piperacillin Sod/ Tazobactam Sod (Zosyn Per Pharmacy) 1 each PRN DAILY PRN MC SEE COMMENTS; Start 03/23/18 at 15:30 Morphine Sulfate (Morphine Sulfate) 2 mg PRN Q2HR PRN IV MILD-MODERATE PAIN Last administered on 03/28/18at 11:22; Start 03/23/18 at 15:30; Stop 03/29/18 at 05:50; Status DC Morphine Sulfate (Morphine Sulfate) 4 mg PRN Q2HR PRN IV SEVERE PAIN Last administered on 03/24/18at 06:01; Start 03/23/18 at 15:30; Stop 03/29/18 at 05 :50; Status DC Potassium Chloride/Dextrose/ Sod Cl 1,000 ml @ 75 mls/hr [id number] IV Last administered on 03/31/18at 08:09; Start 03/23/18 at 15:30 Famotidine (Pepcid Vial) 20 mg QHS IVP Last administered on 03/30/18at 19:43; Start 03/23/18 at 21:00 Heparin Sodium (Porcine) (Heparin Sodium) 5,000 unit Q8HRS SQ Last administered on 03/30/18at 07:01; Start 03/23/18 at 16:00; Stop 03/30/18 at 14 :26; Status DC Vancomycin HCl 1.5 gm/Sodium Chloride 500 ml @ 250 mls/hr Q12H IV ; Start at 17:15; Status UNV Vancomycin HCl (Vanco Per Pharmacy) 1 each PRN DAILY PRN MC SEE COMMENTS Last administered on 03/24/18at 08:35; Start 03/23/18 at 17:15; Stop 03/24/18 at 14 :57; Status DC Vancomycin HCl 1.5 gm/Sodium Chloride 500 ml @ 250 mls/hr 1X ONCE IV Last administered on 03/23/18at 18:03; Start 03/23/18 at 17:30; Stop 03/23/18 at 19 :29; Status DC Influenza Virus Vaccine (Afluria Trivalent [id number] Syringe) 0.5 ml ONCE ONCE VAX IM Last administered on 03/27/18at 08:35; Start 03/27/18 at 09:00; Stop 03/27/18 at 09:01; Status DC Vancomycin HCl 1 gm/Sodium Chloride 250 ml @ 250 mls/hr Q12H IV Last administered on 03/24/18at 05:54; Start 03/24/18 at 06:00; Stop 03/24/18 at 14 :57; Status DC Vancomycin HCl (Vancomycin Trough Level) 1 each 1X ONCE MC ; Start 03/25/18 at 05:30; Stop 03/25/18 at 05:31; Status Cancel Metoprolol Tartrate (Lopressor Vial) 5 mg Q6HRS IVP ; Start 03/23/18 at 21:00; Stop 03/23/18 at 21:55; Status DC Metoprolol Tartrate (Lopressor Vial) 5 mg PRN Q6HRS PRN IVP TACHYCARDIA Last administered on 03/29/18at 21:21; Start 03/23/18 at 22:00 Lactobacillus Rhamnosus (Culturelle) 1 cap BID PO Last administered on at 08:07; Start 03/24/18 at 09:00 Potassium Chloride (Klor-Con) 20 meq BIDBFRMEAL PO Last administered on at 08:49; Start 03/24/18 at 10:00; Stop 03/30/18 at 14:26; Status DC Polyethylene Glycol (miraLAX PACKET) 17 gm DAILY PO Last administered on at 08:30; Start 03/24/18 at 10:30; Stop 03/30/18 at 14:26; Status DC Psyllium Hydrophilic Mucilloid (Metamucil Fiber Packet) 1 pkt DAILY PO Last administered on 03/26/18at 08:30; Start 03/24/18 at 10:30 Lactulose (Lactulose) 20 gm PRN DAILY PRN PO CONSTIPATION, 2ND CHOICE Last administered on 03/24/18at 16:47; Start 03/24/18 at 10:15 Senna/Docusate Sodium (Senna Plus) 2 tab PRN BID PRN PO CONSTIPATION, 1ST CHOICE Last administered on 03/31/18at 08:07; Start 03/24/18 at 10:15 Doxycycline Hyclate (Vibra-Tab) 100 mg BID PO Last administered on 03/27/18at 08:33; Start 03/24/18 at 21:00; Stop 03/27/18 at 09:46; Status DC Phenazopyridine HCl (Pyridium) 200 mg 1X ONCE PO Last administered on at 14:57; Start 03/25/18 at 14:30; Stop 03/25/18 at 14:31; Status DC Acetaminophen/ Hydrocodone Bitart (Lortab 5/325) 1 tab PRN Q4HRS PRN PO MODERATE TO SEVERE PAIN Last administered on 03/31/18at 12:31; Start 03/25/18 at 19:45 Ondansetron HCl (Zofran) 4 mg PRN Q6HRS PRN IV NAUSEA/VOMITING; Start at 07:00; Stop 03/28/18 at 18:00; Status DC Fentanyl Citrate (Fentanyl 2ml Vial) 25 mcg PRN Q5MIN PRN IV MILD PAIN; Start 03/28/18 at 07:00; Stop 03/28/18 at 18:00; Status DC Fentanyl Citrate (Fentanyl 2ml Vial) 50 mcg PRN Q5MIN PRN IV MODERATE TO SEVERE PAIN Last administered on 03/28/18at 16:21; Start 03/28/18 at 07:00; Stop 03/28/18 at 18:00; Status DC Morphine Sulfate (Morphine Sulfate) 1 mg PRN Q10MIN PRN IV SEVERE PAIN; Start 03/28/18 at 07:00; Stop 03/28/18 at 18:00; Status DC Ringer's Solution 1,000 ml @ 30 mls/hr Q24H IV Last administered on at 12:10; Start 03/28/18 at 07:00; Stop 03/28/18 at 18:59; Status DC Lidocaine HCl (Xylocaine-Mpf 1% 2ml Vial) 2 ml PRN 1X PRN ID IV START; Start 03/28/18 at 07:00; Stop 03/28/18 at 18:00; Status DC Hydromorphone HCl (Dilaudid) 0.5 mg PRN Q10MIN PRN IV SEV PAIN, Second choice; Start 03/28/18 at 07:00; Stop 03/28/18 at 18:00; Status DC Prochlorperazine Edisylate (Compazine) 5 mg PACU PRN PRN IV NAUSEA, MRX1; Start 03/28/18 at 07:00; Stop 03/28/18 at 18:00; Status DC Propofol 20 ml @ As Directed STK-MED ONCE IV ; Start 03/28/18 at 13:04; Stop 03/28/18 at 13:05; Status DC Lidocaine HCl (Lidocaine Pf 2% Vial) 5 ml STK-MED ONCE .ROUTE ; Start 03/28/18 at 13:04; Stop 03/28/18 at 13:05; Status DC Rocuronium [place] (Zemuron) 50 mg STK-MED ONCE .ROUTE ; Start 03/28/18 at 13: 04; Stop 03/28/18 at 13:05; Status DC Fentanyl Citrate (Fentanyl 2ml Vial) 100 mcg STK-MED ONCE .ROUTE ; Start at 13:04; Stop 03/28/18 at 13:05; Status DC Midazolam HCl (Versed) 2 mg STK-MED ONCE .ROUTE ; Start 03/28/18 at 13:04; Stop 03/28/18 at 13:05; Status DC Metronidazole 100 ml @ 200 mls/hr 1X ONCE IV Last administered on 03/28/18at 14:23; Start 03/28/18 at 14:30; Stop 03/28/18 at 14:59; Status DC Dexamethasone Sodium Phosphate (Decadron) 20 mg STK-MED ONCE .ROUTE ; Start at 14:48; Stop 03/28/18 at 14:49; Status DC Ondansetron HCl (Zofran) 4 mg STK-MED ONCE .ROUTE ; Start 03/28/18 at 14:48; Stop 03/28/18 at 14:49; Status DC Sevoflurane (Ultane) 60 ml STK-MED ONCE IH ; Start 03/28/18 at 14:48; Stop at 14:49; Status DC Glycopyrrolate (Robinul) 1 mg STK-MED ONCE .ROUTE ; Start 03/28/18 at 14:54; Stop 03/28/18 at 14:55; Status DC Neostigmine Methylsulfate (Neostigmine Methylsulfate) 5 mg STK-MED ONCE .ROUTE ; Start 03/28/18 at 14:55; Stop 03/28/18 at 14:56; Status DC Fentanyl Citrate (Fentanyl 2ml Vial) 100 mcg STK-MED ONCE .ROUTE ; Start at 15:15; Stop 03/28/18 at 15:16; Status DC Calcium Carbonate/ Glycine (Tums) 500 mg PRN Q3HRS PRN PO HEARTBURN / GAS; Start 03/28/18 at 16:00 Simethicone (Gas-X) 80 mg PRN AFTMEALHC PRN PO GAS / BLOATING; Start 03/28/18 at 16:00 Zolpidem Tartrate (Ambien) 5 mg PRN QHS PRN PO INSOMNIA, MAY REPEAT IN 1HR Last administered on 03/30/18at 23:47; Start 03/28/18 at 16:00 Diphenhydramine HCl (Benadryl) 25 mg PRN Q6HRS PRN PO ITCHING; Start 03/28/18 at 16:00 Sodium Chloride (Normal Saline Flush) 3 ml QSHIFT PRN IV AFTER MEDS AND BLOOD DRAWS; Start 03/28/18 at 16:00 Dextrose (Dextrose 50%-Water Syringe) 12.5 gm PRN Q15MIN PRN IV SEE COMMENTS; Start 03/28/18 at 16:00 Ketorolac Tromethamine (Toradol 30mg Vial) 30 mg PRN Q6HRS PRN IV MILD PAIN; Start 03/28/18 at 16:00; Stop 03/30/18 at 14:26; Status DC Ondansetron HCl (Zofran) 4 mg PRN Q6HRS PRN IV NAUESA, 1ST CHOICE; Start 03/28 at 16:00; Status UNV Prochlorperazine Edisylate (Compazine) 5 mg PRN Q6HRS PRN IV N/V, 2nd Choice, MR X1; Start 03/28/18 at 16:00; Status UNV Piperacillin Sod/ Tazobactam Sod 3.375 gm/Sodium Chloride 50 ml @ 100 mls/hr Q6HRS IV ; Start 03/28/18 at 18:00; Status UNV Metronidazole 100 ml @ 100 mls/hr Q12HR IV ; Start 03/28/18 at 21:00; Status UNV Hydromorphone HCl 30 ml @ 0 mls/hr CONT PRN PRN IV PER PROTOCOL Last administered on 03/29/18at 11:06; Start 03/28/18 at 16:00; Stop 03/30/18 at 14 :26; Status DC Fentanyl Citrate (Fentanyl 2ml Vial) 100 mcg STK-MED ONCE .ROUTE ; Start at 16:07; Stop 03/28/18 at 16:08; Status DC Ibuprofen (Motrin) 800 mg PRN Q8HRS PRN PO INFLAMMATION; Start 03/30/18 at 14: 30 Active Scripts Active Reported One Daily For Women Tablet (Folic Acid/Mv,Fe,Other Min) 1 Each Tablet 1 Each PO Vitals/I & O Vital Sign - Last 24 Hours 03/30/18 03/30/18 03/30/18 03/30/18 15:00 19:00 19:42 19:42 Temp 97.2 98.5 97.2 98.5 Pulse 135 103 Resp 18 18 18 B/P (MAP) 138/95 (109) 145/82 (103) Pulse Ox 100 99 100 O2 Delivery Room Air Room Air Room Air Room Air 03/30/18 03/30/18 03/30/18 03/31/18 20:40 23:00 23:47 03:00 Temp 98.6 98.7 98.6 98.7 Pulse 107 118 Resp 18 18 18 18 B/P (MAP) 147/93 (111) 140/91 (107) Pulse Ox 99 97 O2 Delivery Room Air Room Air Room Air 03/31/18 03/31/18 03/31/18 03/31/18 07:00 08:08 08:10 11:00 Temp 98.6 98.6 98.6 98.6 Pulse 117 111 Resp 18 18 B/P (MAP) 126/86 (99) 117/77 (90) Pulse Ox 97 97 99 O2 Delivery Room Air Room Air Room Air Room Air 03/31/18 03/31/18 03/31/18 11:38 12:31 13:53 Pulse Ox 97 O2 Delivery Room Air Room Air Intake and Output 03/30/18 03/30/18 03/31/18 15:00 23:00 07:00 Intake Total 2376 ml Balance 2376 ml Nutrition Consultation Dietary Evaluation: Recommendations by RD: Increase Calorie Intake, Protein supplementation Comments: REC advance diet as tolerated, honor food preferences, provide snacks as requested REC Ensure (strawberry) TID Expected Outcomes/Goals: PO intake to meet >75% est needs Malnutrition Findings: Food and Nutrition Intake (Mod: <75% est energy req 7days Weight Status: Appropriate ANTONIA RICHARDSON III DO Mar 31, 2018 14:21
[2018-03-31 15:00] VITALS: BP 136/94
--- NOTE | 2018-03-31 15:22 | PDOC ---
Provider Note Provider Note Appreciate consultants progressing well VSS Continue current tx CBC - BMP 03/31/18 04:05 03/31/18 05:00 ROXANE RIDDLE MD Mar 31, 2018 15:22
--- NOTE | 2018-03-31 15:52 | PDOC ---
Infectious Disease Note Subjective Subjective Participated in therapy, now feeling tired + swelling in legs Pain controlled Denies F/C/N/V/D/SOA/CP/cough ROS ROS per HPI otherwise neg Vital Sign Vital Signs Vital Signs Date Time Temp Pulse Resp B/P (MAP) Pulse Ox O2 Delivery O2 Flow Rate FiO2 03/31/18 13:53 Room Air 03/31/18 11:38 97 03/31/18 11:00 98.6 111 18 117/77 (90) 98.6 Physical Exam PHYSICAL EXAM GENERAL: Sitting in chair, watching TV HEENT: Oral cavity: Pharynx pink and moist. NECK: Supple. LUNGS: Diminished aeration in the bases. Nonlabored. HEART: S1 and S2, tachycardic ABDOMEN: Soft, mild tenderness. BLAYNE drain in place, dressings are clean, dry, and intact. EXTREMITIES: No gross edema or cyanosis. SKIN: Warm without rash. NEUROLOGIC: Alert and oriented times 3. PIV Labs Lab Laboratory Tests Test 03/31/18 04:05 03/31/18 05:00 White Blood Count 8.3 x10^3/uL (4.0-11.0) Red Blood Count 2.93 x10^6/uL (3.50-5.40) Hemoglobin 9.5 g/dL (12.0-15.5) Hematocrit 27.8 % (36.0-47.0) Mean Corpuscular Volume 95 fL (79-100) Mean Corpuscular Hemoglobin 33 pg (25-35) Mean Corpuscular Hemoglobin Concent 34 g/dL (31-37) Red Cell Distribution Width 13.6 % (11.5-14.5) Platelet Count 412 x10^3/uL (140-400) Neutrophils (%) (Auto) 54 % (31-73) Lymphocytes (%) (Auto) 30 % (24-48) Monocytes (%) (Auto) 15 % (0-9) Eosinophils (%) (Auto) 1 % (0-3) Basophils (%) (Auto) 0 % (0-3) Neutrophils # (Auto) 4.5 x10^3uL (1.8-7.7) Lymphocytes # (Auto) 2.5 x10^3/uL (1.0-4.8) Monocytes # (Auto) 1.2 x10^3/uL (0.0-1.1) Eosinophils # (Auto) 0.1 x10^3/uL (0.0-0.7) Basophils # (Auto) 0.0 x10^3/uL (0.0-0.2) Sodium Level 140 mmol/L (136-145) Potassium Level 3.7 mmol/L (3.5-5.1) Chloride Level 104 mmol/L (98-107) Carbon Dioxide Level 30 mmol/L (21-32) Anion Gap 6 (6-14) Blood Urea Nitrogen 6 mg/dL (7-20) Creatinine 0.9 mg/dL (0.6-1.0) Estimated GFR (Cockcroft-Gault) 87.8 Glucose Level 99 mg/dL (70-99) Calcium Level 8.5 mg/dL (8.5-10.1) Micro 03/23/18 Blood Culture - Preliminary, Resulted NO GROWTH AFTER 1 DAY URINE CULTURE RES 1 Preliminary Escherichia coli Greater than 100,000 colony forming units per mL Objective Assessment Peritonitis with intra-abdominal abscesses, tubo ovarian and appendicitis s/p surgery 03/28. cultures no growth Leukocytosis - improved Ileus vs partial SBO Small right pneumothorax - resolving E. coli in urine POA Plan Plan of Care cont Zosyn Monitor labs/temp PT/OT as tolerated D/w RN Patient seen and examined. Chart reviewed in detail.case discussed with CITIZENSHIP TEACHER> Agree with above plan. SCOT VILLAGRAN APRN Mar 31, 2018 15:52 TREVA ROMERO MD Mar 31, 2018 22:49
[2018-03-31] MEDS: IBUPROFEN 400 MG TABLET. PO PRN (17:10)
[2018-03-31 19:00] VITALS: BP 145/87
[2018-03-31] MEDS: FAMOTIDINE 20 MG/2 ML VIAL IVP SCH (21:40)
[2018-03-31] MEDS: ZOLPIDEM 5 MG TABLET. PO PRN (21:44)
[2018-03-31 22:57] VITALS: BP 138/81
[2018-04-01] VITALS (7 sets, daily range): BP systolic 125–153; BP diastolic 61–87
[2018-04-01] MEDS: PIPERACILLIN/TAZOBACTAM 4.5 GM in IV NORMAL SALINE 100ML 100 ML IV SCH ×4 (00:11→17:32)
[2018-04-01] MEDS: LACTOBACILLUS RHAMNOSUS GG 1 CAPSULE. PO SCH ×2 (08:23→21:35)
[2018-04-01] MEDS: PSYLLIUM HUSK (SUGAR FREE) 1 PKT PACKET PO SCH (08:24)
[2018-04-01] MEDS: HYDROcodone/APAP 5/325MG 1 TAB TABLET PO PRN ×4 (08:24→21:36)
--- NOTE | 2018-04-01 08:43 | PDOC ---
SURGICAL PROGRESS NOTE Subjective tolerating diet, doesnt like food + flatus Vital Signs Vital Signs Date Time Temp Pulse Resp B/P (MAP) Pulse Ox O2 Delivery O2 Flow Rate FiO2 04/01/18 08:24 Room Air 04/01/18 03:00 97.9 113 18 125/87 (100) 99 97.9 I&O Intake and Output 04/01/18 07:00 Intake Total 1800 ml Output Total 400 ml Balance 1400 ml IV Total 900 ml Other 900 ml Output Urine Total 400 ml # Voids 5 General: Alert, Oriented X3, Cooperative, No acute distress Abdomen: Soft Labs Laboratory Tests Test 03/31/18 04:05 03/31/18 05:00 White Blood Count 8.3 x10^3/uL (4.0-11.0) Red Blood Count 2.93 x10^6/uL (3.50-5.40) Hemoglobin 9.5 g/dL (12.0-15.5) Hematocrit 27.8 % (36.0-47.0) Mean Corpuscular Volume 95 fL (79-100) Mean Corpuscular Hemoglobin 33 pg (25-35) Mean Corpuscular Hemoglobin Concent 34 g/dL (31-37) Red Cell Distribution Width 13.6 % (11.5-14.5) Platelet Count 412 x10^3/uL (140-400) Neutrophils (%) (Auto) 54 % (31-73) Lymphocytes (%) (Auto) 30 % (24-48) Monocytes (%) (Auto) 15 % (0-9) Eosinophils (%) (Auto) 1 % (0-3) Basophils (%) (Auto) 0 % (0-3) Neutrophils # (Auto) 4.5 x10^3uL (1.8-7.7) Lymphocytes # (Auto) 2.5 x10^3/uL (1.0-4.8) Monocytes # (Auto) 1.2 x10^3/uL (0.0-1.1) Eosinophils # (Auto) 0.1 x10^3/uL (0.0-0.7) Basophils # (Auto) 0.0 x10^3/uL (0.0-0.2) Sodium Level 140 mmol/L (136-145) Potassium Level 3.7 mmol/L (3.5-5.1) Chloride Level 104 mmol/L (98-107) Carbon Dioxide Level 30 mmol/L (21-32) Anion Gap 6 (6-14) Blood Urea Nitrogen 6 mg/dL (7-20) Creatinine 0.9 mg/dL (0.6-1.0) Estimated GFR (Cockcroft-Gault) 87.8 Glucose Level 99 mg/dL (70-99) Calcium Level 8.5 mg/dL (8.5-10.1) Problem List Problems Medical Problems: (1) Abdominal pain Status: Acute Assessment/Plan supportive care no gen surg recs 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
--- NOTE | 2018-04-01 11:39 | PDOC ---
Provider Note Provider Note C/O fatigue and anxiety Dressing intact Drain coming out D/C drain advanc diet Check CBC FU in AM Vital Sign - Last 24 Hours 03/31/18 03/31/18 03/31/18 03/31/18 11:38 12:31 15:00 17:08 Temp 98.7 98.7 Pulse 107 Resp 18 B/P (MAP) 136/94 (108) Pulse Ox 97 100 O2 Delivery Room Air Room Air Room Air 03/31/18 03/31/18 03/31/18 03/31/18 19:00 19:50 21:45 22:45 Temp 97.9 97.9 Pulse 102 Resp 18 20 20 B/P (MAP) 145/87 (106) Pulse Ox 100 O2 Delivery Room Air Room Air Room Air Room Air 03/31/18 04/01/18 04/01/18 04/01/18 22:57 03:00 07:00 08:24 Temp 97.7 97.9 98.4 97.7 97.9 98.4 Pulse 111 113 114 Resp 18 18 18 B/P (MAP) 138/81 (100) 125/87 (100) 133/85 (101) Pulse Ox 95 99 99 O2 Delivery Room Air Room Air Room Air Room Air Intake and Output 03/31/18 03/31/18 04/01/18 15:00 23:00 07:00 Intake Total 1800 ml Output Total 400 ml Balance 1400 ml ROXANE RIDDLE MD Apr 01, 2018 11:39
--- NOTE | 2018-04-01 12:04 | PDOC ---
Infectious Disease Note Subjective Subjective BLAYNE removed Pain controlled + flatus an BM Denies F/C/N/V/D/SOA/CP/cough ROS ROS per HPI otherwise neg Vital Sign Vital Signs Vital Signs Date Time Temp Pulse Resp B/P (MAP) Pulse Ox O2 Delivery O2 Flow Rate FiO2 04/01/18 08:24 Room Air 04/01/18 07:00 98.4 114 18 133/85 (101) 99 98.4 Physical Exam PHYSICAL EXAM GENERAL: Propped up in bed, conversing, smiling HEENT: Oral cavity, pharynx pink and moist. NECK: Supple. LUNGS: Diminished aeration in the bases. Nonlabored. HEART: S1 and S2, tachycardic ABDOMEN: Soft, mild tenderness. BS active, BLAYNE drain out. dressings are clean, dry, and intact. EXTREMITIES: No gross edema or cyanosis. SKIN: Warm without rash. NEUROLOGIC: Alert and oriented times 3. PIV Labs Micro 03/23/18 Blood Culture - Preliminary, Resulted NO GROWTH AFTER 1 DAY URINE CULTURE RES 1 Preliminary Escherichia coli Greater than 100,000 colony forming units per mL Objective Assessment Peritonitis with intra-abdominal abscesses, tubo ovarian and appendicitis s/p surgery 03/28. cultures no growth Leukocytosis - improved Ileus vs partial SBO Small right pneumothorax - resolving E. coli in urine POA Plan Plan of Care cont Zosyn Monitor labs/temp PT/OT as tolerated D/w RN Patient seen and examined. Chart reviewed in detail. Case discussed with OPERATIONS DIRECTOR. Agree with above Plan. SCOT VILLAGRAN APRN Apr 01, 2018 12:04 TREVA ROMERO MD Apr 01, 2018 19:19
[2018-04-01] MEDS: IBUPROFEN 400 MG TABLET. PO PRN (12:06)
[2018-04-01] MEDS: POTASSIUM CL 20MEQ D5-0.9%NACL 1,000 ML IV SCH ×2 (12:08→21:38)
[2018-04-01 12:51] LABS: BASO % 1 % (0-3); EOS # 0.1 x10^3/uL (0.0-0.7); EOS % 2 % (0-3); HEMATOCRIT 28.6 % (36.0-47.0); HEMOGLOBIN 9.9 g/dL (12.0-15.5); LYMPH # 1.8 x10^3/uL (1.0-4.8); LYMPH % 22 % (24-48); MEAN CORPUSCULAR HEMOGLOBIN 33 pg (25-35); MEAN CORPUSCULAR HGB CONC 35 g/dL (31-37); MEAN CORPUSCULAR VOLUME 95 fL (79-100); MONO # 1.1 x10^3/uL (0.0-1.1); MONO % 13 % (0-9); NEUT # 5.4 x10^3uL (1.8-7.7); NEUT % 63 % (31-73); PLATELET COUNT 494 x10^3/uL (140-400); RED CELL DISTRIBUTION WIDTH 13.9 % (11.5-14.5); WHITE BLOOD COUNT 8.5 x10^3/uL (4.0-11.0)
[2018-04-01 13:00] LABS: CALCIUM 8.6 mg/dL (8.5-10.1); GFR 77.7; POTASSIUM 3.7 mmol/L (3.5-5.1)
--- NOTE | 2018-04-01 13:06 | PDOC ---
PULMONARY PROGRESS NOTES Subjective NO RESP COMPLAINTS Vitals Vital Signs Date Time Temp Pulse Resp B/P (MAP) Pulse Ox O2 Delivery O2 Flow Rate FiO2 04/01/18 12:06 Room Air 04/01/18 11:00 97.7 103 16 142/83 (102) 98 97.7 General: Alert, No acute distress Lungs: Clear Cardiovascular: S1 Abdomen: Soft Neuro Exam: Alert Extremities: No Edema Skin: Warm Labs Laboratory Tests Test 03/31/18 04:05 03/31/18 05:00 04/01/18 12:27 White Blood Count 8.3 x10^3/uL (4.0-11.0) 8.5 x10^3/uL (4.0-11.0) Red Blood Count 2.93 x10^6/uL (3.50-5.40) 3.00 x10^6/uL (3.50-5.40) Hemoglobin 9.5 g/dL (12.0-15.5) 9.9 g/dL (12.0-15.5) Hematocrit 27.8 % (36.0-47.0) 28.6 % (36.0-47.0) Mean Corpuscular Volume 95 fL (79-100) 95 fL (79-100) Mean Corpuscular Hemoglobin 33 pg (25-35) 33 pg (25-35) Mean Corpuscular Hemoglobin Concent 34 g/dL (31-37) 35 g/dL (31-37) Red Cell Distribution Width 13.6 % (11.5-14.5) 13.9 % (11.5-14.5) Platelet Count 412 x10^3/uL (140-400) 494 x10^3/uL (140-400) Neutrophils (%) (Auto) 54 % (31-73) 63 % (31-73) Lymphocytes (%) (Auto) 30 % (24-48) 22 % (24-48) Monocytes (%) (Auto) 15 % (0-9) 13 % (0-9) Eosinophils (%) (Auto) 1 % (0-3) 2 % (0-3) Basophils (%) (Auto) 0 % (0-3) 1 % (0-3) Neutrophils # (Auto) 4.5 x10^3uL (1.8-7.7) 5.4 x10^3uL (1.8-7.7) Lymphocytes # (Auto) 2.5 x10^3/uL (1.0-4.8) 1.8 x10^3/uL (1.0-4.8) Monocytes # (Auto) 1.2 x10^3/uL (0.0-1.1) 1.1 x10^3/uL (0.0-1.1) Eosinophils # (Auto) 0.1 x10^3/uL (0.0-0.7) 0.1 x10^3/uL (0.0-0.7) Basophils # (Auto) 0.0 x10^3/uL (0.0-0.2) 0.0 x10^3/uL (0.0-0.2) Sodium Level 140 mmol/L (136-145) 139 mmol/L (136-145) Potassium Level 3.7 mmol/L (3.5-5.1) 3.7 mmol/L (3.5-5.1) Chloride Level 104 mmol/L (98-107) 103 mmol/L (98-107) Carbon Dioxide Level 30 mmol/L (21-32) 28 mmol/L (21-32) Anion Gap 6 (6-14) 8 (6-14) Blood Urea Nitrogen 6 mg/dL (7-20) 3 mg/dL (7-20) Creatinine 0.9 mg/dL (0.6-1.0) 1.0 mg/dL (0.6-1.0) Estimated GFR (Cockcroft-Gault) 87.8 77.7 Glucose Level 99 mg/dL (70-99) 124 mg/dL (70-99) Calcium Level 8.5 mg/dL (8.5-10.1) 8.6 mg/dL (8.5-10.1) Laboratory Tests Test 04/01/18 12:27 White Blood Count 8.5 x10^3/uL (4.0-11.0) Red Blood Count 3.00 x10^6/uL (3.50-5.40) Hemoglobin 9.9 g/dL (12.0-15.5) Hematocrit 28.6 % (36.0-47.0) Mean Corpuscular Volume 95 fL (79-100) Mean Corpuscular Hemoglobin 33 pg (25-35) Mean Corpuscular Hemoglobin Concent 35 g/dL (31-37) Red Cell Distribution Width 13.9 % (11.5-14.5) Platelet Count 494 x10^3/uL (140-400) Neutrophils (%) (Auto) 63 % (31-73) Lymphocytes (%) (Auto) 22 % (24-48) Monocytes (%) (Auto) 13 % (0-9) Eosinophils (%) (Auto) 2 % (0-3) Basophils (%) (Auto) 1 % (0-3) Neutrophils # (Auto) 5.4 x10^3uL (1.8-7.7) Lymphocytes # (Auto) 1.8 x10^3/uL (1.0-4.8) Monocytes # (Auto) 1.1 x10^3/uL (0.0-1.1) Eosinophils # (Auto) 0.1 x10^3/uL (0.0-0.7) Basophils # (Auto) 0.0 x10^3/uL (0.0-0.2) Sodium Level 139 mmol/L (136-145) Potassium Level 3.7 mmol/L (3.5-5.1) Chloride Level 103 mmol/L (98-107) Carbon Dioxide Level 28 mmol/L (21-32) Anion Gap 8 (6-14) Blood Urea Nitrogen 3 mg/dL (7-20) Creatinine 1.0 mg/dL (0.6-1.0) Estimated GFR (Cockcroft-Gault) 77.7 Glucose Level 124 mg/dL (70-99) Calcium Level 8.6 mg/dL (8.5-10.1) Medications Active Scripts Medications Dose Route/Sig Max Daily Dose Days Date Category One Daily For Women Tablet (Folic Acid/Mv,Fe,Other Min) 1 Each Tablet 1 Each PO 03/23/18 Reported Comments CXR 03/26 IMPRESSION: 1. Resolving tiny right apical pneumothorax. 2. Small residual left pleural effusion. Impression . 1. Spontaneous small right-sided pneumothorax. She is a nonsmoker. The etiology of pneumothorax is not so obvious, but possibility of catamenial pneumothorax cannot be ruled out. She just finished her period 03/23. The other possibility would be related to endometriosis with the possibility of rupture of diaphragmatic endometrial implant. She does not have any cysts in lungs and as such no clinical suspicion for lymphangioleiomyomatosis or Langerhan's cell Histiocytosis X 2. Suspected tubo-ovarian abscess / early peritonitis. No obvious abdominal endometriosis was reported. 3. No significant history of tobacco use. 4. Possible ruptured appendicitis. PREOPERATIVE DIAGNOSIS: Abdominopelvic abscesses. POSTOPERATIVE DIAGNOSES: 1. Abdominopelvic abscesses. 2. Left tubo-ovarian abscess. 3. Inflamed appendix. PROCEDURE: 1. Open laparotomy with left salpingo-oophorectomy. 2. Appendectomy. CXR REVIEWED NO PTX SEEN Plan . HOPEFULLY D/C IN AM UP TO CHAIR/IS RESP STATUS IS COMPENSATED WILL CONTINUE THE SAME ADVANCE DIET PER SURGEON JOYCE GUTIERRES MD Apr 01, 2018 13:06
--- NOTE | 2018-04-01 13:28 | PDOC ---
PROGRESS NOTES Chief Complaint Chief Complaint Post-op left salpingo-oophorectomy and appendectomy Abdominal/pelvic pain - resolving Abdominal mass Small R pneumothorax Leukocytosis HTN History of Present Illness History of Present Illness Pt seen and examined while sitting upright in bed Pt appeared, and stated, that she was very tired and ready to go home Discussed w/surg - no concerns Vitals Vitals Vital Signs Date Time Temp Pulse Resp B/P (MAP) Pulse Ox O2 Delivery O2 Flow Rate FiO2 04/01/18 12:06 Room Air 04/01/18 11:00 97.7 103 16 142/83 (102) 98 97.7 Physical Exam Physical Exam HEENT: Oral cavity, pharynx pink and moist Neck: Supple, no JVD General: Alert, Oriented X3, Cooperative, No acute distress, Other (Propped up in bed, appeared tired) Heart: Regular rate, No murmurs Lungs: Clear Abdomen: Normal bowel sounds, Soft Extremities: No cyanosis, Other (B/l LE edema) Skin: No rashes, No breakdown, No significant lesion Labs LABS Laboratory Tests Test 04/01/18 12:27 White Blood Count 8.5 x10^3/uL (4.0-11.0) Red Blood Count 3.00 x10^6/uL (3.50-5.40) Hemoglobin 9.9 g/dL (12.0-15.5) Hematocrit 28.6 % (36.0-47.0) Mean Corpuscular Volume 95 fL (79-100) Mean Corpuscular Hemoglobin 33 pg (25-35) Mean Corpuscular Hemoglobin Concent 35 g/dL (31-37) Red Cell Distribution Width 13.9 % (11.5-14.5) Platelet Count 494 x10^3/uL (140-400) Neutrophils (%) (Auto) 63 % (31-73) Lymphocytes (%) (Auto) 22 % (24-48) Monocytes (%) (Auto) 13 % (0-9) Eosinophils (%) (Auto) 2 % (0-3) Basophils (%) (Auto) 1 % (0-3) Neutrophils # (Auto) 5.4 x10^3uL (1.8-7.7) Lymphocytes # (Auto) 1.8 x10^3/uL (1.0-4.8) Monocytes # (Auto) 1.1 x10^3/uL (0.0-1.1) Eosinophils # (Auto) 0.1 x10^3/uL (0.0-0.7) Basophils # (Auto) 0.0 x10^3/uL (0.0-0.2) Sodium Level 139 mmol/L (136-145) Potassium Level 3.7 mmol/L (3.5-5.1) Chloride Level 103 mmol/L (98-107) Carbon Dioxide Level 28 mmol/L (21-32) Anion Gap 8 (6-14) Blood Urea Nitrogen 3 mg/dL (7-20) Creatinine 1.0 mg/dL (0.6-1.0) Estimated GFR (Cockcroft-Gault) 77.7 Glucose Level 124 mg/dL (70-99) Calcium Level 8.6 mg/dL (8.5-10.1) Review of Systems Review of Systems C/o fatigue and feeling of heaviness in legs States b/l LE edema appears to be improving States she is trying to eat more Denies chest pain, SOB Assessment and Plan Assessmemt and Plan Problems Medical Problems: (1) Abdominal pain Status: Acute Assessment: Post-op left salpingo-oophorectomy and appendectomy Abdominal/pelvic pain - resolving Abdominal mass Small R pneumothorax Leukocytosis HTN Plan: Labs Encourage more PO intake Encourage ambulation Cont PT/OT w/focus on b/l LE edema Cont IV abx PRN pain meds Cont wound care Possible d/c Monday Comment Review of Relevant I have reviewed the following items lo (where applicable) has been applied. Labs Laboratory Tests Test 03/31/18 04:05 03/31/18 05:00 04/01/18 12:27 White Blood Count 8.3 x10^3/uL (4.0-11.0) 8.5 x10^3/uL (4.0-11.0) Red Blood Count 2.93 x10^6/uL (3.50-5.40) 3.00 x10^6/uL (3.50-5.40) Hemoglobin 9.5 g/dL (12.0-15.5) 9.9 g/dL (12.0-15.5) Hematocrit 27.8 % (36.0-47.0) 28.6 % (36.0-47.0) Mean Corpuscular Volume 95 fL (79-100) 95 fL (79-100) Mean Corpuscular Hemoglobin 33 pg (25-35) 33 pg (25-35) Mean Corpuscular Hemoglobin Concent 34 g/dL (31-37) 35 g/dL (31-37) Red Cell Distribution Width 13.6 % (11.5-14.5) 13.9 % (11.5-14.5) Platelet Count 412 x10^3/uL (140-400) 494 x10^3/uL (140-400) Neutrophils (%) (Auto) 54 % (31-73) 63 % (31-73) Lymphocytes (%) (Auto) 30 % (24-48) 22 % (24-48) Monocytes (%) (Auto) 15 % (0-9) 13 % (0-9) Eosinophils (%) (Auto) 1 % (0-3) 2 % (0-3) Basophils (%) (Auto) 0 % (0-3) 1 % (0-3) Neutrophils # (Auto) 4.5 x10^3uL (1.8-7.7) 5.4 x10^3uL (1.8-7.7) Lymphocytes # (Auto) 2.5 x10^3/uL (1.0-4.8) 1.8 x10^3/uL (1.0-4.8) Monocytes # (Auto) 1.2 x10^3/uL (0.0-1.1) 1.1 x10^3/uL (0.0-1.1) Eosinophils # (Auto) 0.1 x10^3/uL (0.0-0.7) 0.1 x10^3/uL (0.0-0.7) Basophils # (Auto) 0.0 x10^3/uL (0.0-0.2) 0.0 x10^3/uL (0.0-0.2) Sodium Level 140 mmol/L (136-145) 139 mmol/L (136-145) Potassium Level 3.7 mmol/L (3.5-5.1) 3.7 mmol/L (3.5-5.1) Chloride Level 104 mmol/L (98-107) 103 mmol/L (98-107) Carbon Dioxide Level 30 mmol/L (21-32) 28 mmol/L (21-32) Anion Gap 6 (6-14) 8 (6-14) Blood Urea Nitrogen 6 mg/dL (7-20) 3 mg/dL (7-20) Creatinine 0.9 mg/dL (0.6-1.0) 1.0 mg/dL (0.6-1.0) Estimated GFR (Cockcroft-Gault) 87.8 77.7 Glucose Level 99 mg/dL (70-99) 124 mg/dL (70-99) Calcium Level 8.5 mg/dL (8.5-10.1) 8.6 mg/dL (8.5-10.1) Laboratory Tests Test 04/01/18 12:27 White Blood Count 8.5 x10^3/uL (4.0-11.0) Red Blood Count 3.00 x10^6/uL (3.50-5.40) Hemoglobin 9.9 g/dL (12.0-15.5) Hematocrit 28.6 % (36.0-47.0) Mean Corpuscular Volume 95 fL (79-100) Mean Corpuscular Hemoglobin 33 pg (25-35) Mean Corpuscular Hemoglobin Concent 35 g/dL (31-37) Red Cell Distribution Width 13.9 % (11.5-14.5) Platelet Count 494 x10^3/uL (140-400) Neutrophils (%) (Auto) 63 % (31-73) Lymphocytes (%) (Auto) 22 % (24-48) Monocytes (%) (Auto) 13 % (0-9) Eosinophils (%) (Auto) 2 % (0-3) Basophils (%) (Auto) 1 % (0-3) Neutrophils # (Auto) 5.4 x10^3uL (1.8-7.7) Lymphocytes # (Auto) 1.8 x10^3/uL (1.0-4.8) Monocytes # (Auto) 1.1 x10^3/uL (0.0-1.1) Eosinophils # (Auto) 0.1 x10^3/uL (0.0-0.7) Basophils # (Auto) 0.0 x10^3/uL (0.0-0.2) Sodium Level 139 mmol/L (136-145) Potassium Level 3.7 mmol/L (3.5-5.1) Chloride Level 103 mmol/L (98-107) Carbon Dioxide Level 28 mmol/L (21-32) Anion Gap 8 (6-14) Blood Urea Nitrogen 3 mg/dL (7-20) Creatinine 1.0 mg/dL (0.6-1.0) Estimated GFR (Cockcroft-Gault) 77.7 Glucose Level 124 mg/dL (70-99) Calcium Level 8.6 mg/dL (8.5-10.1) Microbiology 03/23/18 Blood Culture - Final, Complete NO GROWTH AFTER 5 DAYS 03/28/18 Gram Stain - Final, Complete 03/23/18 Urine Culture - Final, Complete 03/23/18 Urine Culture Result 1 (THOM) - Final, Complete 03/23/18 Antimicrobic Susceptibility - Final, Complete Medications Current Medications Fentanyl Citrate (Fentanyl 2ml Vial) 50 mcg PRN Q30MIN PRN IV SEVERE PAIN Last administered on 03/23/18at 14:32; Start 03/23/18 at 11:45; Stop 03/23/18 at 14 :33; Status DC Sodium Chloride 1,000 ml @ 1,000 mls/hr Q1H IV Last administered on at 11:42; Start 03/23/18 at 11:31; Stop 03/23/18 at 12:30; Status DC Ondansetron HCl (Zofran) 4 mg 1X ONCE IV Last administered on 03/23/18at 11:42 ; Start 03/23/18 at 11:45; Stop 03/23/18 at 11:46; Status DC Iohexol (Omnipaque 300 Mg/ml) 75 ml 1X ONCE IV Last administered on at 12:30; Start 03/23/18 at 12:00; Stop 03/23/18 at 12:01; Status DC Info (CONTRAST GIVEN -- Rx MONITORING) 1 each PRN DAILY PRN MC SEE COMMENTS; Start 03/23/18 at 12:00; Stop 03/25/18 at 11:59; Status DC Piperacillin Sod/ Tazobactam Sod (Zosyn Per Pharmacy) 1 each PRN DAILY PRN MC SEE COMMENTS; Start 03/23/18 at 13:30; Status UNV Doxycycline Hyclate 100 mg/ Dextrose 100 ml @ 50 mls/hr 1X ONCE IV Last administered on 03/23/18at 14:32; Start 03/23/18 at 13:30; Stop 03/23/18 at 15 :29; Status DC Piperacillin Sod/ Tazobactam Sod 3.375 gm/Sodium Chloride 50 ml @ 100 mls/hr 1X ONCE IV Last administered on 03/23/18at 13:48; Start 03/23/18 at 13:30; Stop 03/23/18 at 14:02; Status DC Sodium Chloride 1,000 ml @ 1,000 mls/hr 1X ONCE IV ; Start 03/23/18 at 14:30 ; Stop 03/23/18 at 15:29; Status DC Acetaminophen (Tylenol) 650 mg PRN Q6HRS PRN PO FEVER Last administered on at 20:22; Start 03/23/18 at 15:30 Ondansetron HCl (Zofran) 4 mg PRN Q6HRS PRN IV NAUSEA/VOMITING Last administered on 03/29/18at 18:24; Start 03/23/18 at 15:30 Morphine Sulfate (Morphine Sulfate) 2 mg PRN Q2HR PRN IV MODERATE TO SEVERE PAIN; Start 03/23/18 at 15:30; Status UNV Tramadol HCl (Ultram) 50 mg PRN Q6HRS PRN PO MILD PAIN Last administered on at 19:27; Start 03/23/18 at 15:30; Stop 03/30/18 at 14:26; Status DC Docusate Sodium (Colace) 100 mg PRN DAILY PRN PO CONSTIPATION, 3RD CHOICE Last administered on 03/25/18at 20:30; Start 03/23/18 at 15:30 Piperacillin Sod/ Tazobactam Sod 4.5 gm/Sodium Chloride 100 ml @ 200 mls/hr Q6HRS IV Last administered on 04/01/18at 12:09; Start 03/23/18 at 18:00 Piperacillin Sod/ Tazobactam Sod (Zosyn Per Pharmacy) 1 each PRN DAILY PRN MC SEE COMMENTS; Start 03/23/18 at 15:30 Morphine Sulfate (Morphine Sulfate) 2 mg PRN Q2HR PRN IV MILD-MODERATE PAIN Last administered on 03/28/18at 11:22; Start 03/23/18 at 15:30; Stop 03/29/18 at 05:50; Status DC Morphine Sulfate (Morphine Sulfate) 4 mg PRN Q2HR PRN IV SEVERE PAIN Last administered on 03/24/18at 06:01; Start 03/23/18 at 15:30; Stop 03/29/18 at 05 :50; Status DC Potassium Chloride/Dextrose/ Sod Cl 1,000 ml @ 75 mls/hr [id number] IV Last administered on 04/01/18at 12:08; Start 03/23/18 at 15:30 Famotidine (Pepcid Vial) 20 mg QHS IVP Last administered on 03/31/18at 21:40; Start 03/23/18 at 21:00 Heparin Sodium (Porcine) (Heparin Sodium) 5,000 unit Q8HRS SQ Last administered on 03/30/18at 07:01; Start 03/23/18 at 16:00; Stop 03/30/18 at 14 :26; Status DC Vancomycin HCl 1.5 gm/Sodium Chloride 500 ml @ 250 mls/hr Q12H IV ; Start at 17:15; Status UNV Vancomycin HCl (Vanco Per Pharmacy) 1 each PRN DAILY PRN MC SEE COMMENTS Last administered on 03/24/18at 08:35; Start 03/23/18 at 17:15; Stop 03/24/18 at 14 :57; Status DC Vancomycin HCl 1.5 gm/Sodium Chloride 500 ml @ 250 mls/hr 1X ONCE IV Last administered on 03/23/18at 18:03; Start 03/23/18 at 17:30; Stop 03/23/18 at 19 :29; Status DC Influenza Virus Vaccine (Afluria Trivalent [id number] Syringe) 0.5 ml ONCE ONCE VAX IM Last administered on 03/27/18at 08:35; Start 03/27/18 at 09:00; Stop 03/27/18 at 09:01; Status DC Vancomycin HCl 1 gm/Sodium Chloride 250 ml @ 250 mls/hr Q12H IV Last administered on 03/24/18at 05:54; Start 03/24/18 at 06:00; Stop 03/24/18 at 14 :57; Status DC Vancomycin HCl (Vancomycin Trough Level) 1 each 1X ONCE MC ; Start 03/25/18 at 05:30; Stop 03/25/18 at 05:31; Status Cancel Metoprolol Tartrate (Lopressor Vial) 5 mg Q6HRS IVP ; Start 03/23/18 at 21:00; Stop 03/23/18 at 21:55; Status DC Metoprolol Tartrate (Lopressor Vial) 5 mg PRN Q6HRS PRN IVP TACHYCARDIA Last administered on 03/29/18at 21:21; Start 03/23/18 at 22:00 Lactobacillus Rhamnosus (Culturelle) 1 cap BID PO Last administered on at 08:23; Start 03/24/18 at 09:00 Potassium Chloride (Klor-Con) 20 meq BIDBFRMEAL PO Last administered on at 08:49; Start 03/24/18 at 10:00; Stop 03/30/18 at 14:26; Status DC Polyethylene Glycol (miraLAX PACKET) 17 gm DAILY PO Last administered on at 08:30; Start 03/24/18 at 10:30; Stop 03/30/18 at 14:26; Status DC Psyllium Hydrophilic Mucilloid (Metamucil Fiber Packet) 1 pkt DAILY PO Last administered on 03/26/18at 08:30; Start 03/24/18 at 10:30 Lactulose (Lactulose) 20 gm PRN DAILY PRN PO CONSTIPATION, 2ND CHOICE Last administered on 03/24/18at 16:47; Start 03/24/18 at 10:15 Senna/Docusate Sodium (Senna Plus) 2 tab PRN BID PRN PO CONSTIPATION, 1ST CHOICE Last administered on 03/31/18at 08:07; Start 03/24/18 at 10:15 Doxycycline Hyclate (Vibra-Tab) 100 mg BID PO Last administered on 03/27/18at 08:33; Start 03/24/18 at 21:00; Stop 03/27/18 at 09:46; Status DC Phenazopyridine HCl (Pyridium) 200 mg 1X ONCE PO Last administered on at 14:57; Start 03/25/18 at 14:30; Stop 03/25/18 at 14:31; Status DC Acetaminophen/ Hydrocodone Bitart (Lortab 5/325) 1 tab PRN Q4HRS PRN PO MODERATE TO SEVERE PAIN Last administered on 04/01/18at 12:06; Start 03/25/18 at 19:45 Ondansetron HCl (Zofran) 4 mg PRN Q6HRS PRN IV NAUSEA/VOMITING; Start at 07:00; Stop 03/28/18 at 18:00; Status DC Fentanyl Citrate (Fentanyl 2ml Vial) 25 mcg PRN Q5MIN PRN IV MILD PAIN; Start 03/28/18 at 07:00; Stop 03/28/18 at 18:00; Status DC Fentanyl Citrate (Fentanyl 2ml Vial) 50 mcg PRN Q5MIN PRN IV MODERATE TO SEVERE PAIN Last administered on 03/28/18at 16:21; Start 03/28/18 at 07:00; Stop 03/28/18 at 18:00; Status DC Morphine Sulfate (Morphine Sulfate) 1 mg PRN Q10MIN PRN IV SEVERE PAIN; Start 03/28/18 at 07:00; Stop 03/28/18 at 18:00; Status DC Ringer's Solution 1,000 ml @ 30 mls/hr Q24H IV Last administered on at 12:10; Start 03/28/18 at 07:00; Stop 03/28/18 at 18:59; Status DC Lidocaine HCl (Xylocaine-Mpf 1% 2ml Vial) 2 ml PRN 1X PRN ID IV START; Start 03/28/18 at 07:00; Stop 03/28/18 at 18:00; Status DC Hydromorphone HCl (Dilaudid) 0.5 mg PRN Q10MIN PRN IV SEV PAIN, Second choice; Start 03/28/18 at 07:00; Stop 03/28/18 at 18:00; Status DC Prochlorperazine Edisylate (Compazine) 5 mg PACU PRN PRN IV NAUSEA, MRX1; Start 03/28/18 at 07:00; Stop 03/28/18 at 18:00; Status DC Propofol 20 ml @ As Directed STK-MED ONCE IV ; Start 03/28/18 at 13:04; Stop 03/28/18 at 13:05; Status DC Lidocaine HCl (Lidocaine Pf 2% Vial) 5 ml STK-MED ONCE .ROUTE ; Start 03/28/18 at 13:04; Stop 03/28/18 at 13:05; Status DC Rocuronium [place] (Zemuron) 50 mg STK-MED ONCE .ROUTE ; Start 03/28/18 at 13: 04; Stop 03/28/18 at 13:05; Status DC Fentanyl Citrate (Fentanyl 2ml Vial) 100 mcg STK-MED ONCE .ROUTE ; Start at 13:04; Stop 03/28/18 at 13:05; Status DC Midazolam HCl (Versed) 2 mg STK-MED ONCE .ROUTE ; Start 03/28/18 at 13:04; Stop 03/28/18 at 13:05; Status DC Metronidazole 100 ml @ 200 mls/hr 1X ONCE IV Last administered on 03/28/18at 14:23; Start 03/28/18 at 14:30; Stop 03/28/18 at 14:59; Status DC Dexamethasone Sodium Phosphate (Decadron) 20 mg STK-MED ONCE .ROUTE ; Start at 14:48; Stop 03/28/18 at 14:49; Status DC Ondansetron HCl (Zofran) 4 mg STK-MED ONCE .ROUTE ; Start 03/28/18 at 14:48; Stop 03/28/18 at 14:49; Status DC Sevoflurane (Ultane) 60 ml STK-MED ONCE IH ; Start 03/28/18 at 14:48; Stop at 14:49; Status DC Glycopyrrolate (Robinul) 1 mg STK-MED ONCE .ROUTE ; Start 03/28/18 at 14:54; Stop 03/28/18 at 14:55; Status DC Neostigmine Methylsulfate (Neostigmine Methylsulfate) 5 mg STK-MED ONCE .ROUTE ; Start 03/28/18 at 14:55; Stop 03/28/18 at 14:56; Status DC Fentanyl Citrate (Fentanyl 2ml Vial) 100 mcg STK-MED ONCE .ROUTE ; Start at 15:15; Stop 03/28/18 at 15:16; Status DC Calcium Carbonate/ Glycine (Tums) 500 mg PRN Q3HRS PRN PO HEARTBURN / GAS; Start 03/28/18 at 16:00 Simethicone (Gas-X) 80 mg PRN AFTMEALHC PRN PO GAS / BLOATING; Start 03/28/18 at 16:00 Zolpidem Tartrate (Ambien) 5 mg PRN QHS PRN PO INSOMNIA, MAY REPEAT IN 1HR Last administered on 03/31/18at 21:44; Start 03/28/18 at 16:00 Diphenhydramine HCl (Benadryl) 25 mg PRN Q6HRS PRN PO ITCHING; Start 03/28/18 at 16:00 Sodium Chloride (Normal Saline Flush) 3 ml QSHIFT PRN IV AFTER MEDS AND BLOOD DRAWS; Start 03/28/18 at 16:00 Dextrose (Dextrose 50%-Water Syringe) 12.5 gm PRN Q15MIN PRN IV SEE COMMENTS; Start 03/28/18 at 16:00 Ketorolac Tromethamine (Toradol 30mg Vial) 30 mg PRN Q6HRS PRN IV MILD PAIN; Start 03/28/18 at 16:00; Stop 03/30/18 at 14:26; Status DC Ondansetron HCl (Zofran) 4 mg PRN Q6HRS PRN IV NAUESA, 1ST CHOICE; Start 03/28 at 16:00; Status UNV Prochlorperazine Edisylate (Compazine) 5 mg PRN Q6HRS PRN IV N/V, 2nd Choice, MR X1; Start 03/28/18 at 16:00; Status UNV Piperacillin Sod/ Tazobactam Sod 3.375 gm/Sodium Chloride 50 ml @ 100 mls/hr Q6HRS IV ; Start 03/28/18 at 18:00; Status UNV Metronidazole 100 ml @ 100 mls/hr Q12HR IV ; Start 03/28/18 at 21:00; Status UNV Hydromorphone HCl 30 ml @ 0 mls/hr CONT PRN PRN IV PER PROTOCOL Last administered on 03/29/18at 11:06; Start 03/28/18 at 16:00; Stop 03/30/18 at 14 :26; Status DC Fentanyl Citrate (Fentanyl 2ml Vial) 100 mcg STK-MED ONCE .ROUTE ; Start at 16:07; Stop 03/28/18 at 16:08; Status DC Ibuprofen (Motrin) 800 mg PRN Q8HRS PRN PO INFLAMMATION Last administered on at 12:06; Start 03/30/18 at 14:30 Active Scripts Active Reported One Daily For Women Tablet (Folic Acid/Mv,Fe,Other Min) 1 Each Tablet 1 Each PO Vitals/I & O Vital Sign - Last 24 Hours 03/31/18 03/31/18 03/31/18 03/31/18 15:00 17:08 19:00 19:50 Temp 98.7 97.9 98.7 97.9 Pulse 107 102 Resp 18 18 B/P (MAP) 136/94 (108) 145/87 (106) Pulse Ox 100 100 O2 Delivery Room Air Room Air Room Air Room Air 03/31/18 03/31/18 03/31/18 04/01/18 21:45 22:45 22:57 03:00 Temp 97.7 97.9 97.7 97.9 Pulse 111 113 Resp 20 20 18 18 B/P (MAP) 138/81 (100) 125/87 (100) Pulse Ox 95 99 O2 Delivery Room Air Room Air Room Air Room Air 04/01/18 04/01/18 04/01/18 04/01/18 07:00 08:24 11:00 12:06 Temp 98.4 97.7 98.4 97.7 Pulse 114 103 Resp 18 16 B/P (MAP) 133/85 (101) 142/83 (102) Pulse Ox 99 98 O2 Delivery Room Air Room Air Room Air Room Air Intake and Output 03/31/18 03/31/18 04/01/18 15:00 23:00 07:00 Intake Total 1800 ml Output Total 400 ml Balance 1400 ml Nutrition Consultation Dietary Evaluation: Recommendations by RD: Increase Calorie Intake, Protein supplementation Comments: REC advance diet as tolerated, honor food preferences, provide snacks as requested REC Ensure (strawberry) TID Expected Outcomes/Goals: PO intake to meet >75% est needs Malnutrition Findings: Food and Nutrition Intake (Mod: <75% est energy req 7days Weight Status: Appropriate KORY RICHARDSONL K III DO Apr 01, 2018 13:28
[2018-04-01] MEDS: FAMOTIDINE 20 MG/2 ML VIAL IVP SCH (21:36)
[2018-04-01] MEDS: ZOLPIDEM 5 MG TABLET. PO PRN (21:36)
[2018-04-02 03:00] VITALS: BP 135/82
[2018-04-02] MEDS: HYDROcodone/APAP 5/325MG 1 TAB TABLET PO PRN ×5 (03:04→22:22)
[2018-04-02 05:38] LABS: BASO % 0 % (0-3); EOS # 0.2 x10^3/uL (0.0-0.7); EOS % 2 % (0-3); HEMATOCRIT 26.2 % (36.0-47.0); LYMPH % 29 % (24-48); MEAN CORPUSCULAR HEMOGLOBIN 33 pg (25-35); MEAN CORPUSCULAR HGB CONC 34 g/dL (31-37); MEAN CORPUSCULAR VOLUME 95 fL (79-100); MONO # 0.9 x10^3/uL (0.0-1.1); MONO % 13 % (0-9); NEUT # 3.9 x10^3uL (1.8-7.7); NEUT % 55 % (31-73); PLATELET COUNT 467 x10^3/uL (140-400); RED BLOOD COUNT 2.75 x10^6/uL (3.50-5.40); RED CELL DISTRIBUTION WIDTH 13.6 % (11.5-14.5)
[2018-04-02 05:43] LABS: CALCIUM 8.7 mg/dL (8.5-10.1); CREATININE 0.9 mg/dL (0.6-1.0); GFR 87.8; POTASSIUM 3.6 mmol/L (3.5-5.1)
[2018-04-02] MEDS: PIPERACILLIN/TAZOBACTAM 4.5 GM in IV NORMAL SALINE 100ML 100 ML IV SCH ×4 (06:18→11:42)
[2018-04-02 07:00] VITALS: BP 138/88
[2018-04-02] MEDS: PSYLLIUM HUSK (SUGAR FREE) 1 PKT PACKET PO SCH (08:37)
[2018-04-02] MEDS: POTASSIUM CL 20MEQ D5-0.9%NACL 1,000 ML IV SCH ×2 (08:38→11:43)
--- NOTE | 2018-04-02 09:14 | PDOC ---
PULMONARY PROGRESS NOTES Subjective NO RESP COMPLAINTS Vitals Vital Signs Date Time Temp Pulse Resp B/P (MAP) Pulse Ox O2 Delivery O2 Flow Rate FiO2 04/02/18 07:00 98.7 102 18 138/88 (105) 97 Room Air 98.7 General: Alert, No acute distress Lungs: Clear Cardiovascular: S1 Abdomen: Soft Neuro Exam: Alert Extremities: No Edema Skin: Warm Labs Laboratory Tests Test 04/01/18 12:27 04/02/18 04:00 White Blood Count 8.5 x10^3/uL (4.0-11.0) 7.0 x10^3/uL (4.0-11.0) Red Blood Count 3.00 x10^6/uL (3.50-5.40) 2.75 x10^6/uL (3.50-5.40) Hemoglobin 9.9 g/dL (12.0-15.5) 9.0 g/dL (12.0-15.5) Hematocrit 28.6 % (36.0-47.0) 26.2 % (36.0-47.0) Mean Corpuscular Volume 95 fL (79-100) 95 fL (79-100) Mean Corpuscular Hemoglobin 33 pg (25-35) 33 pg (25-35) Mean Corpuscular Hemoglobin Concent 35 g/dL (31-37) 34 g/dL (31-37) Red Cell Distribution Width 13.9 % (11.5-14.5) 13.6 % (11.5-14.5) Platelet Count 494 x10^3/uL (140-400) 467 x10^3/uL (140-400) Neutrophils (%) (Auto) 63 % (31-73) 55 % (31-73) Lymphocytes (%) (Auto) 22 % (24-48) 29 % (24-48) Monocytes (%) (Auto) 13 % (0-9) 13 % (0-9) Eosinophils (%) (Auto) 2 % (0-3) 2 % (0-3) Basophils (%) (Auto) 1 % (0-3) 0 % (0-3) Neutrophils # (Auto) 5.4 x10^3uL (1.8-7.7) 3.9 x10^3uL (1.8-7.7) Lymphocytes # (Auto) 1.8 x10^3/uL (1.0-4.8) 2.0 x10^3/uL (1.0-4.8) Monocytes # (Auto) 1.1 x10^3/uL (0.0-1.1) 0.9 x10^3/uL (0.0-1.1) Eosinophils # (Auto) 0.1 x10^3/uL (0.0-0.7) 0.2 x10^3/uL (0.0-0.7) Basophils # (Auto) 0.0 x10^3/uL (0.0-0.2) 0.0 x10^3/uL (0.0-0.2) Sodium Level 139 mmol/L (136-145) 141 mmol/L (136-145) Potassium Level 3.7 mmol/L (3.5-5.1) 3.6 mmol/L (3.5-5.1) Chloride Level 103 mmol/L (98-107) 106 mmol/L (98-107) Carbon Dioxide Level 28 mmol/L (21-32) 27 mmol/L (21-32) Anion Gap 8 (6-14) 8 (6-14) Blood Urea Nitrogen 3 mg/dL (7-20) 3 mg/dL (7-20) Creatinine 1.0 mg/dL (0.6-1.0) 0.9 mg/dL (0.6-1.0) Estimated GFR (Cockcroft-Gault) 77.7 87.8 Glucose Level 124 mg/dL (70-99) 100 mg/dL (70-99) Calcium Level 8.6 mg/dL (8.5-10.1) 8.7 mg/dL (8.5-10.1) Laboratory Tests Test 04/01/18 12:27 04/02/18 04:00 White Blood Count 8.5 x10^3/uL (4.0-11.0) 7.0 x10^3/uL (4.0-11.0) Red Blood Count 3.00 x10^6/uL (3.50-5.40) 2.75 x10^6/uL (3.50-5.40) Hemoglobin 9.9 g/dL (12.0-15.5) 9.0 g/dL (12.0-15.5) Hematocrit 28.6 % (36.0-47.0) 26.2 % (36.0-47.0) Mean Corpuscular Volume 95 fL (79-100) 95 fL (79-100) Mean Corpuscular Hemoglobin 33 pg (25-35) 33 pg (25-35) Mean Corpuscular Hemoglobin Concent 35 g/dL (31-37) 34 g/dL (31-37) Red Cell Distribution Width 13.9 % (11.5-14.5) 13.6 % (11.5-14.5) Platelet Count 494 x10^3/uL (140-400) 467 x10^3/uL (140-400) Neutrophils (%) (Auto) 63 % (31-73) 55 % (31-73) Lymphocytes (%) (Auto) 22 % (24-48) 29 % (24-48) Monocytes (%) (Auto) 13 % (0-9) 13 % (0-9) Eosinophils (%) (Auto) 2 % (0-3) 2 % (0-3) Basophils (%) (Auto) 1 % (0-3) 0 % (0-3) Neutrophils # (Auto) 5.4 x10^3uL (1.8-7.7) 3.9 x10^3uL (1.8-7.7) Lymphocytes # (Auto) 1.8 x10^3/uL (1.0-4.8) 2.0 x10^3/uL (1.0-4.8) Monocytes # (Auto) 1.1 x10^3/uL (0.0-1.1) 0.9 x10^3/uL (0.0-1.1) Eosinophils # (Auto) 0.1 x10^3/uL (0.0-0.7) 0.2 x10^3/uL (0.0-0.7) Basophils # (Auto) 0.0 x10^3/uL (0.0-0.2) 0.0 x10^3/uL (0.0-0.2) Sodium Level 139 mmol/L (136-145) 141 mmol/L (136-145) Potassium Level 3.7 mmol/L (3.5-5.1) 3.6 mmol/L (3.5-5.1) Chloride Level 103 mmol/L (98-107) 106 mmol/L (98-107) Carbon Dioxide Level 28 mmol/L (21-32) 27 mmol/L (21-32) Anion Gap 8 (6-14) 8 (6-14) Blood Urea Nitrogen 3 mg/dL (7-20) 3 mg/dL (7-20) Creatinine 1.0 mg/dL (0.6-1.0) 0.9 mg/dL (0.6-1.0) Estimated GFR (Cockcroft-Gault) 77.7 87.8 Glucose Level 124 mg/dL (70-99) 100 mg/dL (70-99) Calcium Level 8.6 mg/dL (8.5-10.1) 8.7 mg/dL (8.5-10.1) Medications Active Scripts Medications Dose Route/Sig Max Daily Dose Days Date Category One Daily For Women Tablet (Folic Acid/Mv,Fe,Other Min) 1 Each Tablet 1 Each PO 03/23/18 Reported Comments CXR 03/26 IMPRESSION: 1. Resolving tiny right apical pneumothorax. 2. Small residual left pleural effusion. Impression . 1. Spontaneous small right-sided pneumothorax. She is a nonsmoker. The etiology of pneumothorax is not so obvious, but possibility of catamenial pneumothorax cannot be ruled out. She just finished her period 03/23. The other possibility would be related to endometriosis with the possibility of rupture of diaphragmatic endometrial implant. She does not have any cysts in lungs and as such no clinical suspicion for lymphangioleiomyomatosis or Langerhan's cell Histiocytosis X 2. Suspected tubo-ovarian abscess / early peritonitis. No obvious abdominal endometriosis was reported. 3. No significant history of tobacco use. 4. Possible ruptured appendicitis. PREOPERATIVE DIAGNOSIS: Abdominopelvic abscesses. POSTOPERATIVE DIAGNOSES: 1. Abdominopelvic abscesses. 2. Left tubo-ovarian abscess. 3. Inflamed appendix. PROCEDURE: 1. Open laparotomy with left salpingo-oophorectomy. 2. Appendectomy. CXR REVIEWED NO PTX SEEN Plan . PT NOT SEEN ...I WILL S/O D/W WITH ID ANTIBX PER ID CALL IF NEEDED JOYCE GUTIERRES MD Apr 02, 2018 09:14
[2018-04-02] MEDS: IBUPROFEN 400 MG TABLET. PO PRN (09:38)
[2018-04-02] MEDS: LACTOBACILLUS RHAMNOSUS GG 1 CAPSULE. PO SCH ×2 (09:45→22:22)
--- NOTE | 2018-04-02 10:08 | PDOC ---
SURGICAL PROGRESS NOTE Subjective tolerating diet having loose stool no emesis Vital Signs Vital Signs Date Time Temp Pulse Resp B/P (MAP) Pulse Ox O2 Delivery O2 Flow Rate FiO2 04/02/18 09:39 Room Air 04/02/18 07:00 98.7 102 18 138/88 (105) 97 98.7 I&O Intake and Output 04/02/18 07:00 Intake Total 1275 ml Balance 1275 ml IV Total 900 ml Other 375 ml # Voids 6 # Bowel Movements 4 General: Alert, Oriented X3, Cooperative, No acute distress Abdomen: Soft Labs Laboratory Tests Test 04/01/18 12:27 04/02/18 04:00 White Blood Count 8.5 x10^3/uL (4.0-11.0) 7.0 x10^3/uL (4.0-11.0) Red Blood Count 3.00 x10^6/uL (3.50-5.40) 2.75 x10^6/uL (3.50-5.40) Hemoglobin 9.9 g/dL (12.0-15.5) 9.0 g/dL (12.0-15.5) Hematocrit 28.6 % (36.0-47.0) 26.2 % (36.0-47.0) Mean Corpuscular Volume 95 fL (79-100) 95 fL (79-100) Mean Corpuscular Hemoglobin 33 pg (25-35) 33 pg (25-35) Mean Corpuscular Hemoglobin Concent 35 g/dL (31-37) 34 g/dL (31-37) Red Cell Distribution Width 13.9 % (11.5-14.5) 13.6 % (11.5-14.5) Platelet Count 494 x10^3/uL (140-400) 467 x10^3/uL (140-400) Neutrophils (%) (Auto) 63 % (31-73) 55 % (31-73) Lymphocytes (%) (Auto) 22 % (24-48) 29 % (24-48) Monocytes (%) (Auto) 13 % (0-9) 13 % (0-9) Eosinophils (%) (Auto) 2 % (0-3) 2 % (0-3) Basophils (%) (Auto) 1 % (0-3) 0 % (0-3) Neutrophils # (Auto) 5.4 x10^3uL (1.8-7.7) 3.9 x10^3uL (1.8-7.7) Lymphocytes # (Auto) 1.8 x10^3/uL (1.0-4.8) 2.0 x10^3/uL (1.0-4.8) Monocytes # (Auto) 1.1 x10^3/uL (0.0-1.1) 0.9 x10^3/uL (0.0-1.1) Eosinophils # (Auto) 0.1 x10^3/uL (0.0-0.7) 0.2 x10^3/uL (0.0-0.7) Basophils # (Auto) 0.0 x10^3/uL (0.0-0.2) 0.0 x10^3/uL (0.0-0.2) Sodium Level 139 mmol/L (136-145) 141 mmol/L (136-145) Potassium Level 3.7 mmol/L (3.5-5.1) 3.6 mmol/L (3.5-5.1) Chloride Level 103 mmol/L (98-107) 106 mmol/L (98-107) Carbon Dioxide Level 28 mmol/L (21-32) 27 mmol/L (21-32) Anion Gap 8 (6-14) 8 (6-14) Blood Urea Nitrogen 3 mg/dL (7-20) 3 mg/dL (7-20) Creatinine 1.0 mg/dL (0.6-1.0) 0.9 mg/dL (0.6-1.0) Estimated GFR (Cockcroft-Gault) 77.7 87.8 Glucose Level 124 mg/dL (70-99) 100 mg/dL (70-99) Calcium Level 8.6 mg/dL (8.5-10.1) 8.7 mg/dL (8.5-10.1) Laboratory Tests Test 04/01/18 12:27 04/02/18 04:00 White Blood Count 8.5 x10^3/uL (4.0-11.0) 7.0 x10^3/uL (4.0-11.0) Red Blood Count 3.00 x10^6/uL (3.50-5.40) 2.75 x10^6/uL (3.50-5.40) Hemoglobin 9.9 g/dL (12.0-15.5) 9.0 g/dL (12.0-15.5) Hematocrit 28.6 % (36.0-47.0) 26.2 % (36.0-47.0) Mean Corpuscular Volume 95 fL (79-100) 95 fL (79-100) Mean Corpuscular Hemoglobin 33 pg (25-35) 33 pg (25-35) Mean Corpuscular Hemoglobin Concent 35 g/dL (31-37) 34 g/dL (31-37) Red Cell Distribution Width 13.9 % (11.5-14.5) 13.6 % (11.5-14.5) Platelet Count 494 x10^3/uL (140-400) 467 x10^3/uL (140-400) Neutrophils (%) (Auto) 63 % (31-73) 55 % (31-73) Lymphocytes (%) (Auto) 22 % (24-48) 29 % (24-48) Monocytes (%) (Auto) 13 % (0-9) 13 % (0-9) Eosinophils (%) (Auto) 2 % (0-3) 2 % (0-3) Basophils (%) (Auto) 1 % (0-3) 0 % (0-3) Neutrophils # (Auto) 5.4 x10^3uL (1.8-7.7) 3.9 x10^3uL (1.8-7.7) Lymphocytes # (Auto) 1.8 x10^3/uL (1.0-4.8) 2.0 x10^3/uL (1.0-4.8) Monocytes # (Auto) 1.1 x10^3/uL (0.0-1.1) 0.9 x10^3/uL (0.0-1.1) Eosinophils # (Auto) 0.1 x10^3/uL (0.0-0.7) 0.2 x10^3/uL (0.0-0.7) Basophils # (Auto) 0.0 x10^3/uL (0.0-0.2) 0.0 x10^3/uL (0.0-0.2) Sodium Level 139 mmol/L (136-145) 141 mmol/L (136-145) Potassium Level 3.7 mmol/L (3.5-5.1) 3.6 mmol/L (3.5-5.1) Chloride Level 103 mmol/L (98-107) 106 mmol/L (98-107) Carbon Dioxide Level 28 mmol/L (21-32) 27 mmol/L (21-32) Anion Gap 8 (6-14) 8 (6-14) Blood Urea Nitrogen 3 mg/dL (7-20) 3 mg/dL (7-20) Creatinine 1.0 mg/dL (0.6-1.0) 0.9 mg/dL (0.6-1.0) Estimated GFR (Cockcroft-Gault) 77.7 87.8 Glucose Level 124 mg/dL (70-99) 100 mg/dL (70-99) Calcium Level 8.6 mg/dL (8.5-10.1) 8.7 mg/dL (8.5-10.1) Problem List Problems Medical Problems: (1) Abdominal pain Status: Acute Assessment/Plan no new surgical recs dc when ok with other providers ENEIDA TSAI APRN Apr 02, 2018 10:08
[2018-04-02 11:00] VITALS: BP 136/87
--- NOTE | 2018-04-02 12:51 | PDOC ---
Infectious Disease Note Subjective Subjective Comfortable, enjoying strawberry shortcake Pain controlled Denies N/V/D/F/C/SOA Vital Sign Vital Signs Vital Signs Date Time Temp Pulse Resp B/P (MAP) Pulse Ox O2 Delivery O2 Flow Rate FiO2 04/02/18 11:14 Room Air 04/02/18 11:00 98.6 100 16 136/87 (103) 97 98.6 Physical Exam PHYSICAL EXAM GENERAL: Sitting in the chair, alert, smiling LUNGS: Clear HEART: S1 and S2 ABDOMEN: Soft, mild tenderness. BS active, BLAYNE drain out. dressings intact. EXTREMITIES: No gross edema or cyanosis. SKIN: Warm without rash. NEUROLOGIC: Alert and oriented times 3. PIV Labs Lab Laboratory Tests Test 04/02/18 04:00 White Blood Count 7.0 x10^3/uL (4.0-11.0) Red Blood Count 2.75 x10^6/uL (3.50-5.40) Hemoglobin 9.0 g/dL (12.0-15.5) Hematocrit 26.2 % (36.0-47.0) Mean Corpuscular Volume 95 fL (79-100) Mean Corpuscular Hemoglobin 33 pg (25-35) Mean Corpuscular Hemoglobin Concent 34 g/dL (31-37) Red Cell Distribution Width 13.6 % (11.5-14.5) Platelet Count 467 x10^3/uL (140-400) Neutrophils (%) (Auto) 55 % (31-73) Lymphocytes (%) (Auto) 29 % (24-48) Monocytes (%) (Auto) 13 % (0-9) Eosinophils (%) (Auto) 2 % (0-3) Basophils (%) (Auto) 0 % (0-3) Neutrophils # (Auto) 3.9 x10^3uL (1.8-7.7) Lymphocytes # (Auto) 2.0 x10^3/uL (1.0-4.8) Monocytes # (Auto) 0.9 x10^3/uL (0.0-1.1) Eosinophils # (Auto) 0.2 x10^3/uL (0.0-0.7) Basophils # (Auto) 0.0 x10^3/uL (0.0-0.2) Sodium Level 141 mmol/L (136-145) Potassium Level 3.6 mmol/L (3.5-5.1) Chloride Level 106 mmol/L (98-107) Carbon Dioxide Level 27 mmol/L (21-32) Anion Gap 8 (6-14) Blood Urea Nitrogen 3 mg/dL (7-20) Creatinine 0.9 mg/dL (0.6-1.0) Estimated GFR (Cockcroft-Gault) 87.8 Glucose Level 100 mg/dL (70-99) Calcium Level 8.7 mg/dL (8.5-10.1) Objective Assessment Peritonitis with intra-abdominal abscesses, tubo ovarian and appendicitis s/p surgery 03/28. cultures no growth Leukocytosis - improved Ileus vs partial SBO Small right pneumothorax - resolving E. coli in urine POA Plan Plan of Care JUAN Wiggins (03/23). start augmentin for 10 days Monitor labs/temp PT/OT as tolerated D/w mother Patient seen and examined. Chart reviewed in detail. Case discussed with TABLE MAKER. Agree with above A/P SCOT VILLAGRAN APRN Apr 02, 2018 12:51 SCOTTY ERVIN MD Apr 02, 2018 14:26
--- NOTE | 2018-04-02 13:35 | PDOC ---
PROGRESS NOTES Chief Complaint Chief Complaint abd pain with abd fluid collection on CT s/p open laparotomy with left salpingo-oophorectomy and appendectomy 03/28 Abdominal/pelvic pain - resolving Abdominal mass Small R pneumothorax Leukocytosis HTN plan: fu with sx, ob, id on zosyn, cx neg dc ivf, encourage eat and ambulate path pending dc soon when change to po abx add dvt ppx History of Present Illness History of Present Illness Pt seen and examined while sitting upright in bed Pt appeared, and stated, that she was very tired and ready to go home Discussed w/surg - no concerns pain 09/12, has BM, flatus . low po intake , but said it was her baseline Vitals Vitals Vital Signs Date Time Temp Pulse Resp B/P (MAP) Pulse Ox O2 Delivery O2 Flow Rate FiO2 04/02/18 11:14 Room Air 04/02/18 11:00 98.6 100 16 136/87 (103) 97 98.6 Physical Exam Physical Exam GENERAL: Sitting in the chair, alert, smiling LUNGS: Clear HEART: S1 and S2 ABDOMEN: Soft, mild tenderness. BS active, BLAYNE drain out. dressings intact. EXTREMITIES: No gross edema or cyanosis. SKIN: Warm without rash. NEUROLOGIC: Alert and oriented times 3. PIV General: Alert, Oriented X3, Cooperative, No acute distress Heart: Regular rate, No murmurs Lungs: Clear Abdomen: Soft Extremities: No cyanosis, Other (B/l LE edema) Skin: No rashes, No breakdown, No significant lesion Labs LABS Laboratory Tests Test 04/02/18 04:00 White Blood Count 7.0 x10^3/uL (4.0-11.0) Red Blood Count 2.75 x10^6/uL (3.50-5.40) Hemoglobin 9.0 g/dL (12.0-15.5) Hematocrit 26.2 % (36.0-47.0) Mean Corpuscular Volume 95 fL (79-100) Mean Corpuscular Hemoglobin 33 pg (25-35) Mean Corpuscular Hemoglobin Concent 34 g/dL (31-37) Red Cell Distribution Width 13.6 % (11.5-14.5) Platelet Count 467 x10^3/uL (140-400) Neutrophils (%) (Auto) 55 % (31-73) Lymphocytes (%) (Auto) 29 % (24-48) Monocytes (%) (Auto) 13 % (0-9) Eosinophils (%) (Auto) 2 % (0-3) Basophils (%) (Auto) 0 % (0-3) Neutrophils # (Auto) 3.9 x10^3uL (1.8-7.7) Lymphocytes # (Auto) 2.0 x10^3/uL (1.0-4.8) Monocytes # (Auto) 0.9 x10^3/uL (0.0-1.1) Eosinophils # (Auto) 0.2 x10^3/uL (0.0-0.7) Basophils # (Auto) 0.0 x10^3/uL (0.0-0.2) Sodium Level 141 mmol/L (136-145) Potassium Level 3.6 mmol/L (3.5-5.1) Chloride Level 106 mmol/L (98-107) Carbon Dioxide Level 27 mmol/L (21-32) Anion Gap 8 (6-14) Blood Urea Nitrogen 3 mg/dL (7-20) Creatinine 0.9 mg/dL (0.6-1.0) Estimated GFR (Cockcroft-Gault) 87.8 Glucose Level 100 mg/dL (70-99) Calcium Level 8.7 mg/dL (8.5-10.1) Assessment and Plan Assessmemt and Plan Problems Medical Problems: (1) Abdominal pain Status: Acute Comment Review of Relevant I have reviewed the following items lo (where applicable) has been applied. Labs Laboratory Tests Test 04/01/18 12:27 04/02/18 04:00 White Blood Count 8.5 x10^3/uL (4.0-11.0) 7.0 x10^3/uL (4.0-11.0) Red Blood Count 3.00 x10^6/uL (3.50-5.40) 2.75 x10^6/uL (3.50-5.40) Hemoglobin 9.9 g/dL (12.0-15.5) 9.0 g/dL (12.0-15.5) Hematocrit 28.6 % (36.0-47.0) 26.2 % (36.0-47.0) Mean Corpuscular Volume 95 fL (79-100) 95 fL (79-100) Mean Corpuscular Hemoglobin 33 pg (25-35) 33 pg (25-35) Mean Corpuscular Hemoglobin Concent 35 g/dL (31-37) 34 g/dL (31-37) Red Cell Distribution Width 13.9 % (11.5-14.5) 13.6 % (11.5-14.5) Platelet Count 494 x10^3/uL (140-400) 467 x10^3/uL (140-400) Neutrophils (%) (Auto) 63 % (31-73) 55 % (31-73) Lymphocytes (%) (Auto) 22 % (24-48) 29 % (24-48) Monocytes (%) (Auto) 13 % (0-9) 13 % (0-9) Eosinophils (%) (Auto) 2 % (0-3) 2 % (0-3) Basophils (%) (Auto) 1 % (0-3) 0 % (0-3) Neutrophils # (Auto) 5.4 x10^3uL (1.8-7.7) 3.9 x10^3uL (1.8-7.7) Lymphocytes # (Auto) 1.8 x10^3/uL (1.0-4.8) 2.0 x10^3/uL (1.0-4.8) Monocytes # (Auto) 1.1 x10^3/uL (0.0-1.1) 0.9 x10^3/uL (0.0-1.1) Eosinophils # (Auto) 0.1 x10^3/uL (0.0-0.7) 0.2 x10^3/uL (0.0-0.7) Basophils # (Auto) 0.0 x10^3/uL (0.0-0.2) 0.0 x10^3/uL (0.0-0.2) Sodium Level 139 mmol/L (136-145) 141 mmol/L (136-145) Potassium Level 3.7 mmol/L (3.5-5.1) 3.6 mmol/L (3.5-5.1) Chloride Level 103 mmol/L (98-107) 106 mmol/L (98-107) Carbon Dioxide Level 28 mmol/L (21-32) 27 mmol/L (21-32) Anion Gap 8 (6-14) 8 (6-14) Blood Urea Nitrogen 3 mg/dL (7-20) 3 mg/dL (7-20) Creatinine 1.0 mg/dL (0.6-1.0) 0.9 mg/dL (0.6-1.0) Estimated GFR (Cockcroft-Gault) 77.7 87.8 Glucose Level 124 mg/dL (70-99) 100 mg/dL (70-99) Calcium Level 8.6 mg/dL (8.5-10.1) 8.7 mg/dL (8.5-10.1) Laboratory Tests Test 04/02/18 04:00 White Blood Count 7.0 x10^3/uL (4.0-11.0) Red Blood Count 2.75 x10^6/uL (3.50-5.40) Hemoglobin 9.0 g/dL (12.0-15.5) Hematocrit 26.2 % (36.0-47.0) Mean Corpuscular Volume 95 fL (79-100) Mean Corpuscular Hemoglobin 33 pg (25-35) Mean Corpuscular Hemoglobin Concent 34 g/dL (31-37) Red Cell Distribution Width 13.6 % (11.5-14.5) Platelet Count 467 x10^3/uL (140-400) Neutrophils (%) (Auto) 55 % (31-73) Lymphocytes (%) (Auto) 29 % (24-48) Monocytes (%) (Auto) 13 % (0-9) Eosinophils (%) (Auto) 2 % (0-3) Basophils (%) (Auto) 0 % (0-3) Neutrophils # (Auto) 3.9 x10^3uL (1.8-7.7) Lymphocytes # (Auto) 2.0 x10^3/uL (1.0-4.8) Monocytes # (Auto) 0.9 x10^3/uL (0.0-1.1) Eosinophils # (Auto) 0.2 x10^3/uL (0.0-0.7) Basophils # (Auto) 0.0 x10^3/uL (0.0-0.2) Sodium Level 141 mmol/L (136-145) Potassium Level 3.6 mmol/L (3.5-5.1) Chloride Level 106 mmol/L (98-107) Carbon Dioxide Level 27 mmol/L (21-32) Anion Gap 8 (6-14) Blood Urea Nitrogen 3 mg/dL (7-20) Creatinine 0.9 mg/dL (0.6-1.0) Estimated GFR (Cockcroft-Gault) 87.8 Glucose Level 100 mg/dL (70-99) Calcium Level 8.7 mg/dL (8.5-10.1) Microbiology 03/23/18 Blood Culture - Final, Complete NO GROWTH AFTER 5 DAYS 03/28/18 Gram Stain - Final, Complete 03/23/18 Urine Culture - Final, Complete 03/23/18 Urine Culture Result 1 (THOM) - Final, Complete 03/23/18 Antimicrobic Susceptibility - Final, Complete Medications Current Medications Fentanyl Citrate (Fentanyl 2ml Vial) 50 mcg PRN Q30MIN PRN IV SEVERE PAIN Last administered on 03/23/18at 14:32; Start 03/23/18 at 11:45; Stop 03/23/18 at 14 :33; Status DC Sodium Chloride 1,000 ml @ 1,000 mls/hr Q1H IV Last administered on at 11:42; Start 03/23/18 at 11:31; Stop 03/23/18 at 12:30; Status DC Ondansetron HCl (Zofran) 4 mg 1X ONCE IV Last administered on 03/23/18at 11:42 ; Start 03/23/18 at 11:45; Stop 03/23/18 at 11:46; Status DC Iohexol (Omnipaque 300 Mg/ml) 75 ml 1X ONCE IV Last administered on at 12:30; Start 03/23/18 at 12:00; Stop 03/23/18 at 12:01; Status DC Info (CONTRAST GIVEN -- Rx MONITORING) 1 each PRN DAILY PRN MC SEE COMMENTS; Start 03/23/18 at 12:00; Stop 03/25/18 at 11:59; Status DC Piperacillin Sod/ Tazobactam Sod (Zosyn Per Pharmacy) 1 each PRN DAILY PRN MC SEE COMMENTS; Start 03/23/18 at 13:30; Status UNV Doxycycline Hyclate 100 mg/ Dextrose 100 ml @ 50 mls/hr 1X ONCE IV Last administered on 03/23/18at 14:32; Start 03/23/18 at 13:30; Stop 03/23/18 at 15 :29; Status DC Piperacillin Sod/ Tazobactam Sod 3.375 gm/Sodium Chloride 50 ml @ 100 mls/hr 1X ONCE IV Last administered on 03/23/18at 13:48; Start 03/23/18 at 13:30; Stop 03/23/18 at 14:02; Status DC Sodium Chloride 1,000 ml @ 1,000 mls/hr 1X ONCE IV ; Start 03/23/18 at 14:30 ; Stop 03/23/18 at 15:29; Status DC Acetaminophen (Tylenol) 650 mg PRN Q6HRS PRN PO FEVER Last administered on at 20:22; Start 03/23/18 at 15:30 Ondansetron HCl (Zofran) 4 mg PRN Q6HRS PRN IV NAUSEA/VOMITING Last administered on 03/29/18at 18:24; Start 03/23/18 at 15:30 Morphine Sulfate (Morphine Sulfate) 2 mg PRN Q2HR PRN IV MODERATE TO SEVERE PAIN; Start 03/23/18 at 15:30; Status UNV Tramadol HCl (Ultram) 50 mg PRN Q6HRS PRN PO MILD PAIN Last administered on at 19:27; Start 03/23/18 at 15:30; Stop 03/30/18 at 14:26; Status DC Docusate Sodium (Colace) 100 mg PRN DAILY PRN PO CONSTIPATION, 3RD CHOICE Last administered on 03/25/18at 20:30; Start 03/23/18 at 15:30 Piperacillin Sod/ Tazobactam Sod 4.5 gm/Sodium Chloride 100 ml @ 200 mls/hr Q6HRS IV Last administered on 04/02/18at 11:42; Start 03/23/18 at 18:00 Piperacillin Sod/ Tazobactam Sod (Zosyn Per Pharmacy) 1 each PRN DAILY PRN MC SEE COMMENTS; Start 03/23/18 at 15:30 Morphine Sulfate (Morphine Sulfate) 2 mg PRN Q2HR PRN IV MILD-MODERATE PAIN Last administered on 03/28/18at 11:22; Start 03/23/18 at 15:30; Stop 03/29/18 at 05:50; Status DC Morphine Sulfate (Morphine Sulfate) 4 mg PRN Q2HR PRN IV SEVERE PAIN Last administered on 03/24/18at 06:01; Start 03/23/18 at 15:30; Stop 03/29/18 at 05 :50; Status DC Potassium Chloride/Dextrose/ Sod Cl 1,000 ml @ 75 mls/hr [id number] IV Last administered on 04/02/18at 11:43; Start 03/23/18 at 15:30; Stop 04/02/18 at 13 :33; Status DC Famotidine (Pepcid Vial) 20 mg QHS IVP Last administered on 04/01/18at 21:36; Start 03/23/18 at 21:00 Heparin Sodium (Porcine) (Heparin Sodium) 5,000 unit Q8HRS SQ Last administered on 03/30/18at 07:01; Start 03/23/18 at 16:00; Stop 03/30/18 at 14 :26; Status DC Vancomycin HCl 1.5 gm/Sodium Chloride 500 ml @ 250 mls/hr Q12H IV ; Start at 17:15; Status UNV Vancomycin HCl (Vanco Per Pharmacy) 1 each PRN DAILY PRN MC SEE COMMENTS Last administered on 03/24/18at 08:35; Start 03/23/18 at 17:15; Stop 03/24/18 at 14 :57; Status DC Vancomycin HCl 1.5 gm/Sodium Chloride 500 ml @ 250 mls/hr 1X ONCE IV Last administered on 03/23/18at 18:03; Start 03/23/18 at 17:30; Stop 03/23/18 at 19 :29; Status DC Influenza Virus Vaccine (Afluria Trivalent [id number] Syringe) 0.5 ml ONCE ONCE VAX IM Last administered on 03/27/18at 08:35; Start 03/27/18 at 09:00; Stop 03/27/18 at 09:01; Status DC Vancomycin HCl 1 gm/Sodium Chloride 250 ml @ 250 mls/hr Q12H IV Last administered on 03/24/18at 05:54; Start 03/24/18 at 06:00; Stop 03/24/18 at 14 :57; Status DC Vancomycin HCl (Vancomycin Trough Level) 1 each 1X ONCE MC ; Start 03/25/18 at 05:30; Stop 03/25/18 at 05:31; Status Cancel Metoprolol Tartrate (Lopressor Vial) 5 mg Q6HRS IVP ; Start 03/23/18 at 21:00; Stop 03/23/18 at 21:55; Status DC Metoprolol Tartrate (Lopressor Vial) 5 mg PRN Q6HRS PRN IVP TACHYCARDIA Last administered on 03/29/18at 21:21; Start 03/23/18 at 22:00 Lactobacillus Rhamnosus (Culturelle) 1 cap BID PO Last administered on at 09:45; Start 03/24/18 at 09:00 Potassium Chloride (Klor-Con) 20 meq BIDBFRMEAL PO Last administered on at 08:49; Start 03/24/18 at 10:00; Stop 03/30/18 at 14:26; Status DC Polyethylene Glycol (miraLAX PACKET) 17 gm DAILY PO Last administered on at 08:30; Start 03/24/18 at 10:30; Stop 03/30/18 at 14:26; Status DC Psyllium Hydrophilic Mucilloid (Metamucil Fiber Packet) 1 pkt DAILY PO Last administered on 03/26/18at 08:30; Start 03/24/18 at 10:30 Lactulose (Lactulose) 20 gm PRN DAILY PRN PO CONSTIPATION, 2ND CHOICE Last administered on 03/24/18at 16:47; Start 03/24/18 at 10:15 Senna/Docusate Sodium (Senna Plus) 2 tab PRN BID PRN PO CONSTIPATION, 1ST CHOICE Last administered on 03/31/18at 08:07; Start 03/24/18 at 10:15 Doxycycline Hyclate (Vibra-Tab) 100 mg BID PO Last administered on 03/27/18at 08:33; Start 03/24/18 at 21:00; Stop 03/27/18 at 09:46; Status DC Phenazopyridine HCl (Pyridium) 200 mg 1X ONCE PO Last administered on at 14:57; Start 03/25/18 at 14:30; Stop 03/25/18 at 14:31; Status DC Acetaminophen/ Hydrocodone Bitart (Lortab 5/325) 1 tab PRN Q4HRS PRN PO MODERATE TO SEVERE PAIN Last administered on 04/02/18at 09:39; Start 03/25/18 at 19:45 Ondansetron HCl (Zofran) 4 mg PRN Q6HRS PRN IV NAUSEA/VOMITING; Start at 07:00; Stop 03/28/18 at 18:00; Status DC Fentanyl Citrate (Fentanyl 2ml Vial) 25 mcg PRN Q5MIN PRN IV MILD PAIN; Start 03/28/18 at 07:00; Stop 03/28/18 at 18:00; Status DC Fentanyl Citrate (Fentanyl 2ml Vial) 50 mcg PRN Q5MIN PRN IV MODERATE TO SEVERE PAIN Last administered on 03/28/18at 16:21; Start 03/28/18 at 07:00; Stop 03/28/18 at 18:00; Status DC Morphine Sulfate (Morphine Sulfate) 1 mg PRN Q10MIN PRN IV SEVERE PAIN; Start 03/28/18 at 07:00; Stop 03/28/18 at 18:00; Status DC Ringer's Solution 1,000 ml @ 30 mls/hr Q24H IV Last administered on at 12:10; Start 03/28/18 at 07:00; Stop 03/28/18 at 18:59; Status DC Lidocaine HCl (Xylocaine-Mpf 1% 2ml Vial) 2 ml PRN 1X PRN ID IV START; Start 03/28/18 at 07:00; Stop 03/28/18 at 18:00; Status DC Hydromorphone HCl (Dilaudid) 0.5 mg PRN Q10MIN PRN IV SEV PAIN, Second choice; Start 03/28/18 at 07:00; Stop 03/28/18 at 18:00; Status DC Prochlorperazine Edisylate (Compazine) 5 mg PACU PRN PRN IV NAUSEA, MRX1; Start 03/28/18 at 07:00; Stop 03/28/18 at 18:00; Status DC Propofol 20 ml @ As Directed STK-MED ONCE IV ; Start 03/28/18 at 13:04; Stop 03/28/18 at 13:05; Status DC Lidocaine HCl (Lidocaine Pf 2% Vial) 5 ml STK-MED ONCE .ROUTE ; Start 03/28/18 at 13:04; Stop 03/28/18 at 13:05; Status DC Rocuronium [place] (Zemuron) 50 mg STK-MED ONCE .ROUTE ; Start 03/28/18 at 13: 04; Stop 03/28/18 at 13:05; Status DC Fentanyl Citrate (Fentanyl 2ml Vial) 100 mcg STK-MED ONCE .ROUTE ; Start at 13:04; Stop 03/28/18 at 13:05; Status DC Midazolam HCl (Versed) 2 mg STK-MED ONCE .ROUTE ; Start 03/28/18 at 13:04; Stop 03/28/18 at 13:05; Status DC Metronidazole 100 ml @ 200 mls/hr 1X ONCE IV Last administered on 03/28/18at 14:23; Start 03/28/18 at 14:30; Stop 03/28/18 at 14:59; Status DC Dexamethasone Sodium Phosphate (Decadron) 20 mg STK-MED ONCE .ROUTE ; Start at 14:48; Stop 03/28/18 at 14:49; Status DC Ondansetron HCl (Zofran) 4 mg STK-MED ONCE .ROUTE ; Start 03/28/18 at 14:48; Stop 03/28/18 at 14:49; Status DC Sevoflurane (Ultane) 60 ml STK-MED ONCE IH ; Start 03/28/18 at 14:48; Stop at 14:49; Status DC Glycopyrrolate (Robinul) 1 mg STK-MED ONCE .ROUTE ; Start 03/28/18 at 14:54; Stop 03/28/18 at 14:55; Status DC Neostigmine Methylsulfate (Neostigmine Methylsulfate) 5 mg STK-MED ONCE .ROUTE ; Start 03/28/18 at 14:55; Stop 03/28/18 at 14:56; Status DC Fentanyl Citrate (Fentanyl 2ml Vial) 100 mcg STK-MED ONCE .ROUTE ; Start at 15:15; Stop 03/28/18 at 15:16; Status DC Calcium Carbonate/ Glycine (Tums) 500 mg PRN Q3HRS PRN PO HEARTBURN / GAS; Start 03/28/18 at 16:00 Simethicone (Gas-X) 80 mg PRN AFTMEALHC PRN PO GAS / BLOATING; Start 03/28/18 at 16:00 Zolpidem Tartrate (Ambien) 5 mg PRN QHS PRN PO INSOMNIA, MAY REPEAT IN 1HR Last administered on 04/01/18at 21:36; Start 03/28/18 at 16:00 Diphenhydramine HCl (Benadryl) 25 mg PRN Q6HRS PRN PO ITCHING; Start 03/28/18 at 16:00 Sodium Chloride (Normal Saline Flush) 3 ml QSHIFT PRN IV AFTER MEDS AND BLOOD DRAWS; Start 03/28/18 at 16:00 Dextrose (Dextrose 50%-Water Syringe) 12.5 gm PRN Q15MIN PRN IV SEE COMMENTS; Start 03/28/18 at 16:00 Ketorolac Tromethamine (Toradol 30mg Vial) 30 mg PRN Q6HRS PRN IV MILD PAIN; Start 03/28/18 at 16:00; Stop 03/30/18 at 14:26; Status DC Ondansetron HCl (Zofran) 4 mg PRN Q6HRS PRN IV NAUESA, 1ST CHOICE; Start 03/28 at 16:00; Status UNV Prochlorperazine Edisylate (Compazine) 5 mg PRN Q6HRS PRN IV N/V, 2nd Choice, MR X1; Start 03/28/18 at 16:00; Status UNV Piperacillin Sod/ Tazobactam Sod 3.375 gm/Sodium Chloride 50 ml @ 100 mls/hr Q6HRS IV ; Start 03/28/18 at 18:00; Status UNV Metronidazole 100 ml @ 100 mls/hr Q12HR IV ; Start 03/28/18 at 21:00; Status UNV Hydromorphone HCl 30 ml @ 0 mls/hr CONT PRN PRN IV PER PROTOCOL Last administered on 03/29/18at 11:06; Start 03/28/18 at 16:00; Stop 03/30/18 at 14 :26; Status DC Fentanyl Citrate (Fentanyl 2ml Vial) 100 mcg STK-MED ONCE .ROUTE ; Start at 16:07; Stop 03/28/18 at 16:08; Status DC Ibuprofen (Motrin) 800 mg PRN Q8HRS PRN PO INFLAMMATION Last administered on at 09:38; Start 03/30/18 at 14:30 Active Scripts Active Reported One Daily For Women Tablet (Folic Acid/Mv,Fe,Other Min) 1 Each Tablet 1 Each PO Vitals/I & O Vital Sign - Last 24 Hours 04/01/18 04/01/18 04/01/18 04/01/18 15:15 17:31 19:00 19:40 Temp 98.5 99.3 98.5 99.3 Pulse 102 90 Resp 16 16 B/P (MAP) 133/86 (102) 153/61 (91) Pulse Ox 98 98 O2 Delivery Room Air Room Air Room Air Room Air 04/01/18 04/01/18 04/01/18 04/02/18 20:22 21:36 23:00 03:00 Temp 98.6 98.1 98.6 98.1 Pulse 106 110 Resp 20 16 16 B/P (MAP) 148/86 (106) 135/82 (99) Pulse Ox 98 98 98 O2 Delivery Room Air Room Air Room Air 04/02/18 04/02/18 04/02/18 04/02/18 03:04 04:04 07:00 09:39 Temp 98.7 98.7 Pulse 102 Resp 20 20 18 B/P (MAP) 138/88 (105) Pulse Ox 97 O2 Delivery Room Air Room Air Room Air 04/02/18 04/02/18 11:00 11:14 Temp 98.6 98.6 Pulse 100 Resp 16 B/P (MAP) 136/87 (103) Pulse Ox 97 O2 Delivery Room Air Room Air Intake and Output 04/01/18 04/01/18 04/02/18 15:00 23:00 07:00 Intake Total 1275 ml Balance 1275 ml Nutrition Consultation Dietary Evaluation: Recommendations by RD: Increase Calorie Intake, Protein supplementation Comments: REC continue Ensure TID Expected Outcomes/Goals: PO intake to meet >75% est needs - met at times, goal ongoing Malnutrition Findings: Food and Nutrition Intake (Mod: <75% est energy req 7days Weight Status: Appropriate VENUS HUDSON MD Apr 02, 2018 13:35
[2018-04-02] MEDS: ENOXAPARIN 40 MG/0.4 ML SYRINGE. SQ SCH (14:12)
[2018-04-02 15:00] VITALS: BP 132/90
--- NOTE | 2018-04-02 16:58 | PDOC ---
SURGICAL PROGRESS NOTE Subjective Pt. feeling well. SHe is ambulating in room and hallway with assistance. She is tolerating regular diet, voiding and bowel movement. Vital Signs Vital Signs Date Time Temp Pulse Resp B/P (MAP) Pulse Ox O2 Delivery O2 Flow Rate FiO2 04/02/18 15:00 98.7 101 16 132/90 (104) 98 Room Air 98.7 I&O Intake and Output 04/02/18 07:00 Intake Total 1275 ml Balance 1275 ml IV Total 900 ml Other 375 ml # Voids 6 # Bowel Movements 4 PATIENT HAS A SONI: No General: Alert, Oriented X3, Cooperative HEENT: Atraumatic Lungs: Clear to auscultation Heart: Regular rate Abdomen: Normal bowel sounds, Soft, No tenderness, No masses, Other (Bandages removed. INcision intact and clean.) Extremities: No edema Psych/Mental Status: Mental status NL Labs Laboratory Tests Test 04/01/18 12:27 04/02/18 04:00 White Blood Count 8.5 x10^3/uL (4.0-11.0) 7.0 x10^3/uL (4.0-11.0) Red Blood Count 3.00 x10^6/uL (3.50-5.40) 2.75 x10^6/uL (3.50-5.40) Hemoglobin 9.9 g/dL (12.0-15.5) 9.0 g/dL (12.0-15.5) Hematocrit 28.6 % (36.0-47.0) 26.2 % (36.0-47.0) Mean Corpuscular Volume 95 fL (79-100) 95 fL (79-100) Mean Corpuscular Hemoglobin 33 pg (25-35) 33 pg (25-35) Mean Corpuscular Hemoglobin Concent 35 g/dL (31-37) 34 g/dL (31-37) Red Cell Distribution Width 13.9 % (11.5-14.5) 13.6 % (11.5-14.5) Platelet Count 494 x10^3/uL (140-400) 467 x10^3/uL (140-400) Neutrophils (%) (Auto) 63 % (31-73) 55 % (31-73) Lymphocytes (%) (Auto) 22 % (24-48) 29 % (24-48) Monocytes (%) (Auto) 13 % (0-9) 13 % (0-9) Eosinophils (%) (Auto) 2 % (0-3) 2 % (0-3) Basophils (%) (Auto) 1 % (0-3) 0 % (0-3) Neutrophils # (Auto) 5.4 x10^3uL (1.8-7.7) 3.9 x10^3uL (1.8-7.7) Lymphocytes # (Auto) 1.8 x10^3/uL (1.0-4.8) 2.0 x10^3/uL (1.0-4.8) Monocytes # (Auto) 1.1 x10^3/uL (0.0-1.1) 0.9 x10^3/uL (0.0-1.1) Eosinophils # (Auto) 0.1 x10^3/uL (0.0-0.7) 0.2 x10^3/uL (0.0-0.7) Basophils # (Auto) 0.0 x10^3/uL (0.0-0.2) 0.0 x10^3/uL (0.0-0.2) Sodium Level 139 mmol/L (136-145) 141 mmol/L (136-145) Potassium Level 3.7 mmol/L (3.5-5.1) 3.6 mmol/L (3.5-5.1) Chloride Level 103 mmol/L (98-107) 106 mmol/L (98-107) Carbon Dioxide Level 28 mmol/L (21-32) 27 mmol/L (21-32) Anion Gap 8 (6-14) 8 (6-14) Blood Urea Nitrogen 3 mg/dL (7-20) 3 mg/dL (7-20) Creatinine 1.0 mg/dL (0.6-1.0) 0.9 mg/dL (0.6-1.0) Estimated GFR (Cockcroft-Gault) 77.7 87.8 Glucose Level 124 mg/dL (70-99) 100 mg/dL (70-99) Calcium Level 8.6 mg/dL (8.5-10.1) 8.7 mg/dL (8.5-10.1) Laboratory Tests Test 04/02/18 04:00 White Blood Count 7.0 x10^3/uL (4.0-11.0) Red Blood Count 2.75 x10^6/uL (3.50-5.40) Hemoglobin 9.0 g/dL (12.0-15.5) Hematocrit 26.2 % (36.0-47.0) Mean Corpuscular Volume 95 fL (79-100) Mean Corpuscular Hemoglobin 33 pg (25-35) Mean Corpuscular Hemoglobin Concent 34 g/dL (31-37) Red Cell Distribution Width 13.6 % (11.5-14.5) Platelet Count 467 x10^3/uL (140-400) Neutrophils (%) (Auto) 55 % (31-73) Lymphocytes (%) (Auto) 29 % (24-48) Monocytes (%) (Auto) 13 % (0-9) Eosinophils (%) (Auto) 2 % (0-3) Basophils (%) (Auto) 0 % (0-3) Neutrophils # (Auto) 3.9 x10^3uL (1.8-7.7) Lymphocytes # (Auto) 2.0 x10^3/uL (1.0-4.8) Monocytes # (Auto) 0.9 x10^3/uL (0.0-1.1) Eosinophils # (Auto) 0.2 x10^3/uL (0.0-0.7) Basophils # (Auto) 0.0 x10^3/uL (0.0-0.2) Sodium Level 141 mmol/L (136-145) Potassium Level 3.6 mmol/L (3.5-5.1) Chloride Level 106 mmol/L (98-107) Carbon Dioxide Level 27 mmol/L (21-32) Anion Gap 8 (6-14) Blood Urea Nitrogen 3 mg/dL (7-20) Creatinine 0.9 mg/dL (0.6-1.0) Estimated GFR (Cockcroft-Gault) 87.8 Glucose Level 100 mg/dL (70-99) Calcium Level 8.7 mg/dL (8.5-10.1) Problem List Problems Medical Problems: (1) Abdominal pain Status: Acute Assessment/Plan A: POD#5 s/p Exp Lap for LSO and Appendectomy P: Continue current care. Anticipate d/c home tomorrow. CHARLES MURPHY Jr, MD Apr 02, 2018 16:58
[2018-04-02 19:00] VITALS: BP 138/90
[2018-04-02] MEDS: ZOLPIDEM 5 MG TABLET. PO PRN (22:22)
[2018-04-02] MEDS: AMOXICILLIN/K CLAV 875/125MG TABLET. PO SCH (22:22)
[2018-04-02 23:00] VITALS: BP 147/94
[2018-04-03 03:00] VITALS: BP 135/87
[2018-04-03 05:17] LABS: BASO # 0.1 x10^3/uL (0.0-0.2); BASO % 1 % (0-3); EOS # 0.2 x10^3/uL (0.0-0.7); EOS % 2 % (0-3); HEMATOCRIT 27.4 % (36.0-47.0); HEMOGLOBIN 9.6 g/dL (12.0-15.5); LYMPH # 2.2 x10^3/uL (1.0-4.8); LYMPH % 27 % (24-48); MEAN CORPUSCULAR HEMOGLOBIN 33 pg (25-35); MEAN CORPUSCULAR HGB CONC 35 g/dL (31-37); MEAN CORPUSCULAR VOLUME 95 fL (79-100); MONO # 0.9 x10^3/uL (0.0-1.1); MONO % 11 % (0-9); NEUT # 4.9 x10^3uL (1.8-7.7); NEUT % 59 % (31-73); PLATELET COUNT 521 x10^3/uL (140-400); RED BLOOD COUNT 2.89 x10^6/uL (3.50-5.40); RED CELL DISTRIBUTION WIDTH 13.8 % (11.5-14.5); WHITE BLOOD COUNT 8.2 x10^3/uL (4.0-11.0)
[2018-04-03 06:09] LABS: CREATININE 0.8 mg/dL (0.6-1.0); GFR 100.6; POTASSIUM 3.4 mmol/L (3.5-5.1)
[2018-04-03 07:00] VITALS: BP 140/99
[2018-04-03] MEDS ORDERED: POTASSIUM CHLORIDE 20 MEQ TABLET.ER. PO ONE (08:00)
[2018-04-03] MEDS: LACTOBACILLUS RHAMNOSUS GG 1 CAPSULE. PO SCH (08:19)
[2018-04-03] MEDS: AMOXICILLIN/K CLAV 875/125MG TABLET. PO SCH (08:19)
[2018-04-03] MEDS: HYDROcodone/APAP 5/325MG 1 TAB TABLET PO PRN ×2 (08:20→12:53)
[2018-04-03] MEDS: PSYLLIUM HUSK (SUGAR FREE) 1 PKT PACKET PO SCH (08:24)
[2018-04-03] MEDS ORDERED: AMOX1TAB11 PO (09:07)
[2018-04-03] MEDS ORDERED: HYDR-2758 PO (09:07)
[2018-04-03 12:00] VITALS: BP 136/93
--- NOTE | 2018-04-03 12:02 | PDOC ---
SURGICAL PROGRESS NOTE Subjective Pt. feeling well. She is tolerating regular diet, ambulating better on her own and voiding without difficulty. Pain well controlled. Vital Signs Vital Signs Date Time Temp Pulse Resp B/P (MAP) Pulse Ox O2 Delivery O2 Flow Rate FiO2 04/03/18 09:20 16 Room Air 04/03/18 07:00 98.4 112 140/99 (113) 100 98.4 I&O Intake and Output 04/03/18 07:00 Output Total 1100 ml Balance -1100 ml Output Urine Total 1100 ml PATIENT HAS A SONI: No General: Alert, Oriented X3, Cooperative HEENT: Atraumatic Lungs: Clear to auscultation Heart: Regular rate Abdomen: Normal bowel sounds, Soft, No tenderness, No masses, Other (INcision intact with radha. Radha will be removed in clinic this week.) Extremities: No edema Neuro: Normal gait Psych/Mental Status: Mental status NL Labs Laboratory Tests Test 04/01/18 12:27 04/02/18 04:00 04/03/18 03:20 04/03/18 03:25 White Blood Count 8.5 x10^3/uL (4.0-11.0) 7.0 x10^3/uL (4.0-11.0) 8.2 x10^3/uL (4.0-11.0) Red Blood Count 3.00 x10^6/uL (3.50-5.40) 2.75 x10^6/uL (3.50-5.40) 2.89 x10^6/uL (3.50-5.40) Hemoglobin 9.9 g/dL (12.0-15.5) 9.0 g/dL (12.0-15.5) 9.6 g/dL (12.0-15.5) Hematocrit 28.6 % (36.0-47.0) 26.2 % (36.0-47.0) 27.4 % (36.0-47.0) Mean Corpuscular Volume 95 fL (79-100) 95 fL (79-100) 95 fL (79-100) Mean Corpuscular Hemoglobin 33 pg (25-35) 33 pg (25-35) 33 pg (25-35) Mean Corpuscular Hemoglobin Concent 35 g/dL (31-37) 34 g/dL (31-37) 35 g/dL (31-37) Red Cell Distribution Width 13.9 % (11.5-14.5) 13.6 % (11.5-14.5) 13.8 % (11.5-14.5) Platelet Count 494 x10^3/uL (140-400) 467 x10^3/uL (140-400) 521 x10^3/uL (140-400) Neutrophils (%) (Auto) 63 % (31-73) 55 % (31-73) 59 % (31-73) Lymphocytes (%) (Auto) 22 % (24-48) 29 % (24-48) 27 % (24-48) Monocytes (%) (Auto) 13 % (0-9) 13 % (0-9) 11 % (0-9) Eosinophils (%) (Auto) 2 % (0-3) 2 % (0-3) 2 % (0-3) Basophils (%) (Auto) 1 % (0-3) 0 % (0-3) 1 % (0-3) Neutrophils # (Auto) 5.4 x10^3uL (1.8-7.7) 3.9 x10^3uL (1.8-7.7) 4.9 x10^3uL (1.8-7.7) Lymphocytes # (Auto) 1.8 x10^3/uL (1.0-4.8) 2.0 x10^3/uL (1.0-4.8) 2.2 x10^3/uL (1.0-4.8) Monocytes # (Auto) 1.1 x10^3/uL (0.0-1.1) 0.9 x10^3/uL (0.0-1.1) 0.9 x10^3/uL (0.0-1.1) Eosinophils # (Auto) 0.1 x10^3/uL (0.0-0.7) 0.2 x10^3/uL (0.0-0.7) 0.2 x10^3/uL (0.0-0.7) Basophils # (Auto) 0.0 x10^3/uL (0.0-0.2) 0.0 x10^3/uL (0.0-0.2) 0.1 x10^3/uL (0.0-0.2) Sodium Level 139 mmol/L (136-145) 141 mmol/L (136-145) 139 mmol/L (136-145) Potassium Level 3.7 mmol/L (3.5-5.1) 3.6 mmol/L (3.5-5.1) 3.4 mmol/L (3.5-5.1) Chloride Level 103 mmol/L (98-107) 106 mmol/L (98-107) 102 mmol/L (98-107) Carbon Dioxide Level 28 mmol/L (21-32) 27 mmol/L (21-32) 27 mmol/L (21-32) Anion Gap 8 (6-14) 8 (6-14) 10 (6-14) Blood Urea Nitrogen 3 mg/dL (7-20) 3 mg/dL (7-20) 4 mg/dL (7-20) Creatinine 1.0 mg/dL (0.6-1.0) 0.9 mg/dL (0.6-1.0) 0.8 mg/dL (0.6-1.0) Estimated GFR (Cockcroft-Gault) 77.7 87.8 100.6 Glucose Level 124 mg/dL (70-99) 100 mg/dL (70-99) 74 mg/dL (70-99) Calcium Level 8.6 mg/dL (8.5-10.1) 8.7 mg/dL (8.5-10.1) 9.0 mg/dL (8.5-10.1) Laboratory Tests Test 04/03/18 03:20 04/03/18 03:25 Sodium Level 139 mmol/L (136-145) Potassium Level 3.4 mmol/L (3.5-5.1) Chloride Level 102 mmol/L (98-107) Carbon Dioxide Level 27 mmol/L (21-32) Anion Gap 10 (6-14) Blood Urea Nitrogen 4 mg/dL (7-20) Creatinine 0.8 mg/dL (0.6-1.0) Estimated GFR (Cockcroft-Gault) 100.6 Glucose Level 74 mg/dL (70-99) Calcium Level 9.0 mg/dL (8.5-10.1) White Blood Count 8.2 x10^3/uL (4.0-11.0) Red Blood Count 2.89 x10^6/uL (3.50-5.40) Hemoglobin 9.6 g/dL (12.0-15.5) Hematocrit 27.4 % (36.0-47.0) Mean Corpuscular Volume 95 fL (79-100) Mean Corpuscular Hemoglobin 33 pg (25-35) Mean Corpuscular Hemoglobin Concent 35 g/dL (31-37) Red Cell Distribution Width 13.8 % (11.5-14.5) Platelet Count 521 x10^3/uL (140-400) Neutrophils (%) (Auto) 59 % (31-73) Lymphocytes (%) (Auto) 27 % (24-48) Monocytes (%) (Auto) 11 % (0-9) Eosinophils (%) (Auto) 2 % (0-3) Basophils (%) (Auto) 1 % (0-3) Neutrophils # (Auto) 4.9 x10^3uL (1.8-7.7) Lymphocytes # (Auto) 2.2 x10^3/uL (1.0-4.8) Monocytes # (Auto) 0.9 x10^3/uL (0.0-1.1) Eosinophils # (Auto) 0.2 x10^3/uL (0.0-0.7) Basophils # (Auto) 0.1 x10^3/uL (0.0-0.2) Problem List Problems Medical Problems: (1) Abdominal pain Status: Acute Assessment/Plan A: POD# 6 s/p Exp Lap LSO and Appendectomy P: D/c home. F/u in on for staple removal. CHARLES MURPHY Jr, MD Apr 03, 2018 12:02
--- NOTE | 2018-04-03 12:07 | PDOC ---
Infectious Disease Note Subjective: Subjective Comfortable, eating lunch Pain controlled Denies N/V/D/F/C/SOA ROS: ROS Negative except for above. Vital Signs: Vital Signs Vital Signs Date Time Temp Pulse Resp B/P (MAP) Pulse Ox O2 Delivery O2 Flow Rate FiO2 04/03/18 09:20 16 Room Air 04/03/18 07:00 98.4 112 140/99 (113) 100 98.4 Physical Exam: PHYSICAL EXAM GENERAL: Sitting in the chair, alert, smiling LUNGS: Clear HEART: S1 and S2 ABDOMEN: Soft, mild tenderness. BS active, BLAYNE drain out. dressings intact. EXTREMITIES: No gross edema or cyanosis. SKIN: Warm without rash. NEUROLOGIC: Alert and oriented times 3. PIV Medications: Inpatient Meds: Current Medications Medications (Trade) Dose Ordered Sig/Frances Start Time Stop Time Status Last Admin Dose Admin Acetaminophen (Tylenol) 650 mg PRN Q6HRS PRN 03/23/18 15:30 03/26/18 20:22 650 MG Acetaminophen/ Hydrocodone Bitart (Lortab 5/325) 1 tab PRN Q4HRS PRN 03/25/18 19:45 04/03/18 08:20 1 TAB Amoxicillin/ Clavulanate Potassium (Augmentin 875/ 125mg) 1 tab BID 04/02/18 21:00 04/03/18 08:19 1 TAB Calcium Carbonate/ Glycine (Tums) 500 mg PRN Q3HRS PRN 03/28/18 16:00 Dexamethasone Sodium Phosphate (Decadron) 20 mg STK-MED ONCE 03/28/18 14:48 03/28/18 14:49 DC Dextrose (Dextrose 50%-Water Syringe) 12.5 gm PRN Q15MIN PRN 03/28/18 16:00 Diphenhydramine HCl (Benadryl) 25 mg PRN Q6HRS PRN 03/28/18 16:00 Docusate Sodium (Colace) 100 mg PRN DAILY PRN 03/23/18 15:30 03/25/18 20:30 100 MG Doxycycline Hyclate (Vibra-Tab) 100 mg BID 03/24/18 21:00 03/27/18 09:46 DC 03/27/18 08:33 100 MG Doxycycline Hyclate 100 mg/ Dextrose 100 ml @ 50 mls/hr 1X ONCE 03/23/18 13:30 03/23/18 15:29 DC 03/23/18 14:32 50 MLS/HR Enoxaparin Sodium (Lovenox 40mg Syringe) 40 mg Q24H 04/02/18 14:00 04/02/18 14:12 40 MG Famotidine (Pepcid Vial) 20 mg QHS 03/23/18 21:00 04/02/18 13:33 DC 04/01/18 21:36 20 MG Fentanyl Citrate (Fentanyl 2ml Vial) 100 mcg STK-MED ONCE 03/28/18 16:07 03/28/18 16:08 DC Glycopyrrolate (Robinul) 1 mg STK-MED ONCE 03/28/18 14:54 03/28/18 14:55 DC Heparin Sodium (Porcine) (Heparin Sodium) 5,000 unit Q8HRS 03/23/18 16:00 03/30/18 14:26 DC 03/30/18 07:01 5,000 UNIT Hydromorphone HCl 30 ml @ 0 mls/hr CONT PRN PRN 03/28/18 16:00 03/30/18 14:26 DC 03/29/18 11:06 0 MLS/HR Hydromorphone HCl (Dilaudid) 0.5 mg PRN Q10MIN PRN 03/28/18 07:00 03/28/18 18:00 DC Ibuprofen (Motrin) 800 mg PRN Q8HRS PRN 03/30/18 14:30 04/02/18 09:38 800 MG Influenza Virus Vaccine (Afluria Trivalent [id number] Syringe) 0.5 ml ONCE ONCE 03/27/18 09:00 03/27/18 09:01 DC 03/27/18 08:35 0.5 ML Info (CONTRAST GIVEN -- Rx MONITORING) 1 each PRN DAILY PRN 03/23/18 12:00 03/25/18 11:59 DC Iohexol (Omnipaque 300 Mg/ml) 75 ml 1X ONCE 03/23/18 12:00 03/23/18 12:01 DC 03/23/18 12:30 75 ML Ketorolac Tromethamine (Toradol 30mg Vial) 30 mg PRN Q6HRS PRN 03/28/18 16:00 03/30/18 14:26 DC Lactobacillus Rhamnosus (Culturelle) 1 cap BID 03/24/18 09:00 04/03/18 08:19 1 CAP Lactulose (Lactulose) 20 gm PRN DAILY PRN 03/24/18 10:15 03/24/18 16:47 20 GM Lidocaine HCl (Lidocaine Pf 2% Vial) 5 ml STK-MED ONCE 03/28/18 13:04 03/28/18 13:05 DC Lidocaine HCl (Xylocaine-Mpf 1% 2ml Vial) 2 ml PRN 1X PRN 03/28/18 07:00 03/28/18 18:00 DC Metoprolol Tartrate (Lopressor Vial) 5 mg PRN Q6HRS PRN 03/23/18 22:00 03/29/18 21:21 5 MG Metronidazole 100 ml @ 100 mls/hr Q12HR 03/28/18 21:00 UNV Midazolam HCl (Versed) 2 mg STK-MED ONCE 03/28/18 13:04 03/28/18 13:05 DC Morphine Sulfate (Morphine Sulfate) 1 mg PRN Q10MIN PRN 03/28/18 07:00 03/28/18 18:00 DC Neostigmine Methylsulfate (Neostigmine Methylsulfate) 5 mg STK-MED ONCE 03/28/18 14:55 03/28/18 14:56 DC Ondansetron HCl (Zofran) 4 mg PRN Q6HRS PRN 03/28/18 16:00 UNV Phenazopyridine HCl (Pyridium) 200 mg 1X ONCE 03/25/18 14:30 03/25/18 14:31 DC 03/25/18 14:57 200 MG Piperacillin Sod/ Tazobactam Sod (Zosyn Per Pharmacy) 1 each PRN DAILY PRN 03/23/18 15:30 04/02/18 14:29 DC Piperacillin Sod/ Tazobactam Sod 3.375 gm/Sodium Chloride 50 ml @ 100 mls/hr Q6HRS 03/28/18 18:00 UNV Piperacillin Sod/ Tazobactam Sod 4.5 gm/Sodium Chloride 100 ml @ 200 mls/hr Q6HRS 03/23/18 18:00 04/02/18 14:27 DC 04/02/18 11:42 200 MLS/HR Polyethylene Glycol (miraLAX PACKET) 17 gm DAILY 03/24/18 10:30 03/30/18 14:26 DC 03/26/18 08:30 17 GM Potassium Chloride/Dextrose/ Sod Cl 1,000 ml @ 75 mls/hr [id number] 03/23/18 15:30 04/02/18 13:33 DC 04/02/18 11:43 75 MLS/HR Potassium Chloride (Klor-Con) 40 meq 1X ONCE 04/03/18 08:00 04/03/18 08:01 DC 04/03/18 08:19 40 MEQ Prochlorperazine Edisylate (Compazine) 5 mg PRN Q6HRS PRN 03/28/18 16:00 UNV Propofol 20 ml @ As Directed STK-MED ONCE 03/28/18 13:04 03/28/18 13:05 DC Psyllium Hydrophilic Mucilloid (Metamucil Fiber Packet) 1 pkt DAILY 03/24/18 10:30 03/26/18 08:30 1 PKT Ringer's Solution 1,000 ml @ 30 mls/hr Q24H 03/28/18 07:00 03/28/18 18:59 DC 03/28/18 12:10 30 MLS/HR Rocuronium [place] (Zemuron) 50 mg STK-MED ONCE 03/28/18 13:04 03/28/18 13:05 DC Senna/Docusate Sodium (Senna Plus) 2 tab PRN BID PRN 03/24/18 10:15 03/31/18 08:07 2 TAB Sevoflurane (Ultane) 60 ml STK-MED ONCE 03/28/18 14:48 03/28/18 14:49 DC Simethicone (Gas-X) 80 mg PRN AFTMEALHC PRN 03/28/18 16:00 Sodium Chloride (Normal Saline Flush) 3 ml QSHIFT PRN 03/28/18 16:00 Tramadol HCl (Ultram) 50 mg PRN Q6HRS PRN 03/23/18 15:30 03/30/18 14:26 DC 03/25/18 19:27 50 MG Vancomycin HCl (Vanco Per Pharmacy) 1 each PRN DAILY PRN 03/23/18 17:15 03/24/18 14:57 DC 03/24/18 08:35 1 EACH Vancomycin HCl (Vancomycin Trough Level) 1 each 1X ONCE 03/25/18 05:30 03/25/18 05:31 Cancel Vancomycin HCl 1.5 gm/Sodium Chloride 500 ml @ 250 mls/hr 1X ONCE 03/23/18 17:30 03/23/18 19:29 DC 03/23/18 18:03 250 MLS/HR Vancomycin HCl 1 gm/Sodium Chloride 250 ml @ 250 mls/hr Q12H 03/24/18 06:00 03/24/18 14:57 DC 03/24/18 05:54 250 MLS/HR Zolpidem Tartrate (Ambien) 5 mg PRN QHS PRN 03/28/18 16:00 04/02/18 22:22 5 MG Labs: Lab Laboratory Tests Test 04/03/18 03:20 04/03/18 03:25 Sodium Level 139 mmol/L (136-145) Potassium Level 3.4 mmol/L (3.5-5.1) Chloride Level 102 mmol/L (98-107) Carbon Dioxide Level 27 mmol/L (21-32) Anion Gap 10 (6-14) Blood Urea Nitrogen 4 mg/dL (7-20) Creatinine 0.8 mg/dL (0.6-1.0) Estimated GFR (Cockcroft-Gault) 100.6 Glucose Level 74 mg/dL (70-99) Calcium Level 9.0 mg/dL (8.5-10.1) White Blood Count 8.2 x10^3/uL (4.0-11.0) Red Blood Count 2.89 x10^6/uL (3.50-5.40) Hemoglobin 9.6 g/dL (12.0-15.5) Hematocrit 27.4 % (36.0-47.0) Mean Corpuscular Volume 95 fL (79-100) Mean Corpuscular Hemoglobin 33 pg (25-35) Mean Corpuscular Hemoglobin Concent 35 g/dL (31-37) Red Cell Distribution Width 13.8 % (11.5-14.5) Platelet Count 521 x10^3/uL (140-400) Neutrophils (%) (Auto) 59 % (31-73) Lymphocytes (%) (Auto) 27 % (24-48) Monocytes (%) (Auto) 11 % (0-9) Eosinophils (%) (Auto) 2 % (0-3) Basophils (%) (Auto) 1 % (0-3) Neutrophils # (Auto) 4.9 x10^3uL (1.8-7.7) Lymphocytes # (Auto) 2.2 x10^3/uL (1.0-4.8) Monocytes # (Auto) 0.9 x10^3/uL (0.0-1.1) Eosinophils # (Auto) 0.2 x10^3/uL (0.0-0.7) Basophils # (Auto) 0.1 x10^3/uL (0.0-0.2) Objective: Assessment: Peritonitis with intra-abdominal abscesses, tubo ovarian and appendicitis s/p surgery 03/28. cultures no growth Leukocytosis - improved Ileus vs partial SBO Small right pneumothorax - resolving E. coli in urine POA Plan: Plan of Care cont augmentin for 9 more days cont supportive care SCOTTY ERVIN MD Apr 03, 2018 12:07
--- NOTE | 2018-04-03 12:13 | PDOC3 ---
Discharge Summary [facility] Date of Admission: Mar 23, 2018 Discharge Date: Apr 03, 2018 Admitting Diagnosis abd pain with abd fluid collection on CT s/p open laparotomy with left salpingo-oophorectomy and appendectomy 03/28 Abdominal/pelvic pain - resolving Small R pneumothorax spontaneous Leukocytosis HTN Final Diagnosis CONSULTS sx pulm ob Brief Hospital Course 32-year-old female presenting with periumbilical abdominal pain fro 2 weeks, and N/V for 4ds. Pt was pretty healthy, no PMH. Pt started to have diffuse abd pain 2 weeks ago, constant, move and changing positions makes it worse. The pain is dull, 5/10, no radiation. worse for 4ds. She also has N/V 3 times on Monday, non bloody or brad. has severe abd distention. denies fever, has chills, no cough, has mild sob on Monday. no chest pain. had one time diarrhea yesterday, yellow. She had x-rays performed in clinic which showed possible small bowel obstruction. CT showed abd has Two large rim-enhancing fluid collections in the pelvis, suspicious for abscess. The exact source is uncertain, although ruptured appendicitis or tubo-ovarian abscess would be the most likely considerations. and small rt pneumothorax. pt got iv abx, then s/p open laparotomy with left salpingo-oophorectomy and appendectomy on 03/28. pt has mild abd pain now, had BM, flatus, eats ok. stable to dc home, fu with ob in 2 ds to remove the radha. dc home with augmentin x10ds as per id, cx from sx neg. dc time 35min. asked pt to avoid lifting heavy objects for 1 month. GENERAL: Sitting in the chair, alert, smiling LUNGS: Clear HEART: S1 and S2 ABDOMEN: Soft, mild tenderness. BS active, BLAYNE drain out. clean sx wound with radha. EXTREMITIES: No gross edema or cyanosis. SKIN: Warm without rash. NEUROLOGIC: Alert and oriented times 3. Disposition home CONDITION AT DISCHARGE: Improved Scheduled Amoxicillin/Potassium Clav (Amox Tr-K Clv 875-125 Mg Tab), 1 TAB PO BID Scheduled PRN Hydrocodone Bit/Acetaminophen (Hydrocodone-Apap 5-325 ), 1 TAB PO PRN Q4HRS PRN for MODERATE TO SEVERE PAIN Miscellaneous Medications Folic Acid/Mv,Fe,Other Min (One Daily For Women Tablet), 1 EACH PO, (Reported) VENUS HUDSON MD Apr 03, 2018 12:13
[2018-04-03] MEDS: ENOXAPARIN 40 MG/0.4 ML SYRINGE. SQ SCH (14:00)
--- NOTE | 2018-04-04 09:10 | PATHOLOGY ---
[facility] Accession Number: [id number] . 01 Material submitted: . PART A: LEFT OVARY,LEFT TUBE,LEFT OVARIAN,CYST WALL,LEFT TUBAL OVARIAN ABSC PART B: APPENDIX . 01 Clinical history: . Abdominal/pelvic abscesses . 02 Diagnosis: A. Segments of fallopian tube and ovary, left salpingo-oophorectomy: - Acute and chronic salpingitis with tubo-ovarian abscesses and serosal exudate. - Paratubal endometriosis and scarring, focal. . B. 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 - Appendiceal diverticuli. - Focal serosal adhesions and serosal exudate of appendix. . (JPM:arsenio; 04/03/2018) MBR/04/04/2018 . 02 Comment: There is no evidence of malignancy. . (BLAYNEM:arsenio; 04/03/2018) . 02 Electronically signed: . Mahad Ramires MD, Pathologist NPI- [id number] . 01 Gross description: . A. The specimen is received in formalin, labeled "Riana Nelson, left ovary, left tube, left ovarian cyst wall, left tubal ovarian abscess". Received are multiple segments of dusky pink-henriquez soft tissue with overlying exudate measuring 11.9 x 9.6 x 3.9 cm in aggregate dimensions. A fimbriated fallopian tube is identified measuring 3.7 cm in length by up to 1.0 cm in diameter. Sectioning through the fallopian tube reveals a pinpoint to patent lumen. Extensive sectioning reveals a slight amount of pale puente, normal ovarian stroma. The specimen is submitted representatively in cassettes A1 through A6, with sections of the fallopian tube submitted in cassette A1. . B. The specimen is received in formalin, labeled "Riana Nelson, appendix". Received is a vermiform appendix measuring 5.2 cm in length by 2.2 cm in diameter. The serosal surface is pink-puente appearance with a large amount of overlying adhesions. The proximal margin is inked black. Sectioning reveals a dilated lumen with multiple cystic-appearing outpouches ranging in size from 0.3 to 0.8 cm. The lumen of the appendix is filled with cloudy mucoid material. The specimen is submitted representatively as follows: . B1 proximal margin B2-B3 entire bisected distal tip B3-B6 additional cross-sections of appendix to show cystic outpouches. (CAA; 04/02/2018) QAC/QAC . 02 Pathologist provided ICD-10: D12.1, K38.2, N80.5, K38.8, N70.01, N70.11 . 02 CPT . 352163, 173686 Specimen Comment: A courtesy copy of this report has been sent to Specimen Comment: [phone], , , . Specimen Comment: Report sent to ,DR VILLA,DR HUDSON / TORI Specimen Comment: A duplicate report has been generated due to demographic updates. Performed at: 01 [facility] [address] [facility] [address], [place] [id number] MD Devon Vargas MD Phone: [phone] Performed at: 02 [facility] [address] [place], [place] [id number] MD Mahad Ramires MD Phone: [phone]
== END 2018-04-03 14:55 | disposition home or self-care (01) | DRG 853 ==
LOC: ER 10:55 → 1 WEST ICU 13:54 → 4 NORTH 03-24 18:36 → 1 WEST ICU 03-28 16:17 → 4 NORTH 03-29 14:20
PROVIDERS: ADMIT Internal Medicine; ATTEND Internal Medicine
PROC: 0UT10ZZ Resection of Left Ovary, Open Approach (ICD-10-PCS; 2018-03-28)
PROC: 0DTJ0ZZ Resection of Appendix, Open Approach (ICD-10-PCS; 2018-03-28)
PROC: 0UT60ZZ Resection of Left Fallopian Tube, Open Approach (ICD-10-PCS; principal; 2018-03-28 13:00)
DX: A41.9 Sepsis, unspecified organism (principal); K35.33 Acute appendicitis with perforation, localized peritonitis, and gangrene, with abscess; E44.1 Mild protein-calorie malnutrition; J90 Pleural effusion, not elsewhere classified; J93.83 Other pneumothorax; K56.7 Ileus, unspecified; N70.93 Salpingitis and oophoritis, unspecified; E87.6 Hypokalemia; I10 Essential (primary) hypertension; B96.20 Unspecified Escherichia coli [E. coli] as the cause of diseases classified elsewhere; N83.202 Unspecified ovarian cyst, left side; Z68.23 Body mass index [BMI] 23.0-23.9, adult; Z79.899 Other long term (current) drug therapy
CPT/HCPCS: 36415; 71045; 74018; 74177; 76830; 76856; 80048; 80053; 81001; 81025; 82565; 83690; 83735; 84703; 85007; 85025; 85610; 86481; 86703; 86850; 86900; 86901; 87040; 87071; 87075; 87086; 87186; 87205; 87491; 87591; 87641; 88304; 88305; 90471; 90756; 96365; 96368; 96375; 96376; J1100; J1170; J1644; J1650; J2001; J2250; J2270; J2405; J2543; J2704; J2710; J3010; J3370; J3490; J7030; J7040; J7050; J7120; Q9967; 97110; 97116; 97530; 97535; 99285-25; Q2035

== ENCOUNTER 2018-11-16 13:13 | Day surgery (SDC) | payer BC ==
[~2018-11-16] VITALS: Ht 165.1 cm; Wt 54.8 kg
[~2018-11-16 13:13] MED LIST: AMOX1TAB11 PO; FOLI1TAB35 PO; HYDR-2761 PO; HYDROmorphone 2 MG/ML VIAL IV PRN; MORPHINE SULFATE 2 MG/ML VIAL. IV PRN; ONDANSETRON PF 4 MG/2 ML VIAL. IV PRN; PROCHLORPERAZINE 10 MG/2 ML VIAL. IV PRN; fentaNYL PF VIAL 100 MCG/2 ML VIAL IV PRN
[2018-11-16] MEDS: IV RINGERS,LACTATED 1000ML 1,000 ML IV SCH (13:38)
[2018-11-16] MEDS ORDERED: SEVOFLURANE 16 TO 30 MINUTES. IH ONE (14:58)
[2018-11-16] MEDS ORDERED: LIDOCAINE 2% PF 5 ML VIAL. ONE (14:58)
[2018-11-16] MEDS ORDERED: PROPOFOL 20 ML IV ONE (14:58)
[2018-11-16] MEDS ORDERED: ONDANSETRON PF 4 MG/2 ML VIAL. ONE (14:58)
[2018-11-16] MEDS ORDERED: DEXAMETHASONE SOD PHOS 4 MG/ML VIAL ONE (14:59)
[2018-11-16] MEDS ORDERED: ceFAZolin 2GM PREMIX 2 GM/50 ML BAG IV ONE (15:00)
--- NOTE | 2018-11-16 17:15 | PDOC ---
BRIEF OPERATIVE NOTE Date: Nov 16, 2018 Pre-Op Diagnosis Endometrial polyp Post-Op Diagnosis Same Procedure Performed Op [facility] Surgeon Dr. Olivas Anesthesia Type: General Blood Loss 10 ml Specimens Obtained endometrial polyps Findings endometrial polyps; possible patent Right fallopian tube ostia Complications none Operative Note see dictation CHARLES OLIVAS Jr, MD Nov 16, 2018 17:15
--- NOTE | 2018-11-16 17:17 | DISCH ---
DISCHARGE INSTRUCTIONS Condition on Discharge Condition on Discharge: Stable Activity After Discharge Activity Instructions for Disc: Activity as tolerated Bathing Instructions: Shower-keep dressing dry Lifting Instructions after Dis: No heavy lifting Exercise Instruction after Dis: Progress as tolerated Driving Instructions after Dis: Do not drive today Weight Bearing Status after Di: As tolerated Diet after Discharge Diet after Discharge: Regular Diet Texture: Regular Liquid Texture: Thin Liquid Wound Incision Care Wound/Incision Care: Ice to area for comfort Contacting the DRNatasha after DC Call your doctor for: Concerns you may have Follow-Up Follow up with: Dr. Olivas in 1 week. CHARLES OLIVAS Jr, MD Nov 16, 2018 17:17
[2018-11-16] MEDS ORDERED: fentaNYL PF VIAL 100 MCG/2 ML VIAL ONE (17:31)
[2018-11-16] MEDS: fentaNYL PF VIAL 100 MCG/2 ML VIAL IV PRN (17:35)
--- NOTE | 2018-11-16 17:49 | OP ---
DATE OF SURGERY: PREOPERATIVE DIAGNOSIS: Endometrial polyp. POSTOPERATIVE DIAGNOSIS: Endometrial polyp. PROCEDURE: Operative hysteroscopy. SURGEON: James Olivas MD ANESTHESIA: GETA. ESTIMATED BLOOD LOSS: 10 mL. COMPLICATIONS: None. FINDINGS: Endometrial polyps, possible patent right fallopian tube ostia. SUMMARY: A 33-year-old female with endometrial polyp requiring an operative hysteroscopy for polypectomy. The patient was counseled on risks, benefits and expectations and voiced a clear understanding to proceed. DESCRIPTION OF PROCEDURE: The patient was taken to surgery suite and placed in dorsal lithotomy position. She was prepped with Betadine solution and draped in a sterile fashion. After adequate anesthesia, weighted speculum and curved Luttrell were placed vaginally. Anterior lip of the cervix was grasped with a single tooth tenaculum. The polyp was protruding about 2 cm past the external cervical os. The TruClear device was slightly difficult to pass the endometrial polyp; however, once inside the uterine cavity, there were multiple polyps that were removed. With the TruClear device, the right fallopian tube ostia was visualized and appeared to be possibly patent. The lower uterine segment and just adjacent to the cervical segment of the uterus, the polyp had a very broad base in which the TruClear device was utilized as well as Metzenbaum scissors to remove the endometrial polyp at its base. Once this was accomplished, the endometrial cavity was much more readily accessible and endometrial cavity was more homogenous and the endometrial lining. The TruClear device was then removed. Single tooth tenaculum, weighted speculum removed. The patient tolerated the procedure well and was taken to recovery room in stable condition. Sponge and needle count correct x 3. JAMES OLIVAS MD DR: AMELIA/floresita JOB#: [id number] / [id number]
[2018-11-16] MEDS ORDERED: OXYC1TAB15 PO (17:59)
[2018-11-16] MEDS: oxyCODONE/APAP 5/325 1 TAB TABLET PO PRN (18:06)
[2018-11-16 18:30] VITALS: BP 131/82
--- NOTE | 2018-11-20 21:06 | PATHOLOGY ---
[facility] Accession Number: [id number] . 01 Material submitted: . endometrium - ENDOMETRIAL POLYPS . 01 Clinical history: . Endometrial polyps . 02 Diagnosis: "Endometrial polyps", removal: - Portions of cervical transformation zone with mild chronic inflammation. - Multiple fragments of secretory phase endometrium. (SKM:qc lab technician; 11/20/2018) MBR/11/20/2018 . 02 Electronically signed: . Jordan Alcantara MD, Pathologist NPI- [id number] . 01 Gross description: . The specimen is received in formalin, labeled "Leslie, Riana, endometrial polyps", is a stockinet bag containing multiple irregular fragments of henriquez to puente soft tissues measuring 1.5 x 1.5 x 0.4 in aggregate, entirely submitted in A1. Also received within the container is a puente brown hemorrhagic tissue and mucus measuring 0.5 x 0.5 x 0.1 cm. Entirely submitted in A2. The specimen is entirely submitted in A1-A2. ([facility]; 11/19/2018) SHS/SHS . 02 Pathologist provided ICD-10: N72 . 02 CPT . 083227 Specimen Comment: A courtesy copy of this report has been sent to Specimen Comment: [phone], . Specimen Comment: Report sent to / DR VILLA Performed at: 01 [facility] [address], [place] [id number] MD Devon Vargas MD Phone: [phone] Performed at: [facility] [address] [place], [place] [id number] MD Mahad Ramires MD Phone: [phone]
== END 2018-11-16 18:45 | disposition home or self-care (01) ==
LOC: SURG 13:13
PROVIDERS: ATTEND Obstetrics & Gynecology
DX: N84.0 Polyp of corpus uteri (principal); Z98.890 Other specified postprocedural states
CPT/HCPCS: 58558; 88305; A7015; J0696; J1100; J2001; J2405; J2704; J3010; J7120

== ENCOUNTER → 2019-04-12 | Outpatient (CLI) | payer BC ==
[~2019-04-12] MED LIST changes: -HYDROmorphone 2 MG/ML VIAL IV PRN; -MORPHINE SULFATE 2 MG/ML VIAL. IV PRN; -ONDANSETRON PF 4 MG/2 ML VIAL. IV PRN; +OXYC1TAB15 PO; -PROCHLORPERAZINE 10 MG/2 ML VIAL. IV PRN; -fentaNYL PF VIAL 100 MCG/2 ML VIAL IV PRN
--- NOTE | 2019-04-12 17:21 | KCIC ---
Transabdominal and transvaginal sonography of the pelvis Clinical indications: Abnormal uterine bleeding. History of tubo-ovarian abscess on the left side in 2018. Had left-sided salpingo-oophorectomy at that time. COMPARISON: March 25, 2018. Transabdominal sonography: Uterus is anteverted in position. Endometrial canal is poorly visualized. Therefore, transvaginal sonography will be performed. The longitudinal AP and transverse dimensions of the uterus are 8.4 cm and 4.1 cm and 5.0 cm respectively. No uterine mass or fibroid is seen. No free fluid is evident. The right ovary is not visualized. Transvaginal sonography: A nabothian cysts of the cervix are seen. The endometrial canal measures 11 mm in thickness and is echogenic consistent with the secretory phase of the menstrual cycle. No hyperemia of the endometrial canal is seen. No uterine mass or fibroid is seen. The right ovary is enlarged measuring up to 6.6 cm in greatest dimension. The right ovary is completely replaced with complex hemorrhagic cyst or cysts. Color Doppler flow is seen within the thin rim of ovarian parenchyma around the cyst. There is a curvilinear structure extending around the right ovary which could represent a dilated tube. This measures 8 mm in caliber. The left ovary is surgically absent. No free fluid is evident. IMPRESSION: Complex cystic lesion of the right ovary which occupies almost the entire right ovary. Color Doppler flow is seen within the thin rim of right ovarian parenchyma around this complex cystic lesion. There is a curvilinear fluid-filled structure extending around the right ovary. Therefore, the findings may represent hydrosalpinx with tubo-ovarian abscess or hydrosalpinx with hemorrhagic cyst of the right ovary or endometrioma. Similar lesion was seen on a previous sonogram of March 25, 2018. An ectopic cannot be excluded. Correlation with a test is recommended. The patient's LMP was March 27, 2019. In addition, ectopic involving an ovary is very rare. Electronically signed by: Nithin Bell MD (04/12/2019 5:18 PM) [facility]
== END | disposition home or self-care (01) ==
LOC: KCIC US 12:05
PROVIDERS: ATTEND Obstetrics & Gynecology
DX: N88.8 Other specified noninflammatory disorders of cervix uteri (principal)
CPT/HCPCS: 76830; 76856

== ENCOUNTER → 2019-06-14 | Outpatient (CLI) | payer BC ==
--- NOTE | 2019-06-18 14:00 | RAD ---
PELVIS W/TV: 06/14/2019 12:30 PM INDICATION: 33 years old Female. Right hydrosalpinx. COMPARISON: US pelvis 04/12/2019. TECHNIQUE: Transabdominal and transvaginal sonographic evaluation of the pelvis was performed. Grayscale, color Doppler and spectral waveform analysis were utilized. FINDINGS: UTERUS: Size: 8.1 x 5.5 x 3.7 cm. Masses: None. Nabothian cysts are identified within the cervix measuring up to 6 mm. Endometrium: 9 mm. No suspicious vascularity is identified. RIGHT OVARY: 4.9 x 3.3 x 2.6 cm. There is a right adnexal cystic lesion measuring 2.9 x 2.1 x 2.5 cm with debris suggestive of a hemorrhagic cyst or endometrioma. No definite mural nodule is visualized. There is an additional cyst with debris or low level internal echoes measuring 2.4 x 2.7 x 2.2 cm. Dilated fallopian tube remains a differential. Perfusion of the right ovary is noted at the time of imaging. LEFT OVARY: Surgically resected FREE FLUID: There is a trace amount of free fluid within the pelvis, physiologic in amount. URINARY BLADDER: Unremarkable. IMPRESSION: Persistent cystic areas within the right adnexa with areas of low level internal echoes. Frontal considerations include endometriomas versus hydrosalpinx (hematosalpinx remains within the differential given low level internal echoes). Further characterization with MRI is recommended. Trace free fluid. Electronically signed by: Rosa Winn MD (06/18/2019 1:57 PM) [id number]
== END | disposition home or self-care (01) ==
LOC: US 12:34
PROVIDERS: ATTEND Obstetrics & Gynecology
DX: N88.8 Other specified noninflammatory disorders of cervix uteri (principal); N70.11 Chronic salpingitis
CPT/HCPCS: 76830; 76856

== ENCOUNTER → 2021-06-15 | Outpatient (CLI) | payer BC ==
--- NOTE | 2021-06-15 16:34 | RAD ---
EXAM: Pelvic sonogram. HISTORY: Abnormal uterine bleeding. TECHNIQUE: Transabdominal and transvaginal sonographic imaging of the pelvis was performed. COMPARISON: None. FINDINGS: The uterus measures 7.8 x 5.3 x 4.4 cm. The endometrial stripe measures 9.3 mm in thickness . The left ovary is surgically absent. The right ovary is normal in size and demonstrate normal blood flow. There is an 8 mm right ovarian follicle. There are nabothian cysts within the cervix. IMPRESSION: 1. Small physiologic right ovarian follicle. 2. Normal endometrial stripe for the premenopausal status of the patient. 3. Surgically absent left ovary. Electronically signed by: Bushra Ratliff MD (06/15/2021 4:32 PM) [id number]
== END ==
LOC: US 15:52
PROVIDERS: ATTEND Obstetrics & Gynecology
DX: N83.01 Follicular cyst of right ovary (principal); N88.8 Other specified noninflammatory disorders of cervix uteri; Z90.721 Acquired absence of ovaries, unilateral
CPT/HCPCS: 76830; 76856